=== PATIENT | male | born 1970 | race Caucasian/White ===

== ENCOUNTER 2016-02-13 21:57 | Inpatient (IN) | payer MEDICAID ==
[~2016-02-13] VITALS: Ht 170.2 cm; Wt 60.0 kg
[~2016-02-13 21:57] MED LIST: OXYC-392 PO; REGL10TA5 PO
[2016-02-13 22:08] VITALS: BP 145/85; PULSE 92; RESP 16; TEMP 98.1; O2SAT 96
[2016-02-14] MEDS ORDERED: SODIUM CHLOR 0.9% 1000 ML INJ 1,000 ML IV SCH ×2 (00:37→01:59)
--- NOTE | 2016-02-14 00:40 | PD ---
HPI Chief Complaint: Abdominal Pain Time Seen by Provider: 00:32 Travel History International Travel<30 days: No Contact w/Intl Traveler<30days: No Traveled to known affect area: No History of Present Illness HPI The patient's 45 years old. He has generalized abdominal pain associated with nausea vomiting and anorexia. Duration has been a few days now. He's had no fever. He has a therapy dog which he states is helpful with pain and anxiety. Any oral intake tends to precipitate vomiting. He's had no diarrhea. Pain is moderate to severe. patient states she is a gastroenterology appointment scheduled in about 2 weeks. He follows with Dr. Pablo in [place]. [facility] Past Medical History Hx Anticoagulant Therapy: Yes (PLAVIX, COUMADIN) Arthritis: No Asthma: No Autoimmune Disease: No Blood Disorders: No Anxiety: Yes Depression: Yes Heart Rhythm Problems: No Cancer: No Cardiac Catheterization: Yes Cardiovascular Problems: Yes (HTN) High Cholesterol: Yes Chemotherapy: No Chest Pain: Yes Congestive Heart Failure: Yes COPD: No Cerebrovascular Accident: No Coronary Artery Disease: Yes Diabetes: Yes Diminished Hearing: No Endocrine: Yes (TYPE 2 DIABETIC) Gastrointestinal Disorders: Yes (GASTROPARESIS) GERD: No Glaucoma: No Genitourinary: No Headaches: No Hepatitis: No Hiatal Hernia: Yes Hypertension: Yes Immune Disorder: No Implanted Vascular Access Dvce: Yes Kidney Stones: No Musculoskeletal: No Neurologic: Yes (NEUROPATHY) Psychiatric: No Reproductive: No Respiratory: No Integumentary: No Immunizations Current: Yes Migraines: No Myocardial Infarction: Yes (JULY 2012) Pancreatitis: Yes (CHRONIC) Radiation Therapy: No Seizures: No Sleep Apnea: No Thyroid Disease: No Ulcer: No Past Surgical History Abdominal Surgery: Yes (UMBILICAL HERNIA-2004, GALLBLADDER REMOVED 2013) Body Medical Devices: PLATE IN RIGHT WRIST, 3 CARDIAC STENTS Cardiac Surgery: Yes (3 STENTS LAST CARDIAC CATH 05/25) Cholecystectomy: Yes (06/03/13) Coronary Artery Bypass Graft: No Coronary Stent: Yes (x 3 in 07/22) Eye Surgery: Yes (CHON LENS IMPLANTS) Neurologic Surgery: No Oral Surgery: Yes (WISDOM TEETH) Pacemaker: No Other Surgery: Yes (IMPLANT EYE LENSES (), WRIST PLATE(), HERNIA (), 3 STENTS(2012)) Family History Family Hypercholesterolemia: Yes Social History Alcohol Use: No Tobacco Use: Yes (1 PPD) Substance Use: Yes (MARIJUANA) Allergies-Medications (Allergen,Severity, Reaction): Coded Allergies: No Known Allergies (Verified , 02/13/16) Reported Meds & Prescriptions Reported Meds & Active Scripts Active Oxycodone (Oxycodone HCl) 5 Mg Tab 5 Mg PO Q8H PRN Reglan (Metoclopramide HCl) 10 Mg Tab 10 Mg PO TIDAC PRN Reported Lyrica (Pregabalin) 75 Mg Cap 75 Mg PO TID Seroquel (Quetiapine Fumarate) 300 Mg Tab 300 Mg PO HS Aspirin EC (Aspirin) 81 Mg Tabdr 81 Mg PO DAILY Plavix (Clopidogrel Bisulfate) 75 Mg Tab 75 Mg PO DAILY Zofran (Ondansetron HCl) 4 Mg Tab 4 Mg PO Q6HR PRN Review of Systems Except as stated in HPI: all other systems reviewed are Neg Physical Exam Narrative GENERAL: Pleasant 45-year-old male well-nourished well-developed SKIN: Warm and dry. HEAD: Atraumatic. Normocephalic. EYES: Pupils equal and round. No scleral icterus. No injection or drainage. ENT: No nasal bleeding or discharge. Mucous membranes pink and moist. NECK: Trachea midline. No JVD. CARDIOVASCULAR: Regular rate and rhythm. No murmur appreciated. RESPIRATORY: No accessory muscle use. Clear to auscultation. Breath sounds equal bilaterally. GASTROINTESTINAL: Minimal nonspecific tenderness. Soft. MUSCULOSKELETAL: No obvious deformities. No clubbing. No cyanosis. No edema. NEUROLOGICAL: Awake and alert. No obvious cranial nerve deficits. Motor grossly within normal limits. Normal speech. PSYCHIATRIC: Appropriate mood and affect; insight and judgment normal. Data Data Last Documented VS Vital Signs Date Time Temp Pulse Resp B/P Pulse Ox O2 Delivery O2 Flow Rate FiO2 02/13/16 22:08 98.1 92 16 145/85 96 Room Air Orders Complete Blood Count With Diff (02/14/16 00:37) Comprehensive Metabolic Panel (02/14/16 00:37) Lipase (02/14/16 00:37) Iv Access Insert/Monitor (02/14/16 00:37) Ecg Monitoring (02/14/16 00:37) Oximetry (02/14/16 00:37) Sodium Chlor 0.9% 1000 Ml Inj (Ns 1000 M (02/14/16 00:37) Sodium Chloride 0.9% Flush (Ns Flush) (02/14/16 00:45) Morphine Inj (Morphine Inj) (02/14/16 00:45) Al-Mag Hy-Si 40-40-4 Mg/Ml Liq (Mag-Al P (02/14/16 00:45) Lidocaine 2% Viscous (Xylocaine 2% Visco (02/14/16 00:45) Prochlorperazine Inj (Compazine Inj) (02/14/16 00:45) Sodium Chlor 0.9% 1000 Ml Inj (Ns 1000 M (02/14/16 02:00) Insulin Human Regular Inj (Novolin R Inj (02/14/16 02:00) Labs Laboratory Tests Test 02/14/16 00:50 White Blood Count 15.0 TH/MM3 Red Blood Count 5.62 MIL/MM3 Hemoglobin 17.1 GM/DL Hematocrit 48.5 % Mean Corpuscular Volume 86.4 FL Mean Corpuscular Hemoglobin 30.4 PG Mean Corpuscular Hemoglobin 35.2 % Concent Red Cell Distribution Width 16.0 % Platelet Count 215 TH/MM3 Mean Platelet Volume 9.5 FL Neutrophils (%) (Auto) 79.8 % Lymphocytes (%) (Auto) 12.2 % Monocytes (%) (Auto) 5.9 % Eosinophils (%) (Auto) 1.2 % Basophils (%) (Auto) 0.9 % Neutrophils # (Auto) 12.0 TH/MM3 Lymphocytes # (Auto) 1.8 TH/MM3 Monocytes # (Auto) 0.9 TH/MM3 Eosinophils # (Auto) 0.2 TH/MM3 Basophils # (Auto) 0.1 TH/MM3 CBC Comment AUTO DIFF Differential Total Cells 100 Counted Neutrophils % (Manual) 83 % Band Neutrophils % 3 % Lymphocytes % 4 % Monocytes % 7 % Eosinophils % 1 % Neutrophils # (Manual) 13.2 TH/MM3 Metamyelocytes 1 % Myelocytes 1 % Differential Comment FINAL DIFF MANUAL Toxic Vacuolation PRESENT Platelet Estimate NORMAL Platelet Morphology Comment NORMAL Red Cell Morphology Comment NORMAL Sodium Level 136 MEQ/L Potassium Level 4.6 MEQ/L Chloride Level 102 MEQ/L Carbon Dioxide Level 24.8 MEQ/L Anion Gap 9 MEQ/L Blood Urea Nitrogen 15 MG/DL Creatinine 0.85 MG/DL Estimat Glomerular Filtration 98 ML/MIN Rate Random Glucose 491 MG/DL Calcium Level 8.8 MG/DL Total Bilirubin 0.5 MG/DL Aspartate Amino Transf 43 U/L (AST/SGOT) Alanine Aminotransferase 19 U/L (ALT/SGPT) Alkaline Phosphatase 110 U/L Total Protein 6.7 GM/DL Albumin 3.1 GM/DL Lipase 1496 U/L MDM Medical Decision Making Medical Screen Exam Complete: Yes Emergency Medical Condition: Yes Medical Record Reviewed: Yes Differential Diagnosis Constipation, Gastritis, Acute Cholecystitis, Biliary Colic, Pancreatitis, TURCIOS , Hepatitis, Bowel Obstruction, Cystitis, Mesenteric Ischemia, AAA, Appendicitis , Renal Stone/Hydronephrosis, GERD, perforated viscous Narrative Course CBC & BMP Diagram 02/14/16 00:50 Lipase 1496 LFTs essentially normal Anion gap is 9 The patient will be admitted for IV hydration and pain control. He has pancreatitis and hyperglycemia without anion gap. 2 L normal saline and 10 units insulin administered. Morphine and Compazine also given. Case discussed with Dr. Roberts. Diagnosis Primary Impression: Pancreatitis Qualified Code: K86.1 - Chronic pancreatitis, unspecified pancreatitis type Additional Impression: Hyperglycemia Admitting Information Admitting Physician Requests: Admit Disposition: DISCHARGE HOME Condition: Stable Roni Zavala MD Feb 14, 2016 00:40
[2016-02-14] MEDS ORDERED: SODIUM CHLORIDE 0.9% FLUSH 5 ML FLUSH IVF PRN (00:45)
[2016-02-14] MEDS ORDERED: MORPHINE SULFATE 8 MG/ML INJ IV PUSH ONE (00:45)
[2016-02-14] MEDS ORDERED: ALUMINUM/MAGNESIUM/SIMETH 30 ML CUP PO ONE (00:45)
[2016-02-14] MEDS ORDERED: PROCHLORPERAZINE INJ 10 MG/2 ML VIAL IVS ONE (00:45)
[2016-02-14] MEDS ORDERED: LIDOCAINE VISCOUS 2% SOLN 15 ML UDC PO ONE (00:45)
[2016-02-14] MEDS ORDERED: ZOFR4TAB PO (00:47)
[2016-02-14] MEDS ORDERED: SERO300T PO (00:47)
[2016-02-14] MEDS ORDERED: LYRI75CA PO (00:47)
[2016-02-14] MEDS ORDERED: PLAV75TA29 PO (00:47)
[2016-02-14] MEDS ORDERED: ASPI81TA11 PO (00:47)
[2016-02-14 01:06] LABS: BASOPHIL # 0.1 TH/MM3 (0-0.2); BASOPHIL % 0.9 % (0.0-2.0); EOSINOPHIL # 0.2 TH/MM3 (0-0.4); EOSINOPHIL % 1.2 % (0.0-4.0); HEMATOCRIT 48.5 % (39.0-51.0); LYMPH % 12.2 % (9.0-44.0); LYMPHOCYTE # 1.8 TH/MM3 (1.0-4.8); MEAN CELL VOLUME 86.4 FL (80.0-100.0); MEAN CORPUSCULAR HEMOGLOBIN 30.4 PG (27.0-34.0); MEAN CORPUSCULAR HGB CONC 35.2 % (32.0-36.0); MONO % 5.9 % (0.0-8.0); NEUT % 79.8 % (16.0-70.0); PLATELET COUNT 215 TH/MM3 (150-450); RED BLOOD COUNT 5.62 MIL/MM3 (4.50-5.90)
[2016-02-14 01:32] LABS: HEMO FLAGS AUTO DIFF
[2016-02-14 01:35] LABS: BANDS 3 % (0-6); EOSINOPHILS 1 % (0-4); METAMYELOCYTES 1 % (0-1); MYELOCYTES 1 % (0-0); NEUTROPHIL # MANUAL DIFF 13.2 TH/MM3 (1.8-7.7); POLYS (SEG NEUTROPHILS) 83 % (16-70); WBC DIFF SAMPLE 100
[2016-02-14 01:36] LABS: PLATELET ESTIMATE SMEAR NORMAL (NORMAL); PLATELET MORPHOLOGY NORMAL (NORMAL); SCAN/DIFF FINAL DIFF MANUAL; TOXIC VACUOLATION PRESENT (NONE SEEN)
[2016-02-14 01:43] LABS: ALKALINE PHOSPHATASE 110 U/L (45-117); ALT (GPT) 19 U/L (12-78); ANION GAP 9 MEQ/L (5-15); AST (GOT) 43 U/L (15-37); BICARBONATE 24.8 MEQ/L (21.0-32.0); BLOOD UREA NITROGEN 15 MG/DL (7-18); CHLORIDE 102 MEQ/L (98-107); GLOMERULAR FILTRATION RATE 98 ML/MIN (>89); POTASSIUM 4.6 MEQ/L (3.5-5.1); SODIUM (NA) 136 MEQ/L (136-145); TOTAL BILIRUBIN ADULT 0.5 MG/DL (0.2-1.0)
[2016-02-14] MEDS ORDERED: MAGNESIUM HYDROXIDE SUSP 30 ML CUP PO PRN (02:00)
[2016-02-14] MEDS ORDERED: BISACODYL 10 MG SUPP PR PRN (02:00)
[2016-02-14] MEDS ORDERED: ONDANSETRON HCL 4 MG/2 ML VIAL IVP PRN (02:00)
[2016-02-14] MEDS ORDERED: SENNOSIDES 8.6 MG TAB PO PRN (02:00)
[2016-02-14] MEDS ORDERED: SODIUM CHLOR 0.9% 1000 ML INJ 1,000 ML IV ONE (02:00)
[2016-02-14] MEDS ORDERED: PROCHLORPERAZINE 25 MG SUPP PR PRN (02:00)
[2016-02-14] MEDS ORDERED: ENOXAPARIN SODIUM 40 MG/0.4 ML SYRINGE SQ SCH (02:00)
[2016-02-14] MEDS ORDERED: ACETAMINOPHEN 325 MG TAB PO PRN (02:00)
[2016-02-14] MEDS ORDERED: SODIUM CHLORIDE 0.9% FLUSH 5 ML FLUSH FLUSH PRN (02:00)
[2016-02-14] MEDS ORDERED: TEMAZEPAM 15 MG CAP PO PRN (02:00)
[2016-02-14] MEDS ORDERED: INSULIN HUMAN REGULAR 1,000 UNITS/10 ML VIAL IV PUSH ONE (02:00)
--- NOTE | 2016-02-14 02:11 | HHI.HP ---
HPI Service [facility] Primary Care Physician Mohsen Pablo Admission Diagnosis Acute on Chronic Pancreatitis, Hyperglycemia Diagnoses: Chief Complaint: abdominal pain Travel History International Travel<30 Days: No Contact w/Intl Traveler <30 Da: No Traveled to Known Affected Are: No History of Present Illness The patient is a 45 years old male with PMH of pancreatis, COPD. He came to ED for evaluation of generalized abdominal pain associated with nausea, vomiting and anorexia. Duration has been a few days now. He was note able to eat for the past 2-3 days. He was also started vomiting yesterday 6 times, NBNB. He's had no fever. He has a therapy dog which he states is helpful with pain and anxiety. Any oral intake tends to precipitate vomiting. He's had no diarrhea. Pain is moderate to severe. patient states she is a gastroenterology appointment scheduled in about 2 weeks. He follows with Dr. Pablo in [place]. Review of Systems Constitutional: DENIES: Fever, Chills, Change in appetite Endocrine: DENIES: Heat/cold intolerance Eyes: DENIES: Blurred vision, Eye pain Ears, nose, mouth, throat: DENIES: Tinnitus, Hearing loss, Vertigo, Nasal discharge, Oral lesions, Throat pain, Hoarseness, Ear Pain, Running Nose, Epistaxis, Sinus Pain, Toothache, Odynophagia Respiratory: DENIES: Apneas, Cough, Snoring, Wheezing, Hemoptysis, Sputum production, Shortness of breath Cardiovascular: DENIES: Chest pain, Palpitations, Syncope, Dyspnea on Exertion , PND, Lower Extremity Edema, Orthopnea, Claudication Gastrointestinal: COMPLAINS OF: Abdominal pain, Nausea, Vomiting, DENIES: Black stools, Bloody stools, Constipation, Diarrhea, Difficulty Swallowing, Anorexia Genitourinary: DENIES: Urgency, Hematuria, Dysuria Musculoskeletal: COMPLAINS OF: Joint pain Integumentary: DENIES: Rash Neurologic: DENIES: Abnormal gait, Headache, Localized weakness, Paresthesias, Seizures, Speech Problems, Tremor, Poor Balance Psychiatric: DENIES: Anxiety, Depression Past Family Social History Past Medical History Diabetes, on insulin. Hypertension. Hyperlipidemia. Coronary artery disease. History of gastroparesis Peripheral neuropathy. There is a prior history of pancreatitis. 05/23 NSTEMI, S/P cath, stent to OM Past Surgical History Significant for multiple cardiac catheterizations with previous stenting, 05/23 , with stent to OM Cholecystectomy. Cataract surgery with intraocular lens implantation. Recent endoscopy March 2015 that showed evidence of esophagitis. Mild gastritis. History of duodenitis. Reported Medications Reported Meds & Active Scripts Active Oxycodone (Oxycodone HCl) 5 Mg Tab 5 Mg PO Q8H PRN Reglan (Metoclopramide HCl) 10 Mg Tab 10 Mg PO TIDAC PRN Reported Lyrica (Pregabalin) 75 Mg Cap 75 Mg PO TID Seroquel (Quetiapine Fumarate) 300 Mg Tab 300 Mg PO HS Aspirin EC (Aspirin) 81 Mg Tabdr 81 Mg PO DAILY Plavix (Clopidogrel Bisulfate) 75 Mg Tab 75 Mg PO DAILY Zofran (Ondansetron HCl) 4 Mg Tab 4 Mg PO Q6HR PRN Allergies: Coded Allergies: No Known Allergies (Verified , 02/14/16) Family History Brother at the age of 26 due to stroke. Father in his late 40's due to myocardial infarction, he had a stoke also. Mother is obese, she is living. Patient is on disability due to his heart problems. Social History Chronic smoker, who unfortunately continues to smoke one pack per day, cut down to half recently. He use to drink alcohol in the past, he stopped drinking now. Denies any intravenous drug use. Occasional marijuana use. Physical Exam Vital Signs Vital Signs Date Time Temp Pulse Resp B/P Pulse Ox O2 Delivery O2 Flow Rate FiO2 02/13/16 22:08 98.1 92 16 145/85 96 Room Air Physical Exam GENERAL: This is a well-nourished, well-developed patient, in no apparent distress. SKIN: No rashes, ecchymoses or lesions. Cool and dry. HEAD: Atraumatic. Normocephalic. No temporal or scalp tenderness. EYES: Pupils equal round and reactive. Extraocular motions intact. No scleral icterus. No injection or drainage. ENT: Nose without bleeding, purulent drainage or septal hematoma. Throat without erythema, tonsillar hypertrophy or exudate. Uvula midline. Airway patent. NECK: Trachea midline. No JVD or lymphadenopathy. Supple, nontender, no meningeal signs. CARDIOVASCULAR: Regular rate and rhythm without murmurs, gallops, or rubs. RESPIRATORY: Clear to auscultation. Breath sounds equal bilaterally. No wheezes , rales, or rhonchi. GASTROINTESTINAL: Abdomen soft, tender epigastric and mid abdomen, nondistended. No hepato-splenomegaly, or palpable masses. No guarding. MUSCULOSKELETAL: Extremities without clubbing, cyanosis, or edema. No joint tenderness, effusion, or edema noted. No calf tenderness. Negative Homans sign bilaterally. NEUROLOGICAL: Awake and alert. Cranial nerves II through XII intact. Motor and sensory grossly within normal limits. Five out of 5 muscle strength in all muscle groups. Normal speech. Laboratory Laboratory Tests Test 02/14/16 00:50 White Blood Count 15.0 Red Blood Count 5.62 Hemoglobin 17.1 Hematocrit 48.5 Mean Corpuscular Volume 86.4 Mean Corpuscular Hemoglobin 30.4 Mean Corpuscular Hemoglobin 35.2 Concent Red Cell Distribution Width 16.0 Platelet Count 215 Mean Platelet Volume 9.5 Neutrophils (%) (Auto) 79.8 Lymphocytes (%) (Auto) 12.2 Monocytes (%) (Auto) 5.9 Eosinophils (%) (Auto) 1.2 Basophils (%) (Auto) 0.9 Neutrophils # (Auto) 12.0 Lymphocytes # (Auto) 1.8 Monocytes # (Auto) 0.9 Eosinophils # (Auto) 0.2 Basophils # (Auto) 0.1 CBC Comment AUTO DIFF Differential Total Cells 100 Counted Neutrophils % (Manual) 83 Band Neutrophils % 3 Lymphocytes % 4 Monocytes % 7 Eosinophils % 1 Neutrophils # (Manual) 13.2 Metamyelocytes 1 Myelocytes 1 Differential Comment FINAL DIFF MANUAL Toxic Vacuolation PRESENT Platelet Estimate NORMAL Platelet Morphology Comment NORMAL Red Cell Morphology Comment NORMAL Sodium Level 136 Potassium Level 4.6 Chloride Level 102 Carbon Dioxide Level 24.8 Anion Gap 9 Blood Urea Nitrogen 15 Creatinine 0.85 Estimat Glomerular Filtration 98 Rate Random Glucose 491 Calcium Level 8.8 Total Bilirubin 0.5 Aspartate Amino Transf 43 (AST/SGOT) Alanine Aminotransferase 19 (ALT/SGPT) Alkaline Phosphatase 110 Total Protein 6.7 Albumin 3.1 Lipase 1496 Result Diagram: 02/14/16 0050 02/14/16 0050 Assessment and Plan Assessment and Plan Abdominal pain 2/2 Pancreatitis ( acute on chronic) Uncontrolled DM. ISS. Accucheck H.o CAD with stents in the past, continue home meds. Lipase of 1496 on admission, repeat level in the morning BS of 491 at admission, no AG. Accuchecks , ISS, check A1c. Start IVDF at 125 cc /h , watch fir fluid overload Pain meds per pain scale PO and IV as tolerated Antiemetics, /laxatives as need. NPO , advance diet as tolerated to CLD DVT ppx lovenox/SCD.//TEDs Code Status full Discussed Condition With patient, nurse, ED physician Dr Roni Chin Physician Certification 2 Midnight Certification Type: Admission for Inpatient Services Order for Inpatient Services The services are ordered in accordance with Medicare regulations or non- Medicare payer requirements, as applicable. In the case of services not specified as inpatient-only, they are appropriately provided as inpatient services in accordance with the 2-midnight benchmark. Estimated LOS (days): 3 days is the estimated time the patient will need to remain in the hospital, assuming treatment plan goals are met and no additional complications. Post-Hospital Plan: Home Alanis Roberts MD Feb 14, 2016 02:11
[2016-02-14] MEDS ORDERED: HYDROmorphone HCL PF 1 MG/ML VIAL IV PRN ×3 (02:15)
[2016-02-14] MEDS ORDERED: ACETAMINOPHEN/HYDROcodone 325 MG/5 MG TAB PO PRN (02:15)
[2016-02-14] MEDS ORDERED: ACETAMINOPHEN/HYDROcodone 325 MG/10 MG TAB PO PRN (02:15)
[2016-02-14] MEDS ORDERED: NALOXONE HCL 0.4 MG/ML AMP IV PRN (02:15)
[2016-02-14] MEDS ORDERED: SODIUM CHLORIDE 0.9% FLUSH 5 ML FLUSH FLUSH SCH (09:00)
[2016-02-15] MEDS ORDERED: OXYC1TAB36 PO (10:12)
== END 2016-02-14 02:25 | disposition left against medical advice (07) | DRG 440 ==
LOC: NEPC 21:57 → NEDA 02-14 01:57
PROVIDERS: ADMIT Hospitalist; ATTEND Hospitalist
DX: K85.90 Acute pancreatitis without necrosis or infection, unspecified (principal); I50.9 Heart failure, unspecified; K31.84 Gastroparesis; E11.43 Type 2 diabetes mellitus with diabetic autonomic (poly)neuropathy; E11.65 Type 2 diabetes mellitus with hyperglycemia; J44.9 Chronic obstructive pulmonary disease, unspecified; K86.1 Other chronic pancreatitis; F41.9 Anxiety disorder, unspecified; I10 Essential (primary) hypertension; E78.00 Pure hypercholesterolemia, unspecified; I25.10 Atherosclerotic heart disease of native coronary artery without angina pectoris; F32.9 Major depressive disorder, single episode, unspecified; I25.2 Old myocardial infarction; Z95.5 Presence of coronary angioplasty implant and graft; K44.9 Diaphragmatic hernia without obstruction or gangrene; F17.210 Nicotine dependence, cigarettes, uncomplicated; R63.0 Anorexia; E78.5 Hyperlipidemia, unspecified; F12.90 Cannabis use, unspecified, uncomplicated
CPT/HCPCS: 80053; 83690; 85007; 85027; 96374; 96375; J0780; J1815; J2270; J7030

== ENCOUNTER 2016-02-14 04:20 | Inpatient (IN) | payer MEDICAID ==
[2016-02-14] VITALS (9 sets, daily range): BP systolic 99–176; BP diastolic 64–107; PULSE 73–86; RESP 16–20; TEMP 96.6–98; O2SAT 90–100
[~2016-02-14] VITALS: Ht 170.2 cm; Wt 59.4 kg
[~2016-02-14 04:20] MED LIST changes: +ASPI81TA11 PO; +LYRI75CA PO; +PLAV75TA29 PO; +SERO300T PO; +ZOFR4TAB PO
[2016-02-14] MEDS: SODIUM CHLOR 0.9% 1000 ML INJ 1,000 ML IV SCH ×3 (04:43→20:59)
[2016-02-14] MEDS ORDERED: METOCLOPRAMIDE HCL 10 MG TAB PO PRN (04:45)
[2016-02-14] MEDS ORDERED: BISACODYL 10 MG SUPP PR PRN (04:45)
[2016-02-14] MEDS ORDERED: TEMAZEPAM 15 MG CAP PO PRN (04:45)
[2016-02-14] MEDS ORDERED: SENNOSIDES 8.6 MG TAB PO PRN (04:45)
[2016-02-14] MEDS ORDERED: MAGNESIUM HYDROXIDE SUSP 30 ML CUP PO PRN (04:45)
[2016-02-14] MEDS ORDERED: ACETAMINOPHEN 325 MG TAB PO PRN ×2 (04:45→05:00)
[2016-02-14] MEDS ORDERED: SODIUM CHLOR 0.9% 1000 ML INJ 1,000 ML IV ONE (04:45)
[2016-02-14] MEDS ORDERED: GLUCAGON 1 MG/ML VIAL OTHER PRN (04:45)
[2016-02-14] MEDS ORDERED: PROCHLORPERAZINE 25 MG SUPP PR PRN (04:45)
[2016-02-14] MEDS ORDERED: SODIUM CHLORIDE 0.9% FLUSH 5 ML FLUSH FLUSH PRN (04:45)
[2016-02-14] MEDS ORDERED: DEXTROSE 50% IN WATER 50 ML VIAL(D50) IV PUSH PRN (04:45)
--- NOTE | 2016-02-14 04:46 | HHI.HP ---
[facility] [place] [facility] Mohsen Pablo Admission Diagnosis Diagnoses: Chief Complaint: abdominal pain , nausea/ vomiting Travel History International Travel<30 Days: No Contact w/Intl Traveler <30 Da: No Traveled to Known Affected Are: No History of Present Illness 45 yo male with h/o pancreatitis, came to the ED earlier today with c/o abdominal pain. Patient was found with pancreatities with elevated lipase and LFTs. Patient was admitted to the hospital however he left AMA. He returned to the ED with abdominal pain. Says he did receive some pain meds that helped in the ED. Says n/v is better. Mo fever or chills. No cp, sob, diaphoresis. Review of Systems Constitutional: DENIES: Fever, Chills, Change in appetite Endocrine: DENIES: Heat/cold intolerance Eyes: DENIES: Blurred vision, Eye pain Ears, nose, mouth, throat: DENIES: Tinnitus, Hearing loss, Vertigo, Nasal discharge, Oral lesions, Throat pain, Hoarseness, Ear Pain, Running Nose, Epistaxis, Sinus Pain, Toothache, Odynophagia Respiratory: DENIES: Apneas, Cough, Snoring, Wheezing, Hemoptysis, Sputum production, Shortness of breath Cardiovascular: DENIES: Chest pain, Palpitations, Syncope, Dyspnea on Exertion , PND, Lower Extremity Edema, Orthopnea, Claudication Gastrointestinal: COMPLAINS OF: Abdominal pain, Nausea, Vomiting, DENIES: Black stools, Bloody stools, Constipation, Diarrhea, Difficulty Swallowing, Anorexia Genitourinary: DENIES: Urgency, Hematuria, Dysuria Musculoskeletal: COMPLAINS OF: Joint pain Integumentary: DENIES: Rash Neurologic: DENIES: Abnormal gait, Headache, Localized weakness, Paresthesias, Seizures, Speech Problems, Tremor, Poor Balance Psychiatric: DENIES: Anxiety, Depression Past Family Social History Past Medical History Diabetes, on insulin. Hypertension. Hyperlipidemia. Coronary artery disease. History of gastroparesis Peripheral neuropathy. There is a prior history of pancreatitis. 05/23 NSTEMI, S/P cath, stent to OM Past Surgical History Significant for multiple cardiac catheterizations with previous stenting, 05/23 , with stent to OM Cholecystectomy. Cataract surgery with intraocular lens implantation. Recent endoscopy March 2015 that showed evidence of esophagitis. Mild gastritis. History of duodenitis. Allergies: Coded Allergies: No Known Allergies (Verified , 02/14/16) Family History Brother at the age of 26 due to stroke. Father in his late 40's due to myocardial infarction, he had a stoke also. Mother is obese, she is living. Patient is on disability due to his heart problems. Social History Chronic smoker, who unfortunately continues to smoke one pack per day, cut down to half recently. He use to drink alcohol in the past, he stopped drinking now. Denies any intravenous drug use. Occasional marijuana use. Physical Exam Vital Signs Vital Signs Date Time Temp Pulse Resp B/P Pulse Ox O2 Delivery O2 Flow Rate FiO2 02/14/16 04:25 98.0 86 18 99/68 95 Physical Exam GENERAL: This is a well-nourished, well-developed patient, in no apparent distress. SKIN: No rashes, ecchymoses or lesions. Cool and dry. HEAD: Atraumatic. Normocephalic. No temporal or scalp tenderness. EYES: Pupils equal round and reactive. Extraocular motions intact. No scleral icterus. No injection or drainage. ENT: Nose without bleeding, purulent drainage or septal hematoma. Throat without erythema, tonsillar hypertrophy or exudate. Uvula midline. Airway patent. NECK: Trachea midline. No JVD or lymphadenopathy. Supple, nontender, no meningeal signs. CARDIOVASCULAR: Regular rate and rhythm without murmurs, gallops, or rubs. RESPIRATORY: Clear to auscultation. Breath sounds equal bilaterally. No wheezes , rales, or rhonchi. GASTROINTESTINAL: Abdomen soft, diffuse tenderness, more epigastric tenderness, nondistended. No hepato-splenomegaly, or palpable masses. No guarding. MUSCULOSKELETAL: Extremities without clubbing, cyanosis, or edema. No joint tenderness, effusion, or edema noted. No calf tenderness. Negative Homans sign bilaterally. NEUROLOGICAL: Awake and alert. Cranial nerves II through XII intact. Motor and sensory grossly within normal limits. Five out of 5 muscle strength in all muscle groups. Normal speech. Assessment and Plan Assessment and Plan Abdominal pain 2/2 Pancreatitis ( acute on chronic) Uncontrolled DM H.o CAD with stents in the past, continue home meds. Lipase of 1496 on admission, repeat level in the morning BS of 491 at admission, no AG. Accuchecks , ISS, check A1c. Start IVDF at 125 cc /h , watch fir fluid overload Pain meds per pain scale PO and IV as tolerated Antiemetics, /laxatives as need. NPO , advance diet as tolerated to CLD DVT ppx lovenox/SCD.//TEDs Code Status full Discussed Condition With patient, nurse, Dr Solano ED physician Physician Certification 2 Midnight Certification Type: Admission for Inpatient Services Order for Inpatient Services The services are ordered in accordance with Medicare regulations or non- Medicare payer requirements, as applicable. In the case of services not specified as inpatient-only, they are appropriately provided as inpatient services in accordance with the 2-midnight benchmark. Estimated LOS (days): 3 days is the estimated time the patient will need to remain in the hospital, assuming treatment plan goals are met and no additional complications. Post-Hospital Plan: Home Alanis Roberts MD Feb 14, 2016 04:46
[2016-02-14] MEDS: ENOXAPARIN SODIUM 40 MG/0.4 ML SYRINGE SQ SCH (04:53)
[2016-02-14] MEDS: ONDANSETRON HCL 4 MG/2 ML VIAL IVP PRN (04:53)
--- NOTE | 2016-02-14 04:56 | PD ---
HPI Chief Complaint: Abnormal Results Time Seen by Provider: 04:35 Travel History International Travel<30 days: No Contact w/Intl Traveler<30days: No Traveled to known affect area: No History of Present Illness HPI 45-year-old male came to the emergency room brought by EMS for abdominal pain. She was in the emergency room earlier and left against medical advise for the same complain and was diagnosed with acute pancreatitis. He wanted to go home and take care of his dog and come back for admission. All the blood test were done and his lipase was 1700. Patient was not in DKA. Currently he is complaining of abdominal pain and wants something for pain. PFSH Past Medical History Narrative Medical List of his past medical history as reviewed from the nursing note. Hx Anticoagulant Therapy: Yes (PLAVIX, COUMADIN) Arthritis: No Asthma: No Autoimmune Disease: No Blood Disorders: No Anxiety: Yes Depression: Yes Heart Rhythm Problems: No Cancer: No Cardiac Catheterization: Yes Cardiovascular Problems: Yes (HTN) High Cholesterol: Yes Chemotherapy: No Chest Pain: Yes Congestive Heart Failure: Yes COPD: No Cerebrovascular Accident: No Coronary Artery Disease: Yes Diabetes: Yes Patient Takes Glucophage: No Diminished Hearing: No Endocrine: Yes (TYPE 2 DIABETIC) Gastrointestinal Disorders: Yes (GASTROPARESIS) GERD: No Glaucoma: No Genitourinary: No Headaches: No Hepatitis: No Hiatal Hernia: Yes Hypertension: Yes Immune Disorder: No Implanted Vascular Access Dvce: Yes Kidney Stones: No Musculoskeletal: No Neurologic: Yes (NEUROPATHY) Psychiatric: No Reproductive: No Respiratory: No Integumentary: No Immunizations Current: Yes Migraines: No Myocardial Infarction: Yes (JULY 2012) Pancreatitis: Yes (CHRONIC) Radiation Therapy: No Seizures: No Sleep Apnea: No Thyroid Disease: No Ulcer: No Influenza Vaccination: Yes Past Surgical History Abdominal Surgery: Yes (UMBILICAL HERNIA-2004, GALLBLADDER REMOVED 2013) Body Medical Devices: PLATE IN RIGHT WRIST, 3 CARDIAC STENTS Cardiac Surgery: Yes (3 STENTS LAST CARDIAC CATH 05/25) Cholecystectomy: Yes (06/03/13) Coronary Artery Bypass Graft: No Coronary Stent: Yes (x 3 in 07/22) Eye Surgery: Yes (CHON LENS IMPLANTS) Neurologic Surgery: No Oral Surgery: Yes (WISDOM TEETH) Pacemaker: No Other Surgery: Yes (IMPLANT EYE LENSES (), WRIST PLATE(), HERNIA (), 3 STENTS(2012)) Family History Family Myocardial Infarction: Yes (father and brothers- ) Family Hypercholesterolemia: Yes Social History Alcohol Use: No Tobacco Use: Yes (1 PPD) Substance Use: Yes (MARIJUANA) Allergies-Medications (Allergen,Severity, Reaction): Coded Allergies: No Known Allergies (Verified , 02/14/16) Comments No known drug allergies. Reported Meds & Prescriptions Reported Meds & Active Scripts Active Oxycodone (Oxycodone HCl) 5 Mg Tab 5 Mg PO Q8H PRN Reglan (Metoclopramide HCl) 10 Mg Tab 10 Mg PO TIDAC PRN Reported Lyrica (Pregabalin) 75 Mg Cap 75 Mg PO TID Seroquel (Quetiapine Fumarate) 300 Mg Tab 300 Mg PO HS Aspirin EC (Aspirin) 81 Mg Tabdr 81 Mg PO DAILY Plavix (Clopidogrel Bisulfate) 75 Mg Tab 75 Mg PO DAILY Zofran (Ondansetron HCl) 4 Mg Tab 4 Mg PO Q6HR PRN Narrative Medication List of his home medications reviewed from the nursing note. Review of Systems Except as stated in HPI: all other systems reviewed are Neg Physical Exam Narrative GENERAL: Awake, alert, moderate distress SKIN: Warm and dry. 2 well healing ulcers on the lateral aspect of his lower extremity close to the ankle. HEAD: Atraumatic. Normocephalic. EYES: Pupils equal and round. No scleral icterus. No injection or drainage. ENT: No nasal bleeding or discharge. Mucous membranes pink and moist. NECK: Trachea midline. No JVD. CARDIOVASCULAR: Regular rate and rhythm. No murmur appreciated. RESPIRATORY: No accessory muscle use. Clear to auscultation. Breath sounds equal bilaterally. GASTROINTESTINAL: Abdomen soft, non-tender, nondistended. Hepatic and splenic margins not palpable. MUSCULOSKELETAL: No obvious deformities. No clubbing. No cyanosis. No edema. NEUROLOGICAL: Awake and alert. No obvious cranial nerve deficits. Motor grossly within normal limits. Normal speech. PSYCHIATRIC: Appropriate mood and affect; insight and judgment normal. Data Data Last Documented VS Vital Signs Date Time Temp Pulse Resp B/P Pulse Ox O2 Delivery O2 Flow Rate FiO2 02/14/16 04:25 98.0 86 18 99/68 95 Orders Admit To Inpatient (02/14/16 ) Code Status (02/14/16 04:32) Vital Signs (Adult) Q4H (02/14/16 04:32) Activity Oob With Assistance (02/14/16 04:32) Intake + Output STELLA.QSHIFT (02/14/16 04:32) Sodium Chlor 0.9% 1000 Ml Inj (Ns 1000 M (02/14/16 04:32) Sodium Chloride 0.9% Flush (Ns Flush) (02/14/16 04:45) Sodium Chloride 0.9% Flush (Ns Flush) (02/14/16 09:00) Acetaminophen (Tylenol) (02/14/16 04:45) Ondansetron Inj (Zofran Inj) (02/14/16 04:45) Prochlorperazine Supp (Compazine Supp) (02/14/16 04:45) Bisacodyl Supp (Dulcolax Supp) (02/14/16 04:45) Magnesium Hydroxide Liq (Milk Of Magnesi (02/14/16 04:45) Sennosides (Senokot) (02/14/16 04:45) Temazepam (Restoril) (02/14/16 04:45) Basic Metabolic Panel (Bmp) (02/15/16 06:00) Complete Blood Count With Diff (02/15/16 06:00) Lipase (02/15/16 06:00) Resp Oxygen Ray C Titrat 1-4 L (02/14/16 ) Pt Request For Service (02/14/16 04:32) Case Management Consult (02/14/16 04:32) Enoxaparin Inj (Lovenox Inj) (02/14/16 04:45) Scd Bilateral/Knee High STELLA.BID (02/14/16 04:32) Jj Bilateral/Knee High STELLA.QSHIFT (02/14/16 04:32) Inpatient Certification (02/14/16 ) Aspirin Ec (Ecotrin Ec) (02/14/16 09:00) Clopidogrel (Plavix) (02/14/16 09:00) Metoclopramide (Reglan) (02/14/16 04:45) Pregabalin (Lyrica) (02/14/16 09:00) Quetiapine (Seroquel) (02/14/16 21:00) Sodium Chlor 0.9% 1000 Ml Inj (Ns 1000 M (02/14/16 04:45) Bedside Glucose STELLA.AC&HS (02/14/16 04:35) ^ Blood Glucose Goal (Criteria (02/14/16 04:35) ^ Hypoglycemia 51 - 69 Mg/Dl (02/14/16 04:35) ^ Hypoglycemia 50 Mg/Dl Or < (02/14/16 04:35) ^ Notify Dr: Other (02/14/16 04:35) Dextrose 50% In Soni (Vial) Inj (D50w (Vi (02/14/16 04:45) Glucagon Inj (Glucagon Inj) (02/14/16 04:45) Insulin Aspart Supplemtl Scale (Novolog (02/14/16 07:00) Albuterol-Ipratropium Neb (Duoneb Neb) (02/14/16 05:00) Albuterol-Ipratropium Neb (Duoneb Neb) (02/14/16 06:00) Acetaminophen (Tylenol) (02/14/16 05:00) Oxycodone-Acetamin 5-325 Mg (Percocet (02/14/16 05:00) Oxycodone-Acetamin 10-325 Mg (Percocet 1 (02/14/16 05:00) Hydromorphone Pf Inj (Dilaudid Pf Inj) (02/14/16 05:00) Hydromorphone Pf Inj (Dilaudid Pf Inj) (02/14/16 05:00) Hydromorphone Pf Inj (Dilaudid Pf Inj) (02/14/16 05:00) Naloxone Inj (Narcan Inj) (02/14/16 05:00) Diet Clear Liquid (02/14/16 Breakfast) Admit Order (Ed Use Only) (02/14/16 04:51) MDM Medical Decision Making Medical Screen Exam Complete: Yes Emergency Medical Condition: Yes Medical Record Reviewed: Yes Differential Diagnosis Acute pancreatitis Narrative Course 4:55 AM I spoke with the hospitalist who already knew about this patient from his recent previous visit. She will admit the patient. I have ordered a liter of IV fluid bolus. Procedures EKG Prior to Arrival: No Diagnosis Primary Impression: Acute pancreatitis Qualified Code: K85.90 - Acute pancreatitis, unspecified complication status, unspecified pancreatitis type Admitting Information Admitting Physician Requests: Admit Scripts Oxycodone-Acetaminophen 10-325 mg Tab1 Tab PO Q6H PRN (PAIN SCALE 6 TO 10) #15 TAB Prov:Dany Velasco MD 02/15/16 Chidi Solano MD Feb 14, 2016 04:56
[2016-02-14] MEDS ORDERED: oxyCODONE/ACETAMINOPHEN 5 MG/325 MG TAB PO PRN (05:00)
[2016-02-14] MEDS ORDERED: HYDROmorphone HCL PF 1 MG/ML VIAL IV PRN (05:00)
[2016-02-14] MEDS ORDERED: RESP: ALBUTEROL 2.5 MG/IPRATROPIUM 0.5 MG NEB (PRN) NEB (05:00)
[2016-02-14] MEDS ORDERED: NALOXONE HCL 0.4 MG/ML AMP IV PRN (05:00)
[2016-02-14] MEDS: HYDROmorphone HCL PF 1 MG/ML VIAL IV PRN ×5 (05:56→21:00)
[2016-02-14 06:26] LABS: AUTOMATED NEUTROPHIL # 6.4 TH/MM3 (1.8-7.7); BASOPHIL # 0.1 TH/MM3 (0-0.2); EOSINOPHIL # 0.2 TH/MM3 (0-0.4); EOSINOPHIL % 1.8 % (0.0-4.0); HEMATOCRIT 42.1 % (39.0-51.0); HEMO FLAGS DIFF FINAL; LYMPH % 17.9 % (9.0-44.0); LYMPHOCYTE # 1.6 TH/MM3 (1.0-4.8); MEAN CELL VOLUME 85.8 FL (80.0-100.0); MEAN CORPUSCULAR HEMOGLOBIN 29.6 PG (27.0-34.0); MEAN CORPUSCULAR HGB CONC 34.5 % (32.0-36.0); MONO % 7.6 % (0.0-8.0); NEUT % 71.7 % (16.0-70.0); PLATELET COUNT 154 TH/MM3 (150-450); RED BLOOD COUNT 4.91 MIL/MM3 (4.50-5.90); RED CELL DISTRIBUTION WIDTH 15.9 % (11.6-17.2)
[2016-02-14 07:13] LABS: ALKALINE PHOSPHATASE 95 U/L (45-117); ALT (GPT) 13 U/L (12-78); ANION GAP 8 MEQ/L (5-15); AST (GOT) 9 U/L (15-37); BICARBONATE 24.6 MEQ/L (21.0-32.0); BLOOD UREA NITROGEN 13 MG/DL (7-18); CHLORIDE 107 MEQ/L (98-107); GLOMERULAR FILTRATION RATE 133 ML/MIN (>89); POTASSIUM 3.5 MEQ/L (3.5-5.1); SODIUM (NA) 140 MEQ/L (136-145); TOTAL BILIRUBIN ADULT 0.2 MG/DL (0.2-1.0)
[2016-02-14] MEDS: INSULIN ASPART SUPPLEMENTAL SCALE SQ SCH ×4 (07:31→20:04)
--- NOTE | 2016-02-14 08:22 | HHI.PR ---
Addendum to Inpatient Note Addendum Reason: Additional Documentation Additional Information Patient seen and examined in follow-up for acute pancreatitis. He still having significant abdominal pain and nausea. No vomiting. Exam: GENERAL: This is a well-nourished, well-developed patient, in no apparent distress. CARDIOVASCULAR: Normal rate and regular rhythm without murmurs, gallops, or rubs. RESPIRATORY: Good respiratory efforts. Breath sounds equal and clear to auscultation bilaterally. GASTROINTESTINAL: Abdomen soft, non-distended. Tender to palpation in the midepigastric region, Normal active bowel sounds MUSCULOSKELETAL: Extremities without cyanosis, or edema. NEURO: Alert & Oriented x4 to person, place, time, situation. Moves all ext x4 PSYCH: Appropriate mood and affect. Plan: Continue current plan of care. IV fluid, pain control -Check hemoglobin A1c. - Recheck lipase in the morning. - Advanced to clear liquid as tolerated. Dany Velasco MD Feb 14, 2016 08:22
[2016-02-14] MEDS: RESP: ALBUTEROL 2.5 MG/IPRATROPIUM 0.5 MG NEB (SCH) NEB (08:44)
[2016-02-14] MEDS: ASPIRIN EC 81 MG TABEC PO SCH (09:09)
[2016-02-14] MEDS: CLOPIDOGREL 75 MG TAB PO SCH (09:09)
[2016-02-14] MEDS: PREGABALIN 75 MG CAP PO SCH ×3 (09:09→17:07)
[2016-02-14] MEDS: SODIUM CHLORIDE 0.9% FLUSH 5 ML FLUSH FLUSH SCH ×2 (09:10→21:05)
[2016-02-14 17:27] LABS: HEMOGLOBIN A1a 1.3 %; HEMOGLOBIN A1b 1.1 %; HEMOGLOBIN Ao 75.5 %; HEMOGLOBIN F 1.7 %; HEMOGLOBIN LA1C 3.8 %; HEMOGLOBIN P3 5.8 %
[2016-02-14] MEDS: oxyCODONE/ACETAMINOPHEN 10 MG/325 MG TAB PO PRN (20:03)
[2016-02-14] MEDS: QUEtiapine FUMARATE 300 MG TAB PO SCH (21:42)
[2016-02-15] VITALS (9 sets, daily range): BP systolic 152–182; BP diastolic 90–109; PULSE 80–87; RESP 16–19; TEMP 96.7–97.9; O2SAT 97–100
[2016-02-15] MEDS: HYDROmorphone HCL PF 1 MG/ML VIAL IV PRN ×7 (00:08→21:50)
[2016-02-15] MEDS: RESP: ALBUTEROL 2.5 MG/IPRATROPIUM 0.5 MG NEB (SCH) NEB ×4 (01:03→23:40)
[2016-02-15] MEDS ORDERED: cloNIDine HCL 0.1 MG TAB PO ONE (02:45)
[2016-02-15] MEDS: ENOXAPARIN SODIUM 40 MG/0.4 ML SYRINGE SQ SCH (03:41)
[2016-02-15] MEDS: oxyCODONE/ACETAMINOPHEN 10 MG/325 MG TAB PO PRN ×5 (04:49→22:37)
[2016-02-15] MEDS: SODIUM CHLOR 0.9% 1000 ML INJ 1,000 ML IV SCH ×3 (04:50→19:03)
[2016-02-15] MEDS: INSULIN ASPART SUPPLEMENTAL SCALE SQ SCH ×5 (07:00→20:37)
[2016-02-15 07:12] LABS: AUTOMATED NEUTROPHIL # 8.7 TH/MM3 (1.8-7.7); BASOPHIL # 0.1 TH/MM3 (0-0.2); BASOPHIL % 0.9 % (0.0-2.0); EOSINOPHIL # 0.1 TH/MM3 (0-0.4); EOSINOPHIL % 1.2 % (0.0-4.0); HEMO FLAGS DIFF FINAL; LYMPH % 13.4 % (9.0-44.0); LYMPHOCYTE # 1.5 TH/MM3 (1.0-4.8); MEAN CELL VOLUME 85.9 FL (80.0-100.0); MEAN CORPUSCULAR HEMOGLOBIN 29.2 PG (27.0-34.0); MONO % 6.3 % (0.0-8.0); NEUT % 78.2 % (16.0-70.0); PLATELET COUNT 141 TH/MM3 (150-450); RED BLOOD COUNT 5.23 MIL/MM3 (4.50-5.90); RED CELL DISTRIBUTION WIDTH 16.4 % (11.6-17.2); WHITE BLOOD COUNT 11.1 TH/MM3 (4.0-11.0)
[2016-02-15 07:25] LABS: BICARBONATE 27.2 MEQ/L (21.0-32.0); POTASSIUM 4.1 MEQ/L (3.5-5.1)
[2016-02-15] MEDS: ASPIRIN EC 81 MG TABEC PO SCH (08:53)
[2016-02-15] MEDS: SODIUM CHLORIDE 0.9% FLUSH 5 ML FLUSH FLUSH SCH ×2 (08:53→20:37)
[2016-02-15] MEDS: CLOPIDOGREL 75 MG TAB PO SCH (08:53)
[2016-02-15] MEDS ORDERED: OXYC1TAB36 PO (10:12)
--- NOTE | 2016-02-15 10:12 | HHI.PR ---
Subjective Remarks Patient seen in follow-up for acute pancreatitis. He reports that the abdominal pain is still there with slight improvement compared to yesterday. He would like to try to advance his diet. Blood pressure uncontrolled this morning which patient attributed to being upset earlier. Objective Vitals Vital Signs Date Time Temp Pulse Resp B/P Pulse Ox O2 Delivery O2 Flow Rate FiO2 02/15/16 08:55 100 02/15/16 08:00 97.2 80 16 175/109 98 02/15/16 05:49 18 02/15/16 04:00 97.7 87 19 157/90 99 02/15/16 01:04 99 02/15/16 00:00 96.7 86 17 182/98 100 02/14/16 22:00 18 02/14/16 20:00 96.6 76 17 173/107 100 02/14/16 16:00 97.6 77 20 176/99 97 02/14/16 13:26 73 16 155/95 94 Room Air 02/14/16 11:50 77 16 110/65 94 Room Air 02/14/16 11:00 86 18 114/64 92 Room Air I/O 02/14/16 02/14/16 02/14/16 02/15/16 02/15/16 02/15/16 07:00 15:00 23:00 07:00 15:00 23:00 Intake Total 2080 ml 998 ml Output Total 2000 ml Balance 80 ml 998 ml Intake Oral 480 ml IV Total 1600 ml 998 ml Output Urine Total 2000 ml # Bowel Movements 0 Result Diagram: 02/15/16 0623 02/15/16 0623 Objective Remarks GENERAL: This is a well-nourished, well-developed patient, in no apparent distress. CARDIOVASCULAR: Normal rate and regular rhythm without murmurs, gallops, or rubs. RESPIRATORY: Good respiratory efforts. Breath sounds equal and clear to auscultation bilaterally. GASTROINTESTINAL: Abdomen soft, nondistended. Diffusely tender to palpation, more tender in the midepigastric region. No guarding. Normal and active bowel sounds. MUSCULOSKELETAL: Extremities without cyanosis, or edema. NEURO: Alert & Oriented x4 to person, place, time, situation. Moves all ext x4 PSYCH: Appropriate mood and affect. A/P Assessment and Plan 45-year-old male with: Acute pancreatitis: Recurrent for this patient. Lipase 1496 on admission. - Lipase level improving but symptoms persisting. - Advance diet as tolerated. Continue pain control. Antiemetics as needed. Reassess in the morning. Uncontrolled hypertension: Patient probably has undiagnosed hypertension but he denies ever being on medication for this. - We'll start lisinopril. Clonidine as needed. He is advised to follow-up with PCP. Uncontrolled diabetes: Patient reports that he follows closely with his PCP. His hemoglobin A1c is 10.5. He reports that he has an upcoming appointment with endocrinology. He reports compliant with his insulin. - Continue sliding scale insulin with Accu-Cheks. Continue home medication for chronic psychiatric problem. H.o CAD with stents in the past, continue home meds. DVT ppx: SCDs. Patient is ambulatory. Discharge Planning Can probably discharge tomorrow if blood pressure stable and symptoms from pancreatitis improved. Dany Velasco MD Feb 15, 2016 10:12
[2016-02-15] MEDS: PREGABALIN 75 MG CAP PO SCH ×3 (10:46→16:58)
[2016-02-15] MEDS ORDERED: LISINOPRIL 5 MG TAB PO SCH (11:00)
[2016-02-15] MEDS ORDERED: cloNIDine HCL 0.1 MG TAB PO PRN (13:00)
[2016-02-15] MEDS: QUEtiapine FUMARATE 300 MG TAB PO SCH (20:37)
[2016-02-16 00:34] VITALS: BP 122/78; PULSE 91; RESP 17; TEMP 96.4; O2SAT 95
[2016-02-16] MEDS: HYDROmorphone HCL PF 1 MG/ML VIAL IV PRN ×3 (00:56→06:48)
[2016-02-16] MEDS: SODIUM CHLOR 0.9% 1000 ML INJ 1,000 ML IV SCH (04:32)
[2016-02-16 04:34] VITALS: BP 144/86; PULSE 88; RESP 18; TEMP 97.8; O2SAT 96
[2016-02-16] MEDS: ENOXAPARIN SODIUM 40 MG/0.4 ML SYRINGE SQ SCH (04:43)
[2016-02-16] MEDS: oxyCODONE/ACETAMINOPHEN 10 MG/325 MG TAB PO PRN ×2 (04:43→10:36)
[2016-02-16] MEDS: INSULIN ASPART SUPPLEMENTAL SCALE SQ SCH ×2 (06:49→10:48)
[2016-02-16] MEDS: ONDANSETRON HCL 4 MG/2 ML VIAL IVP PRN (07:07)
[2016-02-16 08:00] VITALS: BP 140/89; PULSE 84; RESP 20; TEMP 97.1; O2SAT 96
[2016-02-16 08:32] LABS: BICARBONATE 30.8 MEQ/L (21.0-32.0); POTASSIUM 4.2 MEQ/L (3.5-5.1)
[2016-02-16] MEDS: ASPIRIN EC 81 MG TABEC PO SCH (08:39)
[2016-02-16] MEDS: PREGABALIN 75 MG CAP PO SCH (08:39)
[2016-02-16] MEDS: CLOPIDOGREL 75 MG TAB PO SCH (08:39)
[2016-02-16] MEDS: RESP: ALBUTEROL 2.5 MG/IPRATROPIUM 0.5 MG NEB (SCH) NEB (08:57)
[2016-02-16 08:58] VITALS: O2SAT 100
[2016-02-16] MEDS ORDERED: LISINOPRIL 10 MG TAB PO SCH (09:00)
[2016-02-16 12:00] VITALS: BP 168/99; PULSE 88; RESP 18; TEMP 96.7; O2SAT 99
--- NOTE | 2016-02-16 13:21 | HHI.DCPOC ---
Discharge Care Plan Diagnosis: (1) Acute pancreatitis (2) Chronic pain (3) Diabetes mellitus (4) Hypertension Goals to Promote Your Health * To prevent worsening of your condition and complications * To maintain your health at the optimal level Directions to Meet Your Goals Take your medications as prescribed Follow your dietary instruction Follow activity as directed Keep your appointments as scheduled Take your immunizations and boosters as scheduled If your symptoms worsen call your PCP, if no PCP go to Urgent Care Center or Emergency Room Smoking is Dangerous to Your Health. Avoid second hand smoke Call the 24-hour hour crisis hotline for domestic abuse at Dany Velasco MD Feb 16, 2016 13:21
[2016-02-16] MEDS ORDERED: LISI10TA3 PO (13:23)
--- NOTE | 2016-02-16 13:23 | HHI.DS ---
Discharge Summary Admission Date Feb 14, 2016 at 04:52 Discharge Date: Feb 16, 2016 Admitting Diagnosis (1) Acute pancreatitis ICD Code: K85.90 (2) Hypertension ICD Code: I10 (3) Diabetes mellitus ICD Code: E11.9 (4) Chronic pain ICD Code: G89.29 Procedures None Brief History - From Admission 45 yo male with h/o pancreatitis, came to the ED earlier today with c/o abdominal pain. Patient was found with pancreatities with elevated lipase and LFTs. Patient was admitted to the hospital however he left AMA. He returned to the ED with abdominal pain. Says he did receive some pain meds that helped in the ED. Says n/v is better. Mo fever or chills. No cp, sob, diaphoresis. CBC/BMP: 02/15/16 0623 02/16/16 0705 Significant Findings Laboratory Tests Test 02/14/16 02/15/16 02/16/16 06:00 06:23 07:05 Neutrophils (%) (Auto) 71.7 % 78.2 % (16.0-70.0) (16.0-70.0) Random Glucose 376 MG/DL 323 MG/DL 370 MG/DL (74-106) (74-106) (74-106) Hemoglobin A1c 10.7 % (4.3-6.0) Calcium Level 7.8 MG/DL 8.3 MG/DL (8.5-10.1) (8.5-10.1) Aspartate Amino Transf 9 U/L (15-37) (AST/SGOT) Total Protein 5.4 GM/DL (6.4-8.2) Albumin 2.7 GM/DL (3.4-5.0) White Blood Count 11.1 TH/MM3 (4.0-11.0) Platelet Count 141 TH/MM3 (150-450) Neutrophils # (Auto) 8.7 TH/MM3 (1.8-7.7) Creatinine 0.58 MG/DL (0.60-1.30) Blood Urea Nitrogen 21 MG/DL (7-18) PE at Discharge GENERAL: This is a well-nourished, well-developed patient, in no apparent distress. CARDIOVASCULAR: Normal rate and regular rhythm without murmurs, gallops, or rubs. RESPIRATORY: Good respiratory efforts. Breath sounds equal and clear to auscultation bilaterally. GASTROINTESTINAL: Abdomen soft, nondistended. Diffusely tender to palpation, more tender in the midepigastric region. No guarding. Normal and active bowel sounds. MUSCULOSKELETAL: Extremities without cyanosis, or edema. NEURO: Alert & Oriented x4 to person, place, time, situation. Moves all ext x4 PSYCH: Appropriate mood and affect. Pt update on day of discharge Patient reports that he is feeling better today. Although he still admits to having abdominal pain. He ate 100% of his breakfast with no nausea or vomiting. Hospital Course 45-year-old male admitted with acute pancreatitis this has been recurrent for the patient. Etiology unknown. Evaluation and treatment course detailed below: Acute pancreatitis: Recurrent for this patient. Lipase 1496 on admission. Lipase normalized. Patient was treated with IV fluid, pain control and antiemetics. His symptoms improved but I suspect he has some level of chronic abdominal pain. He is discharged with a limited supply of pain medication and advised to follow-up with GI. Uncontrolled hypertension: Patient probably has undiagnosed hypertension but he denies ever being on medication for this. He was started on lisinopril which controlled his blood pressure. He is given a prescription and advised to follow -up with PCP. Uncontrolled diabetes: Patient reports that he follows closely with his PCP. His hemoglobin A1c is 10.5. He reports that he has an upcoming appointment with endocrinology. He reports compliant with his insulin. Continue insulin regimen and advised him to follow-up with data mining analyst as scheduled. Continue home medication for chronic psychiatric problem. H.o CAD with stents in the past, continue home meds. Pt Condition on Discharge: Good Discharge Disposition: Discharge Home Discharge Time: <= 30 minutes Discharge Instructions DIET: Follow Instructions for: Heart Healthy Diet, Diabetic Diet Activities you can perform: Regular-No Restrictions Follow up Referrals: PCP Follow-up New Medications: Ipratropium-Albuterol Inh (Combivent Respimat Inh) 20-100 Skilled Nursing/Act Aero 1 PUFF INH QID Asthma Management #1 Ref 0 INHALER Lisinopril (Lisinopril) 10 Mg Tab 10 MG PO DAILY #30 TAB Oxycodone-Acetaminophen (Oxycodone-Acetaminophen) 10-325 mg Tab 1 TAB PO Q6H PRN PAIN SCALE 6 TO 10 #15 TAB Continued Medications: Aspirin DR (Aspirin EC) 81 Mg Tabdr 81 MG PO DAILY Ref 0 TAB Clopidogrel (Plavix) 75 Mg Tab 75 MG PO DAILY Blood Clot Prevention #30 Ref 0 TAB Metoclopramide (Reglan) 10 Mg Tab 10 MG PO TIDAC PRN NAUSEA OR VOMITING #30 Ref 0 TAB Ondansetron (Zofran) 4 Mg Tab 4 MG PO Q6HR PRN NAUSEA OR VOMITING Ref 0 TAB Pregabalin (Lyrica) 75 Mg Cap 75 MG PO TID #90 Ref 0 CAP Quetiapine (Seroquel) 300 Mg Tab 300 MG PO HS #30 Ref 0 TAB Discontinued Medications: Oxycodone (Oxycodone) 5 Mg Tab 5 MG PO Q8H PRN PAIN SCALE 6 TO 10 #20 Ref 0 TAB Dany Velasco MD Feb 16, 2016 13:23
[2016-02-16] MEDS ORDERED: IPRAAER INH (13:26)
[2016-02-16] MEDS ORDERED: OXYC1TAB36 PO (13:26)
== END 2016-02-16 13:53 | disposition home or self-care (01) | DRG 440 ==
LOC: NEPE 04:20 → NEDA 04:52 → NEDH 08:40 → HOCB 15:43
PROVIDERS: ADMIT Family Medicine; ATTEND Family Medicine
DX: K85.90 Acute pancreatitis without necrosis or infection, unspecified (principal); I50.9 Heart failure, unspecified; E11.65 Type 2 diabetes mellitus with hyperglycemia; I10 Essential (primary) hypertension; F32.9 Major depressive disorder, single episode, unspecified; F41.9 Anxiety disorder, unspecified; E78.00 Pure hypercholesterolemia, unspecified; I25.10 Atherosclerotic heart disease of native coronary artery without angina pectoris; I25.2 Old myocardial infarction; Z95.5 Presence of coronary angioplasty implant and graft; Z82.49 Family history of ischemic heart disease and other diseases of the circulatory system; F17.210 Nicotine dependence, cigarettes, uncomplicated; G62.9 Polyneuropathy, unspecified; Z79.4 Long term (current) use of insulin; E78.5 Hyperlipidemia, unspecified; F12.90 Cannabis use, unspecified, uncomplicated; K86.1 Other chronic pancreatitis; G89.29 Other chronic pain
CPT/HCPCS: 80048; 80053; 82948; 83036; 83690; 85025; 94640; 94664; 99285; J1170; J1650; J1815; J2405; J7030

== ENCOUNTER 2016-03-03 19:13 | Emergency (ER) | payer MEDICAID ==
[~2016-03-03] VITALS: Ht 170.2 cm; Wt 60.0 kg
[~2016-03-03 19:13] MED LIST changes: +IPRAAER INH; +LISI10TA3 PO; -OXYC-392 PO; +OXYC1TAB36 PO
[2016-03-03 19:29] VITALS: BP 143/89; PULSE 89; RESP 18; TEMP 98.1; O2SAT 99
[2016-03-03] MEDS ORDERED: SODIUM CHLOR 0.9% 1000 ML INJ 1,000 ML IV SCH (20:29)
[2016-03-03] MEDS ORDERED: PANTOPRAZOLE SODIUM 40 MG VIAL IVP ONE (20:30)
[2016-03-03] MEDS ORDERED: MORPHINE SULFATE 4 MG/ML INJ IV PUSH ONE (20:30)
[2016-03-03] MEDS ORDERED: ONDANSETRON HCL 4 MG/2 ML VIAL IVP ONE (20:30)
--- NOTE | 2016-03-03 20:36 | PD ---
HPI Chief Complaint: Cardiac Complaint Time Seen by Provider: 20:21 Travel History International Travel<30 days: No Contact w/Intl Traveler<30days: No Traveled to known affect area: No History of Present Illness HPI 45-year-old male complains of chest pain epigastric pain. Patient states the pain started yesterday. Patient states the pain is sharp pain localized to substernal epigastric area. Patient denies any pain radiation. Patient states that he has intermittent nausea vomiting since last night. Patient denies any fever coughing congestion. EMS was called. Patient was given aspirin and nitroglycerin prior coming to emergency room. Patient states that the medication did not relieve the pain. Patient has history of recurrent pancreatitis, hypertension, diabetes, CAD status post stents placement. Patient had cardiac catheter done in May 2015 which shows small vessel disease involving particularly the right coronary artery. The site of stenting in the circumflex artery appears widely patent. Medical management was recommended at that time. PFSH Past Medical History Hx Anticoagulant Therapy: Yes (PLAVIX, COUMADIN) Arthritis: No Asthma: No Autoimmune Disease: No Blood Disorders: No Anxiety: Yes Depression: Yes Heart Rhythm Problems: No Cancer: No Cardiac Catheterization: Yes Cardiovascular Problems: Yes (HTN) High Cholesterol: Yes Chemotherapy: No Chest Pain: Yes Congestive Heart Failure: Yes COPD: No Cerebrovascular Accident: No Coronary Artery Disease: Yes Diabetes: Yes Patient Takes Glucophage: No Diminished Hearing: No Endocrine: Yes (TYPE 2 DIABETIC) Gastrointestinal Disorders: Yes (GASTROPARESIS) GERD: No Glaucoma: No Genitourinary: No Headaches: No Hepatitis: No Hiatal Hernia: Yes Hypertension: Yes Immune Disorder: No Implanted Vascular Access Dvce: Yes Kidney Stones: No Musculoskeletal: No Neurologic: Yes (NEUROPATHY) Psychiatric: No Reproductive: No Respiratory: No Integumentary: No Immunizations Current: Yes Migraines: No Myocardial Infarction: Yes (JULY 2012) Pancreatitis: Yes (CHRONIC) Radiation Therapy: No Seizures: Yes Sleep Apnea: No Thyroid Disease: No Ulcer: No ?: Not Past Surgical History Abdominal Surgery: Yes (UMBILICAL HERNIA-2004, GALLBLADDER REMOVED 2013) Body Medical Devices: PLATE IN RIGHT WRIST, 3 CARDIAC STENTS Cardiac Surgery: Yes (3 STENTS LAST CARDIAC CATH 05/25) Cholecystectomy: Yes (06/03/13) Coronary Artery Bypass Graft: No Coronary Stent: Yes (x 3 in 07/22) Eye Surgery: Yes (CHON LENS IMPLANTS) Neurologic Surgery: No Oral Surgery: Yes (WISDOM TEETH) Pacemaker: No Other Surgery: Yes (IMPLANT EYE LENSES (), WRIST PLATE(), HERNIA (), 3 STENTS(2012)) Family History Family Myocardial Infarction: Yes (father and brothers- ) Family Hypercholesterolemia: Yes Social History Alcohol Use: No Tobacco Use: Yes (1 PPD) Substance Use: Yes (marijuana, weekly) Allergies-Medications (Allergen,Severity, Reaction): Coded Allergies: No Known Allergies (Verified , 03/03/16) Reported Meds & Prescriptions Reported Meds & Active Scripts Active Bentyl (Dicyclomine HCl) 20 Mg Tab 20 Mg PO TID Carafate (Sucralfate) 1 Gm Tab 1 Gm PO QID On empty stomach Protonix (Pantoprazole Sodium) 20 Mg Tab 20 Mg PO DAILY Combivent Respimat Inh (Ipratropium-Albuterol Inh) 20-100 Fdc/Act Aero 1 Puff INH QID Oxycodone-Acetaminophen 10-325 mg Tab 1 Tab PO Q6H PRN Lisinopril 10 Mg Tab 10 Mg PO DAILY Reglan (Metoclopramide HCl) 10 Mg Tab 10 Mg PO TIDAC PRN Reported Lyrica (Pregabalin) 75 Mg Cap 75 Mg PO TID Seroquel (Quetiapine Fumarate) 300 Mg Tab 300 Mg PO HS Aspirin EC (Aspirin) 81 Mg Tabdr 81 Mg PO DAILY Plavix (Clopidogrel Bisulfate) 75 Mg Tab 75 Mg PO DAILY Zofran (Ondansetron HCl) 4 Mg Tab 4 Mg PO Q6HR PRN Review of Systems General / Constitutional: No: Fever Eyes: No: Visual changes HENT: No: Headaches Cardiovascular: Positive: Chest Pain or Discomfort Respiratory: No: Shortness of Breath Gastrointestinal: Positive: Abdominal Pain Genitourinary: No: Dysuria Musculoskeletal: No: Pain Skin: No Rash Neurologic: No: Weakness Psychiatric: No: Depression Endocrine: No: Polydipsia Hematologic/Lymphatic: No: Easy Bruising Physical Exam Narrative GENERAL: Well-nourished, well-developed patient. SKIN: Warm and dry. HEAD: Normocephalic. EYES: No scleral icterus. No injection or drainage. NECK: Supple, trachea midline. No JVD or lymphadenopathy. CARDIOVASCULAR: Regular rate and rhythm without murmurs, gallops, or rubs. RESPIRATORY: Breath sounds equal bilaterally. No accessory muscle use. GASTROINTESTINAL: Abdomen soft, nondistended. Patient has moderate tenderness on palpation epigastric area. No rebound tenderness. No mass. MUSCULOSKELETAL: No cyanosis, or edema. BACK: Nontender without obvious deformity. No CVA tenderness. Neurologic exam normal. Data Data Last Documented VS Vital Signs Date Time Temp Pulse Resp B/P Pulse Ox O2 Delivery O2 Flow Rate FiO2 03/03/16 21:32 99 Room Air 03/03/16 19:31 87 03/03/16 19:29 98.1 18 143/89 Orders Complete Blood Count With Diff (03/03/16 20:29) Comprehensive Metabolic Panel (03/03/16 20:29) Lipase (03/03/16 20:29) Prothrombin Time / Inr (Pt) (03/03/16 20:29) Act Partial Throm Time (Ptt) (03/03/16 20:29) Urinalysis - C+S If Indicated (03/03/16 20:29) Iv Access Insert/Monitor (03/03/16 20:29) Ecg Monitoring (03/03/16 20:29) Oximetry (03/03/16 20:29) Morphine Inj (Morphine Inj) (03/03/16 20:30) Ondansetron Inj (Zofran Inj) (03/03/16 20:30) Pantoprazole Inj (Protonix Inj) (03/03/16 20:30) Sodium Chlor 0.9% 1000 Ml Inj (Ns 1000 M (03/03/16 20:29) Chest, Single Ap (03/03/16 20:29) Creatine Kinase (Cpk) (03/03/16 20:29) Troponin I (03/03/16 20:29) Electrocardiogram (03/03/16 19:21) Labs Laboratory Tests Test 03/03/16 03/03/16 20:40 21:26 White Blood Count 11.8 TH/MM3 Red Blood Count 6.33 MIL/MM3 Hemoglobin 19.1 GM/DL Hematocrit 53.7 % Mean Corpuscular Volume 84.8 FL Mean Corpuscular Hemoglobin 30.1 PG Mean Corpuscular Hemoglobin 35.5 % Concent Red Cell Distribution Width 16.7 % Platelet Count 200 TH/MM3 Mean Platelet Volume 9.9 FL Neutrophils (%) (Auto) 77.8 % Lymphocytes (%) (Auto) 11.4 % Monocytes (%) (Auto) 8.6 % Eosinophils (%) (Auto) 1.2 % Basophils (%) (Auto) 1.0 % Neutrophils # (Auto) 9.2 TH/MM3 Lymphocytes # (Auto) 1.4 TH/MM3 Monocytes # (Auto) 1.0 TH/MM3 Eosinophils # (Auto) 0.1 TH/MM3 Basophils # (Auto) 0.1 TH/MM3 CBC Comment DIFF FINAL Differential Comment Prothrombin Time 11.1 SEC Prothromb Time International 1.0 RATIO Ratio Activated Partial 25.2 SEC Thromboplast Time Sodium Level 133 MEQ/L Potassium Level 4.2 MEQ/L Chloride Level 98 MEQ/L Carbon Dioxide Level 22.3 MEQ/L Anion Gap 13 MEQ/L Blood Urea Nitrogen 14 MG/DL Creatinine 0.78 MG/DL Estimat Glomerular Filtration 108 ML/MIN Rate Random Glucose 281 MG/DL Calcium Level 9.0 MG/DL Total Bilirubin 0.7 MG/DL Aspartate Amino Transf 30 U/L (AST/SGOT) Alanine Aminotransferase 19 U/L (ALT/SGPT) Alkaline Phosphatase 152 U/L Total Creatine Kinase 92 U/L Troponin I LESS THAN 0.02 NG/ML Total Protein 7.9 GM/DL Albumin 3.8 GM/DL Lipase 134 U/L Urine Color YELLOW Urine Turbidity CLEAR Urine pH 5.5 Urine Specific [place] 1.046 Urine Protein 100 mg/dL Urine Glucose (UA) 1000 mg/dL Urine Ketones 80 mg/dL Urine Occult Blood NEG Urine Nitrite NEG Urine Bilirubin NEG Urine Urobilinogen 2.0 MG/DL Urine Leukocyte Esterase NEG Urine RBC 1 /hpf Urine WBC 1 /hpf Urine Squamous Epithelial <1 /hpf Cells Urine Mucus MOD /lpf Microscopic Urinalysis Comment CULT NOT INDICATED MDM Medical Decision Making Medical Screen Exam Complete: Yes Emergency Medical Condition: Yes Interpretation(s) 22:02 PM. Chest x-ray shows no acute consolidation. EKG shows sinus rhythm nonspecific ST-T wave change. Mild ST elevation in V2 and V3, unchanged from previous EKG. CBC WBC 11.8. Hemoglobin 19.1 hematocrit 53.7. 77 neutrophil. Sodium 133. Glucose 281. Cardiac enzymes are normal. UA is negative. Differential Diagnosis Differential diagnosis including musculoskeletal, angina, NC, PE, pneumothorax, gastritis, PUD, pancreatitis, cholecystitis, colitis, UTI, pyelonephritis, nephrolithiasis. Narrative Course 45-year-old male with substernal chest pain and epigastric pain. History of recurrent chest pain and pancreatitis. Normal saline solution 1 25 cc an hour. Protonix 40 mg IV. Morphine 2 mg IV. Zofran 4 mg IV. Patient was informed of results of blood tests, EKG and chest x-ray. Patient was advised that he can be discharged. Patient started calling me names and using racial slurs and cursing at me and became combative. Patient accused me of trying to choke him, which I did not do. Patient left the ED with security in escort. Patient walked out of the patient's room to the waiting room on his own. Diagnosis Primary Impression: Recurrent abdominal pain Additional Impression: Atypical chest pain Patient Instructions: General Instructions Additional Instructions: Take medication as directed. Follow-up with personal physician and GI specialist. Return if persistent problem or worse. Med/Other Pt SpecificInfo: Prescription(s) given Scripts Dicyclomine (Bentyl)20 Mg Tab20 Mg PO TID #30 TAB Ref 0 Prov:Efrain Wheeler MD 03/03/16 Sucralfate (Carafate)1 Gm Tab1 Gm PO QID #120 TAB On empty stomach Prov:Efrain Wheeler MD 03/03/16 Pantoprazole (Protonix)20 Mg Tab20 Mg PO DAILY #30 TAB Prov:Efrain Wheeler MD 03/03/16 Disposition: 01 DISCHARGE HOME Condition: Stable Efrain Wheeler MD Mar 03, 2016 20:36
[2016-03-03 21:07] LABS: AUTOMATED NEUTROPHIL # 9.2 TH/MM3 (1.8-7.7); BASOPHIL # 0.1 TH/MM3 (0-0.2); EOSINOPHIL # 0.1 TH/MM3 (0-0.4); EOSINOPHIL % 1.2 % (0.0-4.0); HEMATOCRIT 53.7 % (39.0-51.0); HEMO FLAGS DIFF FINAL; LYMPH % 11.4 % (9.0-44.0); LYMPHOCYTE # 1.4 TH/MM3 (1.0-4.8); MEAN CELL VOLUME 84.8 FL (80.0-100.0); MEAN CORPUSCULAR HEMOGLOBIN 30.1 PG (27.0-34.0); MEAN CORPUSCULAR HGB CONC 35.5 % (32.0-36.0); MONO % 8.6 % (0.0-8.0); NEUT % 77.8 % (16.0-70.0); PLATELET COUNT 200 TH/MM3 (150-450); RED BLOOD COUNT 6.33 MIL/MM3 (4.50-5.90); RED CELL DISTRIBUTION WIDTH 16.7 % (11.6-17.2); WHITE BLOOD COUNT 11.8 TH/MM3 (4.0-11.0)
[2016-03-03 21:20] LABS: APTT (PATIENT) 25.2 SEC (24.3-30.1); PROTHROMBIN TIME - PATIENT 11.1 SEC (9.8-11.6)
[2016-03-03 21:32] VITALS: O2SAT 99
[2016-03-03 21:43] LABS: ALKALINE PHOSPHATASE 152 U/L (45-117); ALT (GPT) 19 U/L (12-78); ANION GAP 13 MEQ/L (5-15); AST (GOT) 30 U/L (15-37); BICARBONATE 22.3 MEQ/L (21.0-32.0); BLOOD UREA NITROGEN 14 MG/DL (7-18); CHLORIDE 98 MEQ/L (98-107); GLOMERULAR FILTRATION RATE 108 ML/MIN (>89); SODIUM (NA) 133 MEQ/L (136-145); TOTAL BILIRUBIN ADULT 0.7 MG/DL (0.2-1.0)
[2016-03-03 21:43] LABS: BLOOD, URINE NEG (NEG); COMMENT (UR) CULT NOT INDICATED; CULTURE IF INDICATED CULT NOT INDICATED; GLUCOSE,URINE 1000 mg/dL (NEG); KETONE, URINE 80 mg/dL (NEG); MUCUS URINE MOD /lpf (OCC); NITRITE,URINE NEG (NEG); PH, URINE 5.5 (5.0-8.5); SQUAMOUS EPITHELIAL CELL URINE <1 /hpf (0-5); URINE COLOR YELLOW (YELLW/STRAW)
[2016-03-03 21:47] LABS: CREATINE KINASE 92 U/L (39-308); POTASSIUM 4.2 MEQ/L (3.5-5.1)
[2016-03-03] MEDS ORDERED: CARA1TAB6 PO (22:07)
[2016-03-03] MEDS ORDERED: BENT20TA PO (22:07)
[2016-03-03] MEDS ORDERED: PANT20 PO (22:07)
--- NOTE | 2016-03-03 22:41 | RADRPT ---
EXAM DATE/TIME: 03/03/2016 20:41 [facility] COMPARISON: No previous studies available for comparison. INDICATIONS : Chest pain. MEDICAL HISTORY : Hypertension. Cardiovascular disease. Congestive heart failure. Smoker. SURGICAL HISTORY : Cardiac stents ENCOUNTER: Initial ACUITY: 2 days PAIN SCORE: 7/10 LOCATION: Left middle chest FINDINGS: A single view of the chest demonstrates the lungs to be symmetrically aerated without evidence of mas s, infiltrate or effusion. The cardiomediastinal contours are unremarkable. Osseous structures are intact. CONCLUSION: No acute disease. Genaro Romo MD on March 03, 2016 at 22:39 Board Certified Radiologist. This report was verified electronically.
--- NOTE | 2016-03-04 16:50 | EKG ---
Date Performed: 03/03/2016 Time Performed: 19:21:56 PTAGE: 45 years EKG: Sinus rhythm ANTEROSEPTAL MYOCARDIAL INFARCTION Compared to prior tracing no significant change ABNORMAL ECG PREVIOUS TRACING : 08/17/2015 17.41 DOCTOR: Flor Munoz Interpretating Date/Time 03/04/2016 16:48:10
== END 2016-03-03 22:12 | disposition home or self-care (01) ==
LOC: NEPA 19:13
DX: R10.9 Unspecified abdominal pain (principal); R07.89 Other chest pain; R11.2 Nausea with vomiting, unspecified; R94.31 Abnormal electrocardiogram [ECG] [EKG]; I25.10 Atherosclerotic heart disease of native coronary artery without angina pectoris; I10 Essential (primary) hypertension; E11.9 Type 2 diabetes mellitus without complications; E78.00 Pure hypercholesterolemia, unspecified; Z79.01 Long term (current) use of anticoagulants
CPT/HCPCS: 71010; 80053; 81001; 82550; 83690; 84484; 85025; 85610; 85730; 93005; 96374; 96375; 99285; C9113; J2270; J2405; J7030

== ENCOUNTER 2016-06-19 00:10 | Observation (INO) | payer MEDICAID ==
[2016-06-19] VITALS (14 sets, daily range): BP systolic 108–175; BP diastolic 58–104; PULSE 67–100; RESP 16–18; TEMP 97.8–98.8; O2SAT 96–99
[~2016-06-19 00:10] MED LIST changes: +BENT20TA PO; +CARA1TAB6 PO; +PANT20 PO
[2016-06-19] MEDS ORDERED: SODIUM CHLOR 0.9% 1000 ML INJ 1,000 ML IV SCH ×3 (00:21→03:24)
--- NOTE | 2016-06-19 00:28 | PD ---
HPI Chief Complaint: Chest Pain Time Seen by Provider: 00:18 Travel History International Travel<30 days: No Contact w/Intl Traveler<30days: No Traveled to known affect area: No History of Present Illness HPI 45-year-old male with history of coronary artery disease with 3 coronary stents , poorly controlled diabetes, tobacco use, hyperlipidemia, hypertension, pancreatitis who presents via EMS for evaluation of chest pain. He reports symptoms started 2 weeks ago. He describes a substernal chest pressure which has been constant for 2 weeks. It seems to be worse with exertion. Symptoms have been worse since yesterday with radiation into his back, left arm and neck. He endorses nausea and vomiting since yesterday as well is hyperglycemia. He tried using his at-home nitroglycerin which did not help. On route EMS provided him 3 additional doses of nitroglycerin which only helped relieve his pain a small amount. He has received a total of 162 mg of aspirin today. He endorses several episodes of syncope over the past 2 weeks. He reports that somebody witnessed by his roommate and there is no reported seizure activity. He reports that his most recent syncopal episode was in the shower tonight. He denies any abdominal pain, fevers or chills, shortness of breath, cough or congestion, calf or leg swelling, history of DVT, PE, aortic aneurysm. His primary care physician is Dr. Pablo. He does not currently have a maintenance repairer, he has seen Dr. Mayo in the past. He has no other complaints at this time. PFSH Past Medical History Hx Anticoagulant Therapy: Yes (PLAVIX, COUMADIN) Arthritis: No Asthma: No Autoimmune Disease: No Blood Disorders: No Anxiety: Yes Depression: Yes Heart Rhythm Problems: No Cancer: No Cardiac Catheterization: Yes Cardiovascular Problems: Yes (HTN) High Cholesterol: Yes Chemotherapy: No Chest Pain: Yes Congestive Heart Failure: Yes COPD: No Cerebrovascular Accident: No Coronary Artery Disease: Yes Diabetes: Yes Patient Takes Glucophage: No Diminished Hearing: No Endocrine: Yes (TYPE 2 DIABETIC) Gastrointestinal Disorders: Yes (GASTROPARESIS) GERD: No Glaucoma: No Genitourinary: No Headaches: No Hepatitis: No Hiatal Hernia: Yes Hypertension: Yes Immune Disorder: No Implanted Vascular Access Dvce: Yes Kidney Stones: No Musculoskeletal: No Neurologic: Yes (NEUROPATHY) Psychiatric: No Reproductive: No Respiratory: No Integumentary: No Immunizations Current: Yes Migraines: No Myocardial Infarction: Yes (JULY 2012) Pancreatitis: Yes (CHRONIC) Radiation Therapy: No Seizures: Yes Sleep Apnea: No Thyroid Disease: No Ulcer: No Past Surgical History Abdominal Surgery: Yes (UMBILICAL HERNIA-2004, GALLBLADDER REMOVED 2013) Body Medical Devices: PLATE IN RIGHT WRIST, 3 CARDIAC STENTS Cardiac Surgery: Yes (3 STENTS LAST CARDIAC CATH 05/25) Cholecystectomy: Yes (06/03/13) Coronary Artery Bypass Graft: No Coronary Stent: Yes (x 3 in 07/22) Eye Surgery: Yes (CHON LENS IMPLANTS) Neurologic Surgery: No Oral Surgery: Yes (WISDOM TEETH) Pacemaker: No Other Surgery: Yes (IMPLANT EYE LENSES (), WRIST PLATE(), HERNIA (), 3 STENTS(2012)) Family History Family Myocardial Infarction: Yes (father and brothers- ) Family Hypercholesterolemia: Yes Social History Alcohol Use: No Tobacco Use: Yes (1 PPD) Substance Use: Yes (marijuana, weekly) Allergies-Medications (Allergen,Severity, Reaction): Coded Allergies: No Known Allergies (Verified , 03/03/16) Reported Meds & Prescriptions Reported Meds & Active Scripts Active Bentyl (Dicyclomine HCl) 20 Mg Tab 20 Mg PO TID Carafate (Sucralfate) 1 Gm Tab 1 Gm PO QID On empty stomach Protonix (Pantoprazole Sodium) 20 Mg Tab 20 Mg PO DAILY Combivent Respimat Inh (Ipratropium-Albuterol Inh) 20-100 Fpc/Act Aero 1 Puff INH QID Oxycodone-Acetaminophen 10-325 mg Tab 1 Tab PO Q6H PRN Lisinopril 10 Mg Tab 10 Mg PO DAILY Reglan (Metoclopramide HCl) 10 Mg Tab 10 Mg PO TIDAC PRN Reported Lyrica (Pregabalin) 75 Mg Cap 75 Mg PO TID Seroquel (Quetiapine Fumarate) 300 Mg Tab 300 Mg PO HS Aspirin EC (Aspirin) 81 Mg Tabdr 81 Mg PO DAILY Plavix (Clopidogrel Bisulfate) 75 Mg Tab 75 Mg PO DAILY Zofran (Ondansetron HCl) 4 Mg Tab 4 Mg PO Q6HR PRN Review of Systems Except as stated in HPI: all other systems reviewed are Neg Physical Exam Narrative GENERAL: Well-developed well-nourished male in no acute distress SKIN: Warm and dry. HEAD: Atraumatic. Normocephalic. EYES: Pupils equal and round. No scleral icterus. No injection or drainage. ENT: No nasal bleeding or discharge. Mucous membranes pink and moist. NECK: Trachea midline. No JVD. CARDIOVASCULAR: Regular rate and rhythm. No murmur appreciated. Radial pulse 2 + bilaterally. RESPIRATORY: No accessory muscle use. Clear to auscultation. Breath sounds equal bilaterally. No crackles no wheezing or rhonchi GASTROINTESTINAL: Abdomen soft, non-tender, nondistended. Hepatic and splenic margins not palpable. MUSCULOSKELETAL: No obvious deformities. No edema. Negative Homans. NEUROLOGICAL: Awake and alert. No obvious cranial nerve deficits. Motor grossly within normal limits. Normal speech. PSYCHIATRIC: Appropriate mood and affect; insight and judgment normal. Data Data Last Documented VS Vital Signs Date Time Temp Pulse Resp B/P Pulse Ox O2 Delivery O2 Flow Rate FiO2 06/19/16 01:24 15 06/19/16 01:23 78 108/67 97 Nasal Cannula 2 06/19/16 00:14 98.2 Orders Electrocardiogram (06/19/16:20) Basic Metabolic Panel (Bmp) (06/19/16:20) Ckmb (Isoenzyme) Profile (06/19/16:20) Complete Blood Count With Diff (06/19/16:) Magnesium (Mg) (06/19/16:20) Prothrombin Time / Inr (Pt) (06/19/16:20) Act Partial Throm Time (Ptt) (06/19/16:20) Troponin I (06/19/16:20) Chest, Single Ap (06/19/16:20) Ecg Monitoring (06/19/16:20) Bilateral Bp Monitoring (06/19/16:20) Iv Access Insert/Monitor (06/19/16:20) Oximetry (06/19/16:20) Oxygen Administration (06/19/16:20) Morphine Inj (Morphine Inj) (06/19/16 00:30) Sodium Chlorid 0.9% 500 Ml Inj (Ns 500 M (06/19/16 00:30) Sodium Chlor 0.9% 1000 Ml Inj (Ns 1000 M (06/19/16 00:21) Cta Thor Abd Aorta W Iv C W3d (5/11/17 00:24) Lipase (06/19/16 01:19) Insulin Human Regular Inj (Novolin R Inj (06/19/16 01:30) Blood Glucose (06/19/16 01:19) Sodium Chlor 0.9% 1000 Ml Inj (Ns 1000 M (06/19/16 01:30) Iohexol 350 Inj (Omnipaque 350 Inj) (06/19/16 02:23) Place In Observation (06/19/16 ) Vital Signs (Adult) Q4H (06/19/16 03:24) Activity Oob With Assistance (06/19/16 03:24) Senior Manager Creative Services / Telemetry .CONTINUOUS (06/19/16 03:24) Diet Heart Healthy (06/19/16 Breakfast) Sodium Chlor 0.9% 1000 Ml Inj (Ns 1000 M (06/19/16 03:24) Sodium Chloride 0.9% Flush (Ns Flush) (06/19/16 03:30) Sodium Chloride 0.9% Flush (Ns Flush) (06/19/16 09:00) Ondansetron Inj (Zofran Inj) (06/19/16 03:30) Comprehensive Metabolic Panel (06/20/16 06:00) Complete Blood Count With Diff (06/20/16 06:00) Lipase (06/20/16 06:00) Naloxone Inj (Narcan Inj) (06/19/16 03:30) Admit Order (Ed Use Only) (06/19/16 ) ^ Saline Lock (06/19/16 03:26) Resp Oxygen Ray C Titrat 1-4 L (06/19/16 ) Notify Dr: Other (06/19/16 03:26) Sodium Chloride 0.9% Flush (Ns Flush) (06/19/16 09:00) Sodium Chloride 0.9% Flush (Ns Flush) (06/19/16 03:30) Labs Laboratory Tests Test 06/19/16 00:30 White Blood Count 10.9 TH/MM3 Red Blood Count 5.32 MIL/MM3 Hemoglobin 16.5 GM/DL Hematocrit 47.5 % Mean Corpuscular Volume 89.3 FL Mean Corpuscular Hemoglobin 31.1 PG Mean Corpuscular Hemoglobin 34.8 % Concent Red Cell Distribution Width 15.8 % Platelet Count 147 TH/MM3 Mean Platelet Volume 9.3 FL Neutrophils (%) (Auto) 74.0 % Lymphocytes (%) (Auto) 14.1 % Monocytes (%) (Auto) 9.0 % Eosinophils (%) (Auto) 2.2 % Basophils (%) (Auto) 0.7 % Neutrophils # (Auto) 8.1 TH/MM3 Lymphocytes # (Auto) 1.5 TH/MM3 Monocytes # (Auto) 1.0 TH/MM3 Eosinophils # (Auto) 0.2 TH/MM3 Basophils # (Auto) 0.1 TH/MM3 CBC Comment DIFF FINAL Differential Comment Prothrombin Time 10.6 SEC Prothromb Time International 1.0 RATIO Ratio Activated Partial 24.5 SEC Thromboplast Time Sodium Level 136 MEQ/L Potassium Level 3.8 MEQ/L Chloride Level 100 MEQ/L Carbon Dioxide Level 29.2 MEQ/L Anion Gap 7 MEQ/L Blood Urea Nitrogen 16 MG/DL Creatinine 0.87 MG/DL Estimat Glomerular Filtration 95 ML/MIN Rate Random Glucose 493 MG/DL Calcium Level 8.7 MG/DL Magnesium Level 2.0 MG/DL Total Creatine Kinase 43 U/L Troponin I LESS THAN 0.02 NG/ML Lipase 592 U/L MDM Medical Decision Making Medical Screen Exam Complete: Yes Emergency Medical Condition: Yes Medical Record Reviewed: Yes Differential Diagnosis Acute coronary syndrome, unstable angina, aortic dissection, pericarditis, myocarditis, electrolyte abnormality, DKA, pneumothorax, hemothorax, pulmonary embolism Narrative Course 45-year-old male with coronary artery disease, hypertension, hyperlipidemia, diabetes presents for evaluation of 2 weeks of substernal chest pain that is exertional, worsened since yesterday with radiation of symptoms into the back, neck and left arm with associated nausea and vomiting, unrelieved with nitroglycerin, several reported syncopal episodes. 12-lead EKG was immediately obtained and interpreted. Bilateral blood pressure monitoring, ECG monitoring, pulse oximetry was placed. Lab work, chest x-ray, CT angiogram of the aorta has been ordered. The patient be given morphine for pain control as well as 1 L of fluids. 0100: At the end of my shift the patient was signed out pending lab work and imaging studies, ultimately the patient will have to be admitted. Jac Burns June 19, 2016 00:28
[2016-06-19] MEDS ORDERED: SODIUM CHLORID 0.9% 500 ML INJ 500 ML IV ONE (00:30)
[2016-06-19] MEDS ORDERED: MORPHINE SULFATE 4 MG/ML INJ IV PUSH ONE ×2 (00:30→04:00)
[2016-06-19 00:46] LABS: AUTOMATED NEUTROPHIL # 8.1 TH/MM3 (1.8-7.7); BASOPHIL # 0.1 TH/MM3 (0-0.2); BASOPHIL % 0.7 % (0.0-2.0); EOSINOPHIL # 0.2 TH/MM3 (0-0.4); EOSINOPHIL % 2.2 % (0.0-4.0); HEMATOCRIT 47.5 % (39.0-51.0); HEMO FLAGS DIFF FINAL; LYMPH % 14.1 % (9.0-44.0); LYMPHOCYTE # 1.5 TH/MM3 (1.0-4.8); MEAN CELL VOLUME 89.3 FL (80.0-100.0); MEAN CORPUSCULAR HEMOGLOBIN 31.1 PG (27.0-34.0); MEAN CORPUSCULAR HGB CONC 34.8 % (32.0-36.0); PLATELET COUNT 147 TH/MM3 (150-450); RED BLOOD COUNT 5.32 MIL/MM3 (4.50-5.90); RED CELL DISTRIBUTION WIDTH 15.8 % (11.6-17.2); WHITE BLOOD COUNT 10.9 TH/MM3 (4.0-11.0)
--- NOTE | 2016-06-19 00:51 | RADRPT ---
EXAM DATE/TIME: 06/19/2016 00:37 [facility] COMPARISON: CHEST SINGLE AP, March 03, 2016, 20:41. INDICATIONS : Chest pain. MEDICAL HISTORY : Hypertension. Cardiovascular disease. Congestive heart failure. Smoker. SURGICAL HISTORY : Cardiac stents. ENCOUNTER: Initial ACUITY: 1 day PAIN SCORE: 6/10 LOCATION: Bilateral chest FINDINGS: A single view of the chest demonstrates the lungs to be symmetrically aerated without evidence of mas s, infiltrate or effusion. The cardiomediastinal contours are unremarkable. Osseous structures are intact. CONCLUSION: Normal examination. Xiang Cesar Jr., MD on June 19, 2016 at 0:49 Board Certified Radiologist. This report was verified electronically.
--- NOTE | 2016-06-19 01:01 | PD ---
Physical Exam Date Seen by Provider: June 19, 2016 Time Seen by Provider: 01:00 Narrative Accepted in transfer of care from Tri Burns PA-C GENERAL: Well-developed thin male in no acute distress no respiratory distress SKIN: Warm and dry. HEAD: Normocephalic. EYES: No scleral icterus. No injection or drainage. NECK: Supple, trachea midline. No JVD or lymphadenopathy. CARDIOVASCULAR: Regular rate and rhythm without murmurs, gallops, or rubs. RESPIRATORY: Breath sounds equal bilaterally. No accessory muscle use. GASTROINTESTINAL: Abdomen soft, mild epigastric tenderness to direct palpation without guarding or rebound, nondistended. MUSCULOSKELETAL: No cyanosis, or edema. BACK: Nontender without obvious deformity. No CVA tenderness. Data Data Last Documented VS Vital Signs Date Time Temp Pulse Resp B/P Pulse Ox O2 Delivery O2 Flow Rate FiO2 06/19/16 01:24 15 06/19/16 01:23 78 108/67 97 Nasal Cannula 2 06/19/16 00:14 98.2 Orders Electrocardiogram (06/19/16 00:20) Basic Metabolic Panel (Bmp) (06/19/16 00:20) Ckmb (Isoenzyme) Profile (06/19/16:20) Complete Blood Count With Diff (06/19/16:20) Magnesium (Mg) (06/19/16:20) Prothrombin Time / Inr (Pt) (06/19/16:20) Act Partial Throm Time (Ptt) (06/19/16 00:20) Troponin I (06/19/16:20) Chest, Single Ap (06/19/16 00:20) Ecg Monitoring (06/19/16:20) Bilateral Bp Monitoring (06/19/16:20) Iv Access Insert/Monitor (06/19/16:20) Oximetry (06/19/16 00:20) Oxygen Administration (06/19/16:20) Morphine Inj (Morphine Inj) (06/19/16 00:30) Sodium Chlorid 0.9% 500 Ml Inj (Ns 500 M (06/19/16 00:30) Sodium Chlor 0.9% 1000 Ml Inj (Ns 1000 M (06/19/16 00:21) Cta Thor Abd Aorta W Iv C W3d (06/19/16 00:24) Lipase (06/19/16 01:19) Insulin Human Regular Inj (Novolin R Inj (06/19/16 01:30) Blood Glucose (06/19/16 01:19) Sodium Chlor 0.9% 1000 Ml Inj (Ns 1000 M (06/19/16 01:30) Iohexol 350 Inj (Omnipaque 350 Inj) (06/19/16 02:23) Place In Observation (06/19/16 ) Vital Signs (Adult) Q4H (06/19/16 03:24) Activity Oob With Assistance (06/19/16 03:24) Clinical Dermatologist / Telemetry .CONTINUOUS (06/19/16 03:24) Diet Heart Healthy (06/19/16 Breakfast) Sodium Chlor 0.9% 1000 Ml Inj (Ns 1000 M (06/19/16 03:24) Sodium Chloride 0.9% Flush (Ns Flush) (06/19/16 03:30) Sodium Chloride 0.9% Flush (Ns Flush) (06/19/16 09:00) Ondansetron Inj (Zofran Inj) (06/19/16 03:30) Comprehensive Metabolic Panel (06/20/16 06:00) Complete Blood Count With Diff (06/20/16 06:00) Lipase (06/20/16 06:00) Naloxone Inj (Narcan Inj) (06/19/16 03:30) Admit Order (Ed Use Only) (06/19/16 ) ^ Saline Lock (06/19/16 03:26) Resp Oxygen Ray C Titrat 1-4 L (06/19/16 ) Notify Dr: Other (06/19/16 03:26) Sodium Chloride 0.9% Flush (Ns Flush) (06/19/16 09:00) Sodium Chloride 0.9% Flush (Ns Flush) (06/19/16 03:30) Labs Laboratory Tests Test 06/19/16 00:30 White Blood Count 10.9 TH/MM3 Red Blood Count 5.32 MIL/MM3 Hemoglobin 16.5 GM/DL Hematocrit 47.5 % Mean Corpuscular Volume 89.3 FL Mean Corpuscular Hemoglobin 31.1 PG Mean Corpuscular Hemoglobin 34.8 % Concent Red Cell Distribution Width 15.8 % Platelet Count 147 TH/MM3 Mean Platelet Volume 9.3 FL Neutrophils (%) (Auto) 74.0 % Lymphocytes (%) (Auto) 14.1 % Monocytes (%) (Auto) 9.0 % Eosinophils (%) (Auto) 2.2 % Basophils (%) (Auto) 0.7 % Neutrophils # (Auto) 8.1 TH/MM3 Lymphocytes # (Auto) 1.5 TH/MM3 Monocytes # (Auto) 1.0 TH/MM3 Eosinophils # (Auto) 0.2 TH/MM3 Basophils # (Auto) 0.1 TH/MM3 CBC Comment DIFF FINAL Differential Comment Prothrombin Time 10.6 SEC Prothromb Time International 1.0 RATIO Ratio Activated Partial 24.5 SEC Thromboplast Time Sodium Level 136 MEQ/L Potassium Level 3.8 MEQ/L Chloride Level 100 MEQ/L Carbon Dioxide Level 29.2 MEQ/L Anion Gap 7 MEQ/L Blood Urea Nitrogen 16 MG/DL Creatinine 0.87 MG/DL Estimat Glomerular Filtration 95 ML/MIN Rate Random Glucose 493 MG/DL Calcium Level 8.7 MG/DL Magnesium Level 2.0 MG/DL Total Creatine Kinase 43 U/L Troponin I LESS THAN 0.02 NG/ML Lipase 592 U/L [facility] Medical Record Reviewed: Yes Supervised Visit with DRU: Yes Interpretation(s) CTA thor/abd: CONCLUSION: 1. Unremarkable thoracoabdominal aorta. Xiang Cesar Jr., MD on June 19, 2016 at 2:59 Board Certified Radiologist. This report was verified electronically. Vital Signs Date Time Temp Pulse Resp B/P Pulse Ox O2 Delivery O2 Flow Rate FiO2 06/19/16 01:24 15 06/19/16 01:23 78 16 108/67 97 Nasal Cannula 2 06/19/16 00:29 111/58 131/66 06/19/16 00:29 96 Nasal Cannula 2 06/19/16 00:29 96 Nasal Cannula 2 06/19/16 00:21 96 Nasal Cannula 2 06/19/16 00:14 98.2 100 16 111/58 97 CBC & BMP Diagram 06/19/16 00:30 CK: 43, not elevated; troponin I: less than 0.02, not elevated Differential Diagnosis Accepted in transfer of care from [facility]; chest pain, ACS, PR, aortic dissection, PE, aneurysm, pancreatitis Narrative Course Accepted in transfer of care from [facility]; patient placed on monitor car operator IV access obtained specimens collected and sent for resulting EKG performed which shows QS anteroseptally age-indeterminate patient has artery received 3 sublingual nitroglycerin at home on his own as well as the submental nitroglycerin by EMS without symptomatic relief patient notes improvement of 7/ 10 chest pain down for over 10 chest pain after IV fluids and morphine sulfate; CTA thoracic/abdomen imaging study pending. Patient reports that he was hospitalized 1 month ago at [facility] for myocardial infarction and stated the ICU 4 days. Patient did not undergo a cardiac catheterization at that time. Patient's last cardiac conization was stent replacement October 2015. Patient has had no adjustment of his medications. Patient states syncopal episode this evening was after taking 3 sublingual nitroglycerin at home. Patient admits to continuing to smoke cigarettes. Patient does not have a shipboard intelligence analyst at this time. Physician Communication Physician Communication call placed to [facility] service Diagnosis Primary Impression: Pancreatitis Qualified Code: K85.90 - Acute pancreatitis, unspecified complication status, unspecified pancreatitis type Additional Impressions: Chest pain Qualified Code: R07.2 - Precordial pain Syncope Qualified Code: R55 - Syncope, unspecified syncope type Admitting Information Admitting Physician Requests: Dolores Fuller MD June 19, 2016 01:01
[2016-06-19 01:08] LABS: APTT (PATIENT) 24.5 SEC (24.3-30.1); PROTHROMBIN TIME - PATIENT 10.6 SEC (9.8-11.6)
[2016-06-19 01:16] LABS: ANION GAP 7 MEQ/L (5-15); BICARBONATE 29.2 MEQ/L (21.0-32.0); BLOOD UREA NITROGEN 16 MG/DL (7-18); CHLORIDE 100 MEQ/L (98-107); CREATINE KINASE 43 U/L (39-308); GLOMERULAR FILTRATION RATE 95 ML/MIN (>89); POTASSIUM 3.8 MEQ/L (3.5-5.1); SODIUM (NA) 136 MEQ/L (136-145)
[2016-06-19] MEDS ORDERED: INSULIN HUMAN REGULAR 1,000 UNITS/10 ML VIAL IV PUSH ONE (01:30)
[2016-06-19] MEDS ORDERED: IOHEXOL 350 MG/ML 10 ML VIAL (for RAD DIAG) IV ONE (02:23)
--- NOTE | 2016-06-19 03:05 | RADRPT ---
EXAM DATE/TIME: 06/19/2016 01:56 [facility] COMPARISON: No previous studies available for comparison. INDICATIONS : Chest pain, syncope, nausea and vomiting. IV CONTRAST: 95 cc Omnipaque 350 (iohexol) IV RADIATION DOSE: 13.38 CTDIvol (mGy) MEDICAL HISTORY : Hypertension. Myocardial infarction. Congestive heart failure.CAD. Pancreatitis. Diabetes. SURGICAL HISTORY : Coronary artery stent. Cholecystectomy.Hernia repair. ENCOUNTER: Initial ACUITY: 2 weeks PAIN SCALE: 7/10 LOCATION: Bilateral chest TECHNIQUE: Volumetric scanning was performed using a multi-row detector CT scanner. The data was post processed with a variety of visualization algorithms including full volume maximum intensity projection, multi -planar sliding thin slab reformation, curved planar reformation, and surface rendering techniques. Using automated exposure control and adjustment of the mA and/or kV according to patient size, radiat ion dose was kept as low as reasonably achievable to obtain optimal diagnostic quality images. FINDINGS: Thoracic/abdominal aorta: The thoracic and abdominal aorta are normal in caliber and course. No aneurysmal change, dissection, or stenosis. Mild scattered calcified plaque. 4 vessel arch is noted. Arch vessels are patent. Heart and mediastinum: The heart is normal in size. No pericardial effusion. Coronary artery atherosclerotic calcifications. Pulmonary arteries are normal in caliber. No mass or adenopathy. Lung parenchyma: Lungs are clear. Other structures: Abdominal viscera are unremarkable. CONCLUSION: 1. Unremarkable thoracoabdominal aorta. Xiang Cesar Jr., MD on June 19, 2016 at 2:59 Board Certified Radiologist. This report was verified electronically.
[2016-06-19] MEDS ORDERED: ONDANSETRON HCL 4 MG/2 ML VIAL IVP PRN (03:30)
[2016-06-19] MEDS ORDERED: SODIUM CHLORIDE 0.9% FLUSH 10 ML FLUSH IVF PRN (03:30)
[2016-06-19] MEDS ORDERED: SODIUM CHLORIDE 0.9% FLUSH 10 ML FLUSH IV FLUSH PRN (03:30)
[2016-06-19] MEDS ORDERED: NALOXONE HCL 0.4 MG/ML AMP IV PRN (03:30)
--- NOTE | 2016-06-19 06:00 | HHI.HP ---
[facility] Mohsen Pablo Admission Diagnosis pancreatitis; chest pain; DM Diagnoses: Chief Complaint: Abdominal pain, chest pain Travel History International Travel<30 Days: No Contact w/Intl Traveler <30 Da: No Traveled to Known Affected Are: No History of Present Illness History from patient, ER physician communication, and review of medical records. Patient reported that he came to the hospital because he has been having abdominal pain/chest pains. He states that he is not sure which one started first. He pointed to mid epigastric and left upper quadrant abdomen. He reports of associated nausea. Vomited 5-6 times a day for the past 3 days or so. Denies any blood in his vomitus. Denies fever. Reports of diarrhea once or twice a day for the past few days as well. No blood in his stool. Denies any urinary burning or pain on urination. Denies any blood in his urine. Patient stated that his pains also radiated to his neck and his back. However he states that he believes his back pain came from his falls. He states he has been passing out a few times for the last couple of weeks and this is being getting worse. He states he would just feel dizzy, with blurry vision and would pass out and hit núñez around him. He reports that this has happened at least 10 times in the last 1 week. He thinks that he at one point hit and fell backwards and hit his back. He attributed his back and chest pain initially to these falls and syncopal episodes. He reports that his roommate witnessed most of these episodes. Patient is on aspirin at home. Denies being on any other blood thinners. Review of Systems Except as stated in HPI: all other systems reviewed are Neg Past Family Social History Past Medical History htn dm cad- 3 stent chf - ef 30-35% by echo 08/2015 copd seizureslikely secondary to benzo withdrawal at that time. This was several years ago. Past Surgical History cholecystectomy right wrist plate implant lenses in eyes umbilical hernia cardiac angiogram and stents Allergies: Coded Allergies: No Known Allergies (Verified , 03/03/16) Family History most young in dad side dad- 2 heart attack and 2 stroke before 46yo brother-heart attack Social History smokes a pack a day no alcohol no drugs - occasional marijuana Physical Exam Vital Signs Vital Signs Date Time Temp Pulse Resp B/P Pulse Ox O2 Delivery O2 Flow Rate FiO2 06/19/16 05:25 69 06/19/16 04:36 16 06/19/16 04:00 99 Nasal Cannula 2.00 06/19/16 03:55 94 16 152/75 99 2 06/19/16 01:24 15 06/19/16 01:23 78 16 108/67 97 Nasal Cannula 2 06/19/16 00:29 111/58 131/66 06/19/16 00:29 96 Nasal Cannula 2 06/19/16 00:29 96 Nasal Cannula 2 06/19/16 00:21 96 Nasal Cannula 2 06/19/16 00:14 98.2 100 16 111/58 97 Physical Exam GENERAL: This is a thin gentleman, not in acute distress. Skin: No ecchymoses/ulcerations. HEAD: Atraumatic. Normocephalic. No temporal or scalp tenderness. EYES: P No scleral icterus. No injection or drainage. ENT: Nose without bleeding, purulent drainage or septal hematoma. Airway patent. NECK: Trachea midline. No JVD. Supple, nontender, no meningeal signs. CARDIOVASCULAR: Regular rate and rhythm without murmurs, gallops, or rubs. RESPIRATORY: Basilar crepitations bilaterally GASTROINTESTINAL: Abdomen soft, tenderness in midepigastrium, nondistended. No guarding. MUSCULOSKELETAL: Extremities without clubbing, cyanosis, or edema.No calf tenderness. NEUROLOGICAL: Awake and alert. Motor and sensory grossly within normal limits. Normal speech. Laboratory Laboratory Tests Test 06/19/16 00:30 White Blood Count 10.9 Red Blood Count 5.32 Hemoglobin 16.5 Hematocrit 47.5 Mean Corpuscular Volume 89.3 Mean Corpuscular Hemoglobin 31.1 Mean Corpuscular Hemoglobin 34.8 Concent Red Cell Distribution Width 15.8 Platelet Count 147 Mean Platelet Volume 9.3 Neutrophils (%) (Auto) 74.0 Lymphocytes (%) (Auto) 14.1 Monocytes (%) (Auto) 9.0 Eosinophils (%) (Auto) 2.2 Basophils (%) (Auto) 0.7 Neutrophils # (Auto) 8.1 Lymphocytes # (Auto) 1.5 Monocytes # (Auto) 1.0 Eosinophils # (Auto) 0.2 Basophils # (Auto) 0.1 CBC Comment DIFF FINAL Differential Comment Prothrombin Time 10.6 Prothromb Time International 1.0 Ratio Activated Partial 24.5 Thromboplast Time Sodium Level 136 Potassium Level 3.8 Chloride Level 100 Carbon Dioxide Level 29.2 Anion Gap 7 Blood Urea Nitrogen 16 Creatinine 0.87 Estimat Glomerular Filtration 95 Rate Random Glucose 493 Calcium Level 8.7 Magnesium Level 2.0 Total Creatine Kinase 43 Troponin I LESS THAN 0.02 Lipase 592 Result Diagram: 06/19/162906/19/1629 Imaging Last 48 hours Impressions Aorta CTA 06/19/1623 Signed Impressions: Service Date/Time: June 01:56 - CONCLUSION: 1. Unremarkable thoracoabdominal aorta. Xiang Cesar Jr., MD Chest X-Ray 06/19/1619 Signed Impressions: Service Date/Time: June 00:37 - CONCLUSION: Normal examination. Xiang Cesar Jr., MD Assessment and Plan Assessment and Plan Impression: Acute pancreatitis Chest painrule out ACS Hyperglycemianot an acute DKA Multiple frequent episodesin past one week. We'll need to rule out neurocardiogenic etiologies. htn dm cad- 3 stent chf - ef 30-35% by echo 08/2015 copd seizureslikely secondary to benzo withdrawal at that time. This was several years ago. Plan: We'll resume diet. Will scale down if patient cannot tolerate it. Patient is informed of this. So far, he has not had any nausea or vomiting since about 7 PM according to him. Hydrate orally. Patient has severe ischemic cardiomyopathy. He already received about 1-2 L of fluid administration overnight including boluses in ER. We'll therefore discontinue IV fluids at this point. Watch for fluid overload. Patient is informed of this as well and advised to let nursing staff know if he become short of breath. His lung exam did not reveal any glen rales. He does have bibasilar crepitations at this point. Would obtain serial cardiac enzymes and EKG since patient is also complaining of some chest pains. More importantly, patient patient's EKGpersonally reviewed. Second set does reveal some biphasic T waves in anterolateral leads. However patient is currently chest pain-free while in observation unit. Would consult cardiology for the purpose of AICD placement as well. Cardiology notes from previous admission reviewed. It is indicated to put AICD in this patient with EF of 30%, with ongoing dyspnea on exertion, with multiple frequent syncopal episodes. Patient is quite compliant with his medications regimen. Although he does continue to smoke. He is advised to quit smoking. Will obtain carotid sono and repeat echocardiogram. His echocardiogram from 2015reviewed. We'll monitor fingersticks. At present, patient is not on sliding scale coverage he had as we would like to see how much food he is able to tolerate. His blood sugars were coming down just with pure hydration. Anion gap is normal. Not DKA. If he cannot tolerate by mouth feeding, he would have to be nothing by mouth, and blood sugars would need to be monitored closely. DVT prophylaxiswith Lovenox. Discussed Condition With Patient, ER physician, patient's nurse Johnny Obrien MD June 19, 2016 06:00
[2016-06-19] MEDS ORDERED: DEXTROSE 50% IN WATER 50 ML VIAL(D50) IV PUSH PRN (06:15)
[2016-06-19] MEDS ORDERED: GLUCAGON 1 MG/ML VIAL OTHER PRN (06:15)
[2016-06-19] MEDS: MORPHINE SULFATE 4 MG/ML INJ IV PUSH PRN ×6 (07:45→23:43)
[2016-06-19] MEDS ORDERED: SODIUM CHLORIDE 0.9% FLUSH 10 ML FLUSH IV FLUSH SCH (09:00)
[2016-06-19] MEDS ORDERED: PANTOPRAZOLE SOD 20 MG DELAYED RELEASE TAB PO SCH (09:00)
--- NOTE | 2016-06-19 09:48 | RADRPT ---
EXAM DATE/TIME: 06/19/2016 08:38 [facility] COMPARISON: No previous studies available for comparison. INDICATIONS : Syncope. MEDICAL HISTORY : Hypertension. Diabetes. CAD. COPD. SURGICAL HISTORY : Cholecystectomy. Umbilical hernia repair. Cardiac stents. Right wrist plates. ENCOUNTER: Initial ACUITY: 1 day PAIN SCORE: 110 LOCATION: Bilateral neck PEAK SYSTOLIC VELOCITIES (cm/sec): ICA/CCA RATIO: Right: 0.6 Left: 1.3 ICA: Right: 53 Left: 109 CCA: Right: 84 Left: 82 ECA: Right: 60 Left: 74 VERTEBRAL: Right: 44 antegrade Left: 64 antegrade Elevated flow velocities and ICA/CCA ratios have been found to correlate with increased degrees of vessel stenosis, calculated as percentage of diameter relative to a normal segment of distal ICA/CCA FINDINGS: RIGHT CAROTID: No significant stenosis is visualized. Minimal plaque. The waveforms are within normal limits. LEFT CAROTID: No significant stenosis is visualized. Minimal plaque. The waveforms are within normal limits. VERTEBRAL ARTERIES: Antegrade flow is seen in both vertebral arteries. MISCELLANEOUS: None. CONCLUSION: No hemodynamically significant stenosis in either carotid artery. Rich Bliss MD on June 19, 2016 at 9:44 Board Certified Radiologist. This report was verified electronically.
[2016-06-19] MEDS: SODIUM CHLORIDE 0.9% FLUSH 10 ML FLUSH IV FLUSH SCH ×2 (11:35→20:36)
[2016-06-19] MEDS: ASPIRIN EC 81 MG TABEC PO SCH (11:36)
[2016-06-19] MEDS: SUCRALFATE 1 GM TAB PO SCH ×4 (11:36→20:36)
[2016-06-19] MEDS: CLOPIDOGREL 75 MG TAB PO SCH (11:36)
[2016-06-19] MEDS: ENOXAPARIN SODIUM 40 MG/0.4 ML SYRINGE SQ SCH (11:37)
--- NOTE | 2016-06-19 13:58 | EC ---
Study Study Date:06/19/2016 STUDY CONCLUSIONS SUMMARY - Left ventricle: The cavity size was normal. Wall thickness was normal. Systolic function was moderately to severely reduced. The estimated ejection fraction was in the range of 30% to 35%. Severe hypokinesis of the anterior and apical myocardium. - Aortic valve: Valve area: 3.24cm^2(VTI). Valve area: 2.73cm^2 (Vmax). - Mitral valve: Mild regurgitation. If LV function is below 40, please consider prescribing an ACEI or ARB or document rationale for non-use. PROCEDURE DATA STUDY STATUS: Elective. Procedure: Transthoracic echocardiography. Image quality was good. Scanning was performed from the parasternal, apical, and subcostal acoustic windows. Study completion: The patient tolerated the procedure well. Transthoracic echocardiography. M-mode, complete 2D, complete spectral Doppler, and color Doppler. Height: Height: 67in. Weight: Weight: 129.7lb. Body mass index: BMI: 20.4kg/m^2. Body surface area: BSA: 1.68m^2. Patient status: Inpatient. CARDIAC ANATOMY LEFT VENTRICLE: The cavity size was normal. Wall thickness was normal. Systolic function was moderately to severely reduced. The estimated ejection fraction was in the range of 30% to 35%. Regional wall motion abnormalities: Severe hypokinesis of the anterior and apical myocardium. AORTIC VALVE: Trileaflet; normal thickness leaflets. Doppler: Transvalvular velocity was within the normal range. There was no stenosis. No regurgitation. Valve area: 3.24cm^2(VTI). Indexed valve area: 1.93cm^2/m^2 (VTI). Valve area: 2.73cm^2 (Vmax). Indexed valve area: 1.63cm^2/m^2 (Vmax). Mean gradient: 2mm Hg (S). AORTA: Aortic root: The aortic root was normal in size. MITRAL VALVE: Structurally normal valve. Doppler: Transvalvular velocity was within the normal range. There was no evidence for stenosis. Mild regurgitation. LEFT ATRIUM: The atrium was normal in size. RIGHT VENTRICLE: The cavity size was normal. Wall thickness was normal. PULMONIC VALVE: Doppler: Transvalvular velocity was within the normal range. There was no evidence for stenosis. No regurgitation. TRICUSPID VALVE: Structurally normal valve. Doppler: Transvalvular velocity was within the normal range. No regurgitation. PULMONARY ARTERY: The main pulmonary artery was normal-sized. Systolic pressure was within the normal range. RIGHT ATRIUM: The atrium was normal in size. PERICARDIUM: There was no pericardial effusion. SYSTEMIC VEINS: Inferior vena cava: The vessel was normal in size. Patient weight: 129.7lb _Ejection fraction:_ 65-75% _Fractional shortening:_ 32% up to 5Kg 5-11.5Kg 11.6-22.9Kg 23-45Kg 45-57Kg Aortic Root 7-13 <17 13-22 17-27 17-27 LA diam 6-13 <23 24-38 33-47 37-40 RVID 10-17 7-15 7-15 7-18 8-17 LVIDd 12-22 <32 24-38 33-47 37-40 LVPW 2-4 3-6 5-7 6-8 7-8 IVS 2-4 3-6 5-7 6-8 7-8 BASIC MEASUREMENTS ADULT NORMAL Left ventricle LV internal dimension, ED, chordal 49.2 mm 43-52 level, PLAX LV internal dimension, ES, chordal *43.5 mm 23-38 level, PLAX Fractional shortening, chordal level, *12 % >29 PLAX LV posterior wall thickness, ED 8.51 mm IVS/LVPW ratio, ED 1.01 <1.3 Ventricular septum Septal thickness, ED 8.56 mm Aortic valve Leaflet separation 24 mm 15-26 Aorta Root diameter, ED 34 mm Left atrium Anterior-posterior dimension 29 mm Anterior-posterior dimension index 1.73 cm/m^2 <2.2 BASIC MEASUREMENTS ADULT NORMAL Aortic valve Leaflet separation 24 mm 15-26 DOPPLER MEASUREMENTS ADULT NORMAL Aortic valve Peak velocity, S 112 cm/s Mean velocity, S 73.1 cm/s VTI, S 21.8 cm Mean gradient, S 2 mm Hg Valve area, VTI 3.24 cm^2 Valve area index, VTI 1.93 cm^2/m^2 Valve area, Vmax 2.73 cm^2 Valve area index, Vmax 1.63 cm^2/m^2 Mitral valve Peak E-wave velocity 58.7 cm/s Peak A-wave velocity 90.8 cm/s Deceleration time 229 ms 150-230 Peak E/A ratio 0.6 Pulmonic valve Peak velocity, S 54.1 cm/s LEGEND: Mean values are shown as u=mean value. Asterisk (*) dang values outside specified normal range. Prepared and signed by Joshua Macrum [id number]
[2016-06-19] MEDS ORDERED: HYDR-3533 PO (14:04)
[2016-06-19] MEDS ORDERED: QUET300XR PO (14:04)
[2016-06-19] MEDS ORDERED: HYDR-3583 PO (14:04)
[2016-06-19] MEDS ORDERED: HYDR-3535 PO (14:04)
[2016-06-19] MEDS ORDERED: NITR0.4S SL (14:09)
[2016-06-19] MEDS ORDERED: ALPR0.5T3 PO (14:11)
[2016-06-19] MEDS ORDERED: LANTUS2P SQ (14:11)
[2016-06-19] MEDS ORDERED: INSULIN HUMAN REGULAR 1,000 UNITS/10 ML VIAL SQ ONE (14:30)
[2016-06-19 15:17] LABS: CREATINE KINASE 42 U/L (39-308)
--- NOTE | 2016-06-19 15:39 | EKG ---
Date Performed: 06/19/2016 Time Performed: 00:16:31 PTAGE: 45 years EKG: Sinus rhythm POSSIBLE LEFT ATRIAL ENLARGEMENT NONSPECIFIC T-WAVE ABNORMALITY BORDERLINE ECG PREVIOUS TRACING : 03/03/2016 19.21 Since previous tracing, no significant change noted DOCTOR: Joshua Marcum Interpretating Date/Time 06/19/2016 15:38:13
--- NOTE | 2016-06-19 15:41 | EKG ---
Date Performed: 06/19/2016 Time Performed: 06:41:14 PTAGE: 45 years EKG: Sinus rhythm ANTEROSEPTAL MYOCARDIAL INFARCTION, AGE INDETERMINATE PREVIOUS TRACING : 06/19/2016 00.16 DOCTOR: Joshua Marcum Interpretating Date/Time 06/19/2016 15:40:11
[2016-06-19] MEDS ORDERED: INSULIN HUMAN REGULAR 1,000 UNITS/10 ML VIAL SQ SCH (17:00)
--- NOTE | 2016-06-19 17:55 | EKG ---
Date Performed: 06/19/2016 Time Performed: 12:37:48 PTAGE: 45 years EKG: Sinus rhythm ANTEROSEPTAL MYOCARDIAL INFARCTION NO SIGNIFICANT CHANGE FROM PRIOR ELECTROCARDIOGRAM. PREVIOUS TRACING : 06/19/2016 06.41 DOCTOR: Osman Harrison Interpretating Date/Time 06/19/2016 17:54:39
--- NOTE | 2016-06-19 18:34 | MB ---
cc: AG SPARKS MD DATE OF CONSULTATION 06/19/16 HISTORY OF PRESENT ILLNESS Mr. Stevenson is a 45 year old white male with a history of pancreatitis. He started to have mid epigastric pain and left upper quadrant pain associated with nausea and vomiting. He also complains of dizziness and shortness of breath. He had episodes of dizziness, blurry vision and syncope. He passed out last week several times and hit his back and his chest which is now hurting. PAST MEDICAL HISTORY 1. Hypertension 2. Diabetes mellitus 3. Coronary artery disease with coronary stenting including circumflex. 4. Congestive heart failure 5. Ischemic cardiomyopathy with ejection fraction of 30-35% by echocardiogram in 08/24. 6. Chronic obstructive pulmonary disease 7. Seizure disorder likely secondary to benzodiazepine withdrawal. 8. History of noncompliance with medical care 9. Cholecystectomy 10. Cardiac catheterization in 05/25 showed 40-50% stenosis of the stent in the mid left anterior descending, 20% diagonal, patent stent in the circumflex with 30% stenosis of the distal vessel, 25-40% stenosis in the right coronary artery and 60-70% diffuse disease in the posterior descending artery. MEDICATIONS 1. Zofran 2. Lisinopril 3. Lyrica 4. Seroquel 5. Alprazolam 6. Insulin 7. Nitroglycerine as needed 8. Aspirin 9. Lortab 10. Reglan [id number] None SOCIAL HISTORY The patient continues to smoke. He smokes marijuana. FAMILY HISTORY Positive for heart disease. REVIEW OF SYSTEMS Otherwise negative. PHYSICAL EXAMINATION VITAL SIGNS: Blood pressure 161/95, pulse 67 and regular. HEENT: Negative, 2+ carotid upstrokes, no bruits. LUNGS: Clear. HEART: Regular with no murmurs, rubs or gallops ABDOMEN: Soft, no bruits. EXTREMITIES: Without edema, 2+ distal pulses. NEUROLOGIC: Grossly nonfocal. CARDIOLOGY STUDIES Electrocardiogram was reviewed and showed normal sinus rhythm with normal axis and intervals, nonspecific T wave changes. Echocardiogram showed moderate left ventricular dysfunction with an ejection fraction of 30-35% with anterior and apical hypokinesis with mild mitral regurgitation. LABORATORY DATA Hemoglobin 16.5, potassium 3.8, creatinine 0.9. Troponin negative times two. Lipase 592. DIAGNOSES 1. Acute pancreatitis 2. Chest pain 3. Coronary artery disease, history of coronary stenting 4. Ischemic cardiomyopathy with moderate left ventricular systolic dysfunction. 5. Chronic obstructive pulmonary disease 6. Hypertension 7. Diabetes mellitus 8. Syncope 9. Noncompliance with medical care. DISPOSITION Mr. Stevenson will be monitored on telemetry. We will monitor his rhythm to evaluate the reason for his episodes of syncope. The chest pain is likely noncardiac. He has been ruled out for myocardial infarction by enzymes. He has been diagnosed with acute pancreatitis. I will follow him for cardiology during his hospitalization. MD ALEJANDRO Gore/ /5:49 PM /6:14 PM NOEMÍ
[2016-06-19] MEDS: INSULIN NovoLIN REGULAR SUPPLEMENTAL SCALE SQ SCH ×2 (19:12→20:44)
[2016-06-19 20:11] LABS: CREATINE KINASE 44 U/L (39-308)
[2016-06-19] MEDS: INSULIN DETEMIR 100 UNITS/ML VIAL SQ SCH (20:40)
[2016-06-19] MEDS ORDERED: INSULIN DETEMIR 100 UNITS/ML VIAL SQ SCH (21:00)
[2016-06-19] MEDS: QUEtiapine FUMARATE 100 MG TAB PO SCH (21:15)
[2016-06-20] VITALS (7 sets, daily range): BP systolic 129–177; BP diastolic 74–99; PULSE 71–92; RESP 18–21; TEMP 96.8–98; O2SAT 95–100
[2016-06-20] MEDS: MORPHINE SULFATE 4 MG/ML INJ IV PUSH PRN ×7 (03:29→22:23)
[2016-06-20] MEDS: INSULIN NovoLIN REGULAR SUPPLEMENTAL SCALE SQ SCH ×4 (06:28→20:25)
[2016-06-20 07:20] LABS: AUTOMATED NEUTROPHIL # 4.8 TH/MM3 (1.8-7.7); BASOPHIL # 0.1 TH/MM3 (0-0.2); BASOPHIL % 0.8 % (0.0-2.0); EOSINOPHIL # 0.3 TH/MM3 (0-0.4); EOSINOPHIL % 3.5 % (0.0-4.0); HEMATOCRIT 48.7 % (39.0-51.0); HEMO FLAGS DIFF FINAL; LYMPH % 20.8 % (9.0-44.0); LYMPHOCYTE # 1.6 TH/MM3 (1.0-4.8); MEAN CELL VOLUME 87.7 FL (80.0-100.0); MEAN CORPUSCULAR HEMOGLOBIN 30.7 PG (27.0-34.0); MEAN CORPUSCULAR HGB CONC 35.1 % (32.0-36.0); MONO % 10.1 % (0.0-8.0); NEUT % 64.8 % (16.0-70.0); PLATELET COUNT 125 TH/MM3 (150-450); RED BLOOD COUNT 5.55 MIL/MM3 (4.50-5.90); RED CELL DISTRIBUTION WIDTH 15.6 % (11.6-17.2); WHITE BLOOD COUNT 7.4 TH/MM3 (4.0-11.0)
[2016-06-20 07:58] LABS: ALKALINE PHOSPHATASE 173 U/L (45-117); ALT (GPT) 71 U/L (12-78); ANION GAP 7 MEQ/L (5-15); AST (GOT) 175 U/L (15-37); BICARBONATE 27.6 MEQ/L (21.0-32.0); BLOOD UREA NITROGEN 13 MG/DL (7-18); CHLORIDE 102 MEQ/L (98-107); GLOMERULAR FILTRATION RATE 155 ML/MIN (>89); POTASSIUM 4.2 MEQ/L (3.5-5.1); SODIUM (NA) 137 MEQ/L (136-145); TOTAL BILIRUBIN ADULT 0.6 MG/DL (0.2-1.0)
[2016-06-20 08:00] LABS: CREATINE KINASE 55 U/L (39-308)
[2016-06-20] MEDS: SUCRALFATE 1 GM TAB PO SCH ×4 (08:19→22:22)
[2016-06-20] MEDS: SODIUM CHLORIDE 0.9% FLUSH 10 ML FLUSH IV FLUSH SCH ×2 (09:02→22:22)
[2016-06-20] MEDS: CLOPIDOGREL 75 MG TAB PO SCH (09:05)
[2016-06-20] MEDS: QUEtiapine FUMARATE 100 MG TAB PO SCH ×2 (09:05→22:22)
[2016-06-20] MEDS: ASPIRIN EC 81 MG TABEC PO SCH (09:06)
[2016-06-20] MEDS: ENOXAPARIN SODIUM 40 MG/0.4 ML SYRINGE SQ SCH (09:06)
--- NOTE | 2016-06-20 09:33 | HHI.PR ---
Subjective Remarks Follow up abdominal pain and chest pain. Patient states he is still having burning pain in his upper middle abdomen that is worse with eating. He states the burning sensation radiates to his chest at times and causes discomfort with associated nausea, relief with Zofran. Denies any vomiting or shortness of breath. Patient states he quit drinking 15 years ago, but continues to smoke a PPD. Objective Vitals Vital Signs Date Time Temp Pulse Resp B/P Pulse Ox O2 Delivery O2 Flow Rate FiO2 06/20/16 08:10 97.5 77 18 164/99 99 06/20/16 06:30 16 06/20/16 04:34 97.8 71 21 129/82 100 06/20/16 01:13 98.0 77 18 130/74 98 06/19/16 19:50 78 06/19/16 19:28 98.4 77 18 166/93 98 06/19/16 16:18 98.2 74 175/104 99 06/19/16 11:50 97.9 70 18 158/89 96 I/O 06/19/16 06/19/16 06/19/16 06/20/16 06/20/16 06/20/16 07:00 15:00 23:00 07:00 15:00 23:00 Intake Total 800 ml Output Total 300 ml 900 ml Balance -300 ml -100 ml Intake Oral 800 ml Output Urine Total 300 ml 900 ml # Bowel Movements 0 Result Diagram: 06/20/16 0653 06/20/16 0653 Imaging Last Impressions Aorta CTA 06/19/16 0024 Signed Impressions: Service Date/Time: June 01:56 - CONCLUSION: 1. Unremarkable thoracoabdominal aorta. Xiang Cesar Jr., MD Chest X-Ray 06/19/16 0020 Signed Impressions: Service Date/Time: June 00:37 - CONCLUSION: Normal examination. Xiang Cesar Jr., MD Carotid Artery Ultrasound 06/19/16 0000 Signed Impressions: Service Date/Time: June 08:38 - CONCLUSION: No hemodynamically significant stenosis in either carotid artery. Rich Bliss MD Objective Remarks GENERAL: Well nourish patient having some discomfort SKIN: Warm and dry. HEAD: Atraumatic. Normocephalic. EYES: Pupils equal and round. No scleral icterus. No injection or drainage. ENT: No nasal bleeding or discharge. Mucous membranes pink and moist. NECK: Trachea midline. No JVD. CARDIOVASCULAR: Regular rate and rhythm. RESPIRATORY: No accessory muscle use. Clear to auscultation. Breath sounds equal bilaterally. GASTROINTESTINAL: Abdomen soft, mid epigastric tenderness, nondistended. MUSCULOSKELETAL: Extremities without clubbing, cyanosis, or edema. No obvious deformities. NEUROLOGICAL: Awake and alert. Motor grossly within normal limits. Normal speech. PSYCHIATRIC: Appropriate mood and affect; insight and judgment normal. Medications and IVs Current Medications Medications (Trade) Dose Ordered Sig/Patsy Route Start Time Stop Time Status Last Admin (Zofran Inj) 4 mg Q6H PRN IVP 06/19/16 03:30 (Narcan Inj) 0.4 mg UNSCH PRN IV 06/19/16 03:30 (NS Flush) 2 ml BID IV FLUSH 06/19/16 09:00 06/19/16 20:36 (NS Flush) 2 ml UNSCH PRN IVF 06/19/16 03:30 06/19/16 23:43 (D50w (Vial) Inj) 25 ml UNSCH PRN IV PUSH 06/19/16 06:15 (Glucagon Inj) 1 mg UNSCH PRN OTHER 06/19/16 06:15 (Morphine Inj) 2 mg Q3H PRN IV PUSH 06/19/16 06:15 06/20/16 06:25 (Ecotrin Ec) 81 mg DAILY PO 06/19/16 09:00 06/19/16 11:36 (Plavix) 75 mg DAILY PO 06/19/16 09:00 06/19/16 11:36 (Carafate) 1 gm QID PO 06/19/16 09:00 06/20/16 08:19 (Lovenox Inj) 40 mg Q24H SQ 06/19/16 09:00 06/19/16 11:37 (NovoLIN R INJ) 5 units TIDAC SQ 06/19/16 17:00 Hold (Levemir Inj) 18 units HS SQ 06/19/16 21:00 06/19/16 20:40 (SEROquel) 150 mg BID PO 06/19/16 21:00 06/19/16 21:15 (Protonix Inj) 40 mg Q24H IV PUSH 06/20/16 09:00 UNV A/P Problem List: (1) Pancreatitis ICD Code: K85.9 Status: Acute (2) Atypical chest pain ICD Code: R07.89 Status: Acute Assessment and Plan 45 y/o with a history of HTN, DM, CHF, CAD, and COPD presented to the ED with complaints of RUQ abdominal pain and chest pain. Acute pancreatitis, possible gastritis Lipase 592-->301, received IV 2L prior -Cont PO hydration -Consult GI for cont epigastric pain -Protonix IV -Cont Carafate Chest pain, likely related to abdominal pain Troponin negative ECHO: systolic dysfunction, EF 30-35%, carotid US shows no stenosis, Aorta CTA unremarkable -Cardiology following, [place] ruled out -Cont telemetry -Monitor for fluid overload Syncope at home, prior to coming to hospital Carotids US unremarkable -neurology consulted for recommendations Hyperglycemia, more controlled -Accu checks with SSI -Levemir 18 U HS DVT prophylaxis: Lovenox. Discharge Planning pending GI Problem Qualifiers (1) Pancreatitis: Qualified Code: K85.90 - Acute pancreatitis, unspecified complication status, unspecified pancreatitis type Maria T Torres June 20, 2016 09:33
[2016-06-20] MEDS: PANTOPRAZOLE SODIUM 40 MG VIAL IV PUSH SCH (09:47)
--- NOTE | 2016-06-20 13:15 | PD.CONS ---
HPI History of Present Illness This is a 45 year old [gentleman] with IDDM who presented to the ER yesterday with n/v, chest pains, abdominal pain. He says he had an NE 05/26 and the pain never went away. He has fatigue. The abdominal pain started a week ago along with nausea and vomiting. He felt okay a few days later and then symptoms returned, was not able to eat or drink. HE indicates epigastric area for pain location, was burning stabbing pain that radiated into his back. NO exacerbating or relieving factors. Pain is constant with exacerbations. He had loose stools about 5 days ago. He has not had BM since then and has not eaten much. He had EGD last year when he was here for pancreatitis, it showed LA class A esophagitis, erythematous gastritis, duodenal inflammation bulb and 2nd portion duodenum. He has lost 80 lbs in the last 2 years. He says he gets "hot flashes" and night sweats occasionally. He had elevated lipase on admission 592, now down to 301 and pt on clears. Pt also has hx gastroparesis, IDDM. His BG was 493 on admission and now is 299 No medication changes, recent travel, sick contacts. NO blood in vomit, blood in stool. He has not not had ETOH for a few years but was formerly a heavy drinker. (Fiona Vergara) PFSH Past Medical History htn dm cad- 3 stent chf - ef 30-35% by echo 08/2015 copd seizureslikely secondary to benzo withdrawal at that time. This was several years ago. Past Surgical History cholecystectomy right wrist plate implant lenses in eyes umbilical hernia cardiac angiogram and stents (Fiona Vergara) Coded Allergies: No Known Allergies (Verified , 03/03/16) Medications Current Medications Medications (Trade) Dose Ordered Sig/Patsy Route PRN Reason Start Time Stop Time Status Last Admin Dose Admin Ondansetron HCl (Zofran Inj) 4 mg Q6H PRN IVP NAUSEA OR VOMITING 06/19/16 03:30 Naloxone HCl (Narcan Inj) 0.4 mg UNSCH PRN IV SEE LABEL COMMENTS 06/19/16 03:30 Sodium Chloride (NS Flush) 2 ml BID IV FLUSH 06/19/16 09:00 06/20/16 09:02 Sodium Chloride (NS Flush) 2 ml UNSCH PRN IVF FLUSH AFTER USING IV ACCESS 06/19/16 03:30 06/19/16 23:43 Dextrose (D50w (Vial) Inj) 25 ml UNSCH PRN IV PUSH HYPOGLYCEMIA-SEE COMMENTS 06/19/16 06:15 Glucagon (Glucagon Inj) 1 mg UNSCH PRN OTHER HYPOGLYCEMIA-SEE COMMENTS 06/19/16 06:15 Morphine Sulfate (Morphine Inj) 2 mg Q3H PRN IV PUSH pain > 5 06/19/16 06:15 06/20/16 12:42 Aspirin (Ecotrin Ec) 81 mg DAILY PO 06/19/16 09:00 06/20/16 09:06 Clopidogrel Bisulfate (Plavix) 75 mg DAILY PO 06/19/16 09:00 06/20/16 09:05 Sucralfate (Carafate) 1 gm QID PO 06/19/16 09:00 06/20/16 12:22 Enoxaparin Sodium (Lovenox Inj) 40 mg Q24H SQ 06/19/16 09:00 06/20/16 09:06 Insulin Human Regular (NovoLIN R INJ) 5 units TIDAC SQ 06/19/16 17:00 Hold Insulin Detemir (Levemir Inj) 18 units HS SQ 06/19/16 21:00 06/19/16 20:40 Quetiapine Fumarate (SEROquel) 150 mg BID PO 06/19/16 21:00 06/20/16 09:05 Pantoprazole Sodium (Protonix Inj) 40 mg Q24H IV PUSH 06/20/16 10:00 06/20/16 09:47 Family History most young in dad side dad- 2 heart attack and 2 stroke before 46yo brother-heart attack Social History smokes a pack a day no alcohol - former heavy drinker no drugs - occasional marijuana (Fiona Vergara) Review of Systems Constitutional: COMPLAINS OF: Diaphoretic episodes, Weight loss (80 lbs in 2 years), Night Sweats, DENIES: Fever Endocrine: DENIES: Polydipsia, Polyuria Eyes: DENIES: Blurred vision Ears, nose, mouth, throat: DENIES: Hearing loss Respiratory: COMPLAINS OF: Cough, DENIES: Hemoptysis Cardiovascular: COMPLAINS OF: Chest pain Gastrointestinal: COMPLAINS OF: Abdominal pain, Nausea, Vomiting, DENIES: Black stools, Bloody stools, Constipation, Hematemesis Genitourinary: DENIES: Hematuria Musculoskeletal: DENIES: Joint pain, Muscle aches Integumentary: DENIES: Jaundice Hematologic/lymphatic: DENIES: Bruising Neurologic: COMPLAINS OF: Paresthesias (peripheral neuropathy bilat feet, hands ) Psychiatric: COMPLAINS OF: Confusion (Fiona Vergara) GI Exam Vitals I&O Vital Signs Date Time Temp Pulse Resp B/P Pulse Ox O2 Delivery O2 Flow Rate FiO2 06/20/16 12:06 96.8 80 18 140/80 96 06/20/16 08:15 99 21 06/20/16 08:10 97.5 77 18 164/99 99 06/20/16 06:30 16 06/20/16 04:34 97.8 71 21 129/82 100 06/20/16 01:13 98.0 77 18 130/74 98 06/19/16 19:50 78 06/19/16 19:28 98.4 77 18 166/93 98 06/19/16 16:18 98.2 74 175/104 99 I/O 06/19/16 06/19/16 06/19/16 06/20/16 06/20/16 06/20/16 07:00 15:00 23:00 07:00 15:00 23:00 Intake Total 800 ml Output Total 300 ml 900 ml Balance -300 ml -100 ml Intake Oral 800 ml Output Urine Total 300 ml 900 ml # Bowel Movements 0 Imaging Last Impressions Aorta CTA 06/19/16 0024 Signed Impressions: Service Date/Time: June 01:56 - CONCLUSION: 1. Unremarkable thoracoabdominal aorta. Xiang Cesar Jr., MD Chest X-Ray 06/19/16 0020 Signed Impressions: Service Date/Time: June 00:37 - CONCLUSION: Normal examination. Xiang Cesar Jr., MD Carotid Artery Ultrasound 06/19/16 0000 Signed Impressions: Service Date/Time: June 08:38 - CONCLUSION: No hemodynamically significant stenosis in either carotid artery. Rich Bliss MD Laboratory Test 06/19/16 06/19/16 06/20/16 13:51 18:48 06:53 Total Creatine Kinase 42 U/L 44 U/L 55 U/L Troponin I LESS THAN 0.02 LESS THAN 0.02 LESS THAN 0.02 NG/ML NG/ML NG/ML White Blood Count 7.4 TH/MM3 Red Blood Count 5.55 MIL/MM3 Hemoglobin 17.1 GM/DL Hematocrit 48.7 % Mean Corpuscular Volume 87.7 FL Mean Corpuscular Hemoglobin 30.7 PG Mean Corpuscular Hemoglobin 35.1 % Concent Red Cell Distribution Width 15.6 % Platelet Count 125 TH/MM3 Mean Platelet Volume 8.8 FL Neutrophils (%) (Auto) 64.8 % Lymphocytes (%) (Auto) 20.8 % Monocytes (%) (Auto) 10.1 % Eosinophils (%) (Auto) 3.5 % Basophils (%) (Auto) 0.8 % Neutrophils # (Auto) 4.8 TH/MM3 Lymphocytes # (Auto) 1.6 TH/MM3 Monocytes # (Auto) 0.8 TH/MM3 Eosinophils # (Auto) 0.3 TH/MM3 Basophils # (Auto) 0.1 TH/MM3 CBC Comment DIFF FINAL Differential Comment Sodium Level 137 MEQ/L Potassium Level 4.2 MEQ/L Chloride Level 102 MEQ/L Carbon Dioxide Level 27.6 MEQ/L Anion Gap 7 MEQ/L Blood Urea Nitrogen 13 MG/DL Creatinine 0.57 MG/DL Estimat Glomerular Filtration 155 ML/MIN Rate Random Glucose 199 MG/DL Calcium Level 8.6 MG/DL Total Bilirubin 0.6 MG/DL Aspartate Amino Transf 175 U/L (AST/SGOT) Alanine Aminotransferase 71 U/L (ALT/SGPT) Alkaline Phosphatase 173 U/L Total Protein 6.3 GM/DL Albumin 2.9 GM/DL Lipase 301 U/L Physical Examination HEENT: EOMI; normocephalic; atraumatic; no jaundice. CHEST: Chest is clear to auscultation and percussion. CARDIAC: Regular rate and rhythm with no murmur gallop or rubs. ABDOMEN: Soft, nondistended,mild TTP epigastric area; no hepatosplenomegaly; bowel sounds are present in all four quadrants. EXTREMITIES: No clubbing, cyanosis, or edema. SKIN: Normal; no rash; no jaundice. LOG SKIDDER: No focal deficits; alert and oriented times three. (Fiona Vergara) Assessment and Plan Plan ASSESSMENT - epigsastric pain with n/v - elevated lipase on admission 592, now down to 301 and pt on clears. Pt also has hx gastroparesis, IDDM. - elevated LFTs - AST 175, ALT 71, ALP 173, Tbil WNL. Pt denies ETOH in last few years, former heavy drinker. Will order Hep panel. PLAN - MRCP - clears - hepatitis panel - monitor labs - supportive care - Further recommendations based on results of above This pt seen by myself and Dr Ring and this note is written on his behalf (Fiona Vergara) Physician Comments agree with above (Hoda Ring MD) Fiona Vergara June 20, 2016 13:15 Hoda Ring MD June 28, 2016 11:05
[2016-06-20 17:18] LABS: ALT (GPT) 80 U/L (12-78); ANION GAP 9 MEQ/L (5-15); AST (GOT) 80 U/L (15-37); BICARBONATE 30.7 MEQ/L (21.0-32.0); BLOOD UREA NITROGEN 13 MG/DL (7-18); CHLORIDE 103 MEQ/L (98-107); GLOMERULAR FILTRATION RATE 165 ML/MIN (>89); POTASSIUM 3.5 MEQ/L (3.5-5.1); SODIUM (NA) 143 MEQ/L (136-145)
[2016-06-20 17:19] LABS: ALKALINE PHOSPHATASE 188 U/L (45-117); TOTAL BILIRUBIN ADULT 0.5 MG/DL (0.2-1.0)
--- NOTE | 2016-06-20 18:25 | RADRPT ---
EXAM DATE/TIME: 06/20/2016 17:36 [facility] COMPARISON: CT ABDOMEN & PELVIS W CONTRAST, September 04, 2013, 12:25. CT ABDOMEN & PELVIS W CONTRAST, June 01, 2013 , 16:09. BILIARY QUANTITATIVE (HIDA), May 31, 2013, 12:34. CT ABDOMEN & PELVIS W/O CONTRAST, 2013, 17:22. CTA THORACIC ABDOMINAL AORTA W 3D RECON, June 19, 2016, 1:56. INDICATIONS : Pancreatitis. MEDICAL HISTORY : Diabetes mellitus type 2. Cardiovascular disease. Congestive heart failure. Hypertension SURGICAL HISTORY : Coronary artery stent. ENCOUNTER: Initial ACUITY: 1 day PAIN SCORE: 6/10 LOCATION: Abdomen TECHNIQUE: Multiplanar, multisequence magnetic resonance imaging of the abdomen was performed. High-resolution 3D dataset was utilized to reconstruct maximum-intensity projection (MIP) images. FINDINGS: INTRAHEPATIC BILE DUCTS: Within normal limits. No significant anatomical variant is present. EXTRAHEPATIC BILE DUCTS: The common bile duct measures 6-7 mm No stone or filling defect is identified. GALLBLADDER: Not seen LIVER: Normal size and signal intensity. No concerning liver lesion is identified on this non-contrast exam. PANCREAS: The main pancreatic duct is normal in size. There is no significant anatomical variant. Signal inte nsity is within normal limits. No mass is visualized on this non-contrast exam. OTHER: The remaining visualized structures demonstrate no acute abnormality on this non-contrast exam. CONCLUSION: Unremarkable Mario Ibarra MD on June 20, 2016 at 18:18 Board Certified Radiologist. This report was verified electronically.
--- NOTE | 2016-06-20 20:23 | PD.CARD.PN ---
Subjective Subjective Remarks C/o epigastric pain radiating into his back, no dizziness or syncope Objective Medications Current Medications Medications (Trade) Dose Ordered Sig/Patsy Route Start Time Stop Time Status Last Admin (Zofran Inj) 4 mg Q6H PRN IVP 06/19/16 03:30 (Narcan Inj) 0.4 mg UNSCH PRN IV 06/19/16 03:30 (NS Flush) 2 ml BID IV FLUSH 06/19/16 09:00 06/20/16 09:02 (NS Flush) 2 ml UNSCH PRN IVF 06/19/16 03:30 06/19/16 23:43 (D50w (Vial) Inj) 25 ml UNSCH PRN IV PUSH 06/19/16 06:15 (Glucagon Inj) 1 mg UNSCH PRN OTHER 06/19/16 06:15 (Morphine Inj) 2 mg Q3H PRN IV PUSH 06/19/16 06:15 06/20/16 19:05 (Ecotrin Ec) 81 mg DAILY PO 06/19/16 09:00 06/20/16 09:06 (Plavix) 75 mg DAILY PO 06/19/16 09:00 06/20/16 09:05 (Carafate) 1 gm QID PO 06/19/16 09:00 06/20/16 12:22 (Lovenox Inj) 40 mg Q24H SQ 06/19/16 09:00 06/20/16 09:06 (NovoLIN R INJ) 5 units TIDAC SQ 06/19/16 17:00 Hold (Levemir Inj) 18 units HS SQ 06/19/16 21:00 06/19/16 20:40 (SEROquel) 150 mg BID PO 06/19/16 21:00 06/20/16 09:05 (Protonix Inj) 40 mg Q24H IV PUSH 06/20/16 10:00 06/20/16 09:47 Vital Signs / I&O Vital Signs Date Time Temp Pulse Resp B/P Pulse Ox O2 Delivery O2 Flow Rate FiO2 06/20/16 19:31 96.8 92 18 177/92 95 160/98 150/97 06/20/16 15:42 77 18 144/95 95 06/20/16 12:06 96.8 80 18 140/80 96 5/12/17 08:15 99 21 06/20/16 08:10 97.5 77 18 164/99 99 06/20/16 06:30 16 06/20/16 04:34 97.8 71 21 129/82 100 06/20/16 01:13 98.0 77 18 130/74 98 I/O 06/19/16 06/19/16 06/19/16 06/20/16 06/20/16 06/20/16 07:00 15:00 23:00 07:00 15:00 23:00 Intake Total 800 ml 720 ml Output Total 300 ml 900 ml Balance -300 ml -100 ml 720 ml Intake Oral 800 ml 720 ml Output Urine Total 300 ml 900 ml # Voids 3 # Bowel Movements 0 Physical Exam GENERAL: In NAD SKIN: Warm and dry. HEAD: Normocephalic. EYES: No scleral icterus. No injection or drainage. NECK: Supple, trachea midline. No JVD or lymphadenopathy. CARDIOVASCULAR: Regular rate and rhythm without murmurs, gallops, or rubs. RESPIRATORY: Breath sounds equal bilaterally. No accessory muscle use. GASTROINTESTINAL: Abdomen soft, tender, nondistended. MUSCULOSKELETAL: No cyanosis, or edema. Laboratory Laboratory Tests Test 06/20/16 06/20/16 06:53 15:52 White Blood Count 7.4 TH/MM3 Red Blood Count 5.55 MIL/MM3 Hemoglobin 17.1 GM/DL Hematocrit 48.7 % Mean Corpuscular Volume 87.7 FL Mean Corpuscular Hemoglobin 30.7 PG Mean Corpuscular Hemoglobin 35.1 % Concent Red Cell Distribution Width 15.6 % Platelet Count 125 TH/MM3 Mean Platelet Volume 8.8 FL Neutrophils (%) (Auto) 64.8 % Lymphocytes (%) (Auto) 20.8 % Monocytes (%) (Auto) 10.1 % Eosinophils (%) (Auto) 3.5 % Basophils (%) (Auto) 0.8 % Neutrophils # (Auto) 4.8 TH/MM3 Lymphocytes # (Auto) 1.6 TH/MM3 Monocytes # (Auto) 0.8 TH/MM3 Eosinophils # (Auto) 0.3 TH/MM3 Basophils # (Auto) 0.1 TH/MM3 CBC Comment DIFF FINAL Differential Comment Sodium Level 137 MEQ/L 143 MEQ/L Potassium Level 4.2 MEQ/L 3.5 MEQ/L Chloride Level 102 MEQ/L 103 MEQ/L Carbon Dioxide Level 27.6 MEQ/L 30.7 MEQ/L Anion Gap 7 MEQ/L 9 MEQ/L Blood Urea Nitrogen 13 MG/DL 13 MG/DL Creatinine 0.57 MG/DL 0.54 MG/DL Estimat Glomerular Filtration 155 ML/MIN 165 ML/MIN Rate Random Glucose 199 MG/DL 91 MG/DL Calcium Level 8.6 MG/DL 9.4 MG/DL Total Bilirubin 0.6 MG/DL 0.5 MG/DL Aspartate Amino Transf 175 U/L 80 U/L (AST/SGOT) Alanine Aminotransferase 71 U/L 80 U/L (ALT/SGPT) Alkaline Phosphatase 173 U/L 188 U/L Total Creatine Kinase 55 U/L Troponin I LESS THAN 0.02 NG/ML Total Protein 6.3 GM/DL 6.2 GM/DL Albumin 2.9 GM/DL 3.0 GM/DL Lipase 301 U/L Imaging Last Impressions Cholangiopancreatography MRI 06/20/16 0000 Signed Impressions: Service Date/Time: Monday, June 20, 2016 17:36 - CONCLUSION: Unremarkable Mario Ibarra MD Aorta CTA 06/19/16 0024 Signed Impressions: Service Date/Time: June 01:56 - CONCLUSION: 1. Unremarkable thoracoabdominal aorta. Xiang Cesar Jr., MD Chest X-Ray 06/19/16 0020 Signed Impressions: Service Date/Time: June 00:37 - CONCLUSION: Normal examination. Xiang Cesar Jr., MD Carotid Artery Ultrasound 06/19/16 0000 Signed Impressions: Service Date/Time: June 08:38 - CONCLUSION: No hemodynamically significant stenosis in either carotid artery. Rich Bliss MD Assessment and Plan Problem List: (1) Acute pancreatitis (2) Syncope (3) Epigastric abdominal pain (4) Hx of non-ST elevation myocardial infarction (NSTEMI) (5) CAD (coronary artery disease) (6) Cardiomyopathy (7) Type 2 diabetes mellitus (8) Weight loss Assessment and Plan No evidence of ACS. Symptoms c/w acute pancreatitis, GI eval in progress. Reason for recurrent syncope unclear, undergoing neurology eval, continue monitoring on tele. Increase activity, start PT and see if symptoms can be observed with exercise. Continue tx for CAD, CHF and aggressive risk factor modification. Needs to quit smoking. Problem Qualifiers (1) Syncope: Qualified Code: R55 - Syncope, unspecified syncope type Valentino Perry MD June 20, 2016 20:23
[2016-06-20] MEDS ORDERED: REMOVE OLD PATCH T-DERMAL SCH (21:00)
--- NOTE | 2016-06-20 21:07 | MB ---
cc: CLARI FLOWERS MD DATE OF CONSULTATION 06/20/16 1971 REASON FOR CONSULTATION Syncope. HISTORY OF PRESENT ILLNESS The patient is a 45-year-old man with history of pancreatitis who came in with epigastric pain, some nausea and vomiting. He has been having some dizzy spells and syncope. The syncope is going on for over a year now. It usually occurs when he is ambulating. No forewarning. It has been noted he states by his roommate that he just falls to the ground, could be unresponsive for minutes, then when he comes to he is not postictal. There is no incontinence. No tongue biting. He states he has had a seizure in the past when he was admitted to [facility], but his glucose level is very high. He states he was not responsive for two days at least, but he cannot elaborate in detail. Otherwise, he denies any history of epilepsy. PAST MEDICAL HISTORY 1. History of hypertension, 2. Diabetes, 3. Heart disease. 4. Three stents, 5. CHF - low ejection fraction of 30-35% by echo in August of 2015, 6. COPD 7. He states he has had an [place]. 8. Per chart by the hospital, it states he had a history of a seizure from benzo withdrawal several years ago. PAST SURGICAL HISTORY 1. Cholecystectomy, 2. Right wrist surgery 3. Lens implant in eyes 4. Umbilical hernia 5. Cardiac angiogram and stents. ALLERGIES None reported. FAMILY HISTORY Heart attack in the father, stroke. Brother heart attack. SOCIAL HISTORY Still smokes about a pack a day. He has not had a drink in many years. He used to have a drinking problem, occasionally smokes marijuana. PHYSICAL EXAMINATION VITAL SIGNS: Temperature is 96.8, pulse 92, respiratory rate 18 and blood pressure supine was 177/92, standing 150/97, so there are some orthostatic changes. NECK: Supple. HEART: Regular. NEUROLOGIC: He is awake, alert. He is oriented and fluent. His pupils reactive. Visual mccord are full. Face symmetrical. Tongue midline. Motor peres, he does not exhibit any lateralizing weakness. Both toes are downgoing. Cerebellar testing was normal. Gait is withheld. LABORATORY DATA Labs are reviewed. His AST currently is 80, ALT is 80 as well, alk phos 188. CK levels are normal, cardiac enzymes troponin is less than 0.2, albumin is three. His lipase was 592, now is 301. Coag panel is normal. CBC - There is no white count elevation. His hemoglobin today is 17.1, platelets 125,000. Serology hepatitis A, B and C are pending. He has had a cholangiopancreatography MRI and it is unremarkable. Aortic CTA unremarkable. IMAGING STUDIES Chest x-ray normal. Carotid ultrasound - no significant stenosis. IMPRESSION A 45-year-old man with syncopal spells. The first set of orthostatic vitals, he is orthostatic. However, we really do not know if he has been orthostatic in the past. Cardiology has already seen the gentleman. Recommendations are reviewed as far as monitoring on telemetry. Chest pain is noncardiac. recommendations for the syncope are to get an EEG. Continue orthostatics. Certainly as an outpatient, he can have an event monitor/prolonged Holter. Maintain him on telemetry. If his EEG is unremarkable at this point, I would not put him on any antiepileptics as I do not have any evidence this is neurologic. He does not exhibit any vertigo or any weakness. I was going to do an MRI of the brain and [place], but I do not see any signs of vertigo, any signs of a stroke nor any signs of what would be described as vestibular basilar insufficiency. He should not drive. Should follow up as an outpatient with his primary care as well as GI. He needs to stay well-hydrated. If he continues to be orthostatic, he can certainly wear support stockings. Takes sodium chloride tablets. He cannot really drink Gatorade due to his diabetes. I do not think he is a candidate for any medication for hypotension since he is not significantly hypotensive. I will continue to monitor and make further recommendations accordingly. MD DARYL Malone/ /8:28 PM /8:53 PM
[2016-06-20] MEDS: NICOTINE 7 MG/24 HR PATCH T-DERMAL SCH (22:00)
[2016-06-20] MEDS ORDERED: ALPRAZolam 0.5 MG TAB PO PRN (22:00)
[2016-06-20] MEDS: INSULIN DETEMIR 100 UNITS/ML VIAL SQ SCH (22:24)
[2016-06-21] VITALS (8 sets, daily range): BP systolic 127–175; BP diastolic 80–101; PULSE 77–102; RESP 18–22; TEMP 96.1–98.8; O2SAT 98–100
[2016-06-21] MEDS: MORPHINE SULFATE 4 MG/ML INJ IV PUSH PRN ×3 (02:39→08:51)
[2016-06-21] MEDS ORDERED: cloNIDine HCL 0.1 MG TAB PO ONE (03:15)
[2016-06-21] MEDS ORDERED: ENALAPRILAT 1.25 MG/ML VIAL IV PUSH PRN (03:15)
[2016-06-21] MEDS: INSULIN NovoLIN REGULAR SUPPLEMENTAL SCALE SQ SCH ×4 (06:16→21:00)
[2016-06-21] MEDS: SODIUM CHLORIDE 0.9% FLUSH 10 ML FLUSH IV FLUSH SCH ×2 (08:38→20:22)
[2016-06-21] MEDS: SUCRALFATE 1 GM TAB PO SCH ×4 (08:38→20:22)
[2016-06-21] MEDS: CLOPIDOGREL 75 MG TAB PO SCH (08:38)
[2016-06-21] MEDS: ASPIRIN EC 81 MG TABEC PO SCH (08:39)
[2016-06-21] MEDS: ENOXAPARIN SODIUM 40 MG/0.4 ML SYRINGE SQ SCH (08:39)
[2016-06-21] MEDS: QUEtiapine FUMARATE 100 MG TAB PO SCH ×2 (08:39→20:22)
[2016-06-21] MEDS: PANTOPRAZOLE SODIUM 40 MG VIAL IV PUSH SCH (08:40)
[2016-06-21] MEDS: REMOVE OLD PATCH T-DERMAL SCH (08:41)
[2016-06-21] MEDS: NICOTINE 7 MG/24 HR PATCH T-DERMAL SCH (08:41)
--- NOTE | 2016-06-21 10:34 | HHI.FF ---
Face to Face Verification Diagnosis: (1) Syncope (2) Type 2 diabetes mellitus (3) Epigastric abdominal pain (4) Acute pancreatitis (5) Depression with anxiety (6) Gastroparesis due to DM Physical Therapy Order: Evaluate and Treat, Improve ambulation, Strength and gait training Home Health Nursing Order: Medical education Signs/symptoms of disease process Diabetic education Nursing assessment with vital signs I have seen patient Danilo Stevenson on 06/21/16. My clinical findings support the need for the requested home health care services because: Ltd mobility - disease progression Deconditioned w/ increased weakness Limited ability to care for self High risk of falls I certify that my clinical findings support that this patient is homebound because: Unsteady gait/balance Unsafe to leave home unassisted Unable to use public transportation Maria T Torres June 21, 2016 10:34
--- NOTE | 2016-06-21 10:36 | HHI.PR ---
Subjective Remarks Follow up abdominal pain and chest pain. Patient states the pain comes and goes. Denies any nausea, or vomiting. Able to tolerate clear liquids. He did get upset last night with staff but his Xanax was restarted and he felt better. He does have anxiety at home. Objective Vitals Vital Signs Date Time Temp Pulse Resp B/P Pulse Ox O2 Delivery O2 Flow Rate FiO2 06/21/16 07:34 98.4 80 18 147/93 99 06/21/16 07:19 98 21 06/21/16 04:37 98.5 91 22 127/92 99 06/21/16 01:37 82 06/21/16 00:05 96.1 81 18 175/101 99 06/21/16 00:03 96.1 81 18 175/101 99 06/20/16 19:45 21 06/20/16 19:31 96.8 92 18 177/92 95 160/98 150/97 06/20/16 15:42 77 18 144/95 95 06/20/16 12:06 96.8 80 18 140/80 96 I/O 06/20/16 06/20/16 06/20/16 06/21/16 06/21/16 06/21/16 07:00 15:00 23:00 07:00 15:00 23:00 Intake Total 720 ml Output Total 600 ml Balance 120 ml Intake Oral 720 ml Output Urine Total 600 ml # Voids 3 # Bowel Movements 1 Result Diagram: 06/20/16 0653 06/20/16 1552 Objective Remarks GENERAL: Well nourish patient having some discomfort SKIN: Warm and dry. HEAD: Atraumatic. Normocephalic. EYES: Pupils equal and round. No scleral icterus. No injection or drainage. ENT: No nasal bleeding or discharge. Mucous membranes pink and moist. NECK: Trachea midline. No JVD. CARDIOVASCULAR: Regular rate and rhythm. RESPIRATORY: No accessory muscle use. Clear to auscultation. Breath sounds equal bilaterally. GASTROINTESTINAL: Abdomen soft, mid epigastric tenderness, nondistended. MUSCULOSKELETAL: Extremities without clubbing, cyanosis, or edema. No obvious deformities. NEUROLOGICAL: Awake and alert. Motor grossly within normal limits. Normal speech. PSYCHIATRIC: Appropriate mood and affect; insight and judgment normal. A/P Problem List: (1) Pancreatitis ICD Code: K85.9 Status: Acute (2) Atypical chest pain ICD Code: R07.89 Status: Acute Assessment and Plan 45 y/o with a history of HTN, DM, CHF, CAD, and COPD presented to the ED with complaints of RUQ abdominal pain and chest pain. Acute pancreatitis, possible gastritis Lipase 592-->301, received IV 2L prior -Cont PO hydration -Consult GI for cont epigastric pain, MRCP ordered unremarkable, Discussed with Dr. Ring, she states patient can do EGD and gastric emptying outpatient if he wants -Cont Protonix IV -Cont Carafate -Advance diet Chest pain, likely related to abdominal pain Troponin negative ECHO: systolic dysfunction, EF 30-35%, carotid US shows no stenosis, Aorta CTA unremarkable -Cardiology following, IA ruled out -Cont telemetry -Monitor for fluid overload Syncope at home, prior to coming to hospital Carotids US unremarkable -neurology consulted for recommendations, Dr Harding does not think it is anything neurological related, thinks is orthostatsis: advised to stay hydrated , and wear compression stockings -EEG ordered per neurology Hyperglycemia, more controlled -Accu checks with SSI -Levemir 18 U HS DVT prophylaxis: Lovenox. Discussed with Dr. Eason Discharge Planning pending EEG Problem Qualifiers (1) Pancreatitis: Qualified Code: K85.90 - Acute pancreatitis, unspecified complication status, unspecified pancreatitis type Marai T Torres June 21, 2016 10:36
[2016-06-21] MEDS ORDERED: WALKER WHEELS/F1 MIS ×2 (15:48→15:50)
--- NOTE | 2016-06-21 20:19 | MG ---
cc: CLARI FLOWERS M.D. Lab No: [id number] Date: Age: 45 Sex: M Race: With photic stimulation. Awake, drowsy, asleep. No imaging. Admitted with pancreatitis and episodes of dizziness, unresponsiveness in the past. CURRENT MEDICINES: 1. Catapres. 2. Seroquel. 3. Lovenox. 4. Others. DESCRIPTION OF RECORD: Quite a bit of movement artifact but overall the patient has normal alpha rhythm. He has some slowing as he falls asleep and there is a lot of head movement. By EKG, looks to be in sinus. Hyperventilation was not performed. Photic stimulation does elicit a posterior driving response. IMPRESSION: Normal EEG. No evidence of any epileptic activity in this one recording. Clinical correlation. MD DARYL Malone/LIVE /7:53 PM /8:09 PM
[2016-06-21] MEDS ORDERED: INSULIN DETEMIR 100 UNITS/ML VIAL SQ SCH (21:00)
[2016-06-21] MEDS: INSULIN DETEMIR 100 UNITS/ML VIAL SQ SCH (21:43)
[2016-06-22] VITALS: BP 141/79; PULSE 87; RESP 20; TEMP 98.6; O2SAT 96
[2016-06-22 04:00] VITALS: BP 134/94; PULSE 102; RESP 20; TEMP 97.4; O2SAT 99
[2016-06-22 05:36] LABS: ALT (GPT) 67 U/L (12-78); ANION GAP 7 MEQ/L (5-15); AST (GOT) 40 U/L (15-37); BICARBONATE 28.9 MEQ/L (21.0-32.0); BLOOD UREA NITROGEN 15 MG/DL (7-18); CHLORIDE 107 MEQ/L (98-107); GLOMERULAR FILTRATION RATE 144 ML/MIN (>89); POTASSIUM 3.7 MEQ/L (3.5-5.1); SODIUM (NA) 143 MEQ/L (136-145)
[2016-06-22 05:38] LABS: ALKALINE PHOSPHATASE 211 U/L (45-117); TOTAL BILIRUBIN ADULT 0.4 MG/DL (0.2-1.0)
[2016-06-22] MEDS: INSULIN NovoLIN REGULAR SUPPLEMENTAL SCALE SQ SCH ×2 (06:07→11:00)
[2016-06-22 08:13] VITALS: BP_SYST 137; BP_SYST 150; BP_DIAS 81; BP_DIAS 91; PULSE 77; RESP 18; TEMP 98.4; O2SAT 98
[2016-06-22] MEDS: REMOVE OLD PATCH T-DERMAL SCH (09:00)
[2016-06-22] MEDS: QUEtiapine FUMARATE 100 MG TAB PO SCH (09:08)
[2016-06-22] MEDS: ASPIRIN EC 81 MG TABEC PO SCH (09:08)
[2016-06-22] MEDS: SUCRALFATE 1 GM TAB PO SCH ×2 (09:08→13:00)
[2016-06-22] MEDS: CLOPIDOGREL 75 MG TAB PO SCH (09:08)
[2016-06-22] MEDS: ENOXAPARIN SODIUM 40 MG/0.4 ML SYRINGE SQ SCH (09:08)
[2016-06-22] MEDS: NICOTINE 7 MG/24 HR PATCH T-DERMAL SCH (09:09)
[2016-06-22] MEDS: SODIUM CHLORIDE 0.9% FLUSH 10 ML FLUSH IV FLUSH SCH (09:13)
--- NOTE | 2016-06-22 10:55 | HHI.DS ---
cc: Dr. Pablo Discharge Summary Admission Date June 19, 2016 at 3:28 am Discharge Date: June 22, 2016 Admitting Diagnosis pancreatitis; chest pain; DM (1) Pancreatitis ICD Code: K85.90 Diagnosis: Principal (2) Gastroparesis due to DM ICD Code: E11.43 Diagnosis: Principal (3) Atypical chest pain ICD Code: R07.89 Diagnosis: Secondary (4) Ischemic cardiomyopathy ICD Code: I25.5 Diagnosis: Secondary (5) Abdominal pain ICD Code: R10.9 Diagnosis: Principal (6) Nausea & vomiting ICD Code: R11.2 Diagnosis: Principal (7) Diabetes mellitus ICD Code: E11.9 Diagnosis: Secondary (8) Syncope ICD Code: R55 Diagnosis: Principal Procedures No procedures performed to the patient. Brief History - From Admission History from patient, ER physician communication, and review of medical records. Patient reported that he came to the hospital because he has been having abdominal pain/chest pains. He states that he is not sure which one started first. He pointed to mid epigastric and left upper quadrant abdomen. He reports of associated nausea. Vomited 5-6 times a day for the past 3 days or so. Denies any blood in his vomitus. Denies fever. Reports of diarrhea once or twice a day for the past few days as well. No blood in his stool. Denies any urinary burning or pain on urination. Denies any blood in his urine. Patient stated that his pains also radiated to his neck and his back. However he states that he believes his back pain came from his falls. He states he has been passing out a few times for the last couple of weeks and this is being getting worse. He states he would just feel dizzy, with blurry vision and would pass out and hit núñez around him. He reports that this has happened at least 10 times in the last 1 week. He thinks that he at one point hit and fell backwards and hit his back. He attributed his back and chest pain initially to these falls and syncopal episodes. He reports that his roommate witnessed most of these episodes. Patient is on aspirin at home. Denies being on any other blood thinners. CBC/BMP: 06/20/16 0653 06/22/16 0442 Significant Findings Laboratory Tests Test 06/19/16 06/19/16 06/20/16 06/20/16 13:51 18:48 06:53 15:52 Troponin I LESS THAN 0.02 LESS THAN 0.02 LESS THAN 0.02 NG/ML NG/ML NG/ML (0.02-0.05) (0.02-0.05) (0.02-0.05) Hemoglobin 17.1 GM/DL (13.0-17.0) Platelet Count 125 TH/MM3 (150-450) Monocytes (%) (Auto) 10.1 % (0.0-8.0) Creatinine 0.57 MG/DL 0.54 MG/DL (0.60-1.30) (0.60-1.30) Random Glucose 199 MG/DL (74-106) Aspartate Amino Transf 175 U/L (15-37) 80 U/L (15-37) (AST/SGOT) Alkaline Phosphatase 173 U/L 188 U/L (45-117) (45-117) Total Protein 6.3 GM/DL 6.2 GM/DL (6.4-8.2) (6.4-8.2) Albumin 2.9 GM/DL 3.0 GM/DL (3.4-5.0) (3.4-5.0) Alanine Aminotransferase 80 U/L (12-78) (ALT/SGPT) Test 06/22/16 04:42 Random Glucose 67 MG/DL (74-106) Aspartate Amino Transf 40 U/L (15-37) (AST/SGOT) Alkaline Phosphatase 211 U/L (45-117) Albumin 3.2 GM/DL (3.4-5.0) Imaging Last Impressions Cholangiopancreatography MRI 06/20/16 0000 Signed Impressions: Service Date/Time: Monday, June 20, 2016 17:36 - CONCLUSION: Unremarkable Mario Ibarra MD Aorta CTA 06/19/16 0024 Signed Impressions: Service Date/Time: June 01:56 - CONCLUSION: 1. Unremarkable thoracoabdominal aorta. Xiang Cesar Jr., MD Chest X-Ray 06/19/16 002 Signed Impressions: Service Date/Time: June 00:37 - CONCLUSION: Normal examination. Xiang Cesar Jr., MD Carotid Artery Ultrasound 06/19/16 0000 Signed Impressions: Service Date/Time: June 08:38 - CONCLUSION: No hemodynamically significant stenosis in either carotid artery. Rich Bliss MD PE at Discharge GENERAL: Well nourished middle aged male patient sitting upright in bed eating breakfast, in NAD. SKIN: Warm and dry. HEENT: Atraumatic. Normocephalic. Pupils equal and round. Mucous membranes pink and moist. NECK: Trachea midline. CARDIOVASCULAR: Regular rate and rhythm. No murmur appreciated. RESPIRATORY: No accessory muscle use. Clear to auscultation. Breath sounds equal bilaterally. GASTROINTESTINAL: Abdomen soft, nontender, nondistended. Normoactive bowel sounds x4. MUSCULOSKELETAL: Extremities without clubbing, cyanosis, or edema. No obvious deformities. NEUROLOGICAL: Awake and alert. Motor grossly within normal limits. Normal speech. PSYCHIATRIC: Appropriate mood and affect; insight and judgment normal. Pt update on day of discharge Follow-up for pancreatitis, atypical chest pain, uncontrolled diabetes. Patient reports feeling better today. He only has some slight discomfort at the epigastric area, however has been able to tolerate all of his meals, denies any nausea/vomiting. Patient's blood sugar dropped to 67 overnight. The patient admits that he is not eating normally and the hospital as he doesn't home. He states he eats more frequently in is not consistent with a diabetic diet at home. Hospital Course 45 y/o with a history of HTN, DM, CHF, CAD, and COPD presented to the ED with complaints of RUQ abdominal pain and chest pain. Acute pancreatitis, suspected gastritis: presented with intractable abdominal pain/nausea/vomiting. Lipase 592-->301, s/p IVF boluses x2L. Continue oral hydration. Started on IV Protonix and Carafate. Consult GI for continued epigastric pain, MRCP ordered and was unremarkable. Discussed with Dr. Ring, recommended EGD and gastric emptying study as outpatient, cleared for discharge. Patient tolerating regular diet at discharge, no further nausea/ vomiting. Atypical Chest pain with hx of CAD w/stents and CHF: suspect secondary to pancreatitis as above. CXR unremarkable. ACS ruled out with negative cardiac enzymes 4, and EKG without acute ischemic changes. Aorta CTA also unremarkable. Echocardiogram showed decreased systolic function with EF 30-35% , consistent with previous. Cardiology was consulted, suspected symptoms related to GI as above, recommends continuing cardiac medications. Monitored on telemetry, no acute events. Continued patient's aspirin, plavix, DENG. Added BB. Unable to start statin with elevated LFTs. Syncope: at home, prior to coming to hospital, suspect secondary to dehydration , orthostasis, with uncontrolled diabetes. Echo as above. ACS ruled out as above. Carotids US unremarkable. Orthostatics positive, given IVF, raleihg walkere, counseled on slow transitions. Neurology also consulted, Dr Harding does not think syncope is neurologically related, likely orthostasis, advised patient to stay hydrated, and wear compression stockings. EEG negative. Cleared from neurology standpoint. Hyperglycemia with Uncontrolled Diabetes Mellitus: presents with blood glucose in the 400s. Likely secondary to noncompliance with diabetic diet at home. Restarted patient's long acting insulin, reportedly takes 22u Lantus at home, given 18u levemir here, morning glucose dropped to 67 however patient admits to not eating as much in the hospital as he does at home.He states he eats much more than 1800calories a day and eats more frequently. Of note, patient tried to order a pizza and have it delivered to his hospital room however the pizza was turned away from nursing staff. Recommended patient go back on his normal long acting insulin dosing of Lantus 22u hs and monitor his blood glucose closely. Also counseled on eating a consistent diet at home otherwise blood glucose will be difficult to control, patient verbalized understanding. HgbA1c pending at discharge. DVT prophylaxis: Lovenox. Pt Condition on Discharge: Stable Discharge Disposition: Discharge Home Discharge Time: > 30 minutes Discharge Instructions DIET: Follow Instructions for: As Tolerated, No Restrictions, Heart Healthy Diet, Diabetic Diet Follow up Referrals: Gastroenterology - 1 Week with Hoda Ring MD PCP Follow-up - 2-3 Days with Mohsen Pablo D.o. New Medications: Metoprolol Tartrate (Metoprolol Tartrate) 25 Mg Tab 12.5 MG PO BID CHF #30 Ref 0 TAB Pantoprazole (Pantoprazole) 40 Mg Tab 40 MG PO DAILY Reflux #30 Ref 0 TAB Walker with Front Wheels (Walker with Front Wheels) 1 Mis Mis 1 EA .ROUTE DIRECTED #1 Ref 0 EA Sucralfate (Carafate) 1 Gm Tab 1 GM PO TIDAC gastritis #30 TAB Continued Medications: Alprazolam (Alprazolam) 0.5 Mg Tab 0.5 MG PO BID PRN ANXIETY Ref [address] (Aspirin EC) 81 Mg Tabdr 81 MG PO HS Ref 0 TAB Hydrocodone-Acetaminophen (Lortab) 5-325 Mg Tab 1 TAB PO Q6H PRN PAIN Ref 0 TAB Insulin Glargine Inj (Lantus Inj) 1,000 Unit/10 Ml Vial 22 UNITS SQ HS Blood Sugar Management Ref 0 VIAL Lisinopril (Lisinopril) 10 Mg Tab 10 MG PO DAILY #30 TAB Metoclopramide (Reglan) 10 Mg Tab 10 MG PO TIDAC PRN NAUSEA OR VOMITING #30 Ref 0 TAB Nitroglycerin SL (Nitrostat SL) 0.4 Mg Subl 0.4 MG SL DIRECTED 1 tablet under the tongue as needed for chest pain. Repeat every 5 minutes for a total of 3 DOSES or call 911 if NO relief. PRN CHEST PAIN #100 Ref 0 TAB.SL Ondansetron (Zofran) 4 Mg Tab 4 MG PO Q6HR PRN NAUSEA OR VOMITING Ref 0 TAB Pregabalin (Lyrica) 75 Mg Cap 75 MG PO TID #90 Ref 0 CAP Quetiapine XR (Seroquel XR) 300 Mg Tab 300 MG PO HS #30 Ref 0 TAB Anjana Lizarraga PA-C June 22, 2016 10:55 am
[2016-06-22 10:57] LABS: HEMOGLOBIN A1a 0.9 %; HEMOGLOBIN A1b 2.3 %; HEMOGLOBIN Ao 79.3 %; HEMOGLOBIN LA1C 2.4 %; HEMOGLOBIN P3 4.2 %
[2016-06-22] MEDS ORDERED: PANT40TA3 PO (11:00)
[2016-06-22] MEDS ORDERED: CARA1TAB6 PO (11:00)
[2016-06-22] MEDS ORDERED: METO25TA3 PO (11:29)
[2016-06-22] MEDS: PANTOPRAZOLE SODIUM 40 MG VIAL IV PUSH SCH (11:47)
== END 2016-06-22 13:25 | disposition home or self-care (01) ==
LOC: NEPC 00:10 → NEDA 03:28 → NEPHCDU 05:03
PROVIDERS: ADMIT Internal Medicine; ATTEND Internal Medicine
DX: K85.90 Acute pancreatitis without necrosis or infection, unspecified (principal); R55 Syncope and collapse; I25.10 Atherosclerotic heart disease of native coronary artery without angina pectoris; I25.5 Ischemic cardiomyopathy; I11.0 Hypertensive heart disease with heart failure; I50.9 Heart failure, unspecified; E11.43 Type 2 diabetes mellitus with diabetic autonomic (poly)neuropathy; E11.65 Type 2 diabetes mellitus with hyperglycemia; J44.9 Chronic obstructive pulmonary disease, unspecified; E78.5 Hyperlipidemia, unspecified; E78.00 Pure hypercholesterolemia, unspecified; I25.2 Old myocardial infarction; F41.9 Anxiety disorder, unspecified; F32.9 Major depressive disorder, single episode, unspecified; F17.210 Nicotine dependence, cigarettes, uncomplicated; Z95.5 Presence of coronary angioplasty implant and graft; Z79.01 Long term (current) use of anticoagulants; Z79.02 Long term (current) use of antithrombotics/antiplatelets; Z79.82 Long term (current) use of aspirin; Z91.19 Patient's noncompliance with other medical treatment and regimen; Z79.4 Long term (current) use of insulin
CPT/HCPCS: 71010; 71275; 74174; 74181; 76377; 80048; 80053; 80074; 82550; 82948; 83036; 83690; 83735; 84484; 85025; 85610; 85730; 93005; 93306; 93880; 95819; 96361; 96374; 96375; 97162; 99285; C9113; G0378; G8987; G8988; J1650; J1815; J2270; J7030; Q9967

== ENCOUNTER 2016-07-28 00:59 | Inpatient (IN) | payer MEDICAID ==
[2016-07-28] VITALS (8 sets, daily range): BP systolic 118–182; BP diastolic 77–98; PULSE 64–98; RESP 18–24; TEMP 98–98.7; O2SAT 94–100
[~2016-07-28] VITALS: Ht 170.2 cm; Wt 62.0 kg
[~2016-07-28 00:59] MED LIST changes: +ALPR0.5T3 PO; -BENT20TA PO; +HYDR-3533 PO; -IPRAAER INH; +LANTUS2P SQ; +METO25TA3 PO; +NITR0.4S SL; -OXYC1TAB36 PO; -PANT20 PO; +PANT40TA3 PO; -PLAV75TA29 PO; +QUET300XR PO; -SERO300T PO; +WALKER WHEELS/F1 MIS
[2016-07-28] MEDS ORDERED: SODIUM CHLOR 0.9% 1000 ML INJ 1,000 ML IV ONE (01:18)
[2016-07-28] MEDS ORDERED: SODIUM CHLOR 0.9% 1000 ML INJ 1,000 ML IV SCH ×3 (01:21→03:20)
--- NOTE | 2016-07-28 01:25 | PD ---
HPI Chief Complaint: Chest Pain Time Seen by Provider: 01:18 Travel History International Travel<30 days: No Contact w/Intl Traveler<30days: No Traveled to known affect area: No History of Present Illness HPI The patient is a 46-year-old male, insulin-dependent diabetic, who complains of pain in the midline epigastrium going up into his chest. His nausea started 8: 00 this morning and he did take his insulin correctly this morning but states he vomited all her medicines back and has not had any medicine since 8:00 this morning. His sugar went to 47 at home this morning[address] Dr[address] Laly Pastrana is his primary care physician, he does not have an anesthesiology fellow. He denies vomiting any blood. He does have a history of pancreatitis. He does not drink alcohol. PFSH Past Medical History Hx Anticoagulant Therapy: Yes (PLAVIX, COUMADIN) Arthritis: No Asthma: No Autoimmune Disease: No Blood Disorders: No Anxiety: Yes Depression: Yes Heart Rhythm Problems: No Cancer: No Cardiac Catheterization: Yes Cardiovascular Problems: Yes (HTN) High Cholesterol: Yes Chemotherapy: No Chest Pain: Yes Congestive Heart Failure: Yes COPD: No Cerebrovascular Accident: No Coronary Artery Disease: Yes Diabetes: Yes Patient Takes Glucophage: Yes Diminished Hearing: No Endocrine: Yes (TYPE 2 DIABETIC) Gastrointestinal Disorders: Yes (GASTROPARESIS) GERD: No Glaucoma: No Genitourinary: No Headaches: No Hepatitis: No Hiatal Hernia: Yes Hypertension: Yes Immune Disorder: No Implanted Vascular Access Dvce: Yes Kidney Stones: No Musculoskeletal: No Neurologic: Yes (NEUROPATHY) Psychiatric: No Reproductive: No Respiratory: No Integumentary: No Immunizations Current: Yes Migraines: No Myocardial Infarction: Yes (JULY 2012) Pancreatitis: Yes (CHRONIC) Radiation Therapy: No Seizures: Yes Sleep Apnea: No Thyroid Disease: No Ulcer: No Tetanus Vaccination: > 5 Years Influenza Vaccination: Yes Past Surgical History Abdominal Surgery: Yes (UMBILICAL HERNIA-2004, GALLBLADDER REMOVED 2013) Body Medical Devices: PLATE IN RIGHT WRIST, 3 CARDIAC STENTS Cardiac Surgery: Yes (3 STENTS LAST CARDIAC CATH 05/25) Cholecystectomy: Yes (06/03/13) Coronary Artery Bypass Graft: No Coronary Stent: Yes (x 3 in 07/22) Eye Surgery: Yes (CHON LENS IMPLANTS) Neurologic Surgery: No Oral Surgery: Yes (WISDOM TEETH) Pacemaker: No Other Surgery: Yes (IMPLANT EYE LENSES (), WRIST PLATE(02), HERNIA (05), 3 STENTS(2012)) Family History Family Myocardial Infarction: Yes (father and brothers- ) Family Hypercholesterolemia: Yes Social History Alcohol Use: No Tobacco Use: Yes (1 PPD) Substance Use: Yes (marijuana, weekly) Allergies-Medications (Allergen,Severity, Reaction): Coded Allergies: No Known Allergies (Verified , 03/03/16) Reported Meds & Prescriptions Reported Meds & Active Scripts Active Metoprolol Tartrate 25 Mg Tab 12.5 Mg PO BID Carafate (Sucralfate) 1 Gm Tab 1 Gm PO TIDAC Pantoprazole (Pantoprazole Sodium) 40 Mg Tab 40 Mg PO DAILY Walker with Front Wheels (Device) 1 Mis Mis 1 Ea .ROUTE DIRECTED Lisinopril 10 Mg Tab 10 Mg PO DAILY Reglan (Metoclopramide HCl) 10 Mg Tab 10 Mg PO TIDAC PRN Reported Lantus Inj (Insulin Glargine) 1,000 Unit/10 Ml Vial 22 Units SQ HS Alprazolam 0.5 Mg Tab 0.5 Mg PO BID PRN Nitrostat SL (Nitroglycerin) 0.4 Mg Subl 0.4 Mg SL DIRECTED PRN 1 tablet under the tongue as needed for chest pain. Repeat every 5 minutes for a total of 3 DOSES or call 911 if NO relief. Lortab (Hydrocodone-Acetaminophen) 5-325 Mg Tab 1 Tab PO Q6H PRN Seroquel XR (Quetiapine Fumarate) 300 Mg Tab 300 Mg PO HS Lyrica (Pregabalin) 75 Mg Cap 75 Mg PO TID Aspirin EC (Aspirin) 81 Mg Tabdr 81 Mg PO HS Zofran (Ondansetron HCl) 4 Mg Tab 4 Mg PO Q6HR PRN Review of Systems Except as stated in HPI: all other systems reviewed are Neg Physical Exam Narrative GENERAL: The patient is alert, oriented 3 in moderate to severe distress with his epigastric pain which is midline. His vital signs show respiratory rate of 24 but otherwise normal. He does not smell of acetone. He does appear at least moderately dehydrated. SKIN: Focused skin assessment warm/dry. HEAD: Atraumatic. Normocephalic. EYES: Pupils equal and round. No scleral icterus. No injection or drainage. ENT: No nasal bleeding or discharge. Mucous membranes pink and moist. NECK: Trachea midline. No JVD. CARDIOVASCULAR: Regular rate and rhythm. No murmur appreciated. RESPIRATORY: No accessory muscle use. Clear to auscultation. Breath sounds equal bilaterally. GASTROINTESTINAL: Abdomen soft, with tenderness to direct palpation in the midline epigastrium, nondistended. Hepatic and splenic margins not palpable. No guarding or rebound is present. MUSCULOSKELETAL: No obvious deformities. No clubbing. No cyanosis. No edema. NEUROLOGICAL: Awake and alert. No obvious cranial nerve deficits. Motor grossly within normal limits. Normal speech. PSYCHIATRIC: insight and judgment normal. The patient is extremely anxious. Data Data Last Documented VS Vital Signs Date Time Temp Pulse Resp B/P Pulse Ox O2 Delivery O2 Flow Rate FiO2 07/28/16 03:06 75 18 118/78 95 Room Air 07/28/16 01:02 98.7 Orders Complete Blood Count With Diff (07/28/16:18) Comprehensive Metabolic Panel (07/28/16:18) Magnesium (Mg) (07/28/16:18) Beta Hydroxybutyrate (Acetone) (07/28/16:18) Urinalysis - C+S If Indicated (07/28/16:18) Chest, Pa & Lat (07/28/16:18) Blood Glucose (07/28/16:18) Ecg Monitoring (07/28/16:18) Iv Access Insert/Monitor (07/28/16:18) Oximetry (07/28/16:18) NPO (07/28/16:18) Sodium Chlor 0.9% 1000 Ml Inj (Ns 1000 M (07/28/16 01:18) Sodium Chloride 0.9% Flush (Ns Flush) (07/28/16 01:30) Lipase (07/28/16:18) Insulin Human Regular Inj (Novolin R Inj (07/28/16 01:30) Ondansetron Inj (Zofran Inj) (07/28/16 01:30) Pantoprazole Inj (Protonix Inj) (07/28/16 01:30) Sodium Chlor 0.9% 1000 Ml Inj (Ns 1000 M (07/28/16 01:21) Famotidine Inj (Pepcid Inj) (07/28/16 01:30) Hydromorphone Pf Inj (Dilaudid Pf Inj) (07/28/16 01:30) Ondansetron Inj (Zofran Inj) (07/28/16 02:15) Hydromorphone Pf Inj (Dilaudid Pf Inj) (07/28/16 02:15) Hydromorphone Pf Inj (Dilaudid Pf Inj) (07/28/16 03:15) Ondansetron Inj (Zofran Inj) (07/28/16 03:15) Sodium Chlor 0.9% 1000 Ml Inj (Ns 1000 M (07/28/16 03:12) Labs Laboratory Tests Test 07/28/16 01:30 White Blood Count 16.3 TH/MM3 Red Blood Count 5.53 MIL/MM3 Hemoglobin 17.2 GM/DL Hematocrit 48.2 % Mean Corpuscular Volume 87.1 FL Mean Corpuscular Hemoglobin 31.0 PG Mean Corpuscular Hemoglobin 35.6 % Concent Red Cell Distribution Width 15.2 % Platelet Count 202 TH/MM3 Mean Platelet Volume 9.2 FL Neutrophils (%) (Auto) 77.5 % Lymphocytes (%) (Auto) 11.9 % Monocytes (%) (Auto) 8.6 % Eosinophils (%) (Auto) 1.0 % Basophils (%) (Auto) 1.0 % Neutrophils # (Auto) 12.6 TH/MM3 Lymphocytes # (Auto) 1.9 TH/MM3 Monocytes # (Auto) 1.4 TH/MM3 Eosinophils # (Auto) 0.2 TH/MM3 Basophils # (Auto) 0.2 TH/MM3 CBC Comment DIFF FINAL Differential Comment Sodium Level 138 MEQ/L Potassium Level 4.0 MEQ/L Chloride Level 97 MEQ/L Carbon Dioxide Level 31.2 MEQ/L Anion Gap 10 MEQ/L Blood Urea Nitrogen 25 MG/DL Creatinine 0.91 MG/DL Estimat Glomerular Filtration 90 ML/MIN Rate Random Glucose 446 MG/DL Calcium Level 8.9 MG/DL Magnesium Level 2.1 MG/DL Total Bilirubin 0.4 MG/DL Aspartate Amino Transf 17 U/L (AST/SGOT) Alanine Aminotransferase 23 U/L (ALT/SGPT) Alkaline Phosphatase 122 U/L Total Protein 6.8 GM/DL Albumin 3.3 GM/DL Lipase 176 U/L B-Hydroxybutyrate 1.41 MMOL/L [facility] Medical Decision Making Medical Screen Exam Complete: Yes Emergency Medical Condition: Yes Medical Record Reviewed: Yes Interpretation(s) The CBC shows a white count of 16,300 with 77.5% neutrophils and a hemoglobin of 17.2. The beta hydroxybutyrate is 1.41. The glucose is 446 with the BUN of 25 and alkaline phosphatase 122 and albumin 3.3. The lipase is normal. The Accu-Chek at 0 3: 20 is 298. Differential Diagnosis Diabetic ketoacidosis, dehydration, gastroparesis, pancreatitis, electrolyte disorder, diabetes mellitus poor control Narrative Course It is now 0313 and the patient has had 4 L of saline and still appears dry and still has not urinated. The patient looks a lot better at this time and his pain and nausea and markedly decreased but he still does have some epigastric pain and nausea. At this point we will admit the patient for 23 hour observation, I discussed the patient with Dr. García. Diagnosis Primary Impression: Poorly controlled diabetes mellitus Additional Impressions: Moderate dehydration Intractable abdominal pain Admitting Information Admitting Physician Requests: Observation Pato Plunkett MD Jul 28, 2016 01:25
[2016-07-28] MEDS ORDERED: ONDANSETRON HCL 4 MG/2 ML VIAL IVP ONE ×3 (01:30→03:15)
[2016-07-28] MEDS ORDERED: SODIUM CHLORIDE 0.9% FLUSH 10 ML FLUSH IVF PRN (01:30)
[2016-07-28] MEDS ORDERED: HYDROmorphone HCL PF 1 MG/ML VIAL IVS ONE ×2 (01:30→02:15)
[2016-07-28] MEDS ORDERED: INSULIN HUMAN REGULAR 1,000 UNITS/10 ML VIAL IV PUSH ONE ×2 (01:30→03:30)
[2016-07-28] MEDS ORDERED: FAMOTIDINE 20 MG/2 ML VIAL IV PUSH ONE (01:30)
[2016-07-28] MEDS ORDERED: PANTOPRAZOLE SODIUM 40 MG VIAL IVP ONE (01:30)
[2016-07-28 01:43] LABS: AUTOMATED NEUTROPHIL # 12.6 TH/MM3 (1.8-7.7); BASOPHIL # 0.2 TH/MM3 (0-0.2); EOSINOPHIL # 0.2 TH/MM3 (0-0.4); HEMATOCRIT 48.2 % (39.0-51.0); HEMO FLAGS DIFF FINAL; LYMPH % 11.9 % (9.0-44.0); LYMPHOCYTE # 1.9 TH/MM3 (1.0-4.8); MEAN CELL VOLUME 87.1 FL (80.0-100.0); MEAN CORPUSCULAR HGB CONC 35.6 % (32.0-36.0); MONO % 8.6 % (0.0-8.0); NEUT % 77.5 % (16.0-70.0); PLATELET COUNT 202 TH/MM3 (150-450); RED BLOOD COUNT 5.53 MIL/MM3 (4.50-5.90); RED CELL DISTRIBUTION WIDTH 15.2 % (11.6-17.2); WHITE BLOOD COUNT 16.3 TH/MM3 (4.0-11.0)
--- NOTE | 2016-07-28 02:03 | RADRPT ---
EXAM DATE/TIME: 07/28/2016 01:48 [facility] COMPARISON: CTA THORACIC ABDOMINAL AORTA W 3D RECON, June 19, 2016, 1:56. CHEST SINGLE AP, June 19, 2016, 0:37. INDICATIONS : Left upper quadrant abdominal pain. MEDICAL HISTORY : Diabetes mellitus type II. Cardiovascular disease. Congestive heart failure. Hypertension SURGICAL HISTORY : Coronary artery stent. ENCOUNTER: Initial ACUITY: 1 day PAIN SCORE: 10/10 LOCATION: Left upper quadrant FINDINGS: No infiltrate, effusion or pneumothorax demonstrated. Heart size stable, within normal limits. Air in the left upper quadrant of the abdomen does appear to be within the stomach. I don't convincin gly see any free air. CONCLUSION: No evidence of acute cardiopulmonary disease. Mario Lee MD on July 28, 2016 at 2:00 Board Certified Radiologist. This report was verified electronically.
[2016-07-28 02:18] LABS: ALKALINE PHOSPHATASE 122 U/L (45-117); ALT (GPT) 23 U/L (12-78); ANION GAP 10 MEQ/L (5-15); AST (GOT) 17 U/L (15-37); BETA-HYDROXYBUTYRATE 1.41 MMOL/L (0.00-0.39); BICARBONATE 31.2 MEQ/L (21.0-32.0); BLOOD UREA NITROGEN 25 MG/DL (7-18); CHLORIDE 97 MEQ/L (98-107); GLOMERULAR FILTRATION RATE 90 ML/MIN (>89); MAGNESIUM 2.1 MG/DL (1.5-2.5); SODIUM (NA) 138 MEQ/L (136-145); TOTAL BILIRUBIN ADULT 0.4 MG/DL (0.2-1.0)
[2016-07-28] MEDS ORDERED: HYDROmorphone HCL PF 2 MG/ML VIAL IVS ONE (03:15)
[2016-07-28] MEDS ORDERED: LACTULOSE SYRUP 20 GM/30 ML CUP PO PRN (03:30)
[2016-07-28] MEDS ORDERED: PROCHLORPERAZINE INJ 10 MG/2 ML VIAL IV PUSH PRN (03:30)
[2016-07-28] MEDS ORDERED: BISACODYL 10 MG SUPP RECTAL PRN (03:30)
[2016-07-28] MEDS ORDERED: ACETAMINOPHEN 325 MG TAB PO PRN (03:30)
[2016-07-28] MEDS ORDERED: DEXTROSE 50% IN WATER 50 ML VIAL(D50) IV PRN (03:30)
[2016-07-28] MEDS ORDERED: oxyCODONE/ACETAMINOPHEN 5 MG/325 MG TAB PO PRN (03:30)
[2016-07-28] MEDS ORDERED: ALPRAZolam 0.5 MG TAB PO PRN (03:30)
[2016-07-28] MEDS ORDERED: ONDANSETRON HCL 4 MG/2 ML VIAL IVP PRN (03:30)
[2016-07-28] MEDS ORDERED: GLUCAGON 1 MG/ML VIAL OTHER PRN (03:30)
[2016-07-28] MEDS ORDERED: SENNOSIDES 8.6 MG TAB PO PRN (03:30)
[2016-07-28] MEDS ORDERED: MAGNESIUM HYDROXIDE SUSP 30 ML CUP PO PRN (03:30)
[2016-07-28 03:45] LABS: BLOOD, URINE NEG (NEG); GLUCOSE,URINE 1000 mg/dL (NEG); KETONE, URINE 10 mg/dL (NEG); NITRITE,URINE NEG (NEG); URINE COLOR YELLOW (YELLW/STRAW)
[2016-07-28 03:50] LABS: COMMENT (UR) CULT NOT INDICATED; CULTURE IF INDICATED CULT NOT INDICATED
--- NOTE | 2016-07-28 03:54 | HHI.HP ---
HPI Service [facility] Primary Care Physician Mohsen Pablo Admission Diagnosis DM poor control, moderate dehydration Diagnoses: (1) Intractable abdominal pain Diagnosis: Principal (2) DM (diabetes mellitus) Diagnosis: Principal (3) Leukocytosis Diagnosis: Principal (4) Tobacco abuse Diagnosis: Principal Travel History International Travel<30 Days: No Contact w/Intl Traveler <30 Da: No Traveled to Known Affected Are: No History of Present Illness This is a 46-year-old male with a PMH of HTN, Anxiety, Depression, Hyperlipidemia, CAD, DM and Tobacco Abuse who presented to the ER with complaints of epigastric pain yesterday morning. Has had progressive symptoms, now with episodes of nausea and vomiting. Denies fever, chills or diarrhea. Will, BP 121/87 no HR 98, O2 sat 97% on RA, Afebrile. WBC 16.3. BS 446. Chemistry otherwise unremarkable. UA pending. CXR with no acute findings. S/ p IVF and multiple doses of analgesics and antiemetics w/ minimal improvement in pain complaints and persistent nausea/vomiting. Review of Systems Except as stated in HPI: all other systems reviewed are Neg ROS: 14 point review of systems otherwise negative. Past Family Social History Past Medical History PMH: HTN, Anxiety, Depression, Hyperlipidemia, CAD, DM and Tobacco Abuse Past Surgical History PAST SURGICAL HISTORY: Umbilical Hernia, Cholecystectomy, Right Wrist Surgery, Cardiac Stents bilateral Lens Implants, [place] Teeth Extraction Allergies: Coded Allergies: No Known Allergies (Verified , 03/03/16) Family History PAST FAMILY HISTORY: Reviewed, positive for DM and CAD. Social History PAST SOCIAL HISTORY: Negative for alcohol. Smokes 1ppd. +Marijuana. Physical Exam Vital Signs Vital Signs Date Time Temp Pulse Resp B/P Pulse Ox O2 Delivery O2 Flow Rate FiO2 07/28/16 03:06 75 18 118/78 95 Room Air 07/28/16 01:04 95 Room Air 07/28/16 01:02 98.7 98 24 121/87 97 Physical Exam PE: GENERAL: Middle-aged male in no acute distress HEENT: PERRLA, EOMI. No scleral icterus or conjunctival pallor. No lid lag or facial droop. CARDIOVASCULAR: Regular rate and rhythm. No obvious murmurs to auscultation. No chest tenderness to palpation. RESPIRATORY: No obvious rhonchi or wheezing. Clear to auscultation. Breath sounds equal bilaterally. GASTROINTESTINAL: Abdomen soft, mild epigastric tenderness to palpation, nondistended. BS normal. MUSCULOSKELETAL: Extremities without clubbing, cyanosis, or edema. No obvious deformities. NEUROLOGICAL: Awake, alert and oriented x4. No focal neurologic deficits. Moving both upper and lower extremities spontaneously. Laboratory Laboratory Tests Test 07/28/16 01:30 White Blood Count 16.3 Red Blood Count 5.53 Hemoglobin 17.2 Hematocrit 48.2 Mean Corpuscular Volume 87.1 Mean Corpuscular Hemoglobin 31.0 Mean Corpuscular Hemoglobin 35.6 Concent Red Cell Distribution Width 15.2 Platelet Count 202 Mean Platelet Volume 9.2 Neutrophils (%) (Auto) 77.5 Lymphocytes (%) (Auto) 11.9 Monocytes (%) (Auto) 8.6 Eosinophils (%) (Auto) 1.0 Basophils (%) (Auto) 1.0 Neutrophils # (Auto) 12.6 Lymphocytes # (Auto) 1.9 Monocytes # (Auto) 1.4 Eosinophils # (Auto) 0.2 Basophils # (Auto) 0.2 CBC Comment DIFF FINAL Differential Comment Sodium Level 138 Potassium Level 4.0 Chloride Level 97 Carbon Dioxide Level 31.2 Anion Gap 10 Blood Urea Nitrogen 25 Creatinine 0.91 Estimat Glomerular Filtration 90 Rate Random Glucose 446 Calcium Level 8.9 Magnesium Level 2.1 Total Bilirubin 0.4 Aspartate Amino Transf 17 (AST/SGOT) Alanine Aminotransferase 23 (ALT/SGPT) Alkaline Phosphatase 122 Total Protein 6.8 Albumin 3.3 Lipase 176 B-Hydroxybutyrate 1.41 Result Diagram: 07/28/1612907/28/16129 Assessment and Plan Problem List: (1) Intractable abdominal pain ICD Code: R10.9 Status: Acute (2) DM (diabetes mellitus) ICD Code: E11.9 Status: Acute (3) Leukocytosis ICD Code: D72.829 Status: Acute (4) Tobacco abuse ICD Code: F17.200 Status: Chronic Assessment and Plan A/P: 1. Intractable Abd Pain: w/ associate nausea/vomiting, s/p analgesics/ antiemetics in ER w/ some improvement. Continue w/ analgesics/antiemetics. Protonix IV. IVF for hydration. 2. DM: Uncontrolled. Hgb A1c 10.6 on 06/21/16, BS 446 on arrival, no evidence of DKA. IVF, sliding scale w/ Accu-Cheks, resume home Insulin. 3. Leukocytosis: WBC 16.3, neutrophil mildly elevated. CXR w/ no acute findings, images reviewed by me. U/a pending, will follow. Repeat labs in am. 4. Tobacco Abuse: Pt counselled. Ativan/NicoDerm prn if needed. 5. DVT Prophylaxis: SCD/Teds. 6. Social work for d/c planning as needed. 7. Case discussed w/ ER physician at length Fatemeh García MD Jul 28, 2016 03:54
[2016-07-28] MEDS: MORPHINE SULFATE 4 MG/ML INJ IV PRN ×4 (05:38→17:49)
[2016-07-28] MEDS ORDERED: INSULIN ASPART SUPPLEMENTAL SCALE SQ SCH (07:00)
[2016-07-28] MEDS: SUCRALFATE 1 GM TAB PO SCH ×3 (08:00→16:48)
[2016-07-28] MEDS ORDERED: ENALAPRILAT 1.25 MG/ML VIAL IV PRN (08:00)
[2016-07-28] MEDS ORDERED: METOCLOPRAMIDE HCL 10 MG TAB PO PRN (08:00)
[2016-07-28] MEDS ORDERED: NITROGLYCERIN 0.4 MG SL 25 TABS/BTL SL PRN (08:00)
[2016-07-28] MEDS ORDERED: cloNIDine HCL 0.1 MG TAB PO PRN (08:00)
[2016-07-28] MEDS: METOPROLOL TARTRATE 25 MG TAB PO SCH ×2 (08:15→20:35)
[2016-07-28] MEDS: QUEtiapine FUMARATE 100 MG TAB PO SCH ×2 (08:17→20:35)
[2016-07-28] MEDS: SODIUM CHLORIDE 0.9% FLUSH 10 ML FLUSH IV FLUSH SCH ×2 (08:19→20:37)
[2016-07-28] MEDS: DOCUSATE SODIUM 50 MG/SENNA 8.6 MG TAB PO SCH ×2 (08:20→20:35)
[2016-07-28] MEDS ORDERED: PILL SPLITTER OTHER PRN (08:30)
[2016-07-28] MEDS: LISINOPRIL 10 MG TAB PO SCH (08:36)
[2016-07-28] MEDS: PREGABALIN 75 MG CAP PO SCH ×3 (09:00→17:49)
--- NOTE | 2016-07-28 09:43 | HHI.PR ---
Subjective Remarks Follow-up nausea, vomiting and abdominal pain. Complaining of constant severe left upper abdominal pain radiating to left flank. Improved nausea and vomiting. No BM for 2 days no abdominal distention. No urinary complaints. Discussed with RN Objective Vitals Vital Signs Date Time Temp Pulse Resp B/P Pulse Ox O2 Delivery O2 Flow Rate FiO2 07/28/16 07:15 98.0 70 18 182/98 98 07/28/16 06:42 98.7 71 20 147/77 100 07/28/16 06:14 87 18 154/87 98 Room Air 07/28/16 05:04 88 18 162/88 98 Room Air 07/28/16 03:06 75 18 118/78 95 Room Air 07/28/16 01:04 95 Room Air 07/28/16 01:02 98.7 98 24 121/87 97 Result Diagram: 07/28/16 0130 07/28/16 013 Imaging Last Impressions Chest X-Ray 07/28/16 0118 Signed Impressions: Service Date/Time: Thursday, July 28, 2016 01:48 - CONCLUSION: No evidence of acute cardiopulmonary disease. Mario Lee MD Objective Remarks GENERAL: Well-developed, asthenic in distress due to pain SKIN: Warm and dry. HEAD: Atraumatic. Normocephalic. EYES: Pupils equal and round. No scleral icterus. No injection or drainage. ENT: No nasal bleeding or discharge. Mucous membranes pink and moist. NECK: Trachea midline. No JVD. CARDIOVASCULAR: Regular rate and rhythm. RESPIRATORY: No accessory muscle use. Clear to auscultation. Breath sounds equal bilaterally. GASTROINTESTINAL: Abdomen soft, slightly tender left upper quadrant, nondistended with CVA tenderness left MUSCULOSKELETAL: Extremities without clubbing, cyanosis, or edema. No obvious deformities. NEUROLOGICAL: Awake and alert. No obvious cranial nerve deficits. Motor grossly within normal limits. Five out of 5 muscle strength in the arms and legs. Normal speech. PSYCHIATRIC: Appropriate mood and affect; insight and judgment normal. Procedures None A/P Problem List: (1) Intractable abdominal pain ICD Code: R10.9 Status: Acute (2) DM (diabetes mellitus) ICD Code: E11.9 Status: Chronic (3) Leukocytosis ICD Code: D72.829 Status: Acute (4) Tobacco abuse ICD Code: F17.200 Status: Chronic Assessment and Plan 1. Intractable Abd Pain: Etiology to be determined. Patient has leukocytosis and concern about possible splenic or renal infarct. Urinalysis negative for RBC. Obtain CT of the abdomen pelvis per Continue w/ analgesics/antiemetics and IV morphine. Protonix IV. Gentle IVF for hydration. EMR shows multiple admissions for abdominal pain. March 2013 negative HIDA scan, GES and stress test, March [address] and EGD showed esophagitis, gastritis and duodenitis, May 2015 negative CTA for PE and June 2016 MRCP and aorta CTA negative. Patient states his current abdominal pain is different from previous 2. DM: Uncontrolled. Hgb A1c 10.6 on 06/21/16, BS 446 on arrival, no evidence of DKA. IVF, sliding scale w/ Accu-Cheks, resume home Insulin. Hyperglycemic this morning patient did not receive Levemir last night 3. Leukocytosis: WBC 16.3, neutrophil mildly elevated. CXR w/ no acute findings, images reviewed by me. U/a unremarkable. Repeat labs in am. 4. Chronic medical conditions systolic heart failure EF of 30%, hypertension, hyperlipidemia, coronary artery disease, tobacco abuse, anxiety and depression. Continue outpatient medications as appropriate. Tobacco cessation. 5. DVT Prophylaxis: SCD/Teds. Discharge Planning Not ready for discharge Deion Henderson MD Jul 28, 2016 09:43
[2016-07-28] MEDS: SODIUM CHLOR 0.9% 1000 ML INJ 1,000 ML IV SCH (09:45)
[2016-07-28] MEDS ORDERED: IOHEXOL 350 MG/ML 10 ML VIAL (for RAD DIAG) IV ONE (10:25)
--- NOTE | 2016-07-28 10:36 | RADRPT ---
EXAM DATE/TIME: 07/28/2016 10:11 [facility] COMPARISON: CTA THORACIC ABDOMINAL AORTA W 3D RECON, June 19, 2016, 1:56. INDICATIONS : Left lower quadrant pain for 2 days. Rule out splenic or renal infarct per ED orders. IV CONTRAST: 85 cc Omnipaque 350 (iohexol) IV ORAL CONTRAST: No oral contrast ingested. RADIATION DOSE: 5.99 CTDIvol (mGy) MEDICAL HISTORY : Cardiovascular disease. Hernia, umbilical. Hypertension.LLQ pain X 2days per patient SURGICAL HISTORY : Cholecystectomy. Umbilical hernia repair.Coronary artery stent. ENCOUNTER: Initial ACUITY: 2 days PAIN SCALE: 8/10 LOCATION: Left lower quadrant TECHNIQUE: Volumetric scanning of the abdomen and pelvis was performed. Using automated exposure control and ad justment of the mA and/or kV according to patient size, radiation dose was kept as low as reasonably achievable to obtain optimal diagnostic quality images. FINDINGS: The examination demonstrates moderate COPD changes within the lung bases. There is atherosclerotic co ronary artery disease. The liver is at the upper limits of normal in size. No focal masses seen. The spleen, pancreas, adren al glands and right kidney are intact. The exam demonstrates an area of decreased enhancement involving the posterior aspect of the left kid amor. Appearance would be most consistent with an area of renal infarct less likely consideration woul d be possible pyelonephritis. The visualized loops of small and large bowel are unremarkable. No free fluid is seen within the abdo men. There is no free fluid within the pelvis. No iliac or inguinal adenopathy is present. The visualized bony structures are grossly intact. CONCLUSION: 1. Focal area of decreased contrast enhancement within the posterior aspect of the left kidney sugges ting renal infarct. Roni Bowen MD on July 28, 2016 at 10:27 Board Certified Radiologist. This report was verified electronically.
[2016-07-28] MEDS: INSULIN ASPART SUPPLEMENTAL SCALE SQ SCH ×3 (12:56→20:46)
--- NOTE | 2016-07-28 14:39 | EKG ---
Date Performed: 07/28/2016 Time Performed: 01:04:56 PTAGE: 46 years EKG: Sinus rhythm BORDERLINE RIGHT AXIS DEVIATION BORDERLINE ECG Anteroseptal myocardial infarction - age undetermined Compared to prior tracing no significant change PREVIOUS TRACING : 06/19/2016 12.37 DOCTOR: Deandre Marcano Interpretating Date/Time 07/28/2016 14:38:12
[2016-07-28] MEDS: ENOXAPARIN SODIUM 40 MG/0.4 ML SYRINGE SQ SCH (15:20)
[2016-07-28] MEDS ORDERED: MORPHINE SULFATE 4 MG/ML INJ IV PUSH ONE (20:15)
[2016-07-28] MEDS: ASPIRIN EC 81 MG TABEC PO SCH (20:35)
[2016-07-28] MEDS: PANTOPRAZOLE SODIUM 40 MG VIAL IV PUSH SCH (20:36)
[2016-07-28] MEDS: INSULIN DETEMIR 100 UNITS/ML VIAL SQ SCH (20:45)
[2016-07-29] VITALS (8 sets, daily range): BP systolic 122–177; BP diastolic 70–103; PULSE 63–72; RESP 18–20; TEMP 97.1–98.8; O2SAT 97–99
[2016-07-29] MEDS: MORPHINE SULFATE 4 MG/ML INJ IV PRN ×7 (00:24→21:21)
[2016-07-29] MEDS: INSULIN ASPART SUPPLEMENTAL SCALE SQ SCH ×4 (06:47→21:36)
[2016-07-29] MEDS: PANTOPRAZOLE SODIUM 40 MG VIAL IV PUSH SCH ×2 (08:08→21:30)
[2016-07-29] MEDS: DOCUSATE SODIUM 50 MG/SENNA 8.6 MG TAB PO SCH ×2 (08:09→21:29)
[2016-07-29] MEDS: METOPROLOL TARTRATE 25 MG TAB PO SCH ×2 (08:09→21:29)
[2016-07-29] MEDS: LISINOPRIL 10 MG TAB PO SCH (08:09)
[2016-07-29] MEDS: SODIUM CHLORIDE 0.9% FLUSH 10 ML FLUSH IV FLUSH SCH ×2 (08:09→21:18)
[2016-07-29] MEDS: SUCRALFATE 1 GM TAB PO SCH ×3 (08:09→16:55)
[2016-07-29] MEDS: QUEtiapine FUMARATE 100 MG TAB PO SCH ×2 (08:09→21:30)
[2016-07-29] MEDS: PREGABALIN 75 MG CAP PO SCH ×3 (08:09→18:04)
[2016-07-29 08:16] LABS: ALKALINE PHOSPHATASE 105 U/L (45-117); ALT (GPT) 30 U/L (12-78); ANION GAP 7 MEQ/L (5-15); AST (GOT) 20 U/L (15-37); BICARBONATE 22.8 MEQ/L (21.0-32.0); BLOOD UREA NITROGEN 18 MG/DL (7-18); CHLORIDE 109 MEQ/L (98-107); GLOMERULAR FILTRATION RATE 149 ML/MIN (>89); POTASSIUM 3.9 MEQ/L (3.5-5.1); SODIUM (NA) 139 MEQ/L (136-145); TOTAL BILIRUBIN ADULT 0.2 MG/DL (0.2-1.0)
[2016-07-29] MEDS: SODIUM CHLOR 0.9% 1000 ML INJ 1,000 ML IV SCH (09:55)
[2016-07-29 10:28] LABS: AUTOMATED NEUTROPHIL # 6.4 TH/MM3 (1.8-7.7); BASOPHIL # 0.1 TH/MM3 (0-0.2); EOSINOPHIL # 0.2 TH/MM3 (0-0.4); EOSINOPHIL % 2.4 % (0.0-4.0); HEMATOCRIT 42.1 % (39.0-51.0); HEMO FLAGS DIFF FINAL; LYMPH % 19.7 % (9.0-44.0); LYMPHOCYTE # 1.8 TH/MM3 (1.0-4.8); MEAN CELL VOLUME 87.9 FL (80.0-100.0); MEAN CORPUSCULAR HEMOGLOBIN 30.9 PG (27.0-34.0); MEAN CORPUSCULAR HGB CONC 35.1 % (32.0-36.0); MONO % 8.2 % (0.0-8.0); NEUT % 68.7 % (16.0-70.0); PLATELET COUNT 139 TH/MM3 (150-450); RED BLOOD COUNT 4.79 MIL/MM3 (4.50-5.90); RED CELL DISTRIBUTION WIDTH 15.5 % (11.6-17.2); WHITE BLOOD COUNT 9.4 TH/MM3 (4.0-11.0)
--- NOTE | 2016-07-29 12:07 | HHI.PR ---
Subjective Remarks With severe pain in his back right side radiating to mid abd. Patient in nad. No n/v/d/c. No chest pain, sob, n/v/d/c. He can walk with difficulty. Objective Vitals Vital Signs Date Time Temp Pulse Resp B/P Pulse Ox O2 Delivery O2 Flow Rate FiO2 07/29/16 07:39 98.0 63 18 160/99 99 07/29/16 03:26 98.0 64 18 122/70 97 07/29/16 02:28 64 07/29/16 00:56 18 07/29/16 00:03 98.8 65 18 129/82 98 07/28/16 19:57 98.6 67 18 149/91 98 07/28/16 16:16 98.0 64 18 124/80 94 Result Diagram: 07/29/16 0959 07/29/16 0720 Imaging Last Impressions Chest X-Ray 07/28/16 0118 Signed Impressions: Service Date/Time: Thursday, July 28, 2016 01:48 - CONCLUSION: No evidence of acute cardiopulmonary disease. Mario Lee MD Abdomen/Pelvis CT 07/28/16 0000 Signed Impressions: Service Date/Time: Thursday, July 28, 2016 10:11 - CONCLUSION: 1. Focal area of decreased contrast enhancement within the posterior aspect of the left kidney suggesting renal infarct. Roni Bowen MD Objective Remarks GENERAL: Well-developed, asthenic in distress due to pain SKIN: Warm and dry. HEAD: Atraumatic. Normocephalic. EYES: Pupils equal and round. No scleral icterus. No injection or drainage. ENT: No nasal bleeding or discharge. Mucous membranes pink and moist. NECK: Trachea midline. No JVD. CARDIOVASCULAR: Regular rate and rhythm. RESPIRATORY: No accessory muscle use. Clear to auscultation. Breath sounds equal bilaterally. GASTROINTESTINAL: Abdomen soft, slightly tender left upper quadrant, nondistended with CVA tenderness left. MUSCULOSKELETAL: Extremities without clubbing, cyanosis, or edema. No obvious deformities. NEUROLOGICAL: Awake and alert. No obvious cranial nerve deficits. Motor grossly within normal limits. Five out of 5 muscle strength in the arms and legs. Normal speech. PSYCHIATRIC: Appropriate mood and affect; insight and judgment normal. Procedures None A/P Problem List: (1) Intractable abdominal pain ICD Code: R10.9 Status: Acute (2) DM (diabetes mellitus) ICD Code: E11.9 Status: Chronic (3) Leukocytosis ICD Code: D72.829 Status: Acute (4) Tobacco abuse ICD Code: F17.200 Status: Chronic Assessment and Plan 1. Intractable Abd Pain: Etiology kidney infarct. Patient has leukocytosis and concern about possible splenic or renal infarct. Urinalysis negative for RBC. Obtain CT of the abdomen pelvis per Continue w/ analgesics/antiemetics and IV morphine. Protonix IV. Gentle IVF for hydration. EMR shows multiple admissions for abdominal pain. March 2013 negative HIDA scan, GES and stress test, March [address] and EGD showed esophagitis, gastritis and duodenitis, May 2015 negative CTA for PE and June 2016 MRCP and aorta CTA negative. Patient states his current abdominal pain is different from previous. Pain is uncontrolled will add dilaudid for breakthrough pain Will consult hem/onc for coagulopathy work up. 'Patient says he has strokes running in his family (father side0 but no other clotting disorders that he is aware running in his family 2. DM: Uncontrolled. Hgb A1c 10.6 on 06/21/16, BS 446 on arrival, no evidence of DKA. IVF, sliding scale w/ Accu-Cheks, resume home Insulin. Hyperglycemic this morning patient did not receive Levemir last night 3. Leukocytosis: WBC 16.3, neutrophil mildly elevated. CXR w/ no acute findings, images reviewed by me. U/a unremarkable. Repeat labs in am. 4. Chronic medical conditions systolic heart failure EF of 30%, hypertension, hyperlipidemia, coronary artery disease, tobacco abuse, anxiety and depression. Continue outpatient medications as appropriate. Tobacco cessation. 5. DVT Prophylaxis: SCD/Teds. Discharge Planning Not ready for discharge Alanis Roberts MD Jul 29, 2016 12:07
[2016-07-29] MEDS ORDERED: HYDR-3366 PO (13:27)
[2016-07-29] MEDS: ENOXAPARIN SODIUM 40 MG/0.4 ML SYRINGE SQ SCH (14:40)
[2016-07-29] MEDS: HYDROmorphone HCL PF 1 MG/ML VIAL IV PUSH PRN ×2 (14:54→22:26)
[2016-07-29] MEDS: ASPIRIN EC 81 MG TABEC PO SCH (21:28)
[2016-07-29] MEDS: APIXABAN 5 MG TABLET PO SCH (21:29)
[2016-07-29] MEDS: INSULIN DETEMIR 100 UNITS/ML VIAL SQ SCH (21:35)
--- NOTE | 2016-07-29 21:42 | MB ---
cc: LUIS DANIEL HU MD DATE OF CONSULTATION 07/29/2016 DATE OF 1970 REQUESTING PHYSICIAN Consultation requested by the hospitalist service. REASON FOR CONSULTATION Suspected renal infarct. CHIEF COMPLAINT Mr. Stevenson reports a [id number] week history of constant stabbing pain along the right flank. HISTORY OF PRESENT ILLNESS Mr. Stevenson is a very pleasant 46-year-old male with a 15-year year history of diabetes and multiple sequelae of diabetes including coronary artery disease (he has had four myocardial infarctions since 2012), gastroparesis, pancreatitis, hypertension, hyperlipidemia and ischemic cardiomyopathy. He reports being initiated on anticoagulation with Eliquis (dose not known) about a week and half ago by his records custodian. The patient reports the pain in his flank started before he was started on Eliquis. He presented to the hospital with the above-noted complaints and underwent imaging studies of the abdomen and pelvis, a kidney stone was suspected. He was however found to have an infarct involving the inferior pole of the left kidney. The patient was initiated on Lovenox 40 mg subcu once daily. The hematology service has been asked to see him for prothrombotic state workup. PAST MEDICAL HISTORY 1. Diabetes since the age of 31. 2. Myocardial infarction x4. 3. Ischemic cardiomyopathy. 4. Hypertension. 5. Gastroparesis. 6. Pancreatitis. 7. Hyperlipidemia. PAST SURGICAL HISTORY 1. Multiple coronary artery stents. 2. Status post cholecystectomy. 3. Right wrist open reduction, internal fixation. FAMILY HISTORY Father at the age of 46 of myocardial infarction. Brother from complications of stroke at the age of 44. SOCIAL HISTORY The patient is single, he lives at his home with a roommate. He smokes a pack a day and has smoked since he was a teenager. 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 He has no children of his own. ALLERGIES NO KNOWN DRUG ALLERGIES. MEDICATIONS Current inpatient medications: 1. Normal saline 42 cc/hour. 2. Tylenol 650 mg p.o. q.6h as needed for pain and fever. 3. Alprazolam 0.5 mg p.o. b.i.d. as needed for anxiety. 4. Apixaban, that is Eliquis 10 milligrams p.o. twice a day. 5. Aspirin 81 milligrams p.o. q.h.s. 6. Clonidine 0.1 milligram p.o. q.6h as needed for hypertension. 7. Colace one tablet p.o. twice a day. 8. Enalaprilat 1.5 milligrams IV q.6h. 9. Glucagon as needed for hypoglycemia. 10. Dilaudid 1 milligram IV q.4h as needed for breakthrough pain. 11. Insulin Detemir 22 units subcutaneous q.h.s. 12. Lactulose 30 ml p.o. daily. 13. Lisinopril 10 milligrams p.o. daily. 14. Insulin NovoLog sliding scale per protocol. 15. Milk of Magnesia as needed for constipation. 16. Metoclopramide 10 mg p.o. t.i.d. 17. Metoprolol 12.5 mg p.o. b.i.d. 18. Morphine sulfate 2 mg IV q. six as needed for severe pain. 19. Nitroglycerin 0.4 mg subcu x5 as needed for chest pain. 20. Zofran 4 mg IV q.6 h as needed for nausea and vomiting. 21. Oxycodone / acetaminophen 5/325 as needed for pain on pain scale 3-5/ 22. Pantoprazole 40 mg IV q.12 h. 23. Pregabalin / Lyrica 75 mg p.o. t.i.d. 24. Seroquel 150 mg p.o. b.i.d. 25. Carafate 1 gram p.o. t.i.d. REVIEW OF SYSTEMS 13-point review of systems were obtained. The following pertinent positives: CONSTITUTIONAL: The patient lost over 110 pounds over the past few years due to gastroparesis. The patient denies fevers, chills, night sweats, denies headaches, denies blurry vision. Denies difficulty breathing. Denies cough, hemoptysis. CARDIOVASCULAR: Denies angina-like chest pain, PND, orthopnea. Denies palpitations. Denies angina-like chest pain. GASTROINTESTINAL: Denies nausea, vomiting, diarrhea hematochezia, melena. Does report right-sided flank pain. GENITOURINARY: Denies dysuria, hematuria, urinary incontinence. lease go back up to constitutional and PHYSICAL EXAMINATION VITAL SIGNS: Temperature 97.2 degrees Fahrenheit, heart rate 65 beats per minute, respiratory rate 18, blood pressure 147/90, O2 sats 99% on room air. GENERAL: Mr. Stevenson is a middle-aged male, he is sitting up in bed, he appears to be in pain. HEENT: Head atraumatic, normocephalic, conjunctive are not pale sclerae are anicteric, EOMI, PERRLA, oral exam no pharyngeal erythema. NECK: No palpable cervical or supraclavicular adenopathy. LUNGS: Good air movement bilaterally. No added breath sounds. CARDIOVASCULAR: Regular rate and rhythm, S1-S2. No obvious murmurs, rubs or gallops. ABDOMEN: Thin belly, soft and nontender, nondistended. No palpable organ enlargement. Specifically no hepatosplenomegaly. MUSCULOSKELETAL: Examination of the spine, no spinal tenderness, he does have right flank tenderness to palpation and percussion. EXTREMITIES: Lower extremities, no pretibial edema or calf tenderness. CENTRAL NERVOUS SYSTEM: No obvious focal sensory or motor deficits. LABORATORY FINDINGS Blood work dated 07/29/2016: WBC count 9.4, hemoglobin of 14.8 gm/dl, platelet count 139,000. Absolute neutrophil count 6.4. Chemistries: Sodium 139, potassium 3.9, chloride 109, bicarb is 22.8, BUN 18, creatinine 0.6, EGFR 149, calcium 8.6, total bilirubin 0.2, AST 20, ALT 30, alkaline phosphatase 105, albumin 2.9. IMAGING STUDIES CT scan of the abdomen and pelvis with IV contrast dated 07/28/2016 indicates focal area of decreased contrast enhancement within the posterior aspect of the left kidney suggesting renal infarct. ASSESSMENT Mr. Stevenson is a very pleasant 46-year-old man with a history of multiple myocardial infarctions, strong family history of arterial cardiovascular and cerebral ischemic events (brother and father both of stroke / myocardial infarction). He comes into the hospital with a [id number] week history of severe stabbing right flank pain. Imaging studies indicate findings consistent with a left renal infarct. I have been asked to see the patient for further workup and management of what is suspected to be a primary prothrombotic state as well as management of the renal infarction. Interestingly the patient tells me his records custodian Dr. Vahe Panchal initiated the patient on Eliquis about a week and half ago (approximately 1 week after he developed the left flank pain). The patient is not aware of the dose of the Eliquis but tells me he had been taking it as prescribed. RECOMMENDATIONS Renal infarct: The imaging studies were reviewed independently, the appearance of the infarct is classical for a renal infarct given its wedge-shaped appearance. I would recommend full dose anticoagulation with Eliquis starting with a loading dose of 10 mg twice daily for 1 week, followed by therapeutic dose of 5 mg p.o. b.i.d. He may continue aspirin 81 mg daily as well. Given his family history of early age arterial vascular disease and early in multiple males due to stroke and myocardial infarction, I suspect this man may have some familial prothrombotic state such as protein C or protein S deficiency versus a prothrombin gene mutation. I have ordered these tests to be done. Additionally, given his longstanding history of type 2 diabetes and urinalysis indicating a large amount of protein, there is a possibility he may have acquired antithrombin III deficiency as well. I have ordered 24-hour urine as well. Antithrombin III functional assay has also been ordered. If he is deficient antithrombin III, he would require anticoagulation with warfarin as opposed to a Factor Xa inhibitor. Pain control for management of the infarcting / infarcted kidney: With opioid analgesics. He may also benefit from a nonsteroidal anti-inflammatory. The hematology service will follow along with you. I will schedule him for an outpatient evaluation at my clinic in [facility]. MD ИВАН Chairez/LESLY /7:03 PM /9:19 PM
[2016-07-30] VITALS (7 sets, daily range): BP systolic 129–157; BP diastolic 82–88; PULSE 63–79; RESP 18; TEMP 96.5–97.9; O2SAT 97–100
[2016-07-30] MEDS: MORPHINE SULFATE 4 MG/ML INJ IV PRN ×6 (00:21→20:40)
[2016-07-30] MEDS: HYDROmorphone HCL PF 1 MG/ML VIAL IV PUSH PRN ×6 (02:18→23:29)
[2016-07-30] MEDS: INSULIN ASPART SUPPLEMENTAL SCALE SQ SCH ×4 (06:00→21:52)
[2016-07-30] MEDS: QUEtiapine FUMARATE 100 MG TAB PO SCH ×2 (09:02→20:39)
[2016-07-30] MEDS: DOCUSATE SODIUM 50 MG/SENNA 8.6 MG TAB PO SCH ×2 (09:02→20:39)
[2016-07-30] MEDS: METOPROLOL TARTRATE 25 MG TAB PO SCH ×2 (09:02→20:40)
[2016-07-30] MEDS: PANTOPRAZOLE SODIUM 40 MG VIAL IV PUSH SCH ×2 (09:02→20:39)
[2016-07-30] MEDS: LISINOPRIL 10 MG TAB PO SCH (09:02)
[2016-07-30] MEDS: PREGABALIN 75 MG CAP PO SCH ×3 (09:02→18:04)
[2016-07-30] MEDS: APIXABAN 5 MG TABLET PO SCH ×2 (09:02→20:40)
[2016-07-30] MEDS: SUCRALFATE 1 GM TAB PO SCH ×3 (09:02→16:30)
[2016-07-30] MEDS: SODIUM CHLORIDE 0.9% FLUSH 10 ML FLUSH IV FLUSH SCH ×2 (09:03→20:12)
--- NOTE | 2016-07-30 09:13 | HHI.PR ---
Subjective Remarks Still with severe pain. Patient says he was la as his BS was into a lower side. He wants regular diet. No fever or chills. Doesn't feel comfortable to go home. Objective Vitals Vital Signs Date Time Temp Pulse Resp B/P Pulse Ox O2 Delivery O2 Flow Rate FiO2 07/30/16 08:00 97.0 69 18 157/84 100 07/30/16 04:00 97.1 65 18 157/88 98 07/30/16 03:33 18 07/30/16 02:48 20 07/30/16 00:00 97.9 63 18 141/88 98 07/29/16 22:15 97.1 67 20 177/103 99 07/29/16 20:00 97.4 72 19 151/82 98 07/29/16 20:00 65 07/29/16 15:35 97.2 65 18 147/90 99 I/O 07/29/16 07/29/16 07/29/16 07/30/16 07/30/16 07/30/16 07:00 15:00 23:00 07:00 15:00 23:00 Intake Total 360 ml 0 ml 800 ml Output Total 1650 ml Balance 360 ml 0 ml -850 ml Intake Oral 360 ml 600 ml IV Total 0 ml 200 ml Output Urine Total 1650 ml # Bowel Movements 0 Result Diagram: 07/29/16 0959 07/29/16 0720 Imaging Last Impressions Chest X-Ray 07/28/16 0118 Signed Impressions: Service Date/Time: Thursday, July 28, 2016 01:48 - CONCLUSION: No evidence of acute cardiopulmonary disease. Mario Lee MD Abdomen/Pelvis CT 07/28/16 0000 Signed Impressions: Service Date/Time: Thursday, July 28, 2016 10:11 - CONCLUSION: 1. Focal area of decreased contrast enhancement within the posterior aspect of the left kidney suggesting renal infarct. Roni Bowen MD Objective Remarks GENERAL: Well-developed, asthenic in distress due to pain SKIN: Warm and dry. HEAD: Atraumatic. Normocephalic. EYES: Pupils equal and round. No scleral icterus. No injection or drainage. ENT: No nasal bleeding or discharge. Mucous membranes pink and moist. NECK: Trachea midline. No JVD. CARDIOVASCULAR: Regular rate and rhythm. RESPIRATORY: No accessory muscle use. Clear to auscultation. Breath sounds equal bilaterally. GASTROINTESTINAL: Abdomen soft, slightly tender left upper quadrant, nondistended with CVA tenderness left. MUSCULOSKELETAL: Extremities without clubbing, cyanosis, or edema. No obvious deformities. NEUROLOGICAL: Awake and alert. No obvious cranial nerve deficits. Motor grossly within normal limits. Five out of 5 muscle strength in the arms and legs. Normal speech. PSYCHIATRIC: Appropriate mood and affect; insight and judgment normal. Procedures None A/P Problem List: (1) Intractable abdominal pain ICD Code: R10.9 Status: Acute (2) DM (diabetes mellitus) ICD Code: E11.9 Status: Chronic (3) Leukocytosis ICD Code: D72.829 Status: Acute (4) Tobacco abuse ICD Code: F17.200 Status: Chronic Assessment and Plan 1. Intractable Abd Pain: Etiology kidney infarct. Patient has leukocytosis and concern about possible splenic or renal infarct. Urinalysis negative for RBC. Obtain CT of the abdomen pelvis per Continue w/ analgesics/antiemetics and IV morphine. Protonix IV. Gentle IVF for hydration. EMR shows multiple admissions for abdominal pain. March 2013 negative HIDA scan, GES and stress test, March [address] and EGD showed esophagitis, gastritis and duodenitis, May 2015 negative CTA for PE and June 2016 MRCP and aorta CTA negative. Patient states his current abdominal pain is different from previous. Pain is uncontrolled will add dilaudid for breakthrough pain Consult hem/onc for coagulopathy work up. Seen by Dr Choe. Recommends Eliquis as OP. Workup in progress. Patient to follow up as OP with Dr Choe. 2. IDDM: Uncontrolled. Hgb A1c 10.6 on 06/21/16, BS 446 on arrival, no evidence of DKA. IVF, sliding scale w/ Accu-Cheks, resume home Insulin. Hyperglycemic this morning patient hold Levemir . Continue ISS. Patient asking for regular diet and not ADA diet 3. Leukocytosis: WBC 16.3, neutrophil mildly elevated. CXR w/ no acute findings, images reviewed by me. U/a unremarkable. Repeat labs in am. 4. Chronic medical conditions systolic heart failure EF of 30%, hypertension, hyperlipidemia, coronary artery disease, tobacco abuse, anxiety and depression. Continue outpatient medications as appropriate. Tobacco cessation. 5. DVT Prophylaxis: SCD/Teds. Discharge Planning When improved and cleared by consultants Alanis Roberts MD Jul 30, 2016 09:13
[2016-07-30] MEDS: SODIUM CHLOR 0.9% 1000 ML INJ 1,000 ML IV SCH (09:23)
[2016-07-30] MEDS: SODIUM CHLORIDE 0.9% FLUSH 10 ML FLUSH IV FLUSH PRN ×2 (10:33→11:59)
[2016-07-30] MEDS: KETOROLAC TROMETHAMINE 30 MG/ML (IVP) VIAL IV PUSH SCH ×2 (12:07→18:04)
[2016-07-30] MEDS: ASPIRIN EC 81 MG TABEC PO SCH (20:40)
[2016-07-30] MEDS ORDERED: INSULIN DETEMIR 100 UNITS/ML VIAL SQ SCH (21:00)
[2016-07-31 00:09] VITALS: BP 158/88; PULSE 88; RESP 17; TEMP 96.9; O2SAT 96
[2016-07-31] MEDS: KETOROLAC TROMETHAMINE 30 MG/ML (IVP) VIAL IV PUSH SCH ×3 (00:53→12:16)
[2016-07-31] MEDS: MORPHINE SULFATE 4 MG/ML INJ IV PRN ×4 (00:53→13:08)
[2016-07-31 04:42] VITALS: BP 134/80; PULSE 62; RESP 18; TEMP 98.6; O2SAT 97
[2016-07-31] MEDS: HYDROmorphone HCL PF 1 MG/ML VIAL IV PUSH PRN ×2 (05:28→10:54)
[2016-07-31] MEDS: INSULIN ASPART SUPPLEMENTAL SCALE SQ SCH ×2 (06:39→12:20)
[2016-07-31 08:00] VITALS: BP 134/95; PULSE 68; RESP 18; TEMP 96.5; O2SAT 95
[2016-07-31] MEDS: QUEtiapine FUMARATE 100 MG TAB PO SCH (08:19)
[2016-07-31] MEDS: DOCUSATE SODIUM 50 MG/SENNA 8.6 MG TAB PO SCH (08:19)
[2016-07-31] MEDS: METOPROLOL TARTRATE 25 MG TAB PO SCH (08:19)
[2016-07-31] MEDS: PREGABALIN 75 MG CAP PO SCH ×2 (08:19→12:16)
[2016-07-31] MEDS: PANTOPRAZOLE SODIUM 40 MG VIAL IV PUSH SCH (08:19)
[2016-07-31] MEDS: SUCRALFATE 1 GM TAB PO SCH ×2 (08:19→12:16)
[2016-07-31] MEDS: LISINOPRIL 10 MG TAB PO SCH (08:20)
[2016-07-31] MEDS: SODIUM CHLORIDE 0.9% FLUSH 10 ML FLUSH IV FLUSH SCH (08:20)
[2016-07-31] MEDS: APIXABAN 5 MG TABLET PO SCH (08:47)
[2016-07-31] MEDS: SODIUM CHLOR 0.9% 1000 ML INJ 1,000 ML IV SCH (09:12)
--- NOTE | 2016-07-31 11:45 | HHI.DS ---
Discharge Summary Admission Date Jul 29, 2016 at 14:50 Discharge Date: Jul 31, 2016 Admitting Diagnosis DM poor control, moderate dehydration (1) Renal infarct ICD Code: N28.0 Diagnosis: Principal (2) Intractable abdominal pain ICD Code: R10.9 Diagnosis: Principal (3) DM (diabetes mellitus) ICD Code: E11.9 Diagnosis: Secondary (4) Leukocytosis ICD Code: D72.829 Diagnosis: Secondary (5) Tobacco abuse ICD Code: F17.200 Diagnosis: Secondary Procedures None Brief History - From Admission This is a 46-year-old male with a PMH of HTN, Anxiety, Depression, Hyperlipidemia, CAD, DM and Tobacco Abuse who presented to the ER with complaints of epigastric pain yesterday morning. Has had progressive symptoms, now with episodes of nausea and vomiting. Denies fever, chills or diarrhea. Will, BP 121/87 no HR 98, O2 sat 97% on RA, Afebrile. WBC 16.3. BS 446. Chemistry otherwise unremarkable. UA pending. CXR with no acute findings. S/ p IVF and multiple doses of analgesics and antiemetics w/ minimal improvement in pain complaints and persistent nausea/vomiting. CBC/BMP: 07/29/16 0959 07/29/16 0720 Significant Findings Laboratory Tests Test 07/28/16 07/29/16 07/29/16 15:21 07:20 09:59 Troponin I LESS THAN 0.02 NG/ML (0.02-0.05) Chloride Level 109 MEQ/L (98-107) Creatinine 0.59 MG/DL (0.60-1.30) Total Protein 6.0 GM/DL (6.4-8.2) Albumin 2.9 GM/DL (3.4-5.0) Platelet Count 139 TH/MM3 (150-450) Monocytes (%) (Auto) 8.2 % (0.0-8.0) Imaging Last Impressions Chest X-Ray 07/28/16 0118 Signed Impressions: Service Date/Time: Thursday, July 28, 2016 01:48 - CONCLUSION: No evidence of acute cardiopulmonary disease. Mario Lee MD Abdomen/Pelvis CT 07/28/16 0000 Signed Impressions: Service Date/Time: Thursday, July 28, 2016 10:11 - CONCLUSION: 1. Focal area of decreased contrast enhancement within the posterior aspect of the left kidney suggesting renal infarct. Roni Bowen MD PE at Discharge GENERAL: Well-developed, asthenic in distress due to pain SKIN: Warm and dry. HEAD: Atraumatic. Normocephalic. EYES: Pupils equal and round. No scleral icterus. No injection or drainage. ENT: No nasal bleeding or discharge. Mucous membranes pink and moist. NECK: Trachea midline. No JVD. CARDIOVASCULAR: Regular rate and rhythm. RESPIRATORY: No accessory muscle use. Clear to auscultation. Breath sounds equal bilaterally. GASTROINTESTINAL: Abdomen soft, slightly tender left upper quadrant, nondistended with CVA tenderness left. MUSCULOSKELETAL: Extremities without clubbing, cyanosis, or edema. No obvious deformities. NEUROLOGICAL: Awake and alert. No obvious cranial nerve deficits. Motor grossly within normal limits. Five out of 5 muscle strength in the arms and legs. Normal speech. PSYCHIATRIC: Appropriate mood and affect; insight and judgment normal. Pt update on day of discharge Patient was ambulating in the room. He still complains of pain however is much better controlled medications. He feels comfortable to go home today. No fever or chills overnight. No nausea, vomiting, diarrhea or constipation. Blood sugar better controlled. He'll follow up as outpatient with his PCP. Hospital Course 1. Intractable Abd Pain: Etiology kidney infarct. Patient has leukocytosis and concern about possible splenic or renal infarct. Urinalysis negative for RBC. Obtain CT of the abdomen pelvis per Continue w/ analgesics/antiemetics and IV morphine. Protonix IV. Gentle IVF for hydration. EMR shows multiple admissions for abdominal pain. March 2013 negative HIDA scan, GES and stress test, March [address] and EGD showed esophagitis, gastritis and duodenitis, May 2015 negative CTA for PE and June 2016 MRCP and aorta CTA negative. Patient states his current abdominal pain is different from previous. Pain is uncontrolled will add dilaudid for breakthrough pain Consult hem/onc for coagulopathy work up. Seen by Dr Choe. Recommends Eliquis as OP. Workup in progress. Patient to follow up as OP with Dr Choe. 2. IDDM: Uncontrolled. Hgb A1c 10.6 on 5/13/17, BS 446 on arrival, no evidence of DKA. IVF, sliding scale w/ Accu-Cheks, resume home Insulin. Hyperglycemic this morning patient hold Levemir . Continue ISS. Patient asking for regular diet and not ADA diet 3. Leukocytosis: WBC 16.3, neutrophil mildly elevated. CXR w/ no acute findings, images reviewed by me. U/a unremarkable. Repeat labs in am. 4. Chronic medical conditions systolic heart failure EF of 30%, hypertension, hyperlipidemia, coronary artery disease, tobacco abuse, anxiety and depression. Continue outpatient medications as appropriate. Tobacco cessation. 5. DVT Prophylaxis: SCD/Teds. Improved. patient to follow up as op with PCP and consiltants. Dr Choe oncology will follow up labs. Pt Condition on Discharge: Stable Discharge Disposition: Discharge Home Discharge Time: > 30 minutes Discharge Instructions DIET: Follow Instructions for: Heart Healthy Diet, Diabetic Diet Activities you can perform: Regular-No Restrictions Follow up Referrals: Oncology - 1 Week Oncology - 3 Weeks with Giorgio Choe MD PCP Follow-up - 3-5 Days New Medications: Apixaban (Eliquis) 5 Mg Tab 5 MG PO BID Blood Clot Prevention #60 Ref 0 TAB Apixaban (Eliquis) 5 Mg Tab 10 MG PO BID Blood Clot Prevention #12 TAB Continued Medications: Alprazolam (Alprazolam) 0.5 Mg Tab 0.5 MG PO BID PRN ANXIETY Ref [address] (Aspirin EC) 81 Mg Tabdr 81 MG PO HS Ref 0 TAB Hydrocodone-Acetaminophen ([place]) 10-325 Mg Tab 1 TAB PO Q4H PRN PAIN #30 Ref 0 TAB (This prescription has been renewed) Insulin Glargine Inj (Lantus Inj) 1,000 Unit/10 Ml Vial 22 UNITS SQ HS Blood Sugar Management Ref 0 VIAL Lisinopril (Lisinopril) 10 Mg Tab 10 MG PO DAILY #30 TAB Metoclopramide (Reglan) 10 Mg Tab 10 MG PO TIDAC PRN NAUSEA OR VOMITING #30 Ref 0 TAB Metoprolol Tartrate (Metoprolol Tartrate) 25 Mg Tab 12.5 MG PO BID CHF #30 Ref 0 TAB Nitroglycerin SL (Nitrostat SL) 0.4 Mg Subl 0.4 MG SL DIRECTED 1 tablet under the tongue as needed for chest pain. Repeat every 5 minutes for a total of 3 DOSES or call 911 if NO relief. PRN CHEST PAIN #100 Ref 0 TAB.SL Ondansetron (Zofran) 4 Mg Tab 4 MG PO Q6HR PRN NAUSEA OR VOMITING Ref 0 TAB Pantoprazole (Pantoprazole) 40 Mg Tab 40 MG PO DAILY Reflux #30 Ref 0 TAB Pregabalin (Lyrica) 75 Mg Cap 75 MG PO TID #90 Ref 0 CAP Quetiapine XR (Seroquel XR) 300 Mg Tab 300 MG PO HS #30 Ref 0 TAB Sucralfate (Carafate) 1 Gm Tab 1 GM PO TIDAC gastritis #30 TAB Discontinued Medications: Hydrocodone-Acetaminophen (Lortab) 5-325 Mg Tab 1 TAB PO Q6H PRN PAIN Ref 0 TAB Alanis Roberts MD Jul 31, 2016 11:44
[2016-07-31] MEDS ORDERED: HYDR-3366 PO (11:48)
[2016-07-31] MEDS ORDERED: APIX5TAB PO ×2 (11:48)
[2016-07-31 12:00] VITALS: BP 166/97; PULSE 74; RESP 18; TEMP 97.8; O2SAT 100
--- NOTE | 2016-07-31 13:39 | PD.ONC.PN ---
Subjective Subjective Remarks Afebrile Still c/o back pain Getting discharged today Objective Data Date Time Temp Pulse Resp B/P Pulse Ox O2 Delivery O2 Flow Rate FiO2 07/31/16 12:00 97.8 74 18 166/97 100 07/31/16 08:00 96.5 68 18 134/95 95 07/31/16 04:42 98.6 62 18 134/80 97 07/31/16 00:09 96.9 88 17 158/88 96 07/30/16 20:19 96.5 79 18 144/86 97 07/30/16 19:04 16 07/30/16 19:04 16 07/30/16 16:30 16 07/30/16 16:00 96.8 70 18 142/82 99 07/30/16 15:15 16 07/31/16 07/31/16 07/31/16 07:00 15:00 23:00 Intake Total 480 ml Output Total 800 ml Balance -320 ml Result Diagram: 07/29/16 0959 07/29/16 0720 Administered Medications Medications (Trade) Dose Ordered Sig/Patsy Route PRN Reason Start Time Stop Time Status Last Admin Dose Admin Pantoprazole Sodium (Protonix Inj) 40 mg Q12H IV PUSH 07/28/16 21:00 07/31/16 08:19 Sodium Chloride (NS Flush) 2 ml UNSCH PRN IV FLUSH FLUSH AFTER USING IV ACCESS 07/28/16 03:30 07/30/16 11:59 Sodium Chloride (NS Flush) 2 ml BID IV FLUSH 07/28/16 09:00 07/31/16 08:20 Ondansetron HCl (Zofran Inj) 4 mg Q6H PRN IVP NAUSEA OR VOMITING 07/28/16 03:30 07/28/16 16:49 Oxycodone/ Acetaminophen (Percocet 5-325 Mg) 1 tab Q6H PRN PO PAIN SCALE 3 TO 5 07/28/16 03:30 07/31/16 08:47 Morphine Sulfate (Morphine Inj) 2 mg Q3H PRN IV Pain 6-10 07/28/16 03:30 07/31/16 13:08 Senna/Docusate Sodium (Mahnaz-Colace) 1 tab BID PO 07/28/16 09:00 07/31/16 08:19 Alprazolam (Xanax) 0.5 mg BID PRN PO ANXIETY 07/28/16 03:30 07/31/16 00:57 Aspirin (Ecotrin Ec) 81 mg HS PO 07/28/16 21:00 07/30/16 20:40 Metoprolol Tartrate (Lopressor) 12.5 mg BID PO 07/28/16 09:00 07/31/16 08:19 Pregabalin (Lyrica) 75 mg TID PO 07/28/16 09:00 07/31/16 12:16 Quetiapine Fumarate (SEROquel) 150 mg BID PO 07/28/16 09:00 07/31/16 08:19 Lisinopril (Prinivil) 10 mg DAILY PO 07/28/16 09:00 07/31/16 08:20 Sucralfate 1 gm 1 gm TIDAC PO 07/28/16 08:00 07/31/16 12:16 Sodium Chloride (NS 1000 ml Inj) 1,000 ml @ 42 mls/hr [id number] IV 07/28/16 09:45 07/31/16 09:12 Hydromorphone HCl (Dilaudid Pf Inj) 1 mg Q4H PRN IV PUSH breakthrough pain 07/29/16 12:15 07/31/16 10:54 Apixaban (Eliquis) 10 mg BID PO 07/29/16 21:00 07/31/16 08:47 Ketorolac Tromethamine (Toradol Inj) 15 mg Q6H IV PUSH 07/30/16 12:00 08/04/16 11:59 07/31/16 12:16 Insulin Detemir (Levemir Inj) 15 units HS SQ 07/30/16 21:00 07/30/16 21:51 Objective Remarks GENERAL: Chronically ill appearing male, sitting up in bed in no distress. SKIN: Warm and dry. Healed ulcers to BLE. HEAD: Normocephalic. EYES: No injection or drainage. NECK: Supple, trachea midline. CARDIOVASCULAR: Regular rate and rhythm without murmurs. RESPIRATORY: Clear posteriorly. Breathing unlabored. GASTROINTESTINAL: Abdomen soft, non-tender, nondistended. EXTREMITIES: No edema. MUSCULOSKELETAL: Adequate muscle tone. NEUROLOGICAL: No obvious focal deficit. Awake, alert, and oriented x3. Assessment/Plan Problem List: (1) Renal infarct Status: Acute Plan: -- 07/28 CT Abdomen and Pelvis shows renal infarct -- Currently on Eliquis 10mg po BID -- Hypercoagulable workup pending Assessment 46 y/o male with history of diabetes admitted with flank pain found to have a renal infarct. Plan 1. OK for discharge from hematology standpoint 2. Continue Eliquis at 10mg po BID. After 7 days he should begin therapeutic dose of 5mg po BID. 3. Followup with Dr Choe as an outpatient in approx. 2 weeks. 4. The pt was encouraged to monitor for bleeding while on Eliquis. Ann Kaur Jul 31, 2016 13:39
[2016-08-02 17:51] LABS: BETA2 GLYCOPROTEIN I AB IGA LESS THAN 9.0 SAU (< OR = 20)
== END 2016-07-31 14:08 | disposition home or self-care (01) | DRG 699 ==
LOC: NEPC 00:59 → NEDA 03:32 → NEPHCDU 06:39 → NEDA 21:17 → NEPHCDU 21:17 → OBSVTOIN 07-29 14:50 → N07B 07-29 22:19
PROVIDERS: ADMIT Hospitalist; ATTEND Hospitalist
DX: N28.0 Ischemia and infarction of kidney (principal); I50.22 Chronic systolic (congestive) heart failure; I11.0 Hypertensive heart disease with heart failure; K86.1 Other chronic pancreatitis; E11.65 Type 2 diabetes mellitus with hyperglycemia; G62.9 Polyneuropathy, unspecified; E78.5 Hyperlipidemia, unspecified; E86.0 Dehydration; I25.10 Atherosclerotic heart disease of native coronary artery without angina pectoris; I25.2 Old myocardial infarction; I25.5 Ischemic cardiomyopathy; K31.84 Gastroparesis; N20.0 Calculus of kidney; F41.8 Other specified anxiety disorders; F17.210 Nicotine dependence, cigarettes, uncomplicated; Z79.01 Long term (current) use of anticoagulants; Z79.4 Long term (current) use of insulin; Z82.3 Family history of stroke; Z82.49 Family history of ischemic heart disease and other diseases of the circulatory system; Z95.5 Presence of coronary angioplasty implant and graft; Z96.1 Presence of intraocular lens
CPT/HCPCS: 71020; 74177; 80053; 81001; 81240; 82010; 82948; 83690; 83735; 84484; 85025; 85300; 85303; 85306; 85307; 85613; 85730; 86146; 86147; 93005; 96374; 96375; 96376; C9113; G0378; J1170; J1650; J1815; J1885; J2270; J2405; J7030; Q9967

== ENCOUNTER 2016-08-27 19:20 | Inpatient (IN) | payer MEDICAID ==
[~2016-08-27] VITALS: Ht 170.2 cm; Wt 62.0 kg
[2016-08-27] VITALS (9 sets, daily range): BP systolic 112–136; BP diastolic 66–85; PULSE 80–90; RESP 15–20; TEMP 98.4; O2SAT 97–100
[~2016-08-27 19:20] MED LIST changes: +APIX5TAB PO; +HYDR-3366 PO; -HYDR-3533 PO
[2016-08-27] MEDS ORDERED: SODIUM CHLOR 0.9% 1000 ML INJ 1,000 ML IV SCH (19:32)
[2016-08-27] MEDS ORDERED: HYDROmorphone HCL PF 1 MG/ML VIAL IVS ONE (19:45)
[2016-08-27] MEDS ORDERED: SODIUM CHLORIDE 0.9% FLUSH 10 ML FLUSH IV FLUSH PRN ×2 (19:45→22:30)
[2016-08-27] MEDS ORDERED: ONDANSETRON HCL 4 MG/2 ML VIAL IVP ONE (19:45)
--- NOTE | 2016-08-27 19:48 | PD ---
HPI Chief Complaint: Chest Pain Time Seen by Provider: 19:28 Travel History International Travel<30 days: No Contact w/Intl Traveler<30days: No Traveled to known affect area: No History of Present Illness HPI 46-year-old male multiple medical problems and well-known to our ER arrives complaining of abdominal pain mid abdomen epigastric abdomen and location. Duration about 1-1/2 days. He states the pain is severe. He's had no fever. The pain is constant. 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 Renal function remained normal through the prior visit. He has been on Eliquis since and per records was on it before the actual infarct event. PFSH Past Medical History Hx Anticoagulant Therapy: Yes (on Eliquis for "stroke on kidney" and 3 cardiac stents) Arthritis: No Asthma: No Autoimmune Disease: No Blood Disorders: No Anxiety: Yes Depression: Yes Heart Rhythm Problems: No Cancer: No Cardiac Catheterization: Yes Cardiovascular Problems: Yes (chf. ef of 26%) High Cholesterol: Yes Chemotherapy: No Chest Pain: Yes Congestive Heart Failure: Yes COPD: No Cerebrovascular Accident: No Coronary Artery Disease: Yes Diabetes: Yes Diminished Hearing: No Endocrine: Yes Gastrointestinal Disorders: Yes (GASTROPARESIS) GERD: No Glaucoma: No Genitourinary: No Headaches: No Hepatitis: No Hiatal Hernia: Yes Hypertension: Yes Immune Disorder: No Implanted Vascular Access Dvce: Yes Kidney Stones: No Musculoskeletal: No Neurologic: Yes Psychiatric: No Reproductive: No Respiratory: Yes (smoker cough) Integumentary: No Immunizations Current: Yes Migraines: No Myocardial Infarction: Yes (JULY 2012) Pancreatitis: Yes (CHRONIC) Radiation Therapy: No Seizures: Yes ( was the last one) Sleep Apnea: No Thyroid Disease: No Ulcer: No Past Surgical History Abdominal Surgery: Yes (herina repair) Body Medical Devices: PLATE IN RIGHT WRIST, 3 CARDIAC STENTS Cardiac Surgery: Yes (3 STENTS LAST CARDIAC CATH 05/25) Cholecystectomy: Yes (06/03/13) Coronary Artery Bypass Graft: No Coronary Stent: Yes (x 3 in 07/22) Eye Surgery: Yes (implant lenses in eyes,) Neurologic Surgery: No Oral Surgery: Yes (WISDOM TEETH) Pacemaker: No Other Surgery: Yes (IMPLANT EYE LENSES (), WRIST PLATE(), HERNIA (), 3 STENTS(2013)) Family History Family Hypercholesterolemia: Yes Social History Alcohol Use: No Tobacco Use: Yes (1 PPD) Substance Use: No Allergies-Medications (Allergen,Severity, Reaction): Coded Allergies: No Known Allergies (Verified , 08/27/16) Reported Meds & Prescriptions Reported Meds & Active Scripts Active Eliquis (Apixaban) 5 Mg Tab 10 Mg PO BID Reported Carvedilol Unknown Strength Tab Unknown Dose .ROUTE Lantus Inj (Insulin Glargine) 1,000 Unit/10 Ml Vial 22 Units SQ HS Nitrostat SL (Nitroglycerin) 0.4 Mg Subl 0.4 Mg SL DIRECTED PRN 1 tablet under the tongue as needed for chest pain. Repeat every 5 minutes for a total of 3 DOSES or call 911 if NO relief. Seroquel XR (Quetiapine Fumarate) 300 Mg Tab 300 Mg PO HS Lyrica (Pregabalin) 75 Mg Cap 75 Mg PO TID Zofran (Ondansetron HCl) 4 Mg Tab 4 Mg PO Q6HR PRN Review of Systems Except as stated in HPI: all other systems reviewed are Neg Physical Exam Narrative GENERAL: 46-year-old male well-nourished well-developed mild distress secondary to pain SKIN: Focused skin assessment warm/dry. HEAD: Atraumatic. Normocephalic. EYES: Pupils equal and round. No scleral icterus. No injection or drainage. ENT: No nasal bleeding or discharge. Mucous membranes pink and moist. NECK: Trachea midline. No JVD. CARDIOVASCULAR: Regular rate and rhythm. No murmur appreciated. RESPIRATORY: No accessory muscle use. Clear to auscultation. Breath sounds equal bilaterally. GASTROINTESTINAL: Soft. Minimal tenderness in the epigastrium. MUSCULOSKELETAL: No obvious deformities. No clubbing. No cyanosis. No edema. NEUROLOGICAL: Awake and alert. No obvious cranial nerve deficits. Motor grossly within normal limits. Normal speech. PSYCHIATRIC: Appropriate mood and affect; insight and judgment normal. Data Data Last Documented VS Vital Signs Date Time Temp Pulse Resp B/P Pulse Ox O2 Delivery O2 Flow Rate FiO2 08/27/16 21:44 88 18 112/66 98 Room Air 08/27/16 19:29 98.4 Vital signs reviewed Orders Complete Blood Count With Diff (08/27/16 19:32) Comprehensive Metabolic Panel (08/27/16 19:32) Lipase (08/27/16 19:32) Iv Access Insert/Monitor (08/27/16 19:32) Ecg Monitoring (08/27/16 19:32) Oximetry (08/27/16 19:32) Ondansetron Inj (Zofran Inj) (08/27/16 19:45) Sodium Chlor 0.9% 1000 Ml Inj (Ns 1000 M (08/27/16 19:32) Sodium Chloride 0.9% Flush (Ns Flush) (08/27/16 19:45) Hydromorphone Pf Inj (Dilaudid Pf Inj) (08/27/16 19:45) Electrocardiogram (08/27/16 19:28) Insulin Human Regular Inj (Novolin R Inj (08/27/16 20:30) Troponin I (08/27/16 20:35) Chest, Single Ap (08/27/16 20:35) Blood Glucose (08/27/16 21:35) Hydromorphone Pf Inj (Dilaudid Pf Inj) (08/27/16 20:45) Admit Order (Ed Use Only) (08/27/16 21:58) Vital Signs (Adult) Q4H (08/27/16 21:58) Sips And Chips (08/27/16 21:58) Activity Oob With Assistance (08/27/16 21:58) Labs Laboratory Tests Test 08/27/16 19:40 White Blood Count 10.4 TH/MM3 Red Blood Count 5.79 MIL/MM3 Hemoglobin 18.1 GM/DL Hematocrit 51.6 % Mean Corpuscular Volume 89.1 FL Mean Corpuscular Hemoglobin 31.2 PG Mean Corpuscular Hemoglobin 35.0 % Concent Red Cell Distribution Width 15.9 % Platelet Count 155 TH/MM3 Mean Platelet Volume 8.6 FL Neutrophils (%) (Auto) 72.0 % Lymphocytes (%) (Auto) 14.6 % Monocytes (%) (Auto) 9.3 % Eosinophils (%) (Auto) 2.7 % Basophils (%) (Auto) 1.4 % Neutrophils # (Auto) 7.5 TH/MM3 Lymphocytes # (Auto) 1.5 TH/MM3 Monocytes # (Auto) 1.0 TH/MM3 Eosinophils # (Auto) 0.3 TH/MM3 Basophils # (Auto) 0.1 TH/MM3 CBC Comment DIFF FINAL Differential Comment Sodium Level 132 MEQ/L Potassium Level 4.7 MEQ/L Chloride Level 97 MEQ/L Carbon Dioxide Level 25.6 MEQ/L Anion Gap 9 MEQ/L Blood Urea Nitrogen 22 MG/DL Creatinine 0.91 MG/DL Estimat Glomerular Filtration 90 ML/MIN Rate Random Glucose 426 MG/DL Calcium Level 9.7 MG/DL Total Bilirubin 0.5 MG/DL Aspartate Amino Transf 21 U/L (AST/SGOT) Alanine Aminotransferase 18 U/L (ALT/SGPT) Alkaline Phosphatase 137 U/L Troponin I LESS THAN 0.02 NG/ML Total Protein 7.3 GM/DL Albumin 3.5 GM/DL Lipase 440 U/L MDM Medical Decision Making Medical Screen Exam Complete: Yes Emergency Medical Condition: Yes Differential Diagnosis Constipation, Gastritis, Acute Cholecystitis, Biliary Colic, Pancreatitis, TURCIOS , Hepatitis, Bowel Obstruction, Cystitis, Mesenteric Ischemia, AAA, Appendicitis , Renal Stone/Hydronephrosis, GERD, perforated viscous Narrative Course The patient's been seen here before numerous times. I've seen him here several times myself. Today's presentation is more or less consistent with what we have seen previously. Routine lab work including a CMP and lipase will be performed. Plan for discharge afterwards assuming results fall within normal range. CBC & BMP Diagram 08/27/16 19:40 Lipase 444 LFTs essentially unremarkable Troponin less than 0.02 EKG shows no acute ischemia Upon reassessment the patient on 3 different occasions he continues to attest that he feels terrible and overall the quality is different in the severity is worse than his typical presentation. In this scenario we will admit the patient for pain control. He did get 10 units insulin in the glucose dropped to approximately 250. Case was discussed with Dr. Cormier for the family medicine residency program. Diagnosis Primary Impression: Pancreatitis Qualified Code: K86.1 - Chronic pancreatitis, unspecified pancreatitis type Additional Impressions: Generalized weakness Chest pain Qualified Code: R07.9 - Chest pain, unspecified type Poorly controlled diabetes mellitus Admitting Information Admitting Physician Requests: Admit Additional Instructions: You have a choice when it comes to health care, and we are glad that you chose [facility]. Hopefully, we have met your expectations on today's visit. You are welcome to return to [facility] at any time, as we are committed to meeting the health care needs of our community. Med/Other Pt SpecificInfo: No Change to Meds Roni Zavala MD Aug 27, 2016 19:48
[2016-08-27 19:55] LABS: AUTOMATED NEUTROPHIL # 7.5 TH/MM3 (1.8-7.7); BASOPHIL # 0.1 TH/MM3 (0-0.2); BASOPHIL % 1.4 % (0.0-2.0); EOSINOPHIL # 0.3 TH/MM3 (0-0.4); EOSINOPHIL % 2.7 % (0.0-4.0); HEMATOCRIT 51.6 % (39.0-51.0); HEMO FLAGS DIFF FINAL; LYMPH % 14.6 % (9.0-44.0); LYMPHOCYTE # 1.5 TH/MM3 (1.0-4.8); MEAN CELL VOLUME 89.1 FL (80.0-100.0); MEAN CORPUSCULAR HEMOGLOBIN 31.2 PG (27.0-34.0); MONO % 9.3 % (0.0-8.0); PLATELET COUNT 155 TH/MM3 (150-450); RED BLOOD COUNT 5.79 MIL/MM3 (4.50-5.90); RED CELL DISTRIBUTION WIDTH 15.9 % (11.6-17.2); WHITE BLOOD COUNT 10.4 TH/MM3 (4.0-11.0)
[2016-08-27] MEDS ORDERED: CARV3.12 (20:01)
[2016-08-27 20:25] LABS: ALKALINE PHOSPHATASE 137 U/L (45-117); ALT (GPT) 18 U/L (12-78); ANION GAP 9 MEQ/L (5-15); AST (GOT) 21 U/L (15-37); BICARBONATE 25.6 MEQ/L (21.0-32.0); BLOOD UREA NITROGEN 22 MG/DL (7-18); CHLORIDE 97 MEQ/L (98-107); GLOMERULAR FILTRATION RATE 90 ML/MIN (>89); POTASSIUM 4.7 MEQ/L (3.5-5.1); SODIUM (NA) 132 MEQ/L (136-145); TOTAL BILIRUBIN ADULT 0.5 MG/DL (0.2-1.0)
[2016-08-27] MEDS ORDERED: INSULIN HUMAN REGULAR 1,000 UNITS/10 ML VIAL IV PUSH ONE (20:30)
[2016-08-27] MEDS ORDERED: HYDROmorphone HCL PF 1 MG/ML VIAL IV PUSH ONE (20:45)
--- NOTE | 2016-08-27 21:13 | RADRPT ---
EXAM DATE/TIME: 08/27/2016 20:38 [facility] COMPARISON: CHEST SINGLE AP, June 19, 2016, 0:37. INDICATIONS : Chest pain. MEDICAL HISTORY : Cardiovascular disease. Hernia, umbilical. Hypertension.LLQ pain X 2days per patient SURGICAL HISTORY : stent insertion ENCOUNTER: Initial ACUITY: 1 day PAIN SCORE: 5/10 LOCATION: Bilateral upper chest FINDINGS: A single view of the chest demonstrates the lungs to be symmetrically aerated without evidence of mas s, infiltrate or effusion. The cardiomediastinal contours are unremarkable. Osseous structures are intact. CONCLUSION: No acute disease. Arias Sal MD on August 27, 2016 at 21:11 Board Certified Radiologist. This report was verified electronically.
[2016-08-27] MEDS ORDERED: ENOXAPARIN SODIUM 40 MG/0.4 ML SYRINGE SQ SCH (23:00)
--- NOTE | 2016-08-27 23:15 | HHI.HP ---
[facility] Service Family Medicine Primary Care Physician Mohsen Pablo Admission Diagnosis Chest Pain, Pancreatitis Diagnoses: International Travel<30 Days: No Contact w/Intl Traveler<30days: No Known Affected Area: No History of Present Illness 46 year old male with a history of chronic pancreatitis, [place], stent placement and left renal infarct who presents to the ED with chest and abdominal pain. The chest pain is described as someone "sitting on my chest," constant, not reportedly worse with movement. He does endorse dizziness with standing. He states that the abdominal pain started one day ago and characterizes it as sharp , burning, constant in nature. It is located in the epigastric area and left upper/lower quadrants. The pain is radiating to his back like his typical pancreatitis symptoms. He noted 5-6 episodes of vomiting this morning with vomitus being yellow without blood or bile. The pain is not associated with eating. He pain medications given in the ED today helped. He does note decreased urine output noting that he only went once today. Denies pain with urination or hematuria. He has had 3-4 bowel movements today and endorses decreased appetite. He denies fever, chills, shortness of breath. Prior to his left renal infarct which occurred in July 2016, he was on aspirin and Plavix for his heart. He was told was after the renal fact and he reports that he is taking 10 mg twice a day at this time. He denies that he is taking 5 mg twice a day dosing. His prosthetics lab technician is Dr. Mcdonough in [facility]. He tried to go 5-6 weeks ago but was told he needed a referral from his PCP since he hadn't gone in a while. He does note that he fell 2 weeks ago and injured his right elbow. He was placed in a short cast which he shortly thereafter removed. He notes full range of motion and resolved pain in the right arm. (Patt Cormier MD R1) Review of Systems Constitutional: DENIES: Fever, Weight gain, Weight loss, Chills Eyes: COMPLAINS OF: Blurred vision (chronic), DENIES: Diplopia, Eye pain, Vision loss Ears, nose, mouth, throat: DENIES: Tinnitus, Hearing loss, Throat pain, Toothache Respiratory: COMPLAINS OF: Cough (chronic), Sputum production (chronic), DENIES: Shortness of breath Cardiovascular: COMPLAINS OF: Chest pain, Palpitations, Syncope (2 weeks ago), DENIES: Lower Extremity Edema Gastrointestinal: COMPLAINS OF: Abdominal pain, Diarrhea, Vomiting, DENIES: Black stools, Bloody stools, Constipation Genitourinary: DENIES: Urinary frequency, Urinary incontinence, Urgency, Hematuria, Dysuria Musculoskeletal: COMPLAINS OF: Back pain, DENIES: Joint pain, Muscle aches, Stiffness Integumentary: DENIES: Pruritus, Rash Hematologic/lymphatic: DENIES: Bruising, Lymphadenopathy Neurologic: COMPLAINS OF: Poor Balance (cane at baseline), DENIES: Headache, Seizures Psychiatric: DENIES: Anxiety, Confusion, Depression (Patt Cormier MD R1) Past Family Social History Past Medical History HTN, anxiety, depression, hyperlipidemia, CAD, IDDM, tobacco abuse Past Surgical History Gallbladder Right hand pinning Coronary stents Reported Medications Reported Meds & Active Scripts Active Eliquis (Apixaban) 5 Mg Tab 10 Mg PO BID Reported Carvedilol Unknown Strength Tab Unknown Dose .ROUTE Lantus Inj (Insulin Glargine) 1,000 Unit/10 Ml Vial 22 Units SQ HS Nitrostat SL (Nitroglycerin) 0.4 Mg Subl 0.4 Mg SL DIRECTED PRN 1 tablet under the tongue as needed for chest pain. Repeat every 5 minutes for a total of 3 DOSES or call 911 if NO relief. Seroquel XR (Quetiapine Fumarate) 300 Mg Tab 300 Mg PO HS Lyrica (Pregabalin) 75 Mg Cap 75 Mg PO TID Zofran (Ondansetron HCl) 4 Mg Tab 4 Mg PO Q6HR PRN (Patt Cormier MD R1) Allergies: Coded Allergies: No Known Allergies (Verified , 08/27/16) Family History Father: CAD, age 47 Brother: CAD, cardiac failure, age 46 Social History Cigarettes: 1ppd x 30 years Alcohol: never drinker now, remote drinker Illicit: marijuana (Patt Cormier MD R1) Physical Exam Vital Signs Vital Signs Date Time Temp Pulse Resp B/P Pulse Ox O2 Delivery O2 Flow Rate FiO2 08/27/16 21:44 88 18 112/66 98 Room Air 08/27/16 20:04 90 98 Room Air 08/27/16 19:29 98.4 90 20 122/85 97 Physical Exam GENERAL: Well-nourished, well-developed male patient lying in bed in no apparent distress. On phone SKIN: Warm and dry. Xerotic skin noted on the forearms bilaterally. HEAD: Atraumatic. Normocephalic. EYES: PERRL.. No scleral icterus. No injection or drainage. ENT: No nasal bleeding or discharge. Mucous membranes pink and moist. NECK: Trachea midline. No JVD. CARDIOVASCULAR: Regular rate and rhythm without murmurs, gallops, rubs. RESPIRATORY: No accessory muscle use. Clear to auscultation. Breath sounds equal bilaterally. GASTROINTESTINAL: Abdomen soft, bowel sounds hyperactive. It is tender to palpation in the epigastric and left abdominal areas. There is no rebound or guarding. It is nondistended. Hepatic and splenic margins not palpable. MUSCULOSKELETAL: Extremities without clubbing, cyanosis, or edema. No obvious deformities. No calf tenderness. NEUROLOGICAL: Awake and alert. No obvious cranial nerve deficits. Motor grossly within normal limits. Five out of 5 muscle strength in the arms and legs. Normal speech. PSYCHIATRIC: Appropriate mood and affect; insight and judgment normal. Laboratory Laboratory Tests Test 08/27/16 19:40 White Blood Count 10.4 Red Blood Count 5.79 Hemoglobin 18.1 Hematocrit 51.6 Mean Corpuscular Volume 89.1 Mean Corpuscular Hemoglobin 31.2 Mean Corpuscular Hemoglobin 35.0 Concent Red Cell Distribution Width 15.9 Platelet Count 155 Mean Platelet Volume 8.6 Neutrophils (%) (Auto) 72.0 Lymphocytes (%) (Auto) 14.6 Monocytes (%) (Auto) 9.3 Eosinophils (%) (Auto) 2.7 Basophils (%) (Auto) 1.4 Neutrophils # (Auto) 7.5 Lymphocytes # (Auto) 1.5 Monocytes # (Auto) 1.0 Eosinophils # (Auto) 0.3 Basophils # (Auto) 0.1 CBC Comment DIFF FINAL Differential Comment Sodium Level 132 Potassium Level 4.7 Chloride Level 97 Carbon Dioxide Level 25.6 Anion Gap 9 Blood Urea Nitrogen 22 Creatinine 0.91 Estimat Glomerular Filtration 90 Rate Random Glucose 426 Calcium Level 9.7 Total Bilirubin 0.5 Aspartate Amino Transf 21 (AST/SGOT) Alanine Aminotransferase 18 (ALT/SGPT) Alkaline Phosphatase 137 Troponin I LESS THAN 0.02 Total Protein 7.3 Albumin 3.5 Lipase 440 (Patt Cormier MD R1) Result Diagram: 08/27/16193908/27/161939 Imaging Last Impressions Chest X-Ray 08/27/162034 Signed Impressions: Service Date/Time: Saturday, August 27, 2016 20:38 - CONCLUSION: No acute disease. Arias Sal MD (Patt Cormier MD R1) Assessment and Plan Assessment and Plan 45-year-old male with history of CAD and IDDM admitted to observation for chest pain workup and acute on chronic pancreatitis. Code Status DNR discussed at bedside 08/27/16 in detail Discussed Condition With Seen and discussed with Dr. Solis, PGY1 (Patt Cormier MD R1) Attending Attestation THIS CASE WAS DISCUSSED WITH THE RESIDENT PHYSICIANS. I HAVE REVIEWED THE RECORD AND AGREE WITH THE ABOVE NOTE AND PLAN OF CARE WAS DISCUSSED. I HAVE AUTHORIZED THE ORDER FOR ADMISSION TO AN IN-PATIENT STATUS. (Alesha Ahn MD) Problem List: (1) Chest pain Status: Acute Plan: Patient with multiple CAD risk factors presents with epigastric and left upper quadrant pain, possibly related to cardiac source. Initial EKG was negative for acute infarction and troponin was less than 0.02. * Trend cardiac enzymes and troponin, routine EKG * Administer Protonix * Monitor on telemetry * Monitor patient closely (2) Pancreatitis Status: Acute Plan: Patient presents with epigastric abdominal pain, vomiting, history of pancreatitis. Lipase is 440 on admission suggesting mild disease. Plan: * IVF hydration given patient has low urinary output * We'll keep nothing by mouth for now, advance to clear liquids if tolerated * Zofran when necessary * Pain scale with Dilaudid * Recheck lipase in the morning (3) Syncope Status: Acute Plan: He states he had a syncopal episode 2 weeks ago sustaining a fall. He denies any trauma. EKG showing evidence of old infarct but no new infarct. * IV fluids as above * Patient had an echo in June 2016 showing EF 30-35%, severe hypokinesis of the anterior and apical myocardium. * Monitor on telemetry * Consider orthostatic vital signs (4) Diabetes mellitus Status: Chronic Plan: He has history of hyperglycemia and notes that he takes 22 units Levemir at night. He required 10 units dose of regular insulin in ED. Hyperglycemic in ED to greater than 400, resolved over time * Hold home dose of Lantus at this time given patient did not eat today and is currently NPO * Start supplemental scale NovoLog with Accu-Chek * Continue home dose gabapentin (5) CAD (coronary artery disease) Status: Chronic Plan: Management as above (6) Renal infarct Status: Chronic Plan: He had a CT scan in July 2016 notable for findings suggestive of renal infarct and was placed on Eliquis 10 mg twice a day. He should switch to 5 mg dose approximately one week after discharge. * Patient should switch to 5 mg twice a day dosing of Eliquis (7) Hypertension Status: Chronic Plan: Chronic hypertension on carvedilol with unknown dose * Will give Vasotec PRN * Try to elucidate Carvedilol dose in the morning (8) Depression with anxiety Status: Chronic Plan: Continue home doses of Seroquel (9) Fluids/Electrolytes/Nutrition/Prophylaxis Status: Acute Plan: Fluids: NS @ 97ml/hr, switched from high rate initially Electrolytes: monitor and replete as needed Nutrition: Nothing by mouth, advance as tolerated DVT Prophylaxis: Early ambulation. On Eliquis GI Prophylaxis: Protonix 40mg daily (Patt Cormier MD R1) Problem Qualifiers (1) Chest pain: Qualified Code: R07.9 - Chest pain, unspecified type (2) Pancreatitis: Qualified Code: K86.1 - Chronic pancreatitis, unspecified pancreatitis type Patt Cormier MD R1 Aug 27, 2016 23:15 Alesha Ahn MD Aug 28, 2016 13:29
[2016-08-27] MEDS ORDERED: NALOXONE HCL 0.4 MG/ML AMP IV PRN (23:30)
[2016-08-27] MEDS ORDERED: MORPHINE SULFATE 4 MG/ML INJ IV PRN ×2 (23:30)
[2016-08-27] MEDS ORDERED: ENALAPRILAT 1.25 MG/ML VIAL IV PRN (23:30)
[2016-08-27] MEDS ORDERED: APIXABAN 5 MG TABLET PO SCH (23:30)
[2016-08-27] MEDS ORDERED: ACETAMINOPHEN 325 MG TAB PO PRN (23:30)
[2016-08-27] MEDS: HYDROmorphone HCL PF 1 MG/ML VIAL IV PRN (23:51)
[2016-08-28] MEDS: LACTATED RINGER'S 1000 ML INJ 1,000 ML IV SCH ×4 (01:25→06:13)
[2016-08-28] MEDS ORDERED: HYDROmorphone HCL PF 1 MG/ML VIAL IV PRN (02:15)
[2016-08-28 02:47] LABS: CREATINE KINASE 42 U/L (39-308)
[2016-08-28 03:28] VITALS: BP 129/75; PULSE 74; RESP 18; TEMP 98.4; O2SAT 97
[2016-08-28] MEDS: HYDROmorphone HCL PF 1 MG/ML VIAL IV PRN ×6 (03:36→20:20)
[2016-08-28 06:13] LABS: AUTOMATED NEUTROPHIL # 6.7 TH/MM3 (1.8-7.7); BASOPHIL # 0.1 TH/MM3 (0-0.2); EOSINOPHIL # 0.4 TH/MM3 (0-0.4); HEMATOCRIT 47.3 % (39.0-51.0); LYMPH % 16.6 % (9.0-44.0); LYMPHOCYTE # 1.6 TH/MM3 (1.0-4.8); MEAN CELL VOLUME 88.3 FL (80.0-100.0); MEAN CORPUSCULAR HEMOGLOBIN 31.8 PG (27.0-34.0); MONO % 10.6 % (0.0-8.0); NEUT % 67.8 % (16.0-70.0); PLATELET COUNT 122 TH/MM3 (150-450); RED BLOOD COUNT 5.36 MIL/MM3 (4.50-5.90); RED CELL DISTRIBUTION WIDTH 15.9 % (11.6-17.2); WHITE BLOOD COUNT 9.8 TH/MM3 (4.0-11.0)
[2016-08-28 06:23] LABS: HEMO FLAGS AUTO DIFF
[2016-08-28 06:50] LABS: CREATINE KINASE 48 U/L (39-308)
[2016-08-28] MEDS: SODIUM CHLOR 0.9% 1000 ML INJ 1,000 ML IV SCH ×2 (06:54→16:49)
[2016-08-28 07:09] LABS: ANION GAP 10 MEQ/L (5-15); BICARBONATE 22.3 MEQ/L (21.0-32.0); BLOOD UREA NITROGEN 19 MG/DL (7-18); CHLORIDE 101 MEQ/L (98-107); GLOMERULAR FILTRATION RATE 140 ML/MIN (>89); POTASSIUM 4.3 MEQ/L (3.5-5.1); SODIUM (NA) 133 MEQ/L (136-145)
[2016-08-28] MEDS: INSULIN ASPART SUPPLEMENTAL SCALE SQ SCH ×4 (07:16→21:03)
[2016-08-28 08:11] VITALS: BP 141/91; PULSE 80; RESP 20; TEMP 98.8; O2SAT 96
[2016-08-28 08:27] LABS: SCAN/DIFF AUTO DIFF CONFIRMED
[2016-08-28] MEDS: NICOTINE 14 MG/24 HR PATCH T-DERMAL SCH (08:41)
[2016-08-28] MEDS: PREGABALIN 75 MG CAP PO SCH ×3 (08:42→17:09)
[2016-08-28] MEDS: APIXABAN 5 MG TABLET PO SCH ×2 (08:42→20:59)
[2016-08-28] MEDS: SODIUM CHLORIDE 0.9% FLUSH 10 ML FLUSH IV FLUSH SCH ×2 (08:43→20:21)
[2016-08-28] MEDS ORDERED: PANTOPRAZOLE SOD 40 MG DELAYED RELEASE TAB PO SCH (09:00)
[2016-08-28] MEDS: ONDANSETRON HCL 4 MG/2 ML VIAL IV PRN ×2 (10:44→17:52)
[2016-08-28] MEDS: LISINOPRIL 5 MG TAB PO SCH (10:44)
[2016-08-28] MEDS ORDERED: IOHEXOL 350 MG/ML 10 ML VIAL (for RAD DIAG) IV ONE (11:22)
--- NOTE | 2016-08-28 11:38 | RADRPT ---
EXAM DATE/TIME: 08/28/2016 11:18 This report includes an Addendum and supersedes previous reports for this exam. [facility] COMPARISON: CT ABDOMEN & PELVIS W CONTRAST, July 28, 2016, 10:11. INDICATIONS : Abdominal pain, left lower quadrant IV CONTRAST: 70 cc Omnipaque 350 (iohexol) IV ORAL CONTRAST: No oral contrast ingested. RADIATION DOSE: 5.43 CTDIvol (mGy) MEDICAL HISTORY : Cardiovascular disease. Pancreatitis. Diabetes mellitus type 1. SURGICAL HISTORY : Coronary artery stent. Cholecystectomy. ENCOUNTER: Initial ACUITY: 1 day PAIN SCALE: 5/10 LOCATION: Left lower quadrant TECHNIQUE: Volumetric scanning of the abdomen and pelvis was performed. Using automated exposure control and ad justment of the mA and/or kV according to patient size, radiation dose was kept as low as reasonably achievable to obtain optimal diagnostic quality images. DICOM format image data is available electro nically for review and comparison. FINDINGS: LOWER LUNGS: Minimal bibasilar atelectasis. LIVER: Homogeneous density without lesion. There is no dilation of the biliary tree. No calcified gallston es. SPLEEN: Normal size without lesion. PANCREAS: Within normal limits. KIDNEYS: Normal in size and shape with a similar wedge-shaped area of decreased density in the posterior left kidney identical to July. There is no new mass, stone or hydronephrosis. ADRENAL GLANDS: Within normal limits. VASCULAR: There is no aortic aneurysm. BOWEL/MESENTERY: The stomach, small bowel, and colon demonstrate no acute abnormality. There is no free intraperitone al air or fluid. ABDOMINAL WALL: Within normal limits. RETROPERITONEUM: There is no lymphadenopathy. BLADDER: No wall thickening or mass. REPRODUCTIVE: Within normal limits. INGUINAL: There is no lymphadenopathy or hernia. MUSCULOSKELETAL: L5 bilateral pars defect. CONCLUSION: Minimal bibasilar atelectasis. Wedge-shaped defect posterior aspect of the left kidney likely old inf arct or previous pyelonephritis. No new lesions are identified. Rl Ceballos MD on August 28, 2016 at 11:33 Board Certified Radiologist. This report was verified electronically. ADDENDUM: The superior mesenteric artery and inferior mesenteric artery were evaluated and both are p atent. Mesenteric vessels appear patent. No occlusion or thrombus seen. Rich Bliss MD on August 29, 2016 at 11:17 Board Certified Radiologist. This report was verified electronically.
--- NOTE | 2016-08-28 11:53 | RADRPT ---
EXAM DATE/TIME: 08/28/2016 11:08 [facility] COMPARISON: CHEST PA & LAT, July 28, 2016, 1:48. INDICATIONS : Congestive heart failure. MEDICAL HISTORY : Diabetes mellitus type II. Pancreatitis. Gastroparesis. ID. CHF. Irregular heart rate. CAD. Hiati al hernia. GERD. Smoker. SURGICAL HISTORY : Cholecystectomy. Cardiac stent. Wrist surgery. ENCOUNTER: Subsequent ACUITY: 2 days PAIN SCORE: 0/10 LOCATION: chest FINDINGS: PA and lateral views of the chest demonstrate the lungs to be symmetrically aerated without evidence of mass, infiltrate or effusion except for platelike atelectasis right lower lobe. The cardiomediast inal contours are unremarkable. Osseous structures are intact. CONCLUSION: Platelike atelectasis right lower lobe. Rl Ceballos MD on August 28, 2016 at 11:51 Board Certified Radiologist. This report was verified electronically.
[2016-08-28 13:02] VITALS: BP 147/98; PULSE 78; RESP 21; TEMP 98.6; O2SAT 97
--- NOTE | 2016-08-28 14:01 | HHI.FPPN ---
Subjective Remarks No acute events overnight. VS unremarkable. This morning patient reports that he continues to have left lower quadrant abdominal pain that is uncontrolled as well at chest tightness. The abdominal pain continues to radiate to his back. The chest tightness is not associated with SOB. He also reports decreased urinary output due to poor PO intake prior to arrival to the ED. He has urinated since being in the hospital but is was still a small amount and very dark. Denies dysuria but endorses nausea without vomiting. (Anne Paez MD R2) Objective Vitals Vital Signs Date Time Temp Pulse Resp B/P Pulse Ox O2 Delivery O2 Flow Rate FiO2 08/28/16 13:02 98.6 78 21 147/98 97 08/28/16 11:15 18 08/28/16 08:11 98.8 80 20 141/91 96 08/28/16 03:28 98.4 74 18 129/75 97 08/28/16 00:05 08/27/16 23:30 82 18 98 Room Air 08/27/16 23:00 80 15 112/74 99 Room Air 08/27/16 22:30 84 16 100 Room Air 08/27/16 22:00 86 20 120/71 98 Room Air 08/27/16 21:44 88 18 112/66 98 Room Air 08/27/16 21:00 84 16 136/82 99 Room Air 08/27/16 20:30 88 18 98 Room Air 08/27/16 20:04 90 98 Room Air 08/27/16 20:00 86 17 99 Room Air 08/27/16 19:29 98.4 90 20 122/85 97 (Anne Paez MD R2) Result Diagram: 08/28/16 0544 08/28/16 0544 Imaging Last Impressions Chest X-Ray 08/28/16 0000 Signed Impressions: Service Date/Time: August 11:08 - CONCLUSION: Platelike atelectasis right lower lobe. Rl Ceballos MD Abdomen/Pelvis CT 08/28/16 0000 Signed Impressions: Service Date/Time: August 11:18 - CONCLUSION: Minimal bibasilar atelectasis. Wedge-shaped defect posterior aspect of the left kidney likely old infarct or previous pyelonephritis. No new lesions are identified. Rl Ceballos MD Objective Remarks GENERAL: Well-nourished, well-developed male patient lying in bed. In mild discomfort. CARDIOVASCULAR: Regular rate and rhythm without murmurs, gallops, rubs. RESPIRATORY: No accessory muscle use. Coarse crackles in Right lower base, posterior GASTROINTESTINAL: Abdomen soft. Tender of palpation of left lower abdomen. No rebound or guarding. Nondistended. MUSCULOSKELETAL: Extremities without clubbing, cyanosis, or edema. No obvious deformities. No calf tenderness. NEUROLOGICAL: Awake and alert. No obvious cranial nerve deficits. Motor grossly within normal limits. Five out of 5 muscle strength in the arms and legs. Normal speech. PSYCHIATRIC: Appropriate mood and affect; insight and judgment normal. (Anne Franklin MD R2) A/P Assessment and Plan 45-year-old male with history of CAD and IDDM admitted for chest pain workup and acute on chronic pancreatitis. Discharge Planning 1-3 days pending improvement in appetite and cardiac evaluation sdw Dr. Ahn and Dr. Fritz (Anne Paez MD R2) Attending Attestation The exam, history, and the medical decision-making described in the above note were completed with the assistance of the resident physician. I reviewed and agree with the findings presented. I attest that I had a [id number] encounter with the patient on the same day, and personally performed and documented my assessment and findings in the medical record. (Alesha Ahn MD) Problem List: (1) Chest pain Status: Acute Plan: Patient with significant cardiac history including cardiac stents, CHF with an EF of 30-35% in 06/2016, and a family history of cardiac disease where brother and father from cardiac issues at age 46 and 47 respectively. Initially presented with epigastric and LUQ abdominal pain but now complains on chest tightness on day 2 of admission. There is also a history of syncope and lightheadedness prior to admission. -ACS evaluation negative -BNP unremarkable. -cardiac telemetry -CXR PA& lateral: platelike atelectasis right lower lobe. Cardiology consulted: appreciate recommendations Medications: * Started Atorvastatin 40mg HS * Started Lisinopril 5mg daily * Resume carvedilol 3.125mg BID (pt's pharmacy reports once a day dosing, will provide BID as this will provide better efficacy) (2) Pancreatitis Status: Acute Plan: Presented with epigastric abdominal pain, vomiting, history of pancreatitis. Lipase is 440 on admission suggesting mild disease. -Decreasing lipase -ABD CT: No acute abdominal disease -Increase diet as tolerated -IV hydration cautiously due to CHF Medications: * Zofran for nausea * pain control with Dilaudid, will transition to PO was oral intake improves (3) Syncope Status: Acute Plan: Had a syncopal episode 2 weeks ago sustaining a fall. He denies any trauma. EKG showing evidence of old infarct but no new infarct. DDX includes cardiogenic/arrhythmia vs orthostatics -orthostatic BP ordered -see more detailed plan above (4) Diabetes mellitus Status: Chronic Plan: Takes 22 units Levemir at night at home. Required 10 units dose of regular insulin in ED. Due to decreased appetite will resume long acting insulin as a very low dose. -Levemir 5units HS -low dose sliding scale -continue home gabapentin (5) CAD (coronary artery disease) Status: Chronic Plan: Management as above (6) Renal infarct Status: Chronic Plan: CT scan in July 2016 notable for findings suggestive of renal infarct and was placed on Eliquis 10 mg twice a day. He should switch to 5 mg dose approximately one week after discharge. * Switched to 5 mg twice a day dosing of Eliquis (7) Depression with anxiety Status: Chronic Plan: Continue home doses of Seroquel (8) Fluids/Electrolytes/Nutrition/Prophylaxis Status: Acute Plan: Fluids: NS @ 97ml/hr, Electrolytes: monitor and replete as needed Nutrition: Clears, advance as tolerated DVT Prophylaxis: Early ambulation. On Eliquis GI Prophylaxis: none indicated (Anne Paez MD R2) Problem Qualifiers (1) Chest pain: Qualified Code: R07.9 - Chest pain, unspecified type (2) Pancreatitis: Qualified Code: K86.1 - Chronic pancreatitis, unspecified pancreatitis type Anne Paez MD R2 Aug 28, 2016 14:01 Alesha Ahn MD Aug 29, 2016 10:12
[2016-08-28] MEDS ORDERED: CARV3.12 PO (14:59)
--- NOTE | 2016-08-28 15:01 | EKG ---
Date Performed: 08/27/2016 Time Performed: 19:28:44 PTAGE: 46 years EKG: Sinus rhythm ANTEROSEPTAL MYOCARDIAL INFARCTION ABNORMAL ECG Compared to prior tracing no significant change PREVIOUS TRACING : 07/28/2016 01.04 DOCTOR: Flor Munoz Interpretating Date/Time 08/28/2016 14:57:21
--- NOTE | 2016-08-28 15:01 | EKG ---
Date Performed: 08/28/2016 Time Performed: 03:32:05 PTAGE: 46 years EKG: Sinus rhythm ANTEROSEPTAL MYOCARDIAL INFARCTION ABNORMAL ECG Compared to prior tracing no significant change PREVIOUS TRACING : 08/27/2016 19.28 DOCTOR: Flor Munoz Interpretating Date/Time 08/28/2016 14:57:12
[2016-08-28 15:44] VITALS: BP 130/84; PULSE 76; RESP 18; TEMP 97.9; O2SAT 98
[2016-08-28 19:27] VITALS: BP 138/86; PULSE 85; RESP 18; TEMP 97.7; O2SAT 95
[2016-08-28] MEDS ORDERED: QUEtiapine FUMARATE 100 MG TAB PO SCH (21:00)
[2016-08-28] MEDS: REMOVE OLD PATCH T-DERMAL SCH (21:00)
[2016-08-28] MEDS: CARVEDILOL 3.125 MG TAB PO SCH (21:01)
[2016-08-28] MEDS: INSULIN DETEMIR 100 UNITS/ML VIAL SQ SCH (21:08)
[2016-08-28] MEDS: ATORVASTATIN 40 MG TAB PO SCH (21:25)
[2016-08-28 23:20] VITALS: BP 110/71; PULSE 82; RESP 18; TEMP 98.4; O2SAT 98
[2016-08-29] VITALS (7 sets, daily range): BP systolic 96–178; BP diastolic 57–105; PULSE 79–92; RESP 16–19; TEMP 98.3–98.5; O2SAT 95–99
[2016-08-29] MEDS: HYDROmorphone HCL PF 1 MG/ML VIAL IV PRN ×6 (00:11→23:55)
[2016-08-29] MEDS: QUEtiapine FUMARATE 300 MG TAB PO SCH ×2 (01:12→21:34)
[2016-08-29] MEDS: SODIUM CHLOR 0.9% 1000 ML INJ 1,000 ML IV SCH ×3 (06:43→23:46)
[2016-08-29] MEDS: INSULIN ASPART SUPPLEMENTAL SCALE SQ SCH ×4 (07:00→21:38)
--- NOTE | 2016-08-29 07:10 | MB ---
cc: GEOVANNY RICHARDSON DO DATE OF CONSULTATION 08/28/2016 REASON FOR CONSULTATION Chest pain HISTORY OF PRESENT ILLNESS Danilo Stevenson is a 46-year-old male who presented to [facility] emergency room on August 28, 2016 due to abdominal pain and chest pain. He states that the chest pain is described as someone sitting on his chest and is constant. Occasionally the chest pain hurts more with movement but he has trouble eliciting what makes it feel better. He has also had abdominal pain which started about a day before arriving. Abdominal pain is sharp, burning and constant in nature. It is located in the epigastric area, but has diffuse pain throughout. He has had pancreatitis multiple times and he states this is his typical pancreatic symptoms. Of note, the patient states that he was recently in [facility]. Reviewing the records from [facility], he has been in there around 10-15 admissions over the past six to seven months for multiple things. He was found to have a left renal infarct in July of 2016 and was placed on Eliquis, although there is some confusion on what dose he should be taking. 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 PAST MEDICAL HISTORY 1. Hypertension 2. Anxiety 3. Depression 4. Hyperlipidemia 5. Coronary artery disease 6. Diabetes mellitus 7. Tobacco abuse. PAST SURGICAL HISTORY 1. Cardiac catheterization (May 29, 2015). Left main appears normal. LAD has a stent which is patent in the midportion with a 40% lesion. Diagonal branch has 20% lesion. Circumflex gives off an obtuse marginal which shows a widely patent stent. RCA has a 30% proximal stenosis, 25% mid stenosis with a PDA that has diffuse 60-70% stenosis for which he was recommended medical management. 1. He previously underwent cardiac catheterization August 01, 2012) with stenting of his LAD with a bare metal Integrity stent (3.5 x 18). 2. Cardiac catheterization (May 24, 2015) with stenting of his obtuse marginal with a Resolute stent (2.75 x 26). 3. Gallbladder surgery 4. Right hand pinning ALLERGIES NO KNOWN DRUG ALLERGIES. MEDICATIONS 1. Zofran 4 mg every 6 hours as needed for nausea 2. Eliquis for which the patient believes he is on 10 mg twice a day, but unsure. 3. Lyrica 75 mg t.i.d. 4. Seroquel 300 mg every night 5. Coreg 3.125 mg daily 6. Lantus 22 units every night 7. Nitro sublingual as needed for chest pain FAMILY HISTORY Father at the age of 47 due to coronary artery disease. Brother at the age of 46 due to coronary artery disease and cardiac failure. SOCIAL HISTORY The patient smokes one-pack a day for 30 years. The patient previously drank alcohol, but denies drinking now. Admits to smoking marijuana. REVIEW OF SYSTEMS 14-systems were reviewed including osteopathic pertinent positives and negatives as above, otherwise negative. PHYSICAL EXAMINATION VITAL SIGNS: Temperature 98.6, heart rate 78, blood pressure 147/98, respirations 20, pulse ox 97% on room air. GENERAL: The patient appears older than his stated age in no acute distress. He is alert, awake, and oriented x3. HEAD, EYES, EARS, NOSE, AND THROAT: Extraocular muscles intact. Mucous membranes moist. NECK: Supple. No JVD at 45 degrees. No carotid bruits heard bilaterally. Carotid upstroke is brisk in nature. HEART: Regular rate and rhythm. Positive first and second heart sounds with no noted murmurs, gallops or rubs. LUNGS: Clear to auscultation bilaterally. No wheezes, rales or rhonchi. ABDOMEN: Soft, mildly tender to palpation in the epigastric region. EXTREMITIES: Show no clubbing, cyanosis or edema. Femoral and distal pulses intact bilaterally. NEUROLOGIC: No focal deficits. SKIN: Warm, dry and intact. OSTEOPATHIC: No kyphoscoliosis, lordosis or paraspinal tender points. LABORATORY FINDINGS Hemoglobin 17.0, hematocrit 47.3, platelets 122. Potassium 4.3, BUN 19, creatinine 0.62, troponin negative x3. BNP 54. Electrocardiogram (September 05, 2016 at 0332) sinus rhythm, old anterior septal NM. No significant change from August 27, 2016. IMPRESSIONS 1. Chest pain 2. History of coronary artery disease as above. 3. Acute pancreatitis 4. Questionable history of syncope two weeks ago for which the patient sustained a fall and went to [facility]. 5. Ischemic cardiomyopathy with an ejection fraction of 30-35% by echo (June 2016). 6. Diabetes mellitus 7. Recent renal infarct for which he is on Eliquis 10 mg twice a day but was supposed to be switched to 5 mg twice a day. 8. Hypertension 9. Depression with anxiety RECOMMENDATIONS 1. Mr. Stevenson presented with chest pain which he states feels like someone is sitting on his chest, although it seems to be related when he gets his abdominal pain from pancreatitis. He has had multiple episodes of this and has undergone previous cardiac catheterizations with the last one being in May 2015 and at that time was found to have patent coronary arteries with moderate disease in his PDA which was treated medically as it is diffusely diseased. 2. We will plan for pharmacologic nuclear stress testing in the morning and if this is positive, will have to undergo cardiac catheterization on Thursday as Eliquis will need to be held for 48 hours prior. 3. As far as his ischemic cardiomyopathy goes, he has had a known low ejection fraction for sometime. At this time, would not consider him for an ICD as he needs follow up with Dr. Panchal for further consideration. He is not on optimal medical therapy and I will plan on increasing his carvedilol to twice a day and considering adding DENG inhibitor therapy. 4. As far as his renal infarct, it appears that he should be on Eliquis 5 mg b.i.d. He will need to follow up with Dr. Panchal for further recommendations. 5. As far as his cardiomyopathy goes, he appears to be well-compensated at this time. Thank you for allowing me to see Danilo Stevenson. If there are any questions, please do not hesitate to call. Geovanny Richardson DO VGP/DJL /8:20 PM /6:54 AM
--- NOTE | 2016-08-29 08:09 | HHI.FPPN ---
Subjective Remarks Patient was seen and evaluated this morning at 8am. At 630am, residents were paged regarding patient throwing lunchroom monitor at nursing staff. He has been refusing care including VS checks and orthostatic VS. expresses frustration that his pain is not being managed with the Dilaudid dosing that he is getting. He denies any new pain and states that the left abdominal pain he has has just not gotten fixed yet. He states that the pain radiates to his posterior left flank as well. He denies nausea and vomiting. He is nothing by mouth at this time for possible stress test. (Patt Cormier MD R1) Objective Vitals Vital Signs Date Time Temp Pulse Resp B/P Pulse Ox O2 Delivery O2 Flow Rate FiO2 08/29/16 07:28 18 08/29/16 06:07 79 08/29/16 05:59 81 08/29/16 03:22 98.3 84 17 97/60 95 107/59 117/80 08/29/16 00:00 79 08/28/16 23:20 98.4 82 18 110/71 98 08/28/16 19:27 97.7 85 18 138/86 95 08/28/16 17:39 18 08/28/16 17:39 18 08/28/16 15:44 97.9 76 18 130/84 98 08/28/16 13:02 98.6 78 21 147/98 97 08/28/16 08:11 98.8 80 20 141/91 96 (Patt Cormier MD R1) Result Diagram: 08/28/16 0544 08/28/16 0544 Imaging Last Impressions Chest X-Ray 08/28/16 0000 Signed Impressions: Service Date/Time: August 11:08 - CONCLUSION: Platelike atelectasis right lower lobe. Rl Ceballos MD Abdomen/Pelvis CT 08/28/16 0000 Signed Impressions: Service Date/Time: August 11:18 - CONCLUSION: Minimal bibasilar atelectasis. Wedge-shaped defect posterior aspect of the left kidney likely old infarct or previous pyelonephritis. No new lesions are identified. Rl Ceballos MD Objective Remarks GENERAL: Well-nourished, well-developed patient. He is agitated at this time. He attempts to record conversation. SKIN: Warm and dry. No rashes visible HEAD: Normocephalic, atraumatic. EYES: No scleral icterus. No injection or drainage. Extraocular movements intact. NECK: Trachea midline. No obvious meningeal signs. RESPIRATORY: No increased work of breathing. No accessory muscle use. GASTROINTESTINAL: Abdomen nondistended. MUSCULOSKELETAL: No cyanosis or edema. NEURO: Cranial nerves II through XII grossly intact. No obvious focal neurologic deficits. Moves all extremities well. Normal and brisk gait. PSYCH: Expresses anger during evaluation that his pain is not controlled. He makes good eye contact. Speech is normal. He appears to have good insight but repeatedly requests more pain medication. Medications and IVs Inpatient Medications Acetaminophen (Tylenol) 650 mg Q6H PRN PO FEVER, PAIN SCALE 1 TO 2; Start 08/27 at 23:30 Apixaban (Eliquis) 10 mg BID PO Last administered on 08/28/16 01:24; Start at 23:30; Stop 08/28/16 at 04:32; Status DC Apixaban 5 mg 5 mg BID PO Last administered on 08/29/16 09:34; Start 08/28/16 at 09:00 Atorvastatin Calcium (Lipitor) 40 mg HS PO Last administered on 08/28/16 21:25 ; Start 08/28/16 at 21:00 Carvedilol (Coreg) 3.125 mg Q12HR PO Last administered on 08/29/16 09:34; Start 08/28/16 at 21:00 Enalaprilat (Vasotec Inj) 1.25 mg Q6H PRN IV SBP> OR = 180, DBP> OR = 100; Start 08/27/16 at 23:30 Enoxaparin Sodium (Lovenox Inj) 40 mg Q24H SQ ; Start 08/27/16 at 23:00; Stop at 23:30; Status DC Hydromorphone HCl (Dilaudid Pf Inj) 1 mg Q3H PRN IV Pain 6-10;if unable to take PO Last administered on 08/29/16 05:45; Start 08/28/16 at 02:15 Hydromorphone HCl 0.5 mg 0.5 mg ONCE ONCE IV PUSH Last administered on 21:01; Start 08/27/16 at 20:45; Stop 08/27/16 at 20:46; Status DC Insulin Aspart (NovoLOG SUPPLEMENTAL SCALE) 1 ACHS SLIDING SCALE SQ Last administered on 08/28/16 21:03; Start 08/28/16 at 07:00 Insulin Detemir (Levemir Inj) 5 units HS SQ Last administered on 08/28/16 21: 08; Start 08/28/16 at 21:00 Insulin Human Regular (NovoLIN R INJ) 10 units ONCE ONCE IV PUSH Last administered on 08/27/16 21:00; Start 08/27/16 at 20:30; Stop 08/27/16 at 20:31 ; Status DC Lactated Ringer's (Lr 1000 ml Inj) 1,000 ml @ 97 mls/hr [id number] IV Last administered on 08/28/16 06:13; Start 08/27/16 at 22:27; Stop 08/28/16 at 06:26 ; Status DC Lisinopril (Prinivil) 5 mg DAILY PO Last administered on 08/29/16 09:34; Start 08/28/16 at 10:00 Miscellaneous Information 1 HS T-DERMAL Last administered on 08/28/16 21:00; Start 08/28/16 at 21:00 Morphine Sulfate (Morphine Inj) 2 mg Q3H PRN IV Pain 6-10;if unable to take PO ; Start 08/27/16 at 23:30; Stop 08/28/16 at 02:13; Status DC Naloxone HCl (Narcan Inj) 0.4 mg UNSCH PRN IV SEE LABEL COMMENTS; Start at 23:30 Nicotine (Habitrol 14 Mg Patch.24 Hr) 1 patch DAILY T-DERMAL Last administered on 08/29/16 09:33; Start 08/28/16 at 09:00 Ondansetron HCl (Zofran Inj) 4 mg Q6H PRN IV NAUSEA OR VOMITING Last administered on 08/28/16 17:52; Start 08/27/16 at 22:30 Pantoprazole Sodium (Protonix) 40 mg DAILY PO Last administered on 08/28/16 08 :42; Start 08/28/16 at 09:00; Stop 08/28/16 at 15:11; Status DC Pregabalin (Lyrica) 75 mg TID PO Last administered on 08/29/16 09:34; Start at 09:00 Quetiapine Fumarate (SEROquel) 300 mg HS PO Last administered on 08/29/16 01: 12; Start 08/28/16 at 22:30 Sodium Chloride (NS 1000 ml Inj) 1,000 ml @ 97 mls/hr [id number] IV Last administered on 08/29/16 06:43; Start 08/28/16 at 06:30 Sodium Chloride (NS Flush) 2 ml BID IV FLUSH Last administered on 08/29/16 09: 33; Start 08/28/16 at 09:00 (Patt Cormier MD R1) Urinary Catheter: No (Patt Cormier MD R1) Vascular Central Line Catheter: No (Patt Cormier MD R1) A/P Assessment and Plan 45-year-old male with history of CAD, left renal infarct, and IDDM admitted for chest pain workup and acute on chronic pancreatitis. He continues to have severe left-sided abdominal pain out of proportion to physical exam findings and is currently pending headache stress test as well as further workup of abdominal pain. Discharge Planning Unclear, pending further workup and evaluation as above. sdw Dr. Hunter. Discussed with Dr. Ahn (Patt Cormier MD R1) Attending Attestation Patient was seen and examined by me today and agree with the above assessment and plan by the residents. Patient was reassessed by me, Dr. Hunter and Dr. Cormier around 12:30pm today. Nursing called us to come and see the patient states the patient had threatened to hurt her and himself. Discussion with the patient at the bedside -- he was very anxious and angry and frustrated. Stating he did not know what was going on and wondering why no one was doing anything for him. He does not deny that he threatened to hurt the staff but states he would never do that and he was just blowing off steam. He states he just is having a hard time dealing with all the pain in his abdomen. He denies suicidality or homicidal intentions. He states he just wants resolution of his pain. The patient does have an underlying diagnosis of depression that he is on seroquel for. During this interview I relayed what we were working up for him medically and his test results. I also relayed that with his renal infarct there is no cure and that I was concerned as his pain seems out of proportion with what is going on. I doubt he has pancreatitis flare at this time as his pain is left lower quadrant and flank and CT and labs looked good. He is going to have a stress test today to make sure he is not having an active cardiac issue. During this interview patient relays he takes 1mg xanax every 4-6 hours at home. This is not on his prior med rec nor did he report this previously, however, he is significantly anxious right now and if he is withdrawing from chronic xanax use at home that might explain some of his psychiatric decompensation. Plan 1. Renal Artery infarct -- pain meds for now but this is not a intermodal customer service option. 2. Cardiac -- cardiology is seeing the patient and stress test to occur today 3. Psych - consult placed and Dr. Cormier called and spoke with them. Do not believe patient meets Bowie Act criteria but will order a sitter for safety. One time dose of IV benzo and then will give PO prn. (Alesha Ahn MD) Problem List: (1) Chest pain Status: Acute Plan: * Chemical stress test planned this morning per cardiology. Nothing by mouth since midnight Hospital course: Patient with significant cardiac history including cardiac stents, CHF with an EF of 30-35% in 06/2016, and a family history of cardiac disease where brother and father from cardiac issues at age 46 and 47 respectively. Initially presented with epigastric and LUQ abdominal pain but now complains on chest tightness on day 2 of admission. There is also a history of syncope and lightheadedness prior to admission. -ACS evaluation negative -BNP unremarkable. -cardiac telemetry showing no acute event -CXR PA& lateral: platelike atelectasis right lower lobe. Cardiology consulted: appreciate recommendations Medications: * Started Atorvastatin 40mg HS * Started Lisinopril 5mg daily * Resume carvedilol 3.125mg BID (pt's pharmacy reports once a day dosing, will provide BID as this will provide better efficacy). * If patient is hypotensive on BID dosing, will decrease back to 3.12 mg daily (2) Abdominal pain Status: Acute Plan: Patient does have severe left-sided abdominal pain, which appears symptomatically stable but is out of proportion to his examinations his hospital stay. CT 08/28 showing stable renal infarct and no other abnormalities noted. Spoke with Dr. Cesar in radiology to discuss whether mesenteric arteriogram could be ordered or if other study would be more indicated for further workup of mesenteric ischemia. We'll obtain a CTA abdomen/pelvis given this well elucidate abnormalities of mesenteric vasculature and other vascular structures of the abdomen. (3) Pancreatitis Status: Chronic Plan: Patient has chronic pancreatitis and pain does not fit acute pancreatitis at this time. We will continue IV fluids at maintenance rate given NPO but has history of CHF with EF 35% so we will be cautious with rate Strict I/Os ordered Hospital course: Presented with epigastric abdominal pain, vomiting, history of pancreatitis. Lipase is 440 on admission suggesting mild disease. Lipase normalized -BD CT: No acute abdominal disease Increase diet as tolerated IV hydration cautiously due to CHF Medications: * Zofran for nausea * pain control with Dilaudid, will transition to PO was oral intake improves (4) Syncope Status: Acute Plan: Had a syncopal episode 2 weeks ago sustaining a fall. He denies any trauma. EKG showing evidence of old infarct but no new infarct. Ddx includes cardiogenic/arrhythmia vs orthostatic hypotension * orthostatic BP ordered but patient has refused * Cardiac workup as above (5) Diabetes mellitus Status: Chronic Plan: Takes 22 units Levemir at night at home. Required 10 units dose of regular insulin in ED. Due to decreased appetite will resume long acting insulin as a very low dose. -Levemir 5units HS for now, caution given diet is different here -low dose sliding scale -continue home gabapentin (6) CAD (coronary artery disease) Status: Chronic Plan: Management as above (7) Renal infarct Status: Chronic Plan: CT scan in July 2016 notable for findings suggestive of renal infarct and was placed on Eliquis 10 mg twice a day. He should have switched to 5 mg dose approximately one week after discharge. * Switched to 5 mg twice a day dosing of Eliquis * Of note, patient is getting a stress test on 08/29. If this is possible he will require catheterization but this will be on 09/01 if indicated as Eliquis would need to be held for 48 hours per cardiology. (8) Depression with anxiety Status: Chronic Plan: Continue home doses of Seroquel (9) Fluids/Electrolytes/Nutrition/Prophylaxis Status: Acute Plan: Fluids: NS @ 97ml/hr, cautious given CHF Electrolytes: monitor and replete as needed Nutrition: NPO for stress test, clear liquids and advance as tolerated to ADA 2200 diet thereafter DVT Prophylaxis: Early ambulation. On Eliquis 5 mg BID GI Prophylaxis: none indicated (Patt Cormier MD R1) Problem Qualifiers (1) Chest pain: Qualified Code: R07.9 - Chest pain, unspecified type (2) Pancreatitis: Qualified Code: K86.1 - Chronic pancreatitis, unspecified pancreatitis type (3) Diabetes mellitus: Patt Cormier MD R1 Aug 29, 2016 08:09 Alesha Ahn MD Aug 29, 2016 13:27
[2016-08-29 08:23] LABS: BICARBONATE 26.9 MEQ/L (21.0-32.0); POTASSIUM 3.7 MEQ/L (3.5-5.1)
[2016-08-29] MEDS: NICOTINE 14 MG/24 HR PATCH T-DERMAL SCH (09:33)
[2016-08-29] MEDS: SODIUM CHLORIDE 0.9% FLUSH 10 ML FLUSH IV FLUSH SCH ×2 (09:33→21:00)
[2016-08-29] MEDS: PREGABALIN 75 MG CAP PO SCH ×3 (09:34→17:34)
[2016-08-29] MEDS: LISINOPRIL 5 MG TAB PO SCH (09:34)
[2016-08-29] MEDS: APIXABAN 5 MG TABLET PO SCH ×2 (09:34→21:35)
[2016-08-29] MEDS: CARVEDILOL 3.125 MG TAB PO SCH ×2 (09:34→21:42)
--- NOTE | 2016-08-29 11:11 | PD.CARD.PN ---
Subjective Subjective Remarks Patient seen and examined Events this morning reviewed with nursing, extremely angry, throwing things at the nurses +abdominal pain/left flank pain No chest pain Objective Medications Current Medications Medications (Trade) Dose Ordered Sig/Patsy Route Start Time Stop Time Status Last Admin (NS Flush) 2 ml UNSCH PRN IV FLUSH 08/27/16 22:30 (NS Flush) 2 ml BID IV FLUSH 08/28/16 09:00 08/29/16 09:33 (Zofran Inj) 4 mg Q6H PRN IV 08/27/16 22:30 08/28/16 17:52 (Lyrica) 75 mg TID PO 08/28/16 09:00 08/29/16 09:34 (Vasotec Inj) 1.25 mg Q6H PRN IV 08/27/16 23:30 (Tylenol) 650 mg Q6H PRN PO 08/27/16 23:30 (Dilaudid Pf Inj) 1 mg Q3H PRN IV 08/27/16 23:30 08/28/16 17:09 (Narcan Inj) 0.4 mg UNSCH PRN IV 08/27/16 23:30 (Dilaudid Pf Inj) 0.5 mg Q3H PRN IV 08/28/16 02:15 08/29/16 09:36 (Dilaudid Pf Inj) 1 mg Q3H PRN IV 08/28/16 02:15 08/29/16 05:45 (Habitrol 14 Mg Patch.24 Hr) 1 patch DAILY T-DERMAL 08/28/16 09:00 08/29/16 09:33 Miscellaneous Information 1 HS T-DERMAL 08/28/16 21:00 08/28/16 21:00 Apixaban 5 mg 5 mg BID PO 08/28/16 09:00 08/29/16 09:34 (NS 1000 ml Inj) 1,000 ml @ 97 mls/hr [id number] IV 08/28/16 06:30 08/29/16 06:43 (Lipitor) 40 mg HS PO 08/28/16 21:00 08/28/16 21:25 (Prinivil) 5 mg DAILY PO 08/28/16 10:00 08/29/16 09:34 (Levemir Inj) 5 units HS SQ 08/28/16 21:00 08/28/16 21:08 (Coreg) 3.125 mg Q12HR PO 08/28/16 21:00 08/29/16 09:34 (SEROquel) 300 mg HS PO 08/28/16 22:30 08/29/16 01:12 Vital Signs / I&O Vital Signs Date Time Temp Pulse Resp B/P Pulse Ox O2 Delivery O2 Flow Rate FiO2 08/29/16 10:09 18 08/29/16 10:09 18 08/29/16 09:03 98.4 90 19 178/105 99 08/29/16 07:28 18 08/29/16 06:07 79 08/29/16 05:59 81 08/29/16 03:22 98.3 84 17 97/60 95 107/59 117/80 08/29/16 00:00 79 08/28/16 23:20 98.4 82 18 110/71 98 08/28/16 19:27 97.7 85 18 138/86 95 08/28/16 17:39 18 08/28/16 15:44 97.9 76 18 130/84 98 08/28/16 13:02 98.6 78 21 147/98 97 Physical Exam GENERAL: NAD, AAOx3 SKIN: Warm and dry. HEAD: Atraumatic. Normocephalic. EYES: Pupils equal and round. No scleral icterus. No injection or drainage. ENT: No nasal bleeding or discharge. Mucous membranes pink and moist. NECK: Trachea midline. No JVD. CARDIOVASCULAR: Regular rate and rhythm. No murmurs RESPIRATORY: No accessory muscle use. Clear to auscultation. Breath sounds equal bilaterally. GASTROINTESTINAL: Abdomen soft, nondistended. Hepatic and splenic margins not palpable. MUSCULOSKELETAL: Extremities without clubbing, cyanosis, or edema. No obvious deformities. NEUROLOGICAL: Awake and alert. No obvious cranial nerve deficits. Motor grossly within normal limits. Five out of 5 muscle strength in the arms and legs. Normal speech. PSYCHIATRIC: Appropriate mood and affect; insight and judgment normal. Laboratory Laboratory Tests Test 08/29/16 06:05 Sodium Level 144 MEQ/L Potassium Level 3.7 MEQ/L Chloride Level 108 MEQ/L Carbon Dioxide Level 26.9 MEQ/L Anion Gap 9 MEQ/L Blood Urea Nitrogen 14 MG/DL Creatinine 0.60 MG/DL Estimat Glomerular Filtration 146 ML/MIN Rate Random Glucose 76 MG/DL Calcium Level 8.7 MG/DL Assessment and Plan Problem List: (1) Pancreatitis (2) Chest pain (3) Generalized weakness (4) Depression with anxiety (5) Hypertension (6) Renal infarct (7) CAD (coronary artery disease) (8) Diabetes mellitus (9) Intractable abdominal pain (10) Tobacco abuse (11) Ischemic cardiomyopathy Assessment and Plan 1) Chest pain appears atypical as it correlates with abdominal pain Has had multiple work ups in the past with stress testing and caths for similar type pain Plan stress test today, patient initially refused but now is willing If he refuses stress test later today, then would not plan on cathing, continue medical management, can follow up with Dr. Panchal for further work up If stress negative, cardiovascularly stable for discharge If stress is positive, then will need to stop his Eliquis with a plan for cardiac catheterization on Thursday (NPO after midnight Thursday night) 2) Continue current medical management of ICM Follow up with Dr. Panchal for consideration of ICD Appears compensated from a heart failure standpoint 3) Will be gone over the weekend, any questions please call my group for covering physician Problem Qualifiers (1) Pancreatitis: Qualified Code: K86.1 - Chronic pancreatitis, unspecified pancreatitis type (2) Chest pain: Qualified Code: R07.9 - Chest pain, unspecified type Geovanny Zavala DO Aug 29, 2016 11:11
[2016-08-29] MEDS ORDERED: ALPRAZolam 0.5 MG TAB PO PRN ×2 (12:45→19:00)
[2016-08-29] MEDS ORDERED: ALPRAZolam 1 MG TAB PO ONE (12:45)
[2016-08-29] MEDS ORDERED: LORazepam 2 MG/ML VIAL IV PUSH ONE ×2 (12:45→13:00)
[2016-08-29] MEDS ORDERED: REGADENOSON INJ 0.4 MG/5 ML SYR ONE (14:24)
--- NOTE | 2016-08-29 16:07 | RADRPT ---
EXAM DATE/TIME: 08/29/2016 13:47 [facility] COMPARISON: MYOCARDIAL PERF PHARM SPECT, GATED W/EF, June 02, 2013, 11:47. INDICATIONS : Chest pain and abdomen pain. Coronary artery disease. DOSE: 25.7 mCi Tc99m Myoview at stress. 8.7 mCi Tc99m Myoview at rest. 0.4 mg Lexiscan STRESS SYMPTOMS: Dyspnea. EJECTION FRACTION: 34% MEDICAL HISTORY : Diabetes mellitus type 2. Myocardial infarction. Hypertension. Smoker. SURGICAL HISTORY : Umbilical hernia repair. Angioplasty. ENCOUNTER: Initial ACUITY: 2 days PAIN SCALE: 2/10 LOCATION: chest TECHNIQUE: The patient underwent pharmacologic stress with infusion of prescribed dose. Continuous ECG tracing was monitored during stress. Gated SPECT imaging was performed after stress and conventional SPECT i maging was performed at rest. The examination was performed on a SPECT/CT scanner, both attenuation and non-corrected datasets were reviewed. FINDINGS: DISTRIBUTION: The maximum perfused segment at stress is in the inferior wall. PERFUSION STUDY: Large fixed defect involving the anterior wall and portions of the septum. GATED STUDY: There is global hypokinesia with akinetic anteroseptal wall and apex. CONCLUSION: 1. No reversible perfusion defects to suggest ischemia. 2. Depressed ejection fraction with old infarctions. RISK CATEGORY: High (>3% Annual Mortality Rate) Rich Bliss MD on August 29, 2016 at 16:03 Board Certified Radiologist. This report was verified electronically.
[2016-08-29 18:22] LABS: AMPHETAMINE, URINE NEG (NEG); BARBITURATES, URINE NEG (NEG); COCAINE, URINE NEG (NEG)
[2016-08-29] MEDS: ALPRAZolam 0.5 MG TAB PO PRN (18:38)
[2016-08-29] MEDS: REMOVE OLD PATCH T-DERMAL SCH (21:00)
[2016-08-29] MEDS: ATORVASTATIN 40 MG TAB PO SCH (21:33)
[2016-08-29] MEDS: INSULIN DETEMIR 100 UNITS/ML VIAL SQ SCH (21:37)
[2016-08-30 00:09] VITALS: BP 103/68; PULSE 78; RESP 20; TEMP 98.1; O2SAT 95
[2016-08-30] MEDS: INSULIN ASPART SUPPLEMENTAL SCALE SQ SCH ×4 (06:51→21:54)
[2016-08-30] MEDS: HYDROmorphone HCL PF 1 MG/ML VIAL IV PRN ×6 (07:33→23:21)
[2016-08-30] MEDS: ALPRAZolam 0.5 MG TAB PO PRN ×3 (07:33→20:19)
[2016-08-30] MEDS: APIXABAN 5 MG TABLET PO SCH ×2 (08:08→20:19)
[2016-08-30] MEDS: NICOTINE 14 MG/24 HR PATCH T-DERMAL SCH (08:08)
[2016-08-30] MEDS: LISINOPRIL 5 MG TAB PO SCH (08:08)
[2016-08-30] MEDS: CARVEDILOL 3.125 MG TAB PO SCH ×2 (08:08→20:19)
[2016-08-30 08:45] VITALS: BP 130/89; PULSE 83; RESP 17; TEMP 97.4; O2SAT 96
[2016-08-30] MEDS: SODIUM CHLORIDE 0.9% FLUSH 10 ML FLUSH IV FLUSH SCH ×2 (09:00→20:20)
[2016-08-30 09:08] LABS: AUTOMATED NEUTROPHIL # 8.5 TH/MM3 (1.8-7.7); BASOPHIL # 0.1 TH/MM3 (0-0.2); BASOPHIL % 0.6 % (0.0-2.0); EOSINOPHIL # 0.3 TH/MM3 (0-0.4); EOSINOPHIL % 2.4 % (0.0-4.0); HEMATOCRIT 45.1 % (39.0-51.0); HEMO FLAGS DIFF FINAL; LYMPH % 10.9 % (9.0-44.0); LYMPHOCYTE # 1.2 TH/MM3 (1.0-4.8); MEAN CORPUSCULAR HEMOGLOBIN 30.9 PG (27.0-34.0); MEAN CORPUSCULAR HGB CONC 34.7 % (32.0-36.0); MONO % 10.2 % (0.0-8.0); NEUT % 75.9 % (16.0-70.0); PLATELET COUNT 126 TH/MM3 (150-450); RED BLOOD COUNT 5.06 MIL/MM3 (4.50-5.90); RED CELL DISTRIBUTION WIDTH 15.7 % (11.6-17.2); WHITE BLOOD COUNT 11.2 TH/MM3 (4.0-11.0)
--- NOTE | 2016-08-30 09:16 | HHI.FPPN ---
Subjective Remarks Patient was seen and examined this morning. He states the pain is controlled and goes to 5/10 when he gets Dilaudid around the clock but it is noted he did not get any medications while asleep overnight. He denies chest pain, shortness of breath, n/v/d/c. Last BM yesterday per his report. He is made aware that the stress test did not show any signs of acute ischemia and that his EF was approximately 35%. The patient is highly upset that he has not been able to talk to someone about getting definitive treatment for his kidney pain. He states he's been having it for over 5 weeks at this time and he wants definitive treatment better than Plavix and reiterates that if he goes home without definitive treatment he will be at risk of stabbing himself in the flank. (Patt Cormier MD R1) Objective Vitals Vital Signs Date Time Temp Pulse Resp B/P Pulse Ox O2 Delivery O2 Flow Rate FiO2 08/30/16 08:45 97.4 83 17 130/89 96 08/30/16 00:38 18 08/30/16 00:09 98.1 78 20 103/68 95 08/29/16 22:35 98.5 92 16 96/57 95 08/29/16 19:30 98.4 90 18 138/89 97 08/29/16 10:09 18 08/29/16 10:09 18 (Patt Cormier MD R1) Result Diagram: 08/28/16 0544 08/29/16 0605 Imaging Last Impressions Myocardial Perfusion Scan Nuc Med 08/29/16 0000 Signed Impressions: Service Date/Time: Monday, August 29, 2016 13:47 - CONCLUSION: 1. No reversible perfusion defects to suggest ischemia. 2. Depressed ejection fraction with old infarctions. RISK CATEGORY: High (>3%% Annual Mortality Rate) Rich Bliss MD Chest X-Ray 08/28/16 0000 Signed Impressions: Service Date/Time: August 11:08 - CONCLUSION: Platelike atelectasis right lower lobe. Rl Ceballos MD Abdomen/Pelvis CT 08/28/16 0000 Signed Impressions: Service Date/Time: August 11:18 - CONCLUSION: Minimal bibasilar atelectasis. Wedge-shaped defect posterior aspect of the left kidney likely old infarct or previous pyelonephritis. No new lesions are identified. Rl Ceballos MD ADDENDUM: The superior mesenteric artery and inferior mesenteric artery were evaluated and both are patent. Mesenteric vessels appear patent. No occlusion or thrombus seen. Rich Bliss MD Objective Remarks GENERAL: Well-nourished, well-developed patient. He is calm with sitter at bedside. SKIN: Warm and dry. No rashes visible HEAD: Normocephalic, atraumatic. EYES: No scleral icterus. No injection or drainage. Extraocular movements intact. NECK: Trachea midline. No obvious meningeal signs. RESPIRATORY: No increased work of breathing. No accessory muscle use. The lungs are clear to auscultation bilaterally GASTROINTESTINAL: Abdomen nondistended. The bowel sounds are hypoactive. Not obviously tender to deep palpation when distracted. He does endorse pain when asked. MUSCULOSKELETAL: No cyanosis or edema. NEURO: Cranial nerves II through XII grossly intact. No obvious focal neurologic deficits. Moves all extremities well. Normal and brisk gait. PSYCH: Expresses anger during evaluation that he has a sitter and has no privacy. He makes good eye contact. Speech is normal. Medications and IVs Inpatient Medications Acetaminophen (Tylenol) 650 mg Q6H PRN PO FEVER, PAIN SCALE 1 TO 2; Start 08/27 at 23:30 Alprazolam (Xanax) 0.5 mg Q6H PRN PO ANXIETY Last administered on 08/30/16 07: 33; Start 08/29/16 at 18:45 Apixaban (Eliquis) 10 mg BID PO Last administered on 08/28/16 01:24; Start at 23:30; Stop 08/28/16 at 04:32; Status DC Apixaban 5 mg 5 mg BID PO Last administered on 08/30/16 08:08; Start 08/28/16 at 09:00 Atorvastatin Calcium (Lipitor) 40 mg HS PO Last administered on 08/29/16 21:33 ; Start 08/28/16 at 21:00 Carvedilol (Coreg) 3.125 mg Q12HR PO Last administered on 08/30/16 08:08; Start 08/28/16 at 21:00 Enalaprilat (Vasotec Inj) 1.25 mg Q6H PRN IV SBP> OR = 180, DBP> OR = 100; Start 08/27/16 at 23:30 Enoxaparin Sodium (Lovenox Inj) 40 mg Q24H SQ ; Start 08/27/16 at 23:00; Stop at 23:30; Status DC Hydromorphone HCl (Dilaudid Pf Inj) 1 mg Q3H PRN IV Pain 6-10;if unable to take PO Last administered on 08/29/16 23:55; Start 08/28/16 at 02:15 Hydromorphone HCl 0.5 mg 0.5 mg ONCE ONCE IV PUSH Last administered on 21:01; Start 08/27/16 at 20:45; Stop 08/27/16 at 20:46; Status DC Insulin Aspart (NovoLOG SUPPLEMENTAL SCALE) 1 ACHS SLIDING SCALE SQ Last administered on 08/30/16 06:51; Start 08/28/16 at 07:00 Insulin Detemir (Levemir Inj) 10 units HS SQ ; Start 08/30/16 at 21:00 Insulin Human Regular (NovoLIN R INJ) 10 units ONCE ONCE IV PUSH Last administered on 08/27/16 21:00; Start 08/27/16 at 20:30; Stop 08/27/16 at 20:31 ; Status DC Lactated Ringer's (Lr 1000 ml Inj) 1,000 ml @ 97 mls/hr [id number] IV Last administered on 08/28/16 06:13; Start 08/27/16 at 22:27; Stop 08/28/16 at 06:26 ; Status DC Lisinopril (Prinivil) 5 mg DAILY PO Last administered on 08/30/16 08:08; Start 08/28/16 at 10:00 Lorazepam (Ativan Inj) 0.5 mg ONCE ONCE IV PUSH Last administered on 13:03; Start 08/29/16 at 13:00; Stop 08/29/16 at 13:01; Status DC Miscellaneous Information 1 HS T-DERMAL Last administered on 08/28/16 21:00; Start 08/28/16 at 21:00 Morphine Sulfate (Morphine Inj) 2 mg Q3H PRN IV Pain 6-10;if unable to take PO ; Start 08/27/16 at 23:30; Stop 08/28/16 at 02:13; Status DC Naloxone HCl (Narcan Inj) 0.4 mg UNSCH PRN IV SEE LABEL COMMENTS; Start at 23:30 Nicotine (Habitrol 14 Mg Patch.24 Hr) 1 patch DAILY T-DERMAL Last administered on 08/30/16 08:08; Start 08/28/16 at 09:00 Ondansetron HCl (Zofran Inj) 4 mg Q6H PRN IV NAUSEA OR VOMITING Last administered on 08/28/16 17:52; Start 08/27/16 at 22:30 Pantoprazole Sodium (Protonix) 40 mg DAILY PO Last administered on 08/28/16 08 :42; Start 08/28/16 at 09:00; Stop 08/28/16 at 15:11; Status DC Pregabalin (Lyrica) 75 mg TID PO Last administered on 08/29/16 17:34; Start at 09:00 Quetiapine Fumarate (SEROquel) 300 mg HS PO Last administered on 08/29/16 21: 34; Start 08/28/16 at 22:30 Sodium Chloride (NS 1000 ml Inj) 1,000 ml @ 97 mls/hr [id number] IV Last administered on 08/29/16 06:43; Start 08/28/16 at 06:30 Sodium Chloride (NS Flush) 2 ml BID IV FLUSH Last administered on 08/29/16 21: 00; Start 08/28/16 at 09:00 (Patt Cormier MD R1) Urinary Catheter: No (Patt Cormier MD R1) Vascular Central Line Catheter: No (Patt Cormier MD R1) A/P Assessment and Plan 45-year-old male with history of CAD, left renal infarct, and IDDM admitted for chest pain workup and acute on chronic pancreatitis. He continues to have severe left-sided abdominal pain out of proportion to physical exam findings and is currently pending headache stress test as well as further workup of abdominal pain. Discharge Planning Possibly 1-2 days. Given the stress test was negative he will need to follow up with his outpatient olive grader (Dr. Panchal) for further workup. His persistent abdominal pain is likely due to his chronic renal infarct. Once tolerating PO and control he may be discharged home with close follow-up. Discussed with Dr. Ahn (Patt Cormier MD R1) Attending Attestation Patient seen and examined. Case reviewed and discussed with the resident team. Agree with plan of care as discussed with me and documented in the resident note. (Alesha Ahn MD) Problem List: (1) Chest pain Status: Resolved Plan: * Patient no longer has chest pain. Chemical stress test was not indicative of acute ischemia and showed EF 35%. * He sees Dr. Panchal as an outpatient and will need to follow-up with him after discharge Hospital course: Patient with significant cardiac history including cardiac stents, CHF with an EF of 30-35% in 06/2016, and a family history of cardiac disease where brother and father from cardiac issues at age 46 and 47 respectively. Initially presented with epigastric and LUQ abdominal pain but now complains on chest tightness on day 2 of admission. There is also a history of syncope and lightheadedness prior to admission. -ACS evaluation negative -BNP unremarkable. -cardiac telemetry showing no acute event -CXR PA& lateral: platelike atelectasis right lower lobe. Cardiology consulted: appreciate recommendations Medications: * Started Atorvastatin 40mg HS * Started Lisinopril 5mg daily * Resume carvedilol 3.125mg BID (pt's pharmacy reports once a day dosing, will provide BID as this will provide better efficacy). We will hold carvedilol for MAP <70 * If patient is hypotensive on BID dosing, will decrease back to 3.12 mg daily (2) Abdominal pain Status: Chronic Plan: Patient does report severe left-sided abdominal pain, which appears symptomatically stable but is out of proportion to his examinations his hospital stay. CT 08/28 showing stable renal infarct and no other abnormalities noted, and it showed no evidence of bowel ischemia Continue pain control with Dilaudid 0.5 mg every 3 hours for pain 3-5, Dilaudid 1 mg every 3 hours for pain 6-10. We will transition to by mouth regimen tomorrow. He is not to receive any further pain medication by IV but may be switched to a PO regimen. He was admitted having taken [place] 10s at home. He has been to [facility] as well as multiple visits that [facility] for pain medications and it is of concern that he may be malingering. (3) Pancreatitis Status: Chronic Plan: Patient has chronic pancreatitis and pain does have acute pancreatitis at this time. Discontinued IV fluids Pain is more apparently due to chronic renal infarct and pancreatitis given location Hospital course: Presented with epigastric abdominal pain, vomiting, history of pancreatitis. Lipase is 440 on admission suggesting mild disease. Lipase normalized -BD CT: No acute abdominal disease Increase diet as tolerated IV hydration cautiously due to CHF Medications: * Zofran for nausea * Pain control as above (4) Syncope Status: Acute Plan: Had a syncopal episode 2 weeks ago sustaining a fall. He denies any trauma. EKG showing evidence of old infarct but no new infarct. Ddx includes cardiogenic/arrhythmia vs orthostatic hypotension * orthostatic BP ordered but patient has refused * Cardiac workup as above (5) Diabetes mellitus Status: Chronic Plan: Takes 22 units Levemir at night at home. Required 10 units dose of regular insulin in ED. -Levemir 5units HS initiated at admission due to low appetite/NPO status, now getting Levemir 10 units hs and ADA 2200 diet -low dose sliding scale -continue home gabapentin (6) CAD (coronary artery disease) Status: Chronic Plan: Management as above (7) Renal infarct Status: Chronic Plan: CT scan in July 2016 notable for findings suggestive of renal infarct and was placed on Eliquis 10 mg twice a day. He should have switched to 5 mg dose approximately one week after discharge. * Switched to 5 mg twice a day dosing of Eliquis (8) Depression with anxiety Status: Chronic Plan: Continue home doses of Seroquel 300 mg nightly He states he takes Xanax 1 mg 3 times a day, restarted 08/29 (9) Fluids/Electrolytes/Nutrition/Prophylaxis Status: Acute Plan: Fluids: PO Electrolytes: monitor and replete as needed Nutrition: ADA 2200 DVT Prophylaxis: Early ambulation. On Eliquis 5 mg BID GI Prophylaxis: none indicated (Patt Cormier MD R1) Problem Qualifiers (1) Chest pain: Qualified Code: R07.9 - Chest pain, unspecified type (2) Pancreatitis: Qualified Code: K86.1 - Chronic pancreatitis, unspecified pancreatitis type (3) Diabetes mellitus: Patt Cormier MD R1 Aug 30, 2016 09:16 Alesha Ahn MD Aug 30, 2016 14:47
[2016-08-30 09:18] LABS: PROTHROMBIN TIME - PATIENT 10.6 SEC (9.8-11.6)
[2016-08-30] MEDS: PREGABALIN 75 MG CAP PO SCH ×3 (09:20→18:05)
[2016-08-30 09:30] LABS: ANION GAP 5 MEQ/L (5-15); AST (GOT) 27 U/L (15-37); BICARBONATE 31.5 MEQ/L (21.0-32.0); BLOOD UREA NITROGEN 23 MG/DL (7-18); CHLORIDE 104 MEQ/L (98-107); GLOMERULAR FILTRATION RATE 106 ML/MIN (>89); POTASSIUM 3.5 MEQ/L (3.5-5.1); SODIUM (NA) 140 MEQ/L (136-145)
[2016-08-30 09:38] LABS: ALKALINE PHOSPHATASE 202 U/L (45-117); ALT (GPT) 87 U/L (12-78); TOTAL BILIRUBIN ADULT 0.6 MG/DL (0.2-1.0)
[2016-08-30] MEDS: SODIUM CHLOR 0.9% 1000 ML INJ 1,000 ML IV SCH (10:05)
[2016-08-30 12:19] VITALS: PULSE 84; RESP 18; TEMP 97.4; O2SAT 99
--- NOTE | 2016-08-30 12:49 | PD.PSY.CON ---
Provisional Diagnosis Admission Date Aug 28, 2016 at 10:42 [place] I. Adjustment disorder with disturbance of conduct, history of anxiety and bipolar disorder [place] II. 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 CHF, pancreatitis, DM, CAD, renal infarct [place] IV. History of incarcerations, aggressive and impulsive behavior [place] V. 55 History of Present Illness Service Psychiatry Consult Requested By Primary Care Physician Mohsen LEBRON The patient is a 45-year-old man, domiciled alone in [place], single, with poor social and family support, on SSI, with psychiatric history of self reported bipolar disorder, anxiety, no previous suicidal attempts, no previous psychiatric hospitalizations, he is on Xanax 1 mg 3 times a day and Seroquel 300 mg at bedtime prescribed by PCP, with medical history of CAD, left renal infarct, and IDDM admitted for chest pain workup and acute on chronic pancreatitis. Consulted to psychiatry due to agitation and hostility in the floor. On psychiatric evaluation today patient is calm, cooperative, a little bit irritable. At the beginning refusing to speak with psychiatric, but later on redirectable and able to cooperate. Patient says that he has been very upset and frustrated because he feels that the medical team doesn't have a good plan for him. He says that they're planning to discharge him without enough prescription for his anxiety and pain and without a good plan further treatment of his mental problems. He also has been feeling mistreated, abandoned and rejected by staff and that the reason why his yesterday made the statement that he will stab himself in order to get their attention. At this moment the patient denies depressive symptoms, he denies suicidal and homicidal ideation, he denies visual and auditory hallucinations. She is future oriented with clear goals for the future and motivated to follow recommendations and get better. However, he reports insomnia, anxiety related with his underlying medical conditions at his future. Patient appreciated the fact that he was just started and Seroquel 300 mg and Xanax 1 mg when necessary. During this evaluation no paranoia, no delusions, no glen franki or psychosis, no agitation or aggressive behavior present. Patient is oriented 3, no attention deficit, no gross cognitive impairment present. Patient denies the use of alcohol, reports the use of marijuana occasionally. Review of Systems Constitutional: DENIES: Diaphoretic episodes, Fatigue, Fever, Weight gain, Weight loss, Chills, Dizziness, Change in appetite, Night Sweats Endocrine: DENIES: Heat/cold intolerance, Polydipsia, Polyuria, Polyphagia Eyes: DENIES: Blurred vision, Diplopia, Eye inflammation, Eye pain, Vision loss , Photosensitivity, Double Vision Ears, nose, mouth, throat: DENIES: Tinnitus, Hearing loss, Vertigo, Nasal discharge, Oral lesions, Throat pain, Hoarseness, Ear Pain, Running Nose, Epistaxis, Sinus Pain, Toothache, Odynophagia Respiratory: DENIES: Apneas, Cough, Snoring, Wheezing, Hemoptysis, Sputum production, Shortness of breath Cardiovascular: DENIES: Chest pain, Palpitations, Syncope, Dyspnea on Exertion , PND, Lower Extremity Edema, Orthopnea, Claudication Gastrointestinal: DENIES: Abdominal pain, Black stools, Bloody stools, Constipation, Diarrhea, Nausea, Vomiting, Difficulty Swallowing, Anorexia Immunologic/allergic: DENIES: Eczema, Urticaria Neurologic: DENIES: Abnormal gait, Headache, Localized weakness, Paresthesias, Seizures, Speech Problems, Tremor, Poor Balance Psychiatric: COMPLAINS OF: Anxiety, Agitation, DENIES: Confusion, Mood changes , Depression, Hallucinations, Suicidal Ideation, Homicidal Ideation, Delusions Past Family Social History Coded Allergies: No Known Allergies (Verified , 08/27/16) Active Scripts Apixaban (Eliquis)5 Mg Tab10 Mg PO BID #12 TAB Prov:Alanis Roberts MD 07/31/16 Reported Medications Carvedilol 3.125 Mg Tab3.125 Mg PO DAILY #60 TAB Ref 0 08/28/16 Insulin Glargine Inj (Lantus Inj)1,000 Unit/10 Ml Vial22 Units SQ HS Ref 0 06/19/16 Nitroglycerin SL (Nitrostat SL)0.4 Mg Subl0.4 Mg SL DIRECTED PRN (CHEST PAIN ) #100 TAB.SL Ref 0 1 tablet under the tongue as needed for chest pain. Repeat every 5 minutes for a total of 3 DOSES or call 911 if NO relief. 06/19/16 Quetiapine XR (Seroquel XR)300 Mg [id number] Mg PO HS #30 TAB Ref 0 06/19/16 Pregabalin (Lyrica)75 Mg Cap75 Mg PO TID #90 CAP Ref 0 02/14/16 Ondansetron (Zofran)4 Mg Tab4 Mg PO Q6HR PRN (NAUSEA OR VOMITING) Ref 0 02/14/16 Discontinued Reported Medications Alprazolam 0.5 Mg Tab0.5 Mg PO BID PRN (ANXIETY) Ref 0 06/19/[address] (Aspirin EC)81 Mg Tabdr81 Mg PO HS Ref 0 02/14/16 Discontinued Scripts Apixaban (Eliquis)5 Mg Tab5 Mg PO BID #60 TAB Ref 0 Prov:Alanis Roberts MD 07/31/16 Hydrocodone-Acetaminophen ([place])10-325 Mg Tab1 Tab PO Q4H PRN (PAIN) #30 TAB Ref 0 Prov:Alanis Roberts MD 07/31/16 Metoprolol Tartrate 25 Mg Tab12.5 Mg PO BID #30 TAB Ref 0 Prov:Anjana Lizarraga PA-C 06/22/16 Sucralfate (Carafate)1 Gm Tab1 Gm PO TIDAC #30 TAB Prov:Anjana Lizarraga PA-C 06/22/16 Pantoprazole 40 Mg Tab40 Mg PO DAILY #30 TAB Ref 0 Prov:Anjana Lizarraga PA-C 06/22/16 Walker with Front Wheels 1 Mis Mis #1 EA .ROUTE DIRECTED Ref 0 Prov:Maria T Torres 06/21/16 Lisinopril 10 Mg Tab10 Mg PO DAILY #30 TAB Prov:Dany Velasco MD 02/16/16 Metoclopramide (Reglan)10 Mg Tab10 Mg PO TIDAC PRN (NAUSEA OR VOMITING) #30 TAB Ref 0 Prov:Roni Zavala MD 01/09/16 Current Medications Medications (Trade) Dose Ordered Sig/Patsy Route Start Time Stop Time Status Last Admin (NS Flush) 2 ml UNSCH PRN IV FLUSH 08/27/16 22:30 (NS Flush) 2 ml BID IV FLUSH 08/28/16 09:00 08/29/16 21:00 (Zofran Inj) 4 mg Q6H PRN IV 08/27/16 22:30 08/28/16 17:52 (Lyrica) 75 mg TID PO 08/28/16 09:00 08/30/16 09:20 (Vasotec Inj) 1.25 mg Q6H PRN IV 08/27/16 23:30 (Tylenol) 650 mg Q6H PRN PO 08/27/16 23:30 (Narcan Inj) 0.4 mg UNSCH PRN IV 08/27/16 23:30 (Dilaudid Pf Inj) 0.5 mg Q3H PRN IV 08/28/16 02:15 08/29/16 09:36 (Dilaudid Pf Inj) 1 mg Q3H PRN IV 08/28/16 02:15 08/30/16 10:36 (Habitrol 14 Mg Patch.24 Hr) 1 patch DAILY T-DERMAL 08/28/16 09:00 08/30/16 08:08 Miscellaneous Information 1 HS T-DERMAL 08/28/16 21:00 08/28/16 21:00 Apixaban 5 mg 5 mg BID PO 08/28/16 09:00 08/30/16 08:08 (NS 1000 ml Inj) 1,000 ml @ 97 mls/hr [id number] IV 08/28/16 06:30 08/29/16 06:43 (Lipitor) 40 mg HS PO 08/28/16 21:00 08/29/16 21:33 (Prinivil) 5 mg DAILY PO 08/28/16 10:00 08/30/16 08:08 (Coreg) 3.125 mg Q12HR PO 08/28/16 21:00 08/30/16 08:08 (SEROquel) 300 mg HS PO 08/28/16 22:30 08/29/16 21:34 (Xanax) 0.5 mg Q6H PRN PO 08/29/16 18:45 08/30/16 07:33 (Levemir Inj) 10 units HS SQ 08/30/16 21:00 Family History Patient has a brother and his father with addiction problems Social History Patient lives alone in [place], is single, unemployed, supported by [facility], he has history of incarcerations, he longest incarceration was for 54 months with sexual offense charges. Physical Exam No psychomotor agitation or retardation, no tremors, no EPS, no stiffness, presents on physical exam Vital Signs Vital Signs Date Time Temp Pulse Resp B/P Pulse Ox O2 Delivery O2 Flow Rate FiO2 08/30/16 12:19 97.4 84 18 99 08/27/16 23:30 Room Air Lab Results 08/28/16 0544 08/29/16 0605 Mental Status Examination Appearance man, good hygiene, [facility], age appearing, calm and cooperative Speech: Unremarkable Orientation: x3 Memory: Unremarkable Thought Process: Logical Thought Content: Unremarkable Language Appropriate use of language Fund of Knowledge Adequate for level of education Hallucination Type: None Attention and Concentration: Good Suicidal Ideation: No Homicidal Ideation: No Insight: Fair Affect: Irritable Mood: Irritable Motor Activity: Normal gait Assessment & Plan Problem List: (1) Adjustment disorder with disturbance of conduct Assessment & Plan: At the moment of this evaluation the patient does not present any acute or objective or subjective symptomatology of depression, glen franki or psychosis. Patient denies suicidal and homicidal ideation, he denies visual and auditory hallucinations. Patient does report insomnia and anxiety related with current underlying medical conditions and what he claims is an inappropriate discharge planning the primary medical team. His recent suicidal statements to primary medical team and staff seems to be more manipulative and antisocial behavior rather than secondary to a primary major psychiatric condition decompensation. There are several elements inpatient psychiatric history to suggest an underlying character structure. He does not benefit of psychiatric admission at this moment. Agree with Seroquel 300 mg at bedtime for impulse control, also agree with Xanax 1 mg 3 times a day when necessary anxiety in the hospital. Extensive support, motivation and psychoeducation provided. We'll follow-up. ICD Code: F43.24 Assessment & Plan Estimated LOS: Dipak Willson MD Aug 30, 2016 12:49
[2016-08-30] MEDS: ONDANSETRON HCL 4 MG/2 ML VIAL IV PRN (15:28)
[2016-08-30 16:06] VITALS: BP 142/86; PULSE 89; RESP 18; TEMP 97.6; O2SAT 100
[2016-08-30 20:00] VITALS: BP 152/80; PULSE 86; RESP 22; TEMP 97.4; O2SAT 98
[2016-08-30] MEDS: QUEtiapine FUMARATE 300 MG TAB PO SCH (20:19)
[2016-08-30] MEDS: ATORVASTATIN 40 MG TAB PO SCH (20:19)
[2016-08-30] MEDS: REMOVE OLD PATCH T-DERMAL SCH (20:21)
[2016-08-30] MEDS: INSULIN DETEMIR 100 UNITS/ML VIAL SQ SCH (21:56)
[2016-08-31] VITALS (7 sets, daily range): BP systolic 102–164; BP diastolic 60–91; PULSE 82–96; RESP 16–20; TEMP 97–98.3; O2SAT 94–98
[2016-08-31] MEDS: HYDROmorphone HCL PF 1 MG/ML VIAL IV PRN ×7 (02:26→20:31)
[2016-08-31] MEDS: ALPRAZolam 0.5 MG TAB PO PRN ×5 (02:29→20:30)
[2016-08-31] MEDS: INSULIN ASPART SUPPLEMENTAL SCALE SQ SCH ×4 (06:20→17:11)
[2016-08-31] MEDS: NICOTINE 14 MG/24 HR PATCH T-DERMAL SCH (08:43)
[2016-08-31] MEDS: LISINOPRIL 5 MG TAB PO SCH (08:43)
[2016-08-31] MEDS: PREGABALIN 75 MG CAP PO SCH ×3 (08:43→17:09)
[2016-08-31] MEDS: CARVEDILOL 3.125 MG TAB PO SCH ×2 (08:44→20:22)
[2016-08-31] MEDS: APIXABAN 5 MG TABLET PO SCH ×2 (08:44→20:22)
[2016-08-31] MEDS: SODIUM CHLORIDE 0.9% FLUSH 10 ML FLUSH IV FLUSH SCH ×2 (09:00→20:22)
--- NOTE | 2016-08-31 09:26 | HHI.FPPN ---
Subjective Remarks Pt seen and examined this morning. AFVSS. No acute events overnight. Pt reports doing well. He continues to endorse left flank pain, about 7/10 in intensity. He denies chest pain, shortness of breath, abdominal pain, constipation, lower extremity pain. He is frustrated that he has not received a more definitive diagnosis as to why he continues to experience persistent left flank pain. Objective Vitals Vital Signs Date Time Temp Pulse Resp B/P Pulse Ox O2 Delivery O2 Flow Rate FiO2 08/31/16 08:16 97.4 96 18 123/83 98 08/31/16 05:43 97.6 87 16 138/76 96 08/31/16 00:50 97.2 86 18 152/89 98 08/30/16 20:00 97.4 86 22 152/80 98 08/30/16 16:06 97.6 89 18 142/86 100 08/30/16 12:19 97.4 84 18 99 08/30/16 11:06 19 08/30/16 10:20 18 I/O 08/30/16 08/30/16 08/30/16 08/31/16 08/31/16 08/31/16 06:59 14:59 22:59 06:59 14:59 22:59 Intake Total 960 ml 240 ml Balance 960 ml 240 ml Intake Oral 960 ml 240 ml # Voids 2 2 Result Diagram: 08/30/1630 08/30/16 0830 Objective Remarks GENERAL: Well-nourished, well-developed patient. He is calm with sitter at bedside. SKIN: Warm and dry. No rashes visible HEAD: Normocephalic, atraumatic. EYES: No scleral icterus. No injection or drainage. Extraocular movements intact. NECK: Trachea midline. No obvious meningeal signs. RESPIRATORY: No increased work of breathing. No accessory muscle use. The lungs are clear to auscultation bilaterally GASTROINTESTINAL: Abdomen nondistended, non-tender. +bowel sounds. BACK: Pt endorses left CVA tenderness. MUSCULOSKELETAL: No cyanosis or edema. NEURO: Cranial nerves II through XII grossly intact. No obvious focal neurologic deficits. Moves all extremities well. Normal and brisk gait. PSYCH: He makes good eye contact. Speech is normal. A/P Assessment and Plan 45-year-old male with history of CAD, left renal infarct, and IDDM admitted for chest pain workup and acute on chronic pancreatitis. He continues to have severe left-sided abdominal pain out of proportion to physical exam findings and is currently pending headache stress test as well as further workup of abdominal pain. Discharge Planning Possibly 2 days. Given the stress test was negative he will need to follow up with his outpatient miller head wet process (Dr. Panchal) for further workup. His persistent abdominal/flank pain is likely due to his chronic renal infarct. Once tolerating PO pain control he may be discharged home with close follow-up. SDW Dr. Michele, Dr. Hunter Problem List: (1) Left flank pain Status: Acute Plan: Patient does report severe left-sided flank, which appears symptomatically stable but is out of proportion to his examinations this hospital stay. CT 08/28 showing stable renal infarct and no other abnormalities noted, and it showed no evidence of bowel ischemia Continue pain control with Dilaudid 0.5 mg every 3 hours for pain 3-5, Dilaudid 0.5 mg every 3 hours for pain 6-10, decreased from 1 mg. We will transition to PO regimen, and further decrease IV pain meds. He was admitted having taken [place] 10s at home. He has been to [facility] as well as multiple visits that [place] for pain medications and it is of concern that he may be malingering. (2) Renal infarct Status: Chronic Plan: CT scan in July 2016 notable for findings suggestive of renal infarct and was placed on Eliquis 10 mg twice a day. He should have switched to 5 mg dose approximately one week after discharge. * Continue 5 mg twice a day dosing of Eliquis (3) Chest pain Status: Resolved Plan: * Patient no longer has chest pain. Chemical stress test was not indicative of acute ischemia and showed EF 35%. * He sees Dr. Panchal as an outpatient and will need to follow-up with him after discharge Hospital course: Patient with significant cardiac history including cardiac stents, CHF with an EF of 30-35% in 06/2016, and a family history of cardiac disease where brother and father from cardiac issues at age 46 and 47 respectively. Initially presented with epigastric and LUQ abdominal pain but now complains on chest tightness on day 2 of admission. There is also a history of syncope and lightheadedness prior to admission. -ACS evaluation negative -BNP unremarkable. -cardiac telemetry showing no acute event -CXR PA& lateral: platelike atelectasis right lower lobe. Cardiology consulted: appreciate recommendations Medications: * Started Atorvastatin 40mg HS * Started Lisinopril 5mg daily * Resume carvedilol 3.125mg BID (pt's pharmacy reports once a day dosing, will provide BID as this will provide better efficacy). We will hold carvedilol for MAP <70 * If patient is hypotensive on BID dosing, will decrease back to 3.12 mg daily (4) Diabetes mellitus Status: Chronic Plan: Takes 22 units Levemir at night at home. -Levemir 10 units hs and ADA 2200 diet -low dose sliding scale -continue home gabapentin (5) CAD (coronary artery disease) Status: Chronic Plan: See plan above (6) Depression with anxiety Status: Chronic Plan: Continue home doses of Seroquel 300 mg nightly Xanax 1 mg 3 times a day (7) Fluids/Electrolytes/Nutrition/Prophylaxis Status: Acute Plan: Fluids: PO Electrolytes: monitor and replete as needed Nutrition: ADA 2200 DVT Prophylaxis: On Eliquis 5 mg BID GI Prophylaxis: none indicated Problem Qualifiers (1) Chest pain: Qualified Code: R07.9 - Chest pain, unspecified type (2) Diabetes mellitus: Karlie Cormier MD R2 Aug 31, 2016 09:26 (7) Renal infarct Status: Chronic Plan: CT scan in July 2016 notable for findings suggestive of renal infarct and was placed on Eliquis 10 mg twice a day. He should have switched to 5 mg dose approximately one week after discharge. * Switched to 5 mg twice a day dosing of Eliquis (8) Depression with anxiety Status: Chronic Plan: Continue home doses of Seroquel 300 mg nightly He states he takes Xanax 1 mg 3 times a day, restarted 08/29 (9) Fluids/Electrolytes/Nutrition/Prophylaxis Status: Acute Plan: Fluids: PO Electrolytes: monitor and replete as needed Nutrition: ADA 2200 DVT Prophylaxis: Early ambulation. On Eliquis 5 mg BID GI Prophylaxis: none indicated Problem Qualifiers (1) Chest pain: Qualified Code: R07.9 - Chest pain, unspecified type (2) Pancreatitis: Qualified Code: K86.1 - Chronic pancreatitis, unspecified pancreatitis type (3) Diabetes mellitus: Karlie Cormier MD R2 Aug 31, 2016 09:26
[2016-08-31] MEDS: ONDANSETRON HCL 4 MG/2 ML VIAL IV PRN (18:26)
[2016-08-31] MEDS: QUEtiapine FUMARATE 300 MG TAB PO SCH (20:22)
[2016-08-31] MEDS: ATORVASTATIN 40 MG TAB PO SCH (20:22)
[2016-08-31] MEDS: INSULIN DETEMIR 100 UNITS/ML VIAL SQ SCH (20:27)
[2016-08-31] MEDS: REMOVE OLD PATCH T-DERMAL SCH (21:00)
[2016-09-01] VITALS (7 sets, daily range): BP systolic 94–165; BP diastolic 58–93; PULSE 78–92; RESP 18–20; TEMP 97.4–98.2; O2SAT 94–100
[2016-09-01] MEDS: HYDROmorphone HCL PF 1 MG/ML VIAL IV PRN ×8 (00:17→22:40)
[2016-09-01] MEDS: ALPRAZolam 0.5 MG TAB PO PRN ×4 (04:12→22:53)
[2016-09-01] MEDS: INSULIN ASPART SUPPLEMENTAL SCALE SQ SCH ×4 (06:44→21:00)
[2016-09-01] MEDS: CARVEDILOL 3.125 MG TAB PO SCH ×2 (08:29→22:38)
[2016-09-01] MEDS: APIXABAN 5 MG TABLET PO SCH ×2 (08:29→22:38)
[2016-09-01] MEDS: LISINOPRIL 5 MG TAB PO SCH (08:30)
[2016-09-01] MEDS: PREGABALIN 75 MG CAP PO SCH ×3 (08:30→19:03)
[2016-09-01] MEDS: NICOTINE 14 MG/24 HR PATCH T-DERMAL SCH (08:30)
[2016-09-01 08:40] LABS: AUTOMATED NEUTROPHIL # 8.4 TH/MM3 (1.8-7.7); BASOPHIL # 0.1 TH/MM3 (0-0.2); BASOPHIL % 0.6 % (0.0-2.0); EOSINOPHIL # 0.3 TH/MM3 (0-0.4); EOSINOPHIL % 2.3 % (0.0-4.0); HEMATOCRIT 44.9 % (39.0-51.0); HEMO FLAGS DIFF FINAL; LYMPH % 12.6 % (9.0-44.0); LYMPHOCYTE # 1.4 TH/MM3 (1.0-4.8); MEAN CELL VOLUME 89.5 FL (80.0-100.0); MEAN CORPUSCULAR HEMOGLOBIN 31.5 PG (27.0-34.0); MEAN CORPUSCULAR HGB CONC 35.2 % (32.0-36.0); MONO % 9.2 % (0.0-8.0); NEUT % 75.3 % (16.0-70.0); PLATELET COUNT 105 TH/MM3 (150-450); RED BLOOD COUNT 5.02 MIL/MM3 (4.50-5.90); RED CELL DISTRIBUTION WIDTH 15.9 % (11.6-17.2); WHITE BLOOD COUNT 11.1 TH/MM3 (4.0-11.0)
[2016-09-01] MEDS: SODIUM CHLORIDE 0.9% FLUSH 10 ML FLUSH IV FLUSH SCH ×2 (09:00→21:00)
[2016-09-01 09:45] LABS: ALKALINE PHOSPHATASE 186 U/L (45-117); ALT (GPT) 53 U/L (12-78); ANION GAP 8 MEQ/L (5-15); AST (GOT) 20 U/L (15-37); BICARBONATE 24.2 MEQ/L (21.0-32.0); BLOOD UREA NITROGEN 30 MG/DL (7-18); CHLORIDE 103 MEQ/L (98-107); GLOMERULAR FILTRATION RATE 100 ML/MIN (>89); POTASSIUM 4.4 MEQ/L (3.5-5.1); SODIUM (NA) 135 MEQ/L (136-145); TOTAL BILIRUBIN ADULT 0.5 MG/DL (0.2-1.0)
--- NOTE | 2016-09-01 14:10 | HHI.FPPN ---
Subjective Remarks Patient seen and examined this morning. Afebrile vital signs stable. He reports that he is having some difficulty with tolerating his diet. He says that he gets the feeling of his food having difficulty digesting, and gets diarrhea frequently. He says that he's been on Reglan in the past and that this helped him. He is willing to try Pancrease medication. Overall he is still concerned as to why he continues to have pain, explained to him that it will take time for the pain to resolve as the infarcted area of his kidney scars. Will leave pain medications as they are at this time. Endorses: Left flank pain Denies: Fever, chills, nausea, vomiting, shortness of breath, chest pain, headache, abdominal pain, calf pain (Deandre Temple MD R2) Objective Vitals Vital Signs Date Time Temp Pulse Resp B/P Pulse Ox O2 Delivery O2 Flow Rate FiO2 09/01/16 12:00 97.9 80 18 129/84 97 09/01/16 08:00 97.4 87 18 129/84 99 09/01/16 04:00 97.4 78 20 111/79 94 09/01/16 00:00 97.7 80 18 94/58 96 08/31/16 20:00 97.5 86 20 164/62 97 08/31/16 18:42 86 08/31/16 16:06 98.3 86 17 132/82 94 I/O 08/31/16 08/31/16 08/31/16 09/01/16 09/01/16 09/01/16 07:00 15:00 23:00 07:00 15:00 23:00 Intake Total 240 ml 960 ml Balance 240 ml 960 ml Intake Oral 240 ml 960 ml # Voids 2 2 (Deandre Temple MD R2) Result Diagram: 09/01/16 0756 09/01/16 0756 Imaging Last Impressions Myocardial Perfusion Scan Nuc Med 08/29/16 0000 Signed Impressions: Service Date/Time: Monday, August 29, 2016 13:47 - CONCLUSION: 1. No reversible perfusion defects to suggest ischemia. 2. Depressed ejection fraction with old infarctions. RISK CATEGORY: High (>3%% Annual Mortality Rate) Rich Bliss MD Chest X-Ray 08/28/16 0000 Signed Impressions: Service Date/Time: August 11:08 - CONCLUSION: Platelike atelectasis right lower lobe. Rl Ceballos MD Abdomen/Pelvis CT 08/28/16 0000 Signed Impressions: Service Date/Time: August 11:18 - CONCLUSION: Minimal bibasilar atelectasis. Wedge-shaped defect posterior aspect of the left kidney likely old infarct or previous pyelonephritis. No new lesions are identified. Rl Ceballos MD ADDENDUM: The superior mesenteric artery and inferior mesenteric artery were evaluated and both are patent. Mesenteric vessels appear patent. No occlusion or thrombus seen. Rich Bliss MD Objective Remarks GENERAL: Well-nourished, well-developed patient. He is calm with sitter at bedside. SKIN: Warm and dry. No rashes visible HEAD: Normocephalic, atraumatic. EYES: No scleral icterus. No injection or drainage. Extraocular movements intact. NECK: Trachea midline. No obvious meningeal signs. RESPIRATORY: No increased work of breathing. No accessory muscle use. The lungs are clear to auscultation bilaterally GASTROINTESTINAL: Abdomen nondistended, non-tender. +bowel sounds. BACK: Pt endorses left CVA tenderness. MUSCULOSKELETAL: No cyanosis or edema. NEURO: Cranial nerves II through XII grossly intact. No obvious focal neurologic deficits. Moves all extremities well. Normal and brisk gait. PSYCH: He makes good eye contact. Speech is normal. Medications and IVs Current Medications Medications (Trade) Dose Ordered Sig/Patsy Route Start Time Stop Time Status Last Admin (NS Flush) 2 ml UNSCH PRN IV FLUSH 08/27/16 22:30 (NS Flush) 2 ml BID IV FLUSH 08/28/16 09:00 09/01/16 09:00 (Zofran Inj) 4 mg Q6H PRN IV 08/27/16 22:30 08/31/16 18:26 (Lyrica) 75 mg TID PO 08/28/16 09:00 09/01/16 13:20 (Vasotec Inj) 1.25 mg Q6H PRN IV 08/27/16 23:30 (Tylenol) 650 mg Q6H PRN PO 08/27/16 23:30 (Narcan Inj) 0.4 mg UNSCH PRN IV 08/27/16 23:30 (Dilaudid Pf Inj) 0.5 mg Q3H PRN IV 08/28/16 02:15 08/29/16 09:36 (Habitrol 14 Mg Patch.24 Hr) 1 patch DAILY T-DERMAL 08/28/16 09:00 09/01/16 08:30 Miscellaneous Information 1 HS T-DERMAL 08/28/16 21:00 08/31/16 21:00 (Eliquis) 5 mg BID PO 08/28/16 09:00 09/01/16 08:29 (Lipitor) 40 mg HS PO 08/28/16 21:00 08/31/16 20:22 (Prinivil) 5 mg DAILY PO 08/28/16 10:00 09/01/16 08:30 (Coreg) 3.125 mg Q12HR PO 08/28/16 21:00 09/01/16 08:29 (SEROquel) 300 mg HS PO 08/28/16 22:30 08/31/16 20:22 (Xanax) 0.5 mg Q6H PRN PO 08/29/16 18:45 09/01/16 10:21 (Levemir Inj) 10 units HS SQ 08/30/16 21:00 08/31/16 20:27 (Dilaudid Pf Inj) 0.5 mg Q3H PRN IV 08/31/16 23:15 09/01/16 13:20 (Deandre Temple MD R2) A/P Assessment and Plan 45-year-old male with history of CAD, left renal infarct, and IDDM admitted for chest pain workup and acute on chronic pancreatitis. He continues to have severe left flank pain out of proportion to physical exam findings due to renal infarct Discharge Planning Possibly 2 days. Given the stress test was negative he will need to follow up with his outpatient handbag parts cutter (Dr. Panchal) for further workup. His persistent abdominal/flank pain is likely due to his chronic renal infarct. Once tolerating PO pain control he may be discharged home with close follow-up. SDW Dr. Galindo (Deandre Temple MD R2) Attending Attestation Patients case was dicussed in detail with resident medical team,examination performed, EMR reviewed, agree with Admission, Assessment and Plan, See Orders. (Srinath Galindo MD) Problem List: (1) Left flank pain Status: Acute Plan: Patient does report severe left-sided flank, which appears symptomatically stable but is out of proportion to his examinations this hospital stay. CT 08/28 showing stable renal infarct and no other abnormalities noted, and it showed no evidence of bowel ischemia Continue pain control with Dilaudid 0.5 mg every 3 hours for pain 3-5, Dilaudid 0.5 mg every 3 hours for pain 6-10, We will transition to PO regimen, and further decrease IV pain meds. He was admitted having taken [place] 10s at home. He has been to [facility] as well as multiple visits that [place] for pain medications and it is of concern that he may be malingering. (2) Renal infarct Status: Chronic Plan: CT scan in July 2016 notable for findings suggestive of renal infarct and was placed on Eliquis 10 mg twice a day. He should have switched to 5 mg dose approximately one week after discharge. * Continue 5 mg twice a day dosing of Eliquis (3) Chest pain Status: Resolved Plan: * Patient no longer has chest pain. Chemical stress test was not indicative of acute ischemia and showed EF 35%. * He sees Dr. Panchal as an outpatient and will need to follow-up with him after discharge Medications: * Continue Atorvastatin 40mg HS * Continue Lisinopril 5mg daily * Continue carvedilol 3.125 twice a day, will decrease to daily if hypotensive. (4) Diabetes mellitus Status: Chronic Plan: Takes 22 units Levemir at night at home. -Levemir 10 units hs and ADA 2200 diet -low dose sliding scale -continue home gabapentin (5) CAD (coronary artery disease) Status: Chronic Plan: See plan above (6) Depression with anxiety Status: Chronic Plan: Continue home doses of Seroquel 300 mg nightly Xanax 1 mg 3 times a day (7) Fluids/Electrolytes/Nutrition/Prophylaxis Status: Acute Plan: Fluids: PO Electrolytes: monitor and replete as needed Nutrition: ADA 2200 DVT Prophylaxis: On Eliquis 5 mg BID GI Prophylaxis: none indicated (Deandre Temple MD R2) Problem Qualifiers (1) Chest pain: Qualified Code: R07.9 - Chest pain, unspecified type (2) Diabetes mellitus: Deandre Temple MD R2 Sep 01, 2016 14:10 Srinath Galindo MD Sep 01, 2016 18:39
[2016-09-01] MEDS: ONDANSETRON HCL 4 MG/2 ML VIAL IV PRN (19:03)
[2016-09-01] MEDS: REMOVE OLD PATCH T-DERMAL SCH (21:00)
[2016-09-01] MEDS: INSULIN DETEMIR 100 UNITS/ML VIAL SQ SCH (21:00)
[2016-09-01] MEDS: QUEtiapine FUMARATE 300 MG TAB PO SCH (22:37)
[2016-09-01] MEDS: ATORVASTATIN 40 MG TAB PO SCH (22:38)
[2016-09-02] VITALS (7 sets, daily range): BP systolic 96–187; BP diastolic 57–105; PULSE 76–110; RESP 18–21; TEMP 97.4–98.7; O2SAT 94–99
[2016-09-02] MEDS: HYDROmorphone HCL PF 1 MG/ML VIAL IV PRN ×2 (03:46→09:04)
[2016-09-02] MEDS: INSULIN ASPART SUPPLEMENTAL SCALE SQ SCH ×4 (06:27→20:55)
[2016-09-02] MEDS: CARVEDILOL 3.125 MG TAB PO SCH ×2 (09:01→20:54)
[2016-09-02] MEDS: LISINOPRIL 5 MG TAB PO SCH (09:02)
[2016-09-02] MEDS: PREGABALIN 75 MG CAP PO SCH ×4 (09:02→18:30)
[2016-09-02] MEDS: NICOTINE 14 MG/24 HR PATCH T-DERMAL SCH (09:03)
[2016-09-02] MEDS: APIXABAN 5 MG TABLET PO SCH ×2 (09:03→20:57)
[2016-09-02] MEDS: SODIUM CHLORIDE 0.9% FLUSH 10 ML FLUSH IV FLUSH SCH ×2 (09:04→20:58)
[2016-09-02] MEDS: ALPRAZolam 0.5 MG TAB PO PRN ×3 (09:05→21:05)
[2016-09-02 11:52] LABS: MEAN CELL VOLUME 89.7 FL (80.0-100.0); MEAN CORPUSCULAR HEMOGLOBIN 31.5 PG (27.0-34.0); MEAN CORPUSCULAR HGB CONC 35.1 % (32.0-36.0); PLATELET COUNT 117 TH/MM3 (150-450); RED BLOOD COUNT 5.02 MIL/MM3 (4.50-5.90); RED CELL DISTRIBUTION WIDTH 15.8 % (11.6-17.2); REVIEW FLAG FINAL
[2016-09-02] MEDS ORDERED: HYDROmorphone HCL PF 1 MG/ML VIAL IV PUSH PRN (12:00)
[2016-09-02] MEDS ORDERED: oxyCODONE/ACETAMINOPHEN 10 MG/325 MG TAB PO PRN (12:00)
[2016-09-02] MEDS ORDERED: DOCUSATE SODIUM 50 MG/SENNA 8.6 MG TAB PO ONE (12:00)
--- NOTE | 2016-09-02 12:15 | HHI.FPPN ---
Subjective Remarks Patient seen and examined this morning. No acute events overnight. Patient continues to endorse left lower quadrant pain as well as left-sided flank pain. He has not yet had a bowel movement. He denies chest pain, shortness of breath, nausea, vomiting. He has been trying to eat, but his appetite has been decreased. Patient understands that he will need to be weaned off of IV pain medication. Objective Vitals Vital Signs Date Time Temp Pulse Resp B/P Pulse Ox O2 Delivery O2 Flow Rate FiO2 09/02/16 09:01 97.6 77 18 136/88 94 09/02/16 04:00 97.6 76 20 96/59 95 09/02/16 00:00 97.4 97 20 105/57 98 09/01/16 23:10 20 09/01/16 20:00 98.2 92 20 145/73 100 09/01/16 18:07 89 09/01/16 16:00 98.0 89 18 165/93 96 I/O 09/01/16 09/01/16 09/01/16 09/02/16 09/02/16 09/02/16 07:00 15:00 23:00 07:00 15:00 23:00 Intake Total 720 ml 240 ml Balance 720 ml 240 ml Intake Oral 720 ml 240 ml # Voids 2 2 Result Diagram: 09/02/16 1103 09/01/16 0756 Objective Remarks GENERAL: Well-nourished, well-developed patient. He is calm with sitter at bedside. SKIN: Warm and dry. No rashes visible HEAD: Normocephalic, atraumatic. EYES: No scleral icterus. No injection or drainage. Extraocular movements intact. NECK: Trachea midline. No obvious meningeal signs. RESPIRATORY: No increased work of breathing. No accessory muscle use. The lungs are clear to auscultation bilaterally GASTROINTESTINAL: Abdomen nondistended, mild left lower quadrant discomfort. + bowel sounds. BACK: Pt endorses left CVA tenderness. MUSCULOSKELETAL: No cyanosis or edema. NEURO: Cranial nerves II through XII grossly intact. No obvious focal neurologic deficits. Moves all extremities well. Normal and brisk gait. PSYCH: He makes good eye contact. Speech is normal. A/P Assessment and Plan 45-year-old male with history of CAD, left renal infarct, and IDDM admitted for chest pain workup and acute on chronic pancreatitis. He continues to have severe left flank pain out of proportion to physical exam findings due to renal infarct Discharge Planning Possibly 2 days. Given the stress test was negative he will need to follow up with his outpatient speech and language specialist (Dr. Panchal) for further workup. His persistent abdominal/flank pain is likely due to his chronic renal infarct. Once tolerating PO pain control he may be discharged home with close follow-up. SDW Dr. Galindo Problem List: (1) Left flank pain Status: Acute Plan: Patient does report severe left-sided flank, which appears symptomatically stable but is out of proportion to his examinations this hospital stay. CT 08/28 showing stable renal infarct and no other abnormalities noted, and it showed no evidence of bowel ischemia Pain management: Percocet 103 25 every 4 hours for pain greater than 6/10 Dilaudid 0.5 mg IV every 4 hours when necessary breakthrough pain. Continue to transition to oral pain medication. (2) Renal infarct Status: Chronic Plan: CT scan in July 2016 notable for findings suggestive of renal infarct and was placed on Eliquis 10 mg twice a day. He should have switched to 5 mg dose approximately one week after discharge. * Continue 5 mg twice a day dosing of Eliquis (3) Diabetes mellitus Status: Chronic Plan: Takes 22 units Levemir at night at home. He has received 19 units of SSI over the past 24 hours. -Levemir increased to 12 units hs and ADA 2200 diet -low dose sliding scale -continue home gabapentin (4) CAD (coronary artery disease) Status: Chronic Plan: Continue home medications (5) Depression with anxiety Status: Chronic Plan: Continue home doses of Seroquel 300 mg nightly Xanax 1 mg 3 times a day (6) Constipation Status: Acute Plan: Pericolace scheduled, hold for diarrhea. (7) Fluids/Electrolytes/Nutrition/Prophylaxis Status: Acute Plan: Fluids: PO Electrolytes: monitor and replete as needed Nutrition: ADA 2200 DVT Prophylaxis: On Eliquis 5 mg BID GI Prophylaxis: none indicated Problem Qualifiers (1) Diabetes mellitus: Karlie Cormier MD R2 Sep 02, 2016 12:15
[2016-09-02 12:24] LABS: BICARBONATE 21.4 MEQ/L (21.0-32.0); POTASSIUM 5.1 MEQ/L (3.5-5.1)
[2016-09-02] MEDS ORDERED: PILL SPLITTER OTHER PRN (13:30)
[2016-09-02] MEDS: LIPASE/PROTEASE/AMYLASE (12,000/38,000/60,000) CAP PO SCH ×2 (16:41→16:58)
[2016-09-02] MEDS: METOCLOPRAMIDE HCL 10 MG TAB PO SCH ×2 (16:41→20:56)
[2016-09-02] MEDS: HYDROmorphone HCL 2 MG TAB PO PRN ×2 (16:42→20:54)
[2016-09-02] MEDS: DOCUSATE SODIUM 50 MG/SENNA 8.6 MG TAB PO SCH (20:57)
[2016-09-02] MEDS: ATORVASTATIN 40 MG TAB PO SCH (20:57)
[2016-09-02] MEDS: QUEtiapine FUMARATE 300 MG TAB PO SCH (20:57)
[2016-09-02] MEDS: REMOVE OLD PATCH T-DERMAL SCH (20:58)
[2016-09-02] MEDS ORDERED: INSULIN DETEMIR 100 UNITS/ML VIAL SQ SCH (21:00)
--- NOTE | 2016-09-02 22:05 | RADRPT ---
EXAM DATE/TIME: 09/02/2016 21:52 [place] COMPARISON: No previous studies available for comparison. INDICATIONS : Right elbow pain after fall today. MEDICAL HISTORY : None. SURGICAL HISTORY : None. ENCOUNTER: Initial ACUITY: 1 day PAIN SCORE: 10/10 LOCATION: Right elbow. FINDINGS: Two view examination of the right elbow demonstrates no soft tissue swelling, joint effusion, fractur e or dislocation. Bony mineralization is normal. CONCLUSION: No acute fracture. Rich Bliss MD on September 02, 2016 at 22:03 Board Certified Radiologist. This report was verified electronically.
--- NOTE | 2016-09-02 23:59 | HHI.FPPN ---
Addendum to progress note ADDENDUM Reason for addendum: Additonal documentation Additional information Dr Ludwig and Sameer were paged at 2113 hours by nursing for pt fall. Upon arrival at room, pt was sleeping and in NAD. Pt states he "blacked out" but did not lose consciousness and fell coming out of the bathroom, hitting his right elbow upon impact with the floor. Fall was unwitnessed. Examined pt with no obvious signs of trauma or contusion/laceration, no loss of ROM, but some tenderness to palpation and pronation/supination. AFVSS with RRR and clear lung mccord. Imaging: AP&Lat Xrays of elbow with no sign of effusion, fracture or dislocation of elbow 1. Unwitnessed fall on right forearm - X-ray forearm negative - Ibuprofen PO PRN for pain (continue protocol to wean from opioid pain meds) - Placed on fall precautions Alex Estrella MD R1 Sep 02, 2016 23:59
[2016-09-03 00:45] VITALS: BP_SYST 140; BP_SYST 145; BP_DIAS 80; BP_DIAS 89; PULSE 88; RESP 20; TEMP 98.1; O2SAT 97
[2016-09-03] MEDS: HYDROmorphone HCL 2 MG TAB PO PRN ×3 (04:12→13:28)
[2016-09-03] MEDS: ALPRAZolam 0.5 MG TAB PO PRN ×3 (04:15→15:31)
[2016-09-03] MEDS: INSULIN ASPART SUPPLEMENTAL SCALE SQ SCH ×2 (06:09→12:06)
[2016-09-03] MEDS: METOCLOPRAMIDE HCL 10 MG TAB PO SCH ×2 (06:10→12:06)
[2016-09-03 08:08] VITALS: BP 132/91; PULSE 80; RESP 20; TEMP 97.3; O2SAT 98
[2016-09-03 08:53] LABS: HEMATOCRIT 44.6 % (39.0-51.0); MEAN CELL VOLUME 89.9 FL (80.0-100.0); MEAN CORPUSCULAR HGB CONC 34.5 % (32.0-36.0); PLATELET COUNT 120 TH/MM3 (150-450); RED BLOOD COUNT 4.96 MIL/MM3 (4.50-5.90); RED CELL DISTRIBUTION WIDTH 15.6 % (11.6-17.2); REVIEW FLAG FINAL; WHITE BLOOD COUNT 9.6 TH/MM3 (4.0-11.0)
[2016-09-03] MEDS: LIPASE/PROTEASE/AMYLASE (12,000/38,000/60,000) CAP PO SCH ×2 (08:54→13:27)
[2016-09-03] MEDS: DOCUSATE SODIUM 50 MG/SENNA 8.6 MG TAB PO SCH (08:54)
[2016-09-03] MEDS: CARVEDILOL 3.125 MG TAB PO SCH (08:56)
[2016-09-03] MEDS: APIXABAN 5 MG TABLET PO SCH (08:56)
[2016-09-03] MEDS: LISINOPRIL 5 MG TAB PO SCH (08:56)
[2016-09-03] MEDS: NICOTINE 14 MG/24 HR PATCH T-DERMAL SCH (08:57)
[2016-09-03] MEDS: SODIUM CHLORIDE 0.9% FLUSH 10 ML FLUSH IV FLUSH SCH (09:00)
[2016-09-03 09:21] LABS: ANION GAP 9 MEQ/L (5-15); AST (GOT) 15 U/L (15-37); BICARBONATE 21.7 MEQ/L (21.0-32.0); BLOOD UREA NITROGEN 32 MG/DL (7-18); CHLORIDE 106 MEQ/L (98-107); GLOMERULAR FILTRATION RATE 103 ML/MIN (>89); POTASSIUM 4.4 MEQ/L (3.5-5.1); SODIUM (NA) 137 MEQ/L (136-145)
[2016-09-03 09:22] LABS: ALT (GPT) 32 U/L (12-78)
[2016-09-03 09:24] LABS: ALKALINE PHOSPHATASE 158 U/L (45-117); TOTAL BILIRUBIN ADULT 0.5 MG/DL (0.2-1.0)
[2016-09-03 12:44] VITALS: BP_SYST 152; PULSE 80; RESP 20; TEMP 97.5; O2SAT 100
[2016-09-03] MEDS: PREGABALIN 75 MG CAP PO SCH (13:28)
--- NOTE | 2016-09-03 15:38 | HHI.FPPN ---
Subjective Remarks Pt seen and examined this morning. Pt continues to endorse left flank pain. Occasional nausea. He reports that he had a very large bowel movement and this helped with his left lower quadrant abdominal pain. He denies chest pain, shortness of breath. He reports that he fell overnight and that this has happened to him before. After having a large bowel movement he reports that he quickly stood up and proceeded to walk to his bed. He felt faint and the next thing he remembers is that he was on the ground. He does not recall the position in which he fell. He denies hitting hitting his head. Objective Vitals Vital Signs Date Time Temp Pulse Resp B/P Pulse Ox O2 Delivery O2 Flow Rate FiO2 09/03/16 12:44 97.5 80 20 152/ 100 09/03/16 08:08 97.3 80 20 132/91 98 09/03/16 00:45 98.1 88 20 145/89 97 140/80 09/02/16 16:37 98.0 85 18 172/105 98 I/O 09/02/16 09/02/16 09/02/16 09/03/16 09/03/16 09/03/16 06:59 14:59 22:59 06:59 14:59 22:59 Intake Total 900 ml 500 ml Balance 900 ml 500 ml Intake Oral 900 ml 500 ml # Voids 2 0 1 # Bowel Movements 0 0 Result Diagram: 09/03/16 0715 09/03/16 0715 Objective Remarks GENERAL: Well-nourished, well-developed patient. He is calm with sitter at bedside. SKIN: Warm and dry. No rashes visible HEAD: Normocephalic, atraumatic. EYES: No scleral icterus. No injection or drainage. Extraocular movements intact. NECK: Trachea midline. No obvious meningeal signs. RESPIRATORY: No increased work of breathing. No accessory muscle use. The lungs are clear to auscultation bilaterally GASTROINTESTINAL: Abdomen nondistended, mild left lower quadrant discomfort. + bowel sounds. BACK: Pt endorses left CVA tenderness. MUSCULOSKELETAL: No cyanosis or edema. NEURO: Cranial nerves II through XII grossly intact. No obvious focal neurologic deficits. Moves all extremities well. Normal and brisk gait. PSYCH: He makes good eye contact. Speech is normal. A/P Assessment and Plan 45-year-old male with history of CAD, left renal infarct, and IDDM admitted for chest pain workup and acute on chronic pancreatitis. He continues to have severe left flank pain out of proportion to physical exam findings due to renal infarct Discharge Planning Anticipate discharge later today. Patient to follow-up with PCP and hematology as scheduled. Problem List: (1) Left flank pain Status: Acute Plan: Patient does report severe left-sided flank, which appears symptomatically stable but is out of proportion to his examinations this hospital stay. CT 08/28 showing stable renal infarct and no other abnormalities noted, and it showed no evidence of bowel ischemia Pain management: Dilaudid 1 mg Q4hrs PRN pain >6 (2) Renal infarct Status: Chronic Plan: CT scan in July 2016 notable for findings suggestive of renal infarct and was placed on Eliquis 10 mg twice a day. He should have switched to 5 mg dose approximately one week after discharge. * Continue 5 mg twice a day dosing of Eliquis (3) Diabetes mellitus Status: Chronic Plan: Takes 22 units Levemir at night at home. -Levemir 12 units hs and ADA 2200 diet -low dose sliding scale -continue home gabapentin (4) CAD (coronary artery disease) Status: Chronic Plan: Continue home medications (5) Depression with anxiety Status: Chronic Plan: Continue home doses of Seroquel 300 mg nightly Xanax 0.5 mg Q6h PRN anxiety (6) Constipation Status: Acute Plan: Pericolace scheduled, hold for diarrhea. (7) Fluids/Electrolytes/Nutrition/Prophylaxis Status: Acute Plan: Fluids: PO Electrolytes: monitor and replete as needed Nutrition: ADA 2200 DVT Prophylaxis: On Eliquis 5 mg BID GI Prophylaxis: none indicated Problem Qualifiers (1) Diabetes mellitus: Karlie Cormier MD R2 Sep 03, 2016 15:38 GI Prophylaxis: none indicated Problem Qualifiers (1) Diabetes mellitus: Karlie Cormier MD R2 Sep 03, 2016 15:38
[2016-09-03] MEDS ORDERED: ALPR.5 PO (15:50)
[2016-09-03] MEDS ORDERED: LISI-519 PO (15:50)
[2016-09-03] MEDS ORDERED: DILA2TAB2 PO (15:50)
[2016-09-03] MEDS ORDERED: APIX5TAB PO (15:50)
[2016-09-03] MEDS ORDERED: ATOR40TA16 PO (15:50)
[2016-09-03] MEDS ORDERED: CARV3.125 PO (15:50)
--- NOTE | 2016-09-03 15:53 | HHI.DCPOC ---
Discharge Care Plan Diagnosis: (1) DM (diabetes mellitus) (2) Hypertension (3) Chest pain (4) Abdominal pain (5) Depression with anxiety (6) Renal infarct Goals to Promote Your Health * To prevent worsening of your condition and complications * To maintain your health at the optimal level Directions to Meet Your Goals Take your medications as prescribed Follow your dietary instruction Follow activity as directed Keep your appointments as scheduled Take your immunizations and boosters as scheduled If your symptoms worsen call your PCP, if no PCP go to Urgent Care Center or Emergency Room Smoking is Dangerous to Your Health. Avoid second hand smoke Call the 24-hour hour crisis hotline for domestic abuse at Karlie Cormier MD R2 Sep 03, 2016 15:53
[2016-09-03 16:02] VITALS: BP 161/95; PULSE 91; RESP 20; TEMP 97.3; O2SAT 100
--- NOTE | 2016-09-04 16:35 | HHI.DS ---
Discharge Summary Admission Date Aug 28, 2016 at 10:42 Discharge Date: Sep 03, 2016 Admitting Diagnosis Chest Pain, Pancreatitis (1) Left flank pain Diagnosis: Principal Plan: Patient does report severe left-sided flank, which appears symptomatically stable but is out of proportion to his examinations this hospital stay. CT 08/28 showing stable renal infarct and no other abnormalities noted, and it showed no evidence of bowel ischemia Pain management: Dilaudid 1 mg Q4hrs PRN pain >6 (2) Renal infarct Diagnosis: Principal Plan: CT scan in July 2016 notable for findings suggestive of renal infarct and was placed on Eliquis 10 mg twice a day. He should have switched to 5 mg dose approximately one week after discharge. * Continue 5 mg twice a day dosing of Eliquis (3) Diabetes mellitus Plan: Takes 22 units Levemir at night at home. -Levemir 12 units hs and ADA 2200 diet -low dose sliding scale -continue home gabapentin (4) CAD (coronary artery disease) Plan: Continue home medications (5) Depression with anxiety Plan: Continue home doses of Seroquel 300 mg nightly Xanax 0.5 mg Q6h PRN anxiety (6) Constipation Plan: Pericolace scheduled, hold for diarrhea. (7) Fluids/Electrolytes/Nutrition/Prophylaxis Plan: Fluids: PO Electrolytes: monitor and replete as needed Nutrition: ADA 2200 DVT Prophylaxis: On Eliquis 5 mg BID GI Prophylaxis: none indicated Brief History 46 year old male with a history of chronic pancreatitis, MS, stent placement and left renal infarct who presents to the ED with chest and abdominal pain. The chest pain is described as someone "sitting on my chest," constant, not reportedly worse with movement. He does endorse dizziness with standing. He states that the abdominal pain started one day ago and characterizes it as sharp , burning, constant in nature. It is located in the epigastric area and left upper/lower quadrants. The pain is radiating to his back like his typical pancreatitis symptoms. He noted 5-6 episodes of vomiting this morning with vomitus being yellow without blood or bile. The pain is not associated with eating. He pain medications given in the ED today helped. He does note decreased urine output noting that he only went once today. Denies pain with urination or hematuria. He has had 3-4 bowel movements today and endorses decreased appetite. He denies fever, chills, shortness of breath. Prior to his left renal infarct which occurred in July 2016, he was on aspirin and Plavix for his heart. He was told was after the renal fact and he reports that he is taking 10 mg twice a day at this time. He denies that he is taking 5 mg twice a day dosing. 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 [facility]. He tried to go 5-6 weeks ago but was told he needed a referral from his PCP since he hadn't gone in a while. He does note that he fell 2 weeks ago and injured his right elbow. He was placed in a short cast which he shortly thereafter removed. He notes full range of motion and resolved pain in the right arm. CBC/BMP: 09/03/16 0715 09/03/16 0715 Significant Findings Laboratory Tests Test 09/02/16 09/03/16 11:03 07:15 White Blood Count 12.0 TH/MM3 (4.0-11.0) Platelet Count 117 TH/MM3 120 TH/MM3 (150-450) (150-450) Blood Urea Nitrogen 25 MG/DL (7-18) 32 MG/DL (7-18) Random Glucose 201 MG/DL 154 MG/DL (74-106) (74-106) Alkaline Phosphatase 158 U/L (45-117) Total Protein 6.2 GM/DL (6.4-8.2) Albumin 2.9 GM/DL (3.4-5.0) PE at Discharge GENERAL: Well-nourished, well-developed patient. He is calm with sitter at bedside. SKIN: Warm and dry. No rashes visible HEAD: Normocephalic, atraumatic. EYES: No scleral icterus. No injection or drainage. Extraocular movements intact. NECK: Trachea midline. No obvious meningeal signs. RESPIRATORY: No increased work of breathing. No accessory muscle use. The lungs are clear to auscultation bilaterally GASTROINTESTINAL: Abdomen nondistended, mild left lower quadrant discomfort. + bowel sounds. BACK: Pt endorses left CVA tenderness. MUSCULOSKELETAL: No cyanosis or edema. NEURO: Cranial nerves II through XII grossly intact. No obvious focal neurologic deficits. Moves all extremities well. Normal and brisk gait. PSYCH: He makes good eye contact. Speech is normal. Hospital Course Patient is a 46-year-old male with history of pancreatitis who was admitted due to chest and abdominal pain. Patient had a recent renal infarct several weeks prior to admission. Pt continued on home medications for hypertension, depression/anxiety. He was on Levemir and SSI for diabetes management. ACS was ruled out. Patient was started on atorvastatin and lisinopril. Lipase was slightly elevated and abdominal CT showed no acute pancreatic process. Pt endorsed suicidal ideations,a 11 sitter was ordered and patient was evaluated by psychiatry. Psychiatric evaluation showed adjustment disorder with disturbance of conduct. Sitter was discontinued. During hospital stay patient did experience a fall which was attributed to vasovagal syncope, no major injuries sustained. Patient was on Eliquis as management for renal infarct. Patient persistently endorsed left flank pain which was attributed to the renal infarct. A CT was done that showed a stable renal infarct and no other abnormalities. There was no evidence of bowel ischemia. Patient was initially on IV Dilaudid and was transitioned to oral medication. Patient was previously hospitalized and evaluated for this flank pain and it was recommended that he follow up with hematology as an outpatient. Patient has not yet followed up with hematology. He was recommended to do so after discharge. He was also encouraged to follow up regularly with his PCP to help stabilize chronic health issues as well as his pain. Pt Condition on Discharge: Stable Discharge Disposition: Discharge Home Discharge Instructions DIET: Follow Instructions for: Diabetic Diet Activities you can perform: Regular-No Restrictions Follow up Referrals: Hematology - 1 Week PCP Follow-up - 1 Week New Medications: Alprazolam (Xanax) 0.5 Mg Tab 0.5 MG PO Q6H PRN ANXIETY #20 TAB Apixaban (Eliquis) 5 Mg Tab 5 MG PO BID #60 TAB Atorvastatin (Atorvastatin) 40 Mg Tab 40 MG PO HS #30 TAB Carvedilol (Coreg) 3.125 Mg Tab 3.125 MG PO Q12HR #60 TAB Hydromorphone (Dilaudid) 2 Mg Tab 1 MG PO Q4H PRN PAIN GREATER THAN 6 #40 TAB Lisinopril (Lisinopril) 5 Mg Tab 5 MG PO DAILY #60 TAB Continued Medications: Insulin Glargine Inj (Lantus Inj) 1,000 Unit/10 Ml Vial 22 UNITS SQ HS Blood Sugar Management Ref 0 VIAL Nitroglycerin SL (Nitrostat SL) 0.4 Mg Subl 0.4 MG SL DIRECTED 1 tablet under the tongue as needed for chest pain. Repeat every 5 minutes for a total of 3 DOSES or call 911 if NO relief. PRN CHEST PAIN #100 Ref 0 TAB.SL Ondansetron (Zofran) 4 Mg Tab 4 MG PO Q6HR PRN NAUSEA OR VOMITING Ref 0 TAB Pregabalin (Lyrica) 75 Mg Cap 75 MG PO TID #90 Ref 0 CAP Quetiapine XR (Seroquel XR) 300 Mg Tab 300 MG PO HS #30 Ref 0 TAB Discontinued Medications: Apixaban (Eliquis) 5 Mg Tab 10 MG PO BID Blood Clot Prevention #12 TAB Karlie Cormier MD R2 Sep 04, 2016 16:35
== END 2016-09-03 17:09 | disposition home or self-care (01) | DRG 439 ==
LOC: NEPE 19:20 → NEDA 22:00 → INTOOBSV 22:00 → NEPGCP 08-28 00:02 → OBSVTOIN 08-28 10:42 → N05B 08-30 01:28 → UNDODISIN 09-03 17:04
PROVIDERS: ADMIT Family Medicine; ATTEND Family Medicine
DX: K85.90 Acute pancreatitis without necrosis or infection, unspecified (principal); J98.11 Atelectasis; I11.0 Hypertensive heart disease with heart failure; I50.9 Heart failure, unspecified; E11.65 Type 2 diabetes mellitus with hyperglycemia; K31.84 Gastroparesis; N28.0 Ischemia and infarction of kidney; E78.5 Hyperlipidemia, unspecified; K86.1 Other chronic pancreatitis; F41.8 Other specified anxiety disorders; F43.24 Adjustment disorder with disturbance of conduct; I25.10 Atherosclerotic heart disease of native coronary artery without angina pectoris; I25.2 Old myocardial infarction; I25.5 Ischemic cardiomyopathy; K59.00 Constipation, unspecified; F12.90 Cannabis use, unspecified, uncomplicated; Z66 Do not resuscitate; F17.200 Nicotine dependence, unspecified, uncomplicated; Z79.01 Long term (current) use of anticoagulants; Z79.4 Long term (current) use of insulin; Z79.899 Other long term (current) drug therapy; Z82.49 Family history of ischemic heart disease and other diseases of the circulatory system; Z95.5 Presence of coronary angioplasty implant and graft; Z91.81 History of falling; R07.9 Chest pain, unspecified
CPT/HCPCS: 71010; 71020; 73070; 74177; 78452; 80048; 80053; 80307; 82550; 82948; 83690; 83880; 84484; 85025; 85027; 85610; 86140; 93005; 93017; 96361; 96374; 96375; 96376; A9502; G0378; J1170; J1815; J2060; J2405; J2785; J7030; J7120; Q9967

== ENCOUNTER 2016-09-20 19:59 | Emergency (ER) | payer MEDICAID ==
[~2016-09-20] VITALS: Ht 170.2 cm; Wt 58.0 kg
[~2016-09-20 19:59] MED LIST changes: +ALPR.5 PO; -ALPR0.5T3 PO; -ASPI81TA11 PO; +ATOR40TA16 PO; -CARA1TAB6 PO; +CARV3.12 PO; +CARV3.125 PO; +DILA2TAB2 PO; -HYDR-3366 PO; +LISI-519 PO; -LISI10TA3 PO; -METO25TA3 PO; -PANT40TA3 PO; -REGL10TA5 PO; -WALKER WHEELS/F1 MIS
[2016-09-20 20:07] VITALS: BP 132/87; PULSE 89; RESP 18; TEMP 98.5; O2SAT 98
[2016-09-20] MEDS ORDERED: SODIUM CHLOR 0.9% 1000 ML INJ 1,000 ML IV SCH (20:08)
[2016-09-20] MEDS ORDERED: ONDANSETRON HCL 4 MG/2 ML VIAL IVP ONE (20:15)
[2016-09-20] MEDS ORDERED: MORPHINE SULFATE 4 MG/ML INJ IV PUSH ONE (20:15)
[2016-09-20] MEDS ORDERED: SODIUM CHLORIDE 0.9% FLUSH 10 ML FLUSH IV FLUSH PRN (20:15)
[2016-09-20 20:16] VITALS: RESP 18; O2SAT 97
[2016-09-20 20:38] LABS: AUTOMATED NEUTROPHIL # 6.8 TH/MM3 (1.8-7.7); BASOPHIL # 0.1 TH/MM3 (0-0.2); BASOPHIL % 0.6 % (0.0-2.0); EOSINOPHIL # 0.2 TH/MM3 (0-0.4); EOSINOPHIL % 2.5 % (0.0-4.0); HEMATOCRIT 49.2 % (39.0-51.0); HEMO FLAGS DIFF FINAL; LYMPH % 13.6 % (9.0-44.0); LYMPHOCYTE # 1.3 TH/MM3 (1.0-4.8); MEAN CELL VOLUME 90.5 FL (80.0-100.0); MEAN CORPUSCULAR HEMOGLOBIN 31.1 PG (27.0-34.0); MEAN CORPUSCULAR HGB CONC 34.4 % (32.0-36.0); MONO % 10.1 % (0.0-8.0); NEUT % 73.2 % (16.0-70.0); PLATELET COUNT 206 TH/MM3 (150-450); RED BLOOD COUNT 5.44 MIL/MM3 (4.50-5.90); RED CELL DISTRIBUTION WIDTH 16.3 % (11.6-17.2); WHITE BLOOD COUNT 9.3 TH/MM3 (4.0-11.0)
--- NOTE | 2016-09-20 20:44 | RADRPT ---
EXAM DATE/TIME: 09/20/2016 20:15 [facility] COMPARISON: CHEST SINGLE AP, August 27, 2016, 20:38. INDICATIONS : Chest pain. MEDICAL HISTORY : Diabetes mellitus type II. Pancreatitis. Gastroparesis. SC. CHF. Irregular SURGICAL HISTORY : Cholecystectomy. Cardiac stent. ENCOUNTER: Initial ACUITY: 1 day PAIN SCORE: 10/10 LOCATION: Bilateral chest FINDINGS: Single AP view of the chest. The lungs are clear. Cardiomediastinal silhouette within normal limits. No evidence of pleural effusion or pneumothorax. CONCLUSION: No acute cardiopulmonary disease identified. . Steve Rogers MD on September 20, 2016 at 20:41 Board Certified Radiologist. This report was verified electronically.
[2016-09-20 20:48] LABS: ANION GAP 9 MEQ/L (5-15)
[2016-09-20 20:59] LABS: ALKALINE PHOSPHATASE 121 U/L (45-117); ALT (GPT) 17 U/L (12-78); AST (GOT) 13 U/L (15-37); BICARBONATE 27.9 MEQ/L (21.0-32.0); BLOOD UREA NITROGEN 14 MG/DL (7-18); CHLORIDE 97 MEQ/L (98-107); CREATINE KINASE 58 U/L (39-308); GLOMERULAR FILTRATION RATE 80 ML/MIN (>89); POTASSIUM 3.7 MEQ/L (3.5-5.1); SODIUM (NA) 134 MEQ/L (136-145); TOTAL BILIRUBIN ADULT 0.4 MG/DL (0.2-1.0)
[2016-09-20 21:15] LABS: APTT (PATIENT) 25.7 SEC (24.3-30.1); INTERNATIONAL NORMALIZED RATIO 1.1 RATIO; PROTHROMBIN TIME - PATIENT 12.2 SEC (9.8-11.6)
[2016-09-20 21:17] LABS: BLOOD GAS VENOUS BASE EXCESS 3.4 mmol/L (-2-2); BLOOD GAS VENOUS HCO3 27 mmol/L (22-26); BLOOD GAS VENOUS O2 CONTENT 14.3 Vol % (9.0-17.0); BLOOD GAS VENOUS O2 HGB SAT 71 % (70-76); BLOOD GAS VENOUS PCO2 37 mmHg (44-48); BLOOD GAS VENOUS PO2 47 mmHg (35-40); BLOOD GAS VENOUS pH 7.48 (7.360-7.400); TEMP CORR TO 98.6
[2016-09-20 21:18] LABS: CRITICAL VALUE NO; FIO2 21 %; OXYGEN DEVICE RA; STAT YES
--- NOTE | 2016-09-20 21:27 | PD ---
HPI Chief Complaint: Abdominal Pain Time Seen by Provider: 20:08 Travel History International Travel<30 days: No Contact w/Intl Traveler<30days: No Traveled to known affect area: No History of Present Illness HPI Patient is a 46-year-old male history of diabetes pancreatitis and kidney infarct presents the emergency department for evaluation of acute on chronic abdominal pain. Patient states pain is majority on his left side. He noticed his blood sugar was significantly elevated. Patient states his pain is more severe today than it had been the past. Apparently he is on Dilaudid 2 mg by mouth tablets at home. States tried this prior to arrival without relief. Mild nausea without vomiting no blood in the stool no blood in the emesis. Denies any fevers. PFSH Past Medical History Hx Anticoagulant Therapy: Yes (on Eliquis for "stroke on kidney" and 3 cardiac stents) Arthritis: No Asthma: No Autoimmune Disease: No Blood Disorders: No Anxiety: Yes Depression: Yes Heart Rhythm Problems: Yes Cancer: No Cardiac Catheterization: Yes (one stent replaced 05/26) High Cholesterol: No Chemotherapy: No Chest Pain: Yes Congestive Heart Failure: Yes COPD: No Cerebrovascular Accident: No Coronary Artery Disease: Yes Diabetes: Yes Patient Takes Glucophage: No Diminished Hearing: No Endocrine: No Gastrointestinal Disorders: Yes (gastro paresis) GERD: Yes Glaucoma: No Genitourinary: Yes (Renal infraction L kidney ) Headaches: No Hepatitis: No Hiatal Hernia: Yes Hypertension: Yes Immune Disorder: No Implanted Vascular Access Dvce: Yes Kidney Stones: No Neurologic: No Psychiatric: No Reproductive: No Respiratory: No Integumentary: No Immunizations Current: Yes Migraines: No Myocardial Infarction: Yes (JULY 2012) Pancreatitis: Yes (CHRONIC) Radiation Therapy: No Seizures: Yes (2014 was the last one) Sleep Apnea: No Thyroid Disease: No Ulcer: No Past Surgical History Abdominal Surgery: Yes (herina repair) Body Medical Devices: PLATE IN RIGHT WRIST, 3 CARDIAC STENTS Cardiac Surgery: Yes (3 STENTS LAST CARDIAC CATH 05/25) Cholecystectomy: Yes (06/03/13) Coronary Artery Bypass Graft: No Coronary Stent: Yes Eye Surgery: Yes (implant lenses in eyes,) Oral Surgery: Yes (WISDOM TEETH) Pacemaker: No Other Surgery: Yes (IMPLANT EYE LENSES (), WRIST PLATE(), HERNIA (), 3 STENTS(2012)) Family History Family Myocardial Infarction: Yes (father and brothers- ) Family Hypercholesterolemia: Yes Social History Alcohol Use: No Tobacco Use: Yes (1 PPD ) Allergies-Medications (Allergen,Severity, Reaction): Coded Allergies: No Known Allergies (Verified , 09/20/16) Reported Meds & Prescriptions Reported Meds & Active Scripts Active Lisinopril 5 Mg Tab 5 Mg PO DAILY Dilaudid (Hydromorphone HCl) 2 Mg Tab 1 Mg PO Q4H PRN Atorvastatin (Atorvastatin Calcium) 40 Mg Tab 40 Mg PO HS Eliquis (Apixaban) 5 Mg Tab 5 Mg PO BID Xanax (Alprazolam) 0.5 Mg Tab 0.5 Mg PO Q6H PRN Reported Lantus Inj (Insulin Glargine) 1,000 Unit/10 Ml Vial 22 Units SQ HS Nitrostat SL (Nitroglycerin) 0.4 Mg Subl 0.4 Mg SL DIRECTED PRN 1 tablet under the tongue as needed for chest pain. Repeat every 5 minutes for a total of 3 DOSES or call 911 if NO relief. Seroquel XR (Quetiapine Fumarate) 300 Mg Tab 300 Mg PO HS Lyrica (Pregabalin) 75 Mg Cap 75 Mg PO TID Zofran (Ondansetron HCl) 4 Mg Tab 4 Mg PO Q6HR PRN Review of Systems Except as stated in HPI: all other systems reviewed are Neg Physical Exam Narrative GENERAL: Well-developed thin, smells of cigarette smoke, appears minimally uncomfortable. Was able to transfer himself from the EMS stretcher to our stretcher. SKIN: Focused skin assessment warm/dry. HEAD: Atraumatic. Normocephalic. EYES: Pupils equal and round. No scleral icterus. No injection or drainage. ENT: No nasal bleeding or discharge. Mucous membranes pink and moist. NECK: Trachea midline. No JVD. CARDIOVASCULAR: Regular rate and rhythm. No murmur appreciated. RESPIRATORY: No accessory muscle use. Clear to auscultation. Breath sounds equal bilaterally. GASTROINTESTINAL: Abdomen soft, non-tender, nondistended. Hepatic and splenic margins not palpable. MUSCULOSKELETAL: No obvious deformities. No clubbing. No cyanosis. No edema. No percussive tenderness. NEUROLOGICAL: Awake and alert. No obvious cranial nerve deficits. Motor grossly within normal limits. Normal speech. PSYCHIATRIC: Appropriate mood and affect; insight and judgment normal. Data Data Last Documented VS Vital Signs Date Time Temp Pulse Resp B/P Pulse Ox O2 Delivery O2 Flow Rate FiO2 09/20/16 20:16 18 97 Room Air 09/20/16 20:07 98.5 89 132/87 Orders Complete Blood Count With Diff (09/20/16 20:08) Comprehensive Metabolic Panel (09/20/16 20:08) Lipase (09/20/16 20:08) Lactic Acid (09/20/16 20:08) Prothrombin Time / Inr (Pt) (09/20/16 20:08) Act Partial Throm Time (Ptt) (09/20/16 20:08) Iv Access Insert/Monitor (09/20/16 20:08) Ecg Monitoring (09/20/16 20:08) Oximetry (09/20/16 20:08) Ondansetron Inj (Zofran Inj) (09/20/16 20:15) Sodium Chlor 0.9% 1000 Ml Inj (Ns 1000 M (09/20/16 20:08) Sodium Chloride 0.9% Flush (Ns Flush) (09/20/16 20:15) Electrocardiogram (09/20/16 20:08) Chest, Single Ap (09/20/16 20:08) Troponin I (09/20/16 20:08) Ckmb (Isoenzyme) Profile (09/20/16 20:08) Morphine Inj (Morphine Inj) (09/20/16 20:15) Blood Gas Venous (Vbg) (09/20/16 20:49) Blood Gas Venous (Vbg) (09/20/16 20:49) Insulin Human Regular Inj (Novolin R Inj (09/20/16 22:15) Ct Abd/Pel W Iv Contrast(Rout) (09/20/16 ) Morphine Inj (Morphine Inj) (09/20/16 22:15) Iohexol 350 Inj (Omnipaque 350 Inj) (09/21/16 01:09) Hydromorphone (Dilaudid) (09/21/16 02:00) Labs Laboratory Tests Test 09/20/16 09/20/16 09/20/16 09/20/16 20:15 20:17 20:40 20:49 White Blood Count 9.3 TH/MM3 Red Blood Count 5.44 MIL/MM3 Hemoglobin 16.9 GM/DL Hematocrit 49.2 % Mean Corpuscular Volume 90.5 FL Mean Corpuscular Hemoglobin 31.1 PG Mean Corpuscular Hemoglobin 34.4 % Concent Red Cell Distribution Width 16.3 % Platelet Count 206 TH/MM3 Mean Platelet Volume 8.7 FL Neutrophils (%) (Auto) 73.2 % Lymphocytes (%) (Auto) 13.6 % Monocytes (%) (Auto) 10.1 % Eosinophils (%) (Auto) 2.5 % Basophils (%) (Auto) 0.6 % Neutrophils # (Auto) 6.8 TH/MM3 Lymphocytes # (Auto) 1.3 TH/MM3 Monocytes # (Auto) 0.9 TH/MM3 Eosinophils # (Auto) 0.2 TH/MM3 Basophils # (Auto) 0.1 TH/MM3 CBC Comment DIFF FINAL Differential Comment Sodium Level 134 MEQ/L Potassium Level 3.7 MEQ/L Chloride Level 97 MEQ/L Carbon Dioxide Level 27.9 MEQ/L Anion Gap 9 MEQ/L Blood Urea Nitrogen 14 MG/DL Creatinine 1.01 MG/DL Estimat Glomerular Filtration 80 ML/MIN Rate Random Glucose 518 MG/DL Calcium Level 8.6 MG/DL Total Bilirubin 0.4 MG/DL Aspartate Amino Transf 13 U/L (AST/SGOT) Alanine Aminotransferase 17 U/L (ALT/SGPT) Alkaline Phosphatase 121 U/L Total Creatine Kinase 58 U/L Troponin I LESS THAN 0.02 NG/ML Total Protein 6.9 GM/DL Albumin 3.4 GM/DL Lipase 191 U/L Lactic Acid Level 2.3 mmol/L Prothrombin Time 12.2 SEC Prothromb Time International 1.1 RATIO Ratio Activated Partial 25.7 SEC Thromboplast Time Blood Gas Puncture Site RN BLOOD DRAW Blood Gas Patient Temperature 98.6 Venous Blood pH 7.48 Venous Blood Partial Pressure 37 mmHg CO2 Venous Blood Partial Pressure 47 mmHg O2 Venous Blood HCO3 27 mmol/L Venous Blood Oxygen Saturation 71 % Venous Blood Oxygen Content 14.3 Vol % Venous Blood Base Excess 3.4 mmol/L Oxygen Delivery Device RA Blood Gas Inspired Oxygen 21 % MDM Medical Decision Making Medical Screen Exam Complete: Yes Emergency Medical Condition: Yes Interpretation(s) EKG shows normal sinus rhythm normal axis and normal R-wave progression, remains negative in V1 and V3. No concerning ST segment changes. This an abnormal EKG. Differential Diagnosis Acute on chronic abdominal pain, pancreatitis, gastritis, gastroparesis, dehydration, acute abdomen unlikely. Narrative Course patient roomed in emergency department, given morphine and Zofran and Toradol. Still states she is significant only uncomfortable. His basic labs are reviewed showed no obvious abnormality. Discussed with the patient at length risk of radiation exposure after repeat CAT scans. I also discussed with him that certainly if they thinks that there is something really bad going on that we need to pursue a CAT scan. We agreed to pursue a CAT scan. Last 24 hours Impressions Chest X-Ray 09/20/162007 Signed Impressions: Service Date/Time: Tuesday, September 20, 2016 20:15 - CONCLUSION: No acute cardiopulmonary disease identified. . Steve Rogers MD Abdomen/Pelvis CT 09/20/16 Signed Impressions: Service Date/Time: Wednesday, September 21, 2016 01:04 - CONCLUSION: 1. Cortical scarring of the left kidney, unchanged. 2. No acute inflammatory process. 3. Bibasilar consolidation likely atelectasis. Rich Bliss MD Discussed the results with the patient, his blood sugar is better, no indication of DKA. Discussed with him that his acute abdominal pain is yet unexplained. Discussed with him that I think he needs to follow up with his regular physicians at this time for further management as an outpatient. Initially reluctant he was able to take by mouth pain medicine and ambulated from the emergency department. Discussed return to ED criteria and symptomatic management prior to his discharge. Diagnosis Primary Impression: Abdominal pain Disposition: DISCHARGE HOME Condition: Stable Dong Vilchis MD Sep 20, 2016 21:27
[2016-09-20] MEDS ORDERED: MORPHINE SULFATE 8 MG/ML INJ IV PUSH ONE (22:15)
[2016-09-20] MEDS ORDERED: INSULIN HUMAN REGULAR 1,000 UNITS/10 ML VIAL IV PUSH ONE (22:15)
[2016-09-21] MEDS ORDERED: IOHEXOL 350 MG/ML 10 ML VIAL (for RAD DIAG) IV ONE (01:09)
--- NOTE | 2016-09-21 01:23 | RADRPT ---
EXAM DATE/TIME: 09/21/2016 01:04 [facility] COMPARISON: CT ABDOMEN & PELVIS W CONTRAST, August 28, 2016, 11:18. INDICATIONS : Left sided abdominal pain with nausea and vomiting. IV CONTRAST: 87 cc Omnipaque 350 (iohexol) IV ORAL CONTRAST: No oral contrast ingested. RADIATION DOSE: 6.00 CTDIvol (mGy) MEDICAL HISTORY : Gastroesophageal reflux disease. Congestive heart failure. Cardiovascular diseaseDiabetes. Pancreatit is. Myocardial infarction. Hiatal hernia. Seizure. CAD. SURGICAL HISTORY : Cholecystectomy. ENCOUNTER: Initial ACUITY: 1 day PAIN SCALE: 9/10 LOCATION: Left abdomen TECHNIQUE: Volumetric scanning of the abdomen and pelvis was performed. Using automated exposure control and ad justment of the mA and/or kV according to patient size, radiation dose was kept as low as reasonably achievable to obtain optimal diagnostic quality images. DICOM format image data is available electro nically for review and comparison. FINDINGS: LOWER LUNGS: Bibasilar consolidation. LIVER: Homogeneous density without lesion. There is no dilation of the biliary tree. No calcified gallston es. SPLEEN: Normal size without lesion. PANCREAS: Within normal limits. KIDNEYS: Normal in size and shape. There is no mass, stone or hydronephrosis. Area of low attenuation again s een within the posterior cortex of the left mid to lower kidney, unchanged. ADRENAL GLANDS: Within normal limits. VASCULAR: There is no aortic aneurysm. BOWEL/MESENTERY: The stomach, small bowel, and colon demonstrate no acute abnormality. There is no free intraperitone al air or fluid. ABDOMINAL WALL: Within normal limits. RETROPERITONEUM: There is no lymphadenopathy. BLADDER: No wall thickening or mass. REPRODUCTIVE: Within normal limits. INGUINAL: There is no lymphadenopathy or hernia. MUSCULOSKELETAL: Within normal limits for patient age. CONCLUSION: 1. Cortical scarring of the left kidney, unchanged. 2. No acute inflammatory process. 3. Bibasilar consolidation likely atelectasis. Rich Bliss MD on September 21, 2016 at 1:19 Board Certified Radiologist. This report was verified electronically.
[2016-09-21] MEDS ORDERED: HYDROmorphone HCL 2 MG TAB PO ONE (02:00)
[2016-09-21] MEDS ORDERED: NOVOLOGP2 SQ (10:22)
--- NOTE | 2016-09-21 12:27 | EKG ---
Date Performed: 09/20/2016 Time Performed: 20:16:00 PTAGE: 46 years EKG: Sinus rhythm ANTEROSEPTAL MYOCARDIAL INFARCTION ABNORMAL ECG PREVIOUS TRACING : 08/28/2016 03.32 Compared to prior tracing no significant change DOCTOR: Billy Chacon Interpretating Date/Time 09/21/2016 12:24:01
== END 2016-09-21 03:27 | disposition home or self-care (01) ==
LOC: NEPC 19:59
DX: R10.9 Unspecified abdominal pain (principal); R94.31 Abnormal electrocardiogram [ECG] [EKG]; E11.9 Type 2 diabetes mellitus without complications; I11.0 Hypertensive heart disease with heart failure; I50.9 Heart failure, unspecified; K86.1 Other chronic pancreatitis; I25.10 Atherosclerotic heart disease of native coronary artery without angina pectoris; I25.2 Old myocardial infarction; F17.200 Nicotine dependence, unspecified, uncomplicated
CPT/HCPCS: 71010; 74177; 80053; 82550; 82805; 83605; 83690; 84484; 85025; 85610; 85730; 93005; 96374; 96375; 96376; 99285; J1815; J2270; J2405; J7030; Q9967

== ENCOUNTER 2016-09-21 08:09 | Observation (INO) | payer MEDICAID ==
[2016-09-21] VITALS (7 sets, daily range): BP systolic 115–184; BP diastolic 81–99; PULSE 77–92; RESP 14–24; TEMP 97.3–97.8; O2SAT 95–99
[~2016-09-21] VITALS: Ht 170.2 cm; Wt 57.0 kg
[~2016-09-21 08:09] MED LIST changes: -CARV3.12 PO; -CARV3.125 PO
--- NOTE | 2016-09-21 08:42 | PD ---
HPI Chief Complaint: Abdominal Pain Time Seen by Provider: 08:32 Travel History International Travel<30 days: No Contact w/Intl Traveler<30days: No Traveled to known affect area: No History of Present Illness HPI 46-year-old male with history of chronic pancreatitis, previous renal infarcts, seen last night for abdominal pain with negative CAT scan, presents to the ER today because he states that he is having ongoing left upper quadrant and left flank pain which she states is currently a 10 out of 10, nausea and vomiting, same as last night when he was seen. He denies any fevers or any other issues. He denies anything new. Modifying Factors: None Associated Signs & Symptoms: Left upper quadrant left flank pains, nausea and vomiting Risk Factors: Seen last night for same, history of pancreatitis, renal infarcts PFSH Past Medical History Hx Anticoagulant Therapy: Yes Arthritis: No Asthma: No Autoimmune Disease: No Blood Disorders: No Anxiety: Yes Depression: Yes Heart Rhythm Problems: Yes Cancer: No Cardiac Catheterization: Yes (one stent replaced 05/26) Cardiovascular Problems: Yes High Cholesterol: No Chemotherapy: No Chest Pain: Yes Congestive Heart Failure: Yes COPD: No Cerebrovascular Accident: No Coronary Artery Disease: Yes Diabetes: Yes Patient Takes Glucophage: No Diminished Hearing: No Endocrine: No Gastrointestinal Disorders: Yes (gastro paresis) GERD: Yes Glaucoma: No Genitourinary: Yes (Renal infraction L kidney ) Headaches: No Hepatitis: No Hiatal Hernia: Yes Hypertension: Yes Immune Disorder: No Implanted Vascular Access Dvce: Yes Kidney Stones: No Neurologic: No Psychiatric: No Reproductive: No Respiratory: No Integumentary: No Immunizations Current: Yes Migraines: No Myocardial Infarction: Yes (JULY 2012) Pancreatitis: Yes (CHRONIC) Radiation Therapy: No Seizures: Yes (2014 was the last one) Sleep Apnea: No Thyroid Disease: No Ulcer: No Tetanus Vaccination: < 5 Years Past Surgical History Abdominal Surgery: Yes (herina repair) Body Medical Devices: PLATE IN RIGHT WRIST, 3 CARDIAC STENTS Cardiac Surgery: Yes (3 STENTS LAST CARDIAC CATH 05/25) Cholecystectomy: Yes (06/03/13) Coronary Artery Bypass Graft: No Coronary Stent: Yes Eye Surgery: Yes (implant lenses in eyes,) Oral Surgery: Yes (WISDOM TEETH) Pacemaker: No Other Surgery: Yes (Gallbladder, cornea inplant) Family History Family Myocardial Infarction: Yes (father and brothers- ) Family Hypercholesterolemia: Yes Social History Alcohol Use: No Tobacco Use: Yes (1 PPD ) Substance Use: Yes (THC 08/25 Q few days) Allergies-Medications (Allergen,Severity, Reaction): Coded Allergies: No Known Allergies (Verified , 09/20/16) Reported Meds & Prescriptions Reported Meds & Active Scripts Active Lisinopril 5 Mg Tab 5 Mg PO DAILY Dilaudid (Hydromorphone HCl) 2 Mg Tab 1 Mg PO Q4H PRN Eliquis (Apixaban) 5 Mg Tab 5 Mg PO BID Xanax (Alprazolam) 0.5 Mg Tab 0.5 Mg PO Q6H PRN Reported Novolog Inj (Insulin Aspart) 1,000 Unit/10 Ml Vial 0 SQ DIRECTED Sliding Scale as directed. Lantus Inj (Insulin Glargine) 1,000 Unit/10 Ml Vial 18 Units SQ HS Nitrostat SL (Nitroglycerin) 0.4 Mg Subl 0.4 Mg SL DIRECTED PRN 1 tablet under the tongue as needed for chest pain. Repeat every 5 minutes for a total of 3 DOSES or call 911 if NO relief. Seroquel XR (Quetiapine Fumarate) 300 Mg Tab 300 Mg PO HS Lyrica (Pregabalin) 75 Mg Cap 75 Mg PO TID Zofran (Ondansetron HCl) 4 Mg Tab 4 Mg PO Q6HR PRN Review of Systems Except as stated in HPI: all other systems reviewed are Neg Physical Exam Narrative GENERAL: Well-developed middle age white male patient currently in moderate distress. Awake and oriented 3. SKIN: Focused skin assessment warm/dry. HEAD: Atraumatic. Normocephalic. EYES: Pupils equal and round. No scleral icterus. No injection or drainage. ENT: No nasal bleeding or discharge. Mucous membranes pink and moist. NECK: Trachea midline. No JVD. CARDIOVASCULAR: Regular rate and rhythm. No murmur appreciated. RESPIRATORY: No accessory muscle use. Clear to auscultation. Breath sounds equal bilaterally. GASTROINTESTINAL: Abdomen soft, epigastric and left upper quadrant tenderness without guarding or rebound, nondistended. Hepatic and splenic margins not palpable. MUSCULOSKELETAL: No obvious deformities. No clubbing. No cyanosis. No edema. NEUROLOGICAL: Awake and alert. No obvious cranial nerve deficits. Motor grossly within normal limits. Normal speech. PSYCHIATRIC: Appropriate mood and affect; insight and judgment normal. Data Data Last Documented VS Vital Signs Date Time Temp Pulse Resp B/P Pulse Ox O2 Delivery O2 Flow Rate FiO2 09/21/16 09:05 17 09/21/16 08:19 97.8 90 184/87 98 Room Air Orders Complete Blood Count With Diff (09/21/16 08:32) Comprehensive Metabolic Panel (09/21/16 08:32) Lipase (09/21/16 08:32) Urinalysis - C+S If Indicated (09/21/16 08:32) Iv Access Insert/Monitor (09/21/16 08:32) Ecg Monitoring (09/21/16 08:32) Oximetry (09/21/16 08:32) Morphine Inj (Morphine Inj) (09/21/16 08:45) Ondansetron Inj (Zofran Inj) (09/21/16 08:45) Sodium Chloride 0.9% Flush (Ns Flush) (09/21/16 08:45) Sodium Chlor 0.9% 1000 Ml Inj (Ns 1000 M (09/21/16 09:45) Lactic Acid Sepsis Protocol (09/21/16 09:44) Chest, Single Ap (09/21/16 09:44) Blood Culture (09/21/16 09:44) Piperacil-Tazo 4.5 Gm Premix (Zosyn 4.5 (09/21/16 10:43) Labs Laboratory Tests Test 09/21/16 09/21/16 09/21/16 08:40 09:52 10:15 White Blood Count 20.9 TH/MM3 Red Blood Count 5.64 MIL/MM3 Hemoglobin 17.7 GM/DL Hematocrit 51.1 % Mean Corpuscular Volume 90.7 FL Mean Corpuscular Hemoglobin 31.4 PG Mean Corpuscular Hemoglobin 34.6 % Concent Red Cell Distribution Width 16.4 % Platelet Count 211 TH/MM3 Mean Platelet Volume 8.2 FL Neutrophils (%) (Auto) 86.8 % Lymphocytes (%) (Auto) 4.8 % Monocytes (%) (Auto) 6.5 % Eosinophils (%) (Auto) 1.3 % Basophils (%) (Auto) 0.6 % Neutrophils # (Auto) 18.1 TH/MM3 Lymphocytes # (Auto) 1.0 TH/MM3 Monocytes # (Auto) 1.4 TH/MM3 Eosinophils # (Auto) 0.3 TH/MM3 Basophils # (Auto) 0.1 TH/MM3 CBC Comment DIFF FINAL Differential Comment Sodium Level 136 MEQ/L Potassium Level 4.2 MEQ/L Chloride Level 101 MEQ/L Carbon Dioxide Level 26.3 MEQ/L Anion Gap 9 MEQ/L Blood Urea Nitrogen 11 MG/DL Creatinine 0.81 MG/DL Estimat Glomerular Filtration 103 ML/MIN Rate Random Glucose 340 MG/DL Calcium Level 9.2 MG/DL Total Bilirubin 0.7 MG/DL Aspartate Amino Transf 45 U/L (AST/SGOT) Alanine Aminotransferase 37 U/L (ALT/SGPT) Alkaline Phosphatase 153 U/L Total Protein 7.7 GM/DL Albumin 3.9 GM/DL Lipase 172 U/L Lactic Acid Level 1.1 mmol/L Urine Color YELLOW Urine Turbidity CLEAR Urine pH 6.0 Urine Specific [place] 1.050 Urine Protein 100 mg/dL Urine Glucose (UA) 1000 mg/dL Urine Ketones 10 mg/dL Urine Occult Blood NEG Urine Nitrite NEG Urine Bilirubin NEG Urine Urobilinogen LESS THAN 2.0 MG/DL Urine Leukocyte Esterase NEG Urine RBC 1 /hpf Urine WBC 1 /hpf Microscopic Urinalysis Comment CULT NOT INDICATED MDM Medical Decision Making Medical Screen Exam Complete: Yes Emergency Medical Condition: Yes Medical Record Reviewed: Yes Interpretation(s) Laboratory Tests Test 09/21/16 09/21/16 08:40 10:15 White Blood Count 20.9 TH/MM3 (4.0-11.0) Hemoglobin 17.7 GM/DL (13.0-17.0) Hematocrit 51.1 % (39.0-51.0) Neutrophils (%) (Auto) 86.8 % (16.0-70.0) Lymphocytes (%) (Auto) 4.8 % (9.0-44.0) Neutrophils # (Auto) 18.1 TH/MM3 (1.8-7.7) Monocytes # (Auto) 1.4 TH/MM3 (0-0.9) Random Glucose 340 MG/DL (74-106) Aspartate Amino Transf 45 U/L (15-37) (AST/SGOT) Alkaline Phosphatase 153 U/L (45-117) Urine Specific [place] 1.050 (1.002-1.035) Urine Protein 100 mg/dL (NEG-TRACE) Urine Glucose (UA) 1000 mg/dL (NEG) Urine Ketones 10 mg/dL (NEG) Differential Diagnosis Left upper quadrant abdominal pain with nausea and vomitingchronic pancreatitis versus acute on chronic abdominal pain versus renal colic versus opiate withdrawal Narrative Course Patient returning for worsening in pain less than 24 hours after leaving the ER. Initial CAT scan is done less than 24 hours ago did not show any signs of acute processes. At this point, he is still vomiting and doing poorly at home. Lab work shows significant leukocytosis of uncertain etiology. He is afebrile. At this point, my plan would be to give him antibiotics as a precaution and get him admitted for further treatment for recurrent abdominal pain and vomiting. Case is discussed with Dr. Zhu for admission. Diagnosis Primary Impression: Recurrent abdominal pain Additional Impressions: Nausea & vomiting Leukocytosis Admitting Information Admitting Physician Requests: Admit Franck Bradshaw MD Sep 21, 2016 08:42
[2016-09-21] MEDS ORDERED: SODIUM CHLORIDE 0.9% FLUSH 10 ML FLUSH IV FLUSH PRN ×2 (08:45→11:15)
[2016-09-21] MEDS ORDERED: ONDANSETRON HCL 4 MG/2 ML VIAL IVP ONE (08:45)
[2016-09-21] MEDS ORDERED: MORPHINE SULFATE 4 MG/ML INJ IV PUSH ONE (08:45)
[2016-09-21 08:58] LABS: AUTOMATED NEUTROPHIL # 18.1 TH/MM3 (1.8-7.7); BASOPHIL # 0.1 TH/MM3 (0-0.2); BASOPHIL % 0.6 % (0.0-2.0); EOSINOPHIL # 0.3 TH/MM3 (0-0.4); EOSINOPHIL % 1.3 % (0.0-4.0); HEMATOCRIT 51.1 % (39.0-51.0); HEMO FLAGS DIFF FINAL; LYMPH % 4.8 % (9.0-44.0); MEAN CELL VOLUME 90.7 FL (80.0-100.0); MEAN CORPUSCULAR HEMOGLOBIN 31.4 PG (27.0-34.0); MEAN CORPUSCULAR HGB CONC 34.6 % (32.0-36.0); MONO % 6.5 % (0.0-8.0); NEUT % 86.8 % (16.0-70.0); PLATELET COUNT 211 TH/MM3 (150-450); RED BLOOD COUNT 5.64 MIL/MM3 (4.50-5.90); RED CELL DISTRIBUTION WIDTH 16.4 % (11.6-17.2); WHITE BLOOD COUNT 20.9 TH/MM3 (4.0-11.0)
[2016-09-21 09:33] LABS: ALKALINE PHOSPHATASE 153 U/L (45-117); ALT (GPT) 37 U/L (12-78); ANION GAP 9 MEQ/L (5-15); AST (GOT) 45 U/L (15-37); BICARBONATE 26.3 MEQ/L (21.0-32.0); BLOOD UREA NITROGEN 11 MG/DL (7-18); CHLORIDE 101 MEQ/L (98-107); GLOMERULAR FILTRATION RATE 103 ML/MIN (>89); SODIUM (NA) 136 MEQ/L (136-145); TOTAL BILIRUBIN ADULT 0.7 MG/DL (0.2-1.0)
[2016-09-21 09:34] LABS: POTASSIUM 4.2 MEQ/L (3.5-5.1)
[2016-09-21] MEDS ORDERED: SODIUM CHLOR 0.9% 1000 ML INJ 1,000 ML IV ONE (09:45)
--- NOTE | 2016-09-21 10:06 | RADRPT ---
EXAM DATE/TIME: 09/21/2016 09:46 [place] COMPARISON: CHEST SINGLE AP, September 20, 2016, 20:15. INDICATIONS : Palpitations MEDICAL HISTORY : Gastroesophageal reflux disease. Congestive heart failure. Cardiovascular diseaseDiabetes.Pancreatiti s. Myocardial infarction. Hiatal hernia. Seizure. CAD SURGICAL HISTORY : Cholecystectomy. Cardiac stents ENCOUNTER: Initial ACUITY: 1 week PAIN SCORE: 0/10 LOCATION: chest FINDINGS: A single view of the chest demonstrates the lungs to be symmetrically aerated without evidence of mas s, infiltrate or effusion. The cardiomediastinal contours are unremarkable. Osseous structures are intact. CONCLUSION: No acute disease. Johnathan Lim MD on September 21, 2016 at 10:04 Board Certified Radiologist. This report was verified electronically.
[2016-09-21] MEDS ORDERED: NOVOLOGP2 SQ (10:22)
[2016-09-21 10:27] LABS: BLOOD, URINE NEG (NEG); GLUCOSE,URINE 1000 mg/dL (NEG); KETONE, URINE 10 mg/dL (NEG); NITRITE,URINE NEG (NEG); URINE COLOR YELLOW (YELLW/STRAW)
[2016-09-21 10:34] LABS: COMMENT (UR) CULT NOT INDICATED; CULTURE IF INDICATED CULT NOT INDICATED
[2016-09-21] MEDS ORDERED: PIPERACIL-TAZO 4.5 GM PREMIX 100 ML IV STA (10:43)
[2016-09-21] MEDS ORDERED: NALOXONE HCL 0.4 MG/ML AMP IV PRN (11:15)
[2016-09-21] MEDS ORDERED: GLUCAGON 1 MG/ML VIAL OTHER PRN (11:15)
[2016-09-21] MEDS ORDERED: ACETAMINOPHEN 325 MG TAB PO PRN ×2 (11:15)
[2016-09-21] MEDS ORDERED: BISACODYL 10 MG SUPP RECTAL PRN (11:15)
[2016-09-21] MEDS ORDERED: MAGNESIUM HYDROXIDE SUSP 30 ML CUP PO PRN (11:15)
[2016-09-21] MEDS ORDERED: LACTULOSE SYRUP 20 GM/30 ML CUP PO PRN (11:15)
[2016-09-21] MEDS ORDERED: DEXTROSE 50% IN WATER 50 ML VIAL(D50) IV PRN (11:15)
[2016-09-21] MEDS ORDERED: SENNOSIDES 8.6 MG TAB PO PRN (11:15)
[2016-09-21] MEDS ORDERED: ENOXAPARIN SODIUM 40 MG/0.4 ML SYRINGE SQ SCH (12:00)
[2016-09-21] MEDS: ONDANSETRON HCL 4 MG/2 ML VIAL IVP PRN (12:01)
[2016-09-21] MEDS: MORPHINE SULFATE 4 MG/ML INJ IV PRN ×4 (12:01→21:55)
--- NOTE | 2016-09-21 13:28 | HHI.HP ---
[facility] Service [place] [facility] Primary Care Physician Mohsen Pablo Admission Diagnosis intractable abdominal pain/nausea and vomiting/leukocytosis Diagnoses: (1) Recurrent abdominal pain (2) Leukocytosis (3) Hypertension (4) DM (diabetes mellitus) (5) Depression with anxiety (6) Sepsis Chief Complaint: Abdominal pain Travel History International Travel<30 Days: No Contact w/Intl Traveler <30 Da: No Traveled to Known Affected Are: No Sepsis Criteria SIRS Criteria (2 or more): Heart rate over 90, WBC > 58218, < 4000 or > 10% bands Sepsis Criteria (SIRS+source): Infect source susp/known Criteria Outcome: Meets sepsis criteria History of Present Illness Is a 46-year-old male who presented to the emergency department with complaint of worsening abdominal pain. The pain is located in the left upper quadrant and the left flank. It radiates through to his back. He describes the pain as sharp , stabbing. 10/10 at its worst. He also reports nausea and vomiting. He states that he has had the pain off and on for the past few months. In July of this year he was diagnosed with a left renal infarction. He has been on Eliquis for anticoagulation since that time. He states that the pain has never really gone away. He came into the emergency department late last night with similar complaints, and was discharged home. The pain worsened throughout the morning and he returned to the ER for further evaluation. CT scan done last night showed no acute cause of the patient's pain. Review of Systems Constitutional: DENIES: Fever, Chills, Night Sweats Eyes: DENIES: Blurred vision, Vision loss Ears, nose, mouth, throat: DENIES: Hearing loss Respiratory: DENIES: Cough, Wheezing, Sputum production, Shortness of breath Cardiovascular: DENIES: Chest pain, Palpitations, Dyspnea on Exertion, Lower Extremity Edema Gastrointestinal: COMPLAINS OF: Abdominal pain, Diarrhea, Nausea, Vomiting, DENIES: Constipation Genitourinary: DENIES: Urinary frequency, Urinary incontinence, Urgency, Hematuria, Dysuria, Nocturia Musculoskeletal: DENIES: Joint pain, Muscle aches Integumentary: DENIES: Pruritus, Rash Hematologic/lymphatic: DENIES: Bruising Neurologic: DENIES: Headache Past Family Social History Past Medical History Diabetes mellitus, insulin-dependent Hypertension Hyperlipidemia Anxiety/depression Coronary artery disease Chronic pancreatitis History of left renal infarct History of seizures Past Surgical History Cholecystectomy 2014 Right hand surgery Coronary artery stents 2016 I surgery [place] tooth extraction Reported Medications Lisinopril 5 Mg Tab 5 Mg PO DAILY Dilaudid (Hydromorphone HCl) 2 Mg Tab 1 Mg PO Q4H PRN Eliquis (Apixaban) 5 Mg Tab 5 Mg PO BID Xanax (Alprazolam) 0.5 Mg Tab 0.5 Mg PO Q6H PRN Novolog Inj (Insulin Aspart) 1,000 Unit/10 Ml Vial 0 SQ DIRECTED Sliding Scale as directed. Lantus Inj (Insulin Glargine) 1,000 Unit/10 Ml Vial 18 Units SQ HS Nitrostat SL (Nitroglycerin) 0.4 Mg Subl 0.4 Mg SL DIRECTED PRN 1 tablet under the tongue as needed for chest pain. Repeat every 5 minutes for a total of 3 DOSES or call 911 if NO relief. Seroquel XR (Quetiapine Fumarate) 300 Mg Tab 300 Mg PO HS Lyrica (Pregabalin) 75 Mg Cap 75 Mg PO TID Zofran (Ondansetron HCl) 4 Mg Tab 4 Mg PO Q6HR PRN Allergies: Coded Allergies: No Known Allergies (Verified , 09/20/16) Family History Heart disease, hyperlipidemia Social History Smokes one pack per day. Admits to marijuana use. Denies alcohol use. Physical Exam Vital Signs Vital Signs Date Time Temp Pulse Resp B/P Pulse Ox O2 Delivery O2 Flow Rate FiO2 09/21/16 12:27 85 146/84 09/21/16 12:26 16 09/21/16 11:52 84 14 177/99 98 Room Air 09/21/16 09:05 17 09/21/16 08:19 97.8 90 14 184/87 98 Room Air 09/21/16 08:11 97.7 92 24 169/86 99 Room Air Physical Exam GENERAL: Well-nourished, well-developed male in no acute distress. Appears uncomfortable. HEENT: Normocephalic, atraumatic. Pupils equal, round and reactive. Extraocular movements intact. No scleral icterus. No injection or drainage. Oropharynx is clear. Mucous membranes are moist. CARDIOVASCULAR: Regular rate and rhythm without murmurs, gallops, or rubs. RESPIRATORY: Clear to auscultation. No wheezes, rales, or rhonchi. Breathing is non-labored. GASTROINTESTINAL: Abdomen soft, tender to palpation in the left upper quadrant, nondistended. Mild left CVA tenderness. EXTREMITIES: No lower extremity edema. No calf tenderness. PSYCH: Alert and oriented x 3. Laboratory Laboratory Tests Test 09/21/16 09/21/16 09/21/16 08:40 09:52 10:15 White Blood Count 20.9 Red Blood Count 5.64 Hemoglobin 17.7 Hematocrit 51.1 Mean Corpuscular Volume 90.7 Mean Corpuscular Hemoglobin 31.4 Mean Corpuscular Hemoglobin 34.6 Concent Red Cell Distribution Width 16.4 Platelet Count 211 Mean Platelet Volume 8.2 Neutrophils (%) (Auto) 86.8 Lymphocytes (%) (Auto) 4.8 Monocytes (%) (Auto) 6.5 Eosinophils (%) (Auto) 1.3 Basophils (%) (Auto) 0.6 Neutrophils # (Auto) 18.1 Lymphocytes # (Auto) 1.0 Monocytes # (Auto) 1.4 Eosinophils # (Auto) 0.3 Basophils # (Auto) 0.1 CBC Comment DIFF FINAL Differential Comment Sodium Level 136 Potassium Level 4.2 Chloride Level 101 Carbon Dioxide Level 26.3 Anion Gap 9 Blood Urea Nitrogen 11 Creatinine 0.81 Estimat Glomerular Filtration 103 Rate Random Glucose 340 Calcium Level 9.2 Total Bilirubin 0.7 Aspartate Amino Transf 45 (AST/SGOT) Alanine Aminotransferase 37 (ALT/SGPT) Alkaline Phosphatase 153 Total Protein 7.7 Albumin 3.9 Lipase 172 Lactic Acid Level 1.1 Urine Color YELLOW Urine Turbidity CLEAR Urine pH 6.0 Urine Specific [place] 1.050 Urine Protein 100 Urine Glucose (UA) 1000 Urine Ketones 10 Urine Occult Blood NEG Urine Nitrite NEG Urine Bilirubin NEG Urine Urobilinogen LESS THAN 2.0 Urine Leukocyte Esterase NEG Urine RBC 1 Urine WBC 1 Microscopic Urinalysis Comment CULT NOT INDICATED Date/Time Procedure Status Source Growth 09/21/16 09:55 Aerobic Blood Culture Received Blood Peripheral Pending 09/21/16 09:55 Anaerobic Blood Culture Received Blood Peripheral Pending Result Diagram: 09/21/16 0840 09/21/16 0840 Imaging Last Impressions Chest X-Ray 09/21/16 0944 Signed Impressions: Service Date/Time: Wednesday, September 21, 2016 09:46 - CONCLUSION: No acute disease. Johnathan Lim MD Assessment and Plan Assessment and Plan 1. Recurrent abdominal pain, intractable: Continue pain control. Patient has history of chronic pancreatitis, but lipase is within normal limits. Was recently diagnosed with renal infarct. CT of the abdomen/pelvis done earlier this morning shows no acute process. 2. Sepsis: Patient presented with leukocytosis, tachycardia. Source presumed to be abdominal. Continue empiric antibiotics. Lactic acid is within normal limits. 3. Diabetes mellitus: Continue Levemir. Monitor Accu-Cheks and cover with sliding scale insulin. 4. Hypertension: Continue lisinopril. 5. Coronary artery disease: Continue DENG inhibitor. Not on statin. Was reportedly on atorvastatin at discharge of last hospitalization, but denies taking cholesterol lowering medication. 6. Left renal infarct: Diagnosed in July 2016. Continue Eliquis. 7. DVT prophylaxis: Eliquis. Collin Zhu MD Sep 21, 2016 13:27
[2016-09-21] MEDS ORDERED: INSULIN ASPART SUPPLEMENTAL SCALE SQ SCH (16:00)
[2016-09-21] MEDS: INSULIN ASPART SUPPLEMENTAL SCALE SQ SCH ×2 (17:03→21:51)
[2016-09-21] MEDS: PIPERACIL-TAZO 3.375 GM PREMIX 50 ML IV SCH ×2 (17:56→23:53)
[2016-09-21] MEDS: PREGABALIN 75 MG CAP PO SCH (18:26)
[2016-09-21] MEDS: ALPRAZolam 0.5 MG TAB PO PRN (18:34)
[2016-09-21] MEDS: INSULIN DETEMIR 100 UNITS/ML VIAL SQ SCH (21:50)
[2016-09-21] MEDS: QUEtiapine FUMARATE 300 MG TAB PO SCH (21:54)
[2016-09-21] MEDS: APIXABAN 5 MG TABLET PO SCH (21:54)
[2016-09-21] MEDS: DOCUSATE SODIUM 50 MG/SENNA 8.6 MG TAB PO SCH (21:54)
[2016-09-21] MEDS: SODIUM CHLORIDE 0.9% FLUSH 10 ML FLUSH IV FLUSH SCH (21:54)
[2016-09-22] MEDS: MORPHINE SULFATE 4 MG/ML INJ IV PRN ×6 (01:38→22:34)
[2016-09-22 04:07] VITALS: BP 111/70; PULSE 72; RESP 17; TEMP 97.1; O2SAT 98
[2016-09-22] MEDS: PIPERACIL-TAZO 3.375 GM PREMIX 50 ML IV SCH ×4 (05:35→23:06)
[2016-09-22] MEDS: INSULIN ASPART SUPPLEMENTAL SCALE SQ SCH ×4 (05:42→21:00)
[2016-09-22 07:17] VITALS: BP 154/99; PULSE 70; RESP 16; TEMP 97.6; O2SAT 97
[2016-09-22] MEDS: APIXABAN 5 MG TABLET PO SCH ×2 (08:33→21:03)
[2016-09-22] MEDS: PREGABALIN 75 MG CAP PO SCH ×3 (08:33→17:32)
[2016-09-22] MEDS: DOCUSATE SODIUM 50 MG/SENNA 8.6 MG TAB PO SCH ×2 (08:33→21:03)
[2016-09-22] MEDS: LISINOPRIL 5 MG TAB PO SCH (08:33)
[2016-09-22] MEDS: SODIUM CHLORIDE 0.9% FLUSH 10 ML FLUSH IV FLUSH SCH ×2 (08:34→21:03)
[2016-09-22] MEDS: ALPRAZolam 0.5 MG TAB PO PRN ×3 (09:59→22:31)
[2016-09-22] MEDS ORDERED: MAGNESIUM HYDROXIDE SUSP 30 ML CUP PO ONE (11:30)
--- NOTE | 2016-09-22 11:48 | HHI.PR ---
Subjective Remarks Follow up for left flank pain, renal infarct, nausea/vomiting. The patient reports continued severe left flank pain, unchanged compared to yesterday. He also reports nausea but no vomiting today. He states his nausea is much relieved by IV Zofran. He was not getting any relief with SL zofran at home. He tolerated his entire breakfast. He reports he has not had a bowel movement in 3 days. He states he has had trouble obtaining pain medications as outpatient. He states he fills prescriptions when he is discharged from the hospital however his PCP will not refill his pain meds and has referred him to pain management in [place] however he has not been able to get a ride out there. Objective Vitals Vital Signs Date Time Temp Pulse Resp B/P Pulse Ox O2 Delivery O2 Flow Rate FiO2 09/22/16 10:04 16 09/22/16 09:33 18 09/22/16 07:17 97.6 70 16 154/99 97 09/22/16 04:07 97.1 72 17 111/70 98 09/21/16 23:35 97.3 83 17 115/83 98 09/21/16 19:31 97.5 78 18 127/81 95 09/21/16 18:40 18 09/21/16 16:34 77 18 174/90 95 09/21/16 12:27 85 146/84 09/21/16 11:52 84 14 177/99 98 Room Air Result Diagram: 09/21/16 0840 09/21/16 0840 Other [facility]: 09/14 [place] 10/325mg #[address] Martin 09/03 Dilaudid 2mg #40 by Ida 09/03 Xanax 0.5mg #20 by Ida 08/14 [place] 5/326mg #[address] Hinojosa 08/11 [place] 5/325mg #[address] Warner 08/07 [place] 5/325mg #[address] Martin 07/31 [place] 10/325mg #[address] Roberts 07/21 Percocet 5/325mg #[address] Thiago Torres Imaging Last Impressions Chest X-Ray 09/21/16 09 Signed Impressions: Service Date/Time: Wednesday, September 21, 2016 09:46 - CONCLUSION: No acute disease. Johnathan Lim MD Objective Remarks GENERAL: Well-nourished, well-developed middle aged male patient in [facility]. SKIN: Warm and dry. No rash. HEENT: Normocephalic. Atraumatic.Pupils equal and round. Mucous membranes pink and moist. CARDIOVASCULAR: Regular rate and rhythm. S1, S2 noted. No murmur appreciated. RESPIRATORY: No accessory muscle use. Clear to auscultation. Breath sounds equal bilaterally. GASTROINTESTINAL: Abdomen soft, nondistended, diffuse left sided abdominal/ flank tenderness to palpation. Normoactive bowel sounds x4. MUSCULOSKELETAL: No obvious deformities. Extremities without clubbing, cyanosis , or edema. Left flank TTP, no overlying rash/erythema/edema. NEUROLOGICAL: Awake and alert. No obvious cranial nerve deficits. Motor grossly within normal limits. Normal speech. PSYCHIATRIC: Appropriate mood and affect; insight and judgment normal. Medications and IVs Current Medications Medications (Trade) Dose Ordered Sig/Patsy Route Start Time Stop Time Status Last Admin (NS Flush) 2 ml UNSCH PRN IV FLUSH 09/21/16 08:45 (NS Flush) 2 ml UNSCH PRN IV FLUSH 09/21/16 11:15 (NS Flush) 2 ml BID IV FLUSH 09/21/16 21:00 09/22/16 08:34 (Tylenol) 650 mg Q4H PRN PO 09/21/16 11:15 (Zofran Inj) 4 mg Q6H PRN IVP 09/21/16 11:15 09/21/16 12:01 (Tylenol) 650 mg Q6H PRN PO 09/21/16 11:15 (Morphine Inj) 2 mg Q3H PRN IV 09/21/16 11:15 09/22/16 09:59 (Morphine Inj) 4 mg Q3H PRN IV 09/21/16 11:15 09/22/16 06:18 (Narcan Inj) 0.4 mg UNSCH PRN IV 09/21/16 11:15 (Mahnaz-Colace) 1 tab BID PO 09/21/16 21:00 09/22/16 08:33 (Milk Of Magnesia Liq) 30 ml Q12H PRN PO 09/21/16 11:15 (Senokot) 17.2 mg Q12H PRN PO 09/21/16 11:15 (Dulcolax Supp) 10 mg DAILY PRN RECTAL 09/21/16 11:15 (Lactulose Liq) 30 ml DAILY PRN PO 09/21/16 11:15 (D50w (Vial) Inj) 50 ml UNSCH PRN IV 09/21/16 11:15 (Glucagon Inj) 1 mg UNSCH PRN OTHER 09/21/16 11:15 (Xanax) 0.5 mg Q6H PRN PO 09/21/16 13:15 09/22/16 09:59 (Eliquis) 5 mg BID PO 09/21/16 21:00 09/22/16 08:33 (Levemir Inj) 18 units HS SQ 09/21/16 21:00 09/21/16 21:50 (Prinivil) 5 mg DAILY PO 09/22/16 09:00 09/22/16 08:33 (Lyrica) 75 mg TID PO 09/21/16 18:00 09/22/16 08:33 Quetiapine Fumarate 300 mg 300 mg HS PO 09/21/16 21:00 09/21/16 21:54 (Zosyn 3.375 Gm Premix) 50 ml @ 100 mls/hr Q6H IV 09/21/16 18:00 09/22/16 05:35 A/P Problem List: (1) Recurrent abdominal pain ICD Code: R10.9 Status: Acute (2) Leukocytosis ICD Code: D72.829 Status: Acute (3) Hypertension ICD Code: I10 Status: Chronic (4) DM (diabetes mellitus) ICD Code: E11.9 Status: Chronic (5) Depression with anxiety ICD Code: F41.8 Status: Chronic (6) Sepsis ICD Code: A41.9 Status: Acute Assessment and Plan 46-year-old male with history of insulin dependent diabetes, 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 Sepsis: Patient presented with leukocytosis WBC 20.9K, tachycardia, HR 92. Source presumed to be abdominal. Lactic acid wnl. UA negative. CXR unremarkable. -Continue empiric antibiotics. -Monitor CBC. -Blood cultures with NGTD. Recurrent intractable abdominal pain, failed outpatient: Initially seen in ED , CT abd/pelvis showed no acute findings, cortical scarring left kidney, unchanged. He was discharged home, returned to ED 09/21 with intractable pain. Patient has history of chronic pancreatitis, but lipase wnl. UA unremarkable. -Continue pain control with IV morphine prn . -Continue supportive treatment with IV antiemetics prn -diet as tolerated Left renal infarct: Diagnosed in July 2016. -Continue Eliquis. -trial of lidoderm patch Diabetes mellitus: chronic, uncontrolled, HgbA1c 10.6 on 06/21/16 -Continue patient's Levemir. -Monitor Accu-Cheks and cover with sliding scale insulin. HTN/CAD: Chronic, stable. Not on statin. Was reportedly on atorvastatin at discharge of last hospitalization, but denies taking cholesterol lowering medication and lipid panel May2015 wnl. -Continue DENG inhibitor. DVT prophylaxis: Eliquis. Discharge Planning Discharge pending further clinical improvement. Anjana Lizarraga PA-C Sep 22, 2016 11:48 am
[2016-09-22 12:30] VITALS: BP 162/97; PULSE 75; RESP 16; TEMP 97.8; O2SAT 100
[2016-09-22 12:56] LABS: AUTOMATED NEUTROPHIL # 4.8 TH/MM3 (1.8-7.7); BASOPHIL # 0.1 TH/MM3 (0-0.2); EOSINOPHIL # 0.5 TH/MM3 (0-0.4); EOSINOPHIL % 6.3 % (0.0-4.0); HEMATOCRIT 46.9 % (39.0-51.0); HEMO FLAGS DIFF FINAL; LYMPH % 20.1 % (9.0-44.0); LYMPHOCYTE # 1.6 TH/MM3 (1.0-4.8); MEAN CELL VOLUME 89.2 FL (80.0-100.0); MEAN CORPUSCULAR HEMOGLOBIN 30.6 PG (27.0-34.0); MEAN CORPUSCULAR HGB CONC 34.3 % (32.0-36.0); MONO % 10.4 % (0.0-8.0); NEUT % 62.2 % (16.0-70.0); PLATELET COUNT 143 TH/MM3 (150-450); RED BLOOD COUNT 5.26 MIL/MM3 (4.50-5.90); RED CELL DISTRIBUTION WIDTH 16.3 % (11.6-17.2); WHITE BLOOD COUNT 7.7 TH/MM3 (4.0-11.0)
[2016-09-22] MEDS: LIDOCAINE HCL 5% PATCH T-DERMAL SCH (13:07)
[2016-09-22 13:22] LABS: ALKALINE PHOSPHATASE 154 U/L (45-117); ALT (GPT) 80 U/L (12-78); ANION GAP 8 MEQ/L (5-15); AST (GOT) 103 U/L (15-37); BICARBONATE 27.2 MEQ/L (21.0-32.0); BLOOD UREA NITROGEN 13 MG/DL (7-18); CHLORIDE 102 MEQ/L (98-107); GLOMERULAR FILTRATION RATE 128 ML/MIN (>89); POTASSIUM 4.7 MEQ/L (3.5-5.1); SODIUM (NA) 137 MEQ/L (136-145); TOTAL BILIRUBIN ADULT 0.5 MG/DL (0.2-1.0)
[2016-09-22 17:25] VITALS: BP 170/99; PULSE 72; RESP 16; TEMP 98; O2SAT 98
[2016-09-22] MEDS: ONDANSETRON HCL 4 MG/2 ML VIAL IVP PRN (19:31)
[2016-09-22 19:52] VITALS: BP 146/87; PULSE 76; RESP 18; TEMP 98.1; O2SAT 98
[2016-09-22] MEDS ORDERED: REMOVE OLD LIDOCAINE PATCH T-DERMAL SCH (21:00)
[2016-09-22] MEDS: INSULIN DETEMIR 100 UNITS/ML VIAL SQ SCH (21:00)
[2016-09-22] MEDS: QUEtiapine FUMARATE 300 MG TAB PO SCH (21:03)
[2016-09-23 00:01] VITALS: BP 108/74; PULSE 74; RESP 18; TEMP 98.4; O2SAT 98
[2016-09-23] MEDS: MORPHINE SULFATE 4 MG/ML INJ IV PRN ×3 (01:36→08:02)
[2016-09-23 04:44] VITALS: BP 128/74; PULSE 87; RESP 18; TEMP 98.4; O2SAT 97
[2016-09-23] MEDS: ALPRAZolam 0.5 MG TAB PO PRN (04:44)
[2016-09-23] MEDS: PIPERACIL-TAZO 3.375 GM PREMIX 50 ML IV SCH (05:01)
[2016-09-23] MEDS: INSULIN ASPART SUPPLEMENTAL SCALE SQ SCH (07:00)
[2016-09-23 07:44] LABS: AUTOMATED NEUTROPHIL # 5.6 TH/MM3 (1.8-7.7); BASOPHIL # 0.1 TH/MM3 (0-0.2); BASOPHIL % 0.8 % (0.0-2.0); EOSINOPHIL # 0.5 TH/MM3 (0-0.4); EOSINOPHIL % 5.6 % (0.0-4.0); HEMATOCRIT 46.5 % (39.0-51.0); HEMO FLAGS DIFF FINAL; LYMPH % 17.5 % (9.0-44.0); LYMPHOCYTE # 1.4 TH/MM3 (1.0-4.8); MEAN CELL VOLUME 87.8 FL (80.0-100.0); MEAN CORPUSCULAR HEMOGLOBIN 31.3 PG (27.0-34.0); MEAN CORPUSCULAR HGB CONC 35.6 % (32.0-36.0); MONO % 8.6 % (0.0-8.0); NEUT % 67.5 % (16.0-70.0); PLATELET COUNT 146 TH/MM3 (150-450); RED CELL DISTRIBUTION WIDTH 16.2 % (11.6-17.2); WHITE BLOOD COUNT 8.3 TH/MM3 (4.0-11.0)
[2016-09-23 07:49] VITALS: BP 129/83; PULSE 82; RESP 17; TEMP 98.2; O2SAT 99
[2016-09-23] MEDS ORDERED: HYDR-3288 PO (08:05)
[2016-09-23] MEDS ORDERED: TRAM50TA PO (08:05)
[2016-09-23] MEDS: LIDOCAINE HCL 5% PATCH T-DERMAL SCH (08:06)
[2016-09-23] MEDS: APIXABAN 5 MG TABLET PO SCH (08:07)
[2016-09-23] MEDS: LISINOPRIL 5 MG TAB PO SCH (08:07)
[2016-09-23] MEDS: PREGABALIN 75 MG CAP PO SCH (08:07)
[2016-09-23] MEDS: SODIUM CHLORIDE 0.9% FLUSH 10 ML FLUSH IV FLUSH SCH (08:07)
[2016-09-23] MEDS: DOCUSATE SODIUM 50 MG/SENNA 8.6 MG TAB PO SCH (08:07)
[2016-09-23 08:10] LABS: BICARBONATE 32.1 MEQ/L (21.0-32.0); POTASSIUM 3.8 MEQ/L (3.5-5.1)
[2016-09-23] MEDS ORDERED: ACETAMINOPHEN/HYDROcodone 325 MG/10 MG TAB PO PRN (08:15)
[2016-09-23] MEDS ORDERED: ACETAMINOPHEN/HYDROcodone 325 MG/5 MG TAB PO PRN (08:15)
--- NOTE | 2016-09-23 08:40 | HHI.DCPOC ---
Discharge Care Plan Diagnosis: (1) Left flank pain (2) Renal infarct (3) Nausea & vomiting (4) DM (diabetes mellitus) (5) Recurrent abdominal pain Goals to Promote Your Health * To prevent worsening of your condition and complications * To maintain your health at the optimal level Directions to Meet Your Goals Take your medications as prescribed Follow your dietary instruction Follow activity as directed Keep your appointments as scheduled Take your immunizations and boosters as scheduled If your symptoms worsen call your PCP, if no PCP go to Urgent Care Center or Emergency Room Smoking is Dangerous to Your Health. Avoid second hand smoke Call the 24-hour hour crisis hotline for domestic abuse at Ajnana Lizarraga PA-C Sep 23, 2016 08:40
[2016-09-23] MEDS ORDERED: LIDO5DIS5 T-DERMAL (08:48)
--- NOTE | 2016-09-23 08:59 | HHI.PR ---
Subjective Remarks Follow up for left flank pain, renal infarct, nausea/vomiting. The patient reports continued left flank pain however relieved by pain medications. He does believe the lidoderm patch is helping slightly. Denies any further nausea/ vomiting. Denies fevers/chills. His main complaint is that he "just can't get comfortable". We again discussed him going to pain management but he states he doesn't have a ride out to [place]. Objective Vitals Vital Signs Date Time Temp Pulse Resp B/P Pulse Ox O2 Delivery O2 Flow Rate FiO2 09/23/16 07:49 98.2 82 17 129/83 99 09/23/16 04:44 98.4 87 18 128/74 97 09/23/16 01:42 16 09/23/16 00:01 98.4 74 18 108/74 98 09/22/16 19:52 98.1 76 18 146/87 98 09/22/16 18:32 16 09/22/16 17:25 98.0 72 16 170/99 98 09/22/16 16:23 18 09/22/16 12:30 97.8 75 16 162/97 100 I/O 09/22/16 09/22/16 09/22/16 09/23/16 09/23/16 09/23/16 07:00 15:00 23:00 07:00 15:00 23:00 Intake Total 480 ml 640 ml Output Total 1000 ml 1000 ml Balance -520 ml -360 ml Intake Oral 480 ml 640 ml Output Urine Total 1000 ml 1000 ml # Voids 2 2 # Bowel Movements 0 Result Diagram: 09/23/16 0710 09/23/16 0710 Imaging Last Impressions Chest X-Ray 09/21/16 0944 Signed Impressions: Service Date/Time: Wednesday, September 21, 2016 09:46 - CONCLUSION: No acute disease. Johnathan Lim MD Objective Remarks GENERAL: Well-nourished, well-developed middle aged male patient in [facility]. SKIN: Warm and dry. No rash. HEENT: Normocephalic. Atraumatic.Pupils equal and round. Mucous membranes pink and moist. CARDIOVASCULAR: Regular rate and rhythm. S1, S2 noted. No murmur appreciated. RESPIRATORY: No accessory muscle use. Clear to auscultation. Breath sounds equal bilaterally. GASTROINTESTINAL: Abdomen soft, nondistended, diffuse left sided abdominal/ flank tenderness to palpation. Normoactive bowel sounds x4. MUSCULOSKELETAL: No obvious deformities. Extremities without clubbing, cyanosis , or edema. Left flank TTP, no overlying rash/erythema/edema. NEUROLOGICAL: Awake and alert. No obvious cranial nerve deficits. Motor grossly within normal limits. Normal speech. PSYCHIATRIC: Appropriate mood and affect; insight and judgment normal. Medications and IVs Current Medications Medications (Trade) Dose Ordered Sig/Patsy Route Start Time Stop Time Status Last Admin (NS Flush) 2 ml UNSCH PRN IV FLUSH 09/21/16 11:15 (NS Flush) 2 ml BID IV FLUSH 09/21/16 21:00 09/23/16 08:07 (Tylenol) 650 mg Q4H PRN PO 09/21/16 11:15 (Zofran Inj) 4 mg Q6H PRN IVP 09/21/16 11:15 09/22/16 19:31 (Tylenol) 650 mg Q6H PRN PO 09/21/16 11:15 (Narcan Inj) 0.4 mg UNSCH PRN IV 09/21/16 11:15 (Mahnaz-Colace) 1 tab BID PO 09/21/16 21:00 09/23/16 08:07 (Milk Of Magnesia Liq) 30 ml Q12H PRN PO 09/21/16 11:15 (Senokot) 17.2 mg Q12H PRN PO 09/21/16 11:15 (Dulcolax Supp) 10 mg DAILY PRN RECTAL 09/21/16 11:15 (Lactulose Liq) 30 ml DAILY PRN PO 09/21/16 11:15 (D50w (Vial) Inj) 50 ml UNSCH PRN IV 09/21/16 11:15 (Glucagon Inj) 1 mg UNSCH PRN OTHER 09/21/16 11:15 (Xanax) 0.5 mg Q6H PRN PO 09/21/16 13:15 09/23/16 04:44 (Eliquis) 5 mg BID PO 09/21/16 21:00 09/23/16 08:07 (Levemir Inj) 18 units HS SQ 09/21/16 21:00 09/22/16 21:00 (Prinivil) 5 mg DAILY PO 09/22/16 09:00 09/23/16 08:07 (Lyrica) 75 mg TID PO 09/21/16 18:00 09/23/16 08:07 (SEROquel) 300 mg HS PO 09/21/16 21:00 09/22/16 21:03 (Lidoderm 5% Patch.12 Hr) 1 patch DAILY T-DERMAL 09/22/16 11:30 09/23/16 08:06 Miscellaneous Information 1 Q24H T-DERMAL 09/22/16 21:00 09/22/16 21:00 ([place] 5-325 Mg) 1 tab Q4H PRN PO 09/23/16 08:15 ([place] 10-325 Mg) 1 tab Q4H PRN PO 09/23/16 08:15 A/P Problem List: (1) Recurrent abdominal pain ICD Code: R10.9 Status: Acute (2) Leukocytosis ICD Code: D72.829 Status: Acute (3) Hypertension ICD Code: I10 Status: Chronic (4) DM (diabetes mellitus) ICD Code: E11.9 Status: Chronic (5) Depression with anxiety ICD Code: F41.8 Status: Chronic (6) Sepsis ICD Code: A41.9 Status: Acute Assessment and Plan 46-year-old male with history of insulin dependent diabetes, 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 Sepsis: Patient presented with leukocytosis WBC 20.9K, tachycardia, HR 92. Source presumed to be abdominal. Lactic acid wnl. UA negative. CXR unremarkable. -Continue empiric antibiotics. -Monitor CBC. -Blood cultures with NGTD. -leukocytosis resolved, patient remained afebrile throughout admission, discontinued antibiotics -sepsis resolved. Recurrent intractable abdominal pain, failed outpatient: Initially seen in ED , CT abd/pelvis showed no acute findings, cortical scarring left kidney, unchanged. He was discharged home, returned to ED 09/21 with intractable pain. Patient has history of chronic pancreatitis, but lipase wnl. UA unremarkable. 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 -Continue Eliquis. -trial of lidoderm patch Diabetes mellitus: chronic, uncontrolled, HgbA1c 10.6 on 06/21/16 -Continue patient's Levemir. -Monitor Accu-Cheks and cover with sliding scale insulin. HTN/CAD: Chronic, stable. Not on statin. Was reportedly on atorvastatin at discharge of last hospitalization, but denies taking cholesterol lowering medication and lipid panel May2015 wnl. -Continue DENG inhibitor. DVT prophylaxis: Eliquis. Discharge Planning Discharge patient to home Condition on discharge: Improved Heart Healthy/Diabetic Diet as tolerated Ad Rosita activity Rx written: [place], Xanax, Lidoderm patch Follow-up with primary care physician and pain management within 1 week Anjana Lizarraga PA-C Sep 23, 2016 8:59 am
[2016-09-23] MEDS ORDERED: ALPR.5 PO (11:32)
[2016-09-23] MEDS ORDERED: HYDR-3580 PO (11:37)
== END 2016-09-23 16:25 | disposition home or self-care (01) ==
LOC: NEPC 08:09 → NEDA 10:59 → NEPGCP 13:56
PROVIDERS: ADMIT Hospitalist; ATTEND Hospitalist
DX: I25.10 Atherosclerotic heart disease of native coronary artery without angina pectoris (principal); N28.0 Ischemia and infarction of kidney; I10 Essential (primary) hypertension; E11.9 Type 2 diabetes mellitus without complications; E78.5 Hyperlipidemia, unspecified; K86.1 Other chronic pancreatitis; F41.8 Other specified anxiety disorders; F12.90 Cannabis use, unspecified, uncomplicated; Z79.4 Long term (current) use of insulin; F17.210 Nicotine dependence, cigarettes, uncomplicated; A41.9 Sepsis, unspecified organism; Z90.49 Acquired absence of other specified parts of digestive tract; Z95.5 Presence of coronary angioplasty implant and graft
CPT/HCPCS: 71010; 80048; 80053; 81001; 82948; 83605; 83690; 85025; 87040; 96361; 96365; 96375; 96376; 99285; G0378; J1815; J2270; J2405; J2543; J7030

== ENCOUNTER 2016-11-06 22:12 | Emergency (ER) | payer MEDICAID ==
[~2016-11-06] VITALS: Ht 170.2 cm; Wt 70.0 kg
[~2016-11-06 22:12] MED LIST changes: -ATOR40TA16 PO; -DILA2TAB2 PO; +HYDR-3580 PO; +LIDO5DIS5 T-DERMAL; +NOVOLOGP2 SQ
--- NOTE | 2016-11-06 22:57 | RADRPT ---
EXAM DATE/TIME: 11/06/2016 22:41 [facility] COMPARISON: No previous studies available for comparison. INDICATIONS : Shortness of breath. MEDICAL HISTORY : Gastroesophageal reflux disease. Congestive heart failure. Cardiovascular disease. Diabetes.Pancreati tis. Myocardial infarction. Hiatal hernia. Seizure. CAD. SURGICAL HISTORY : Cholecystectomy. ENCOUNTER: Initial ACUITY: 1 day PAIN SCORE: 0/10 LOCATION: Bilateral chest FINDINGS: A single view of the chest demonstrates the lungs to be symmetrically aerated without evidence of mas s, infiltrate or effusion. The cardiomediastinal contours are unremarkable. Osseous structures are intact. CONCLUSION: No acute disease. Genaro Romo MD on November 06, 2016 at 22:52 Board Certified Radiologist. This report was verified electronically.
--- NOTE | 2016-11-06 23:04 | PD ---
HPI Chief Complaint: FLU LIKE SYMPTOMS Time Seen by Provider: 22:30 Travel History International Travel<30 days: No Contact w/Intl Traveler<30days: No Traveled to known affect area: No History of Present Illness HPI C/O COUGH, DIZZY, BODY ACHES, STATED THAT HE SMOKES 1/2 PPD, AND STATED THAT HE FELT SIMILAR TO THIS AFTER HURRICANE [place] WHEN HE HAD AN INDOOR GENERATOR WHICH CAUSED HIM TO HAVE CARBON MONOXIDE POISONING. HOWEVER PATIENT HAS HAD FULL POWER FOR LAST WEEK OR SO. PCP: KOLE RESTREPO Past Medical History Hx Anticoagulant Therapy: Yes Arthritis: No Asthma: No Autoimmune Disease: No Blood Disorders: No Anxiety: Yes Depression: No Heart Rhythm Problems: Yes Cancer: No Cardiac Catheterization: Yes (one stent replaced 05/26) Cardiovascular Problems: Yes High Cholesterol: Yes Chemotherapy: No Chest Pain: Yes Congestive Heart Failure: No COPD: No Cerebrovascular Accident: No Coronary Artery Disease: Yes Diabetes: Yes Diminished Hearing: No Endocrine: Yes Gastrointestinal Disorders: Yes (gastro paresis) GERD: Yes Glaucoma: No Genitourinary: Yes Headaches: No Hepatitis: No Hiatal Hernia: Yes Hypertension: Yes Immune Disorder: Yes Implanted Vascular Access Dvce: Yes Kidney Stones: No Musculoskeletal: No Neurologic: No Psychiatric: Yes Reproductive: No Respiratory: Yes Integumentary: No Immunizations Current: Yes Migraines: No Myocardial Infarction: Yes (JULY 2012) Pancreatitis: Yes (CHRONIC) Radiation Therapy: No Seizures: Yes (2014 was the last one) Sleep Apnea: No Thyroid Disease: No Ulcer: No Past Surgical History Abdominal Surgery: Yes (herina repair) Body Medical Devices: PLATE IN RIGHT WRIST, 3 CARDIAC STENTS Cardiac Surgery: Yes (3 STENTS LAST CARDIAC CATH 05/25) Cholecystectomy: Yes (06/03/13) Coronary Artery Bypass Graft: No Coronary Stent: Yes Eye Surgery: Yes (implant lenses in eyes,) Oral Surgery: Yes (WISDOM TEETH) Pacemaker: No Other Surgery: Yes (Gallbladder, cornea inplant) Family History Family Hypercholesterolemia: Yes Social History Alcohol Use: No Tobacco Use: Yes (1 PPD ) Substance Use: Yes Allergies-Medications (Allergen,Severity, Reaction): Coded Allergies: No Known Allergies (Verified , 11/06/16) Reported Meds & Prescriptions Reported Meds & Active Scripts Active Ventolin Hfa 18 GM Inh (Albuterol Sulfate) 90 Mcg/Act Aer 1 Puff INH Q4H PRN Zithromax Z-Sabino (Azithromycin) 250 Mg Dspk 250 Mg PO DIRECTED 500 MG (2 tabs) day 1, then 1 tab days 2-5. Hydrocodone-Acetaminophen 7.5-325 mg Tab 1 Tab PO Q6H PRN Xanax (Alprazolam) 0.5 Mg Tab 0.5 Mg PO Q8HR PRN Lidoderm (Lidocaine) 5 % Adh..patch 1 Patch T-DERMAL DAILY Lisinopril 5 Mg Tab 5 Mg PO DAILY Eliquis (Apixaban) 5 Mg Tab 5 Mg PO BID Reported Novolog Inj (Insulin Aspart) 1,000 Unit/10 Ml Vial 0 SQ DIRECTED Sliding Scale as directed. Lantus Inj (Insulin Glargine) 1,000 Unit/10 Ml Vial 18 Units SQ HS Nitrostat SL (Nitroglycerin) 0.4 Mg Subl 0.4 Mg SL DIRECTED PRN 1 tablet under the tongue as needed for chest pain. Repeat every 5 minutes for a total of 3 DOSES or call 911 if NO relief. Seroquel XR (Quetiapine Fumarate) 300 Mg Tab 300 Mg PO HS Lyrica (Pregabalin) 75 Mg Cap 75 Mg PO TID Zofran (Ondansetron HCl) 4 Mg Tab 4 Mg PO Q6HR PRN Review of Systems Except as stated in HPI: all other systems reviewed are Neg Respiratory: Positive: Cough Musculoskeletal: Positive: Myalgias Physical Exam Narrative GENERAL: SKIN: Warm and dry. HEAD: Atraumatic. Normocephalic. EYES: Pupils equal and round. No scleral icterus. No injection or drainage. ENT: No nasal bleeding or discharge. Mucous membranes pink and moist. NECK: Trachea midline. No JVD. CARDIOVASCULAR: Regular rate and rhythm. RESPIRATORY: No accessory muscle use. Clear to auscultation. Breath sounds equal bilaterally. GASTROINTESTINAL: Abdomen soft, non-tender, nondistended. MUSCULOSKELETAL: Extremities without clubbing, cyanosis, or edema. No obvious deformities. NEUROLOGICAL: Awake and alert. No obvious cranial nerve deficits. Motor grossly within normal limits. Five out of 5 muscle strength in the arms and legs. Normal speech. PSYCHIATRIC: Appropriate mood and affect; insight and judgment normal. Data Data Last Documented VS Vital Signs Date Time Temp Pulse Resp B/P (MAP) Pulse Ox O2 Delivery O2 Flow Rate FiO2 11/07/16 02:14 83 16 149/85 (106) 96 11/07/16 00:06 Nasal Cannula 2.00 11/06/16 23:55 98.2 Orders Orders Complete Blood Count With Diff (11/06/16 22:37) Comprehensive Metabolic Panel (11/06/16 22:37) Ckmb (Isoenzyme) Profile (11/06/16 22:37) Troponin I (11/06/16 22:37) B-Type Natriuretic Peptide (11/06/16 22:37) Prothrombin Time / Inr (Pt) (11/06/16 22:37) Act Partial Throm Time (Ptt) (11/06/16 22:37) Arterial Blood Gas (Abg) (11/06/16 22:37) Lipase (11/06/16 22:37) Thyroid Stimulating Hormone (11/06/16 22:37) Influenzae A/B Antigen (11/06/16 22:37) Chest, Single Ap (11/06/16 22:37) Iv Access Insert/Monitor (11/06/16 22:37) Ecg Monitoring (11/06/16 22:37) Oximetry (11/06/16 22:37) Alcohol (Ethanol) (11/06/16 22:37) Salicylates (Aspirin) (11/06/16 22:37) Tylenol (Acetaminophen) (11/06/16 22:37) Ketorolac Inj (Toradol Inj) (11/06/16 23:30) Insulin Human Regular Inj (Novolin R Inj (11/07/16 00:00) Labs Laboratory Tests Test 11/06/16 22:45 11/06/16 23:12 White Blood Count 10.9 TH/MM3 Red Blood Count 5.48 MIL/MM3 Hemoglobin 17.0 GM/DL Hematocrit 48.8 % Mean Corpuscular Volume 89.0 FL Mean Corpuscular Hemoglobin 31.0 PG Mean Corpuscular Hemoglobin Concent 34.8 % Red Cell Distribution Width 15.7 % Platelet Count 171 TH/MM3 Mean Platelet Volume 9.0 FL Neutrophils (%) (Auto) 76.8 % Lymphocytes (%) (Auto) 12.9 % Monocytes (%) (Auto) 8.6 % Eosinophils (%) (Auto) 1.1 % Basophils (%) (Auto) 0.6 % Neutrophils # (Auto) 8.4 TH/MM3 Lymphocytes # (Auto) 1.4 TH/MM3 Monocytes # (Auto) 0.9 TH/MM3 Eosinophils # (Auto) 0.1 TH/MM3 Basophils # (Auto) 0.1 TH/MM3 CBC Comment DIFF FINAL Differential Comment Prothrombin Time 11.2 SEC Prothromb Time International Ratio 1.0 RATIO Activated Partial Thromboplast Time 24.3 SEC Blood Urea Nitrogen 12 MG/DL Creatinine 0.84 MG/DL Random Glucose 409 MG/DL Total Protein 6.5 GM/DL Albumin 3.3 GM/DL Calcium Level 9.0 MG/DL Alkaline Phosphatase 130 U/L Aspartate Amino Transf (AST/SGOT) 24 U/L Alanine Aminotransferase (ALT/SGPT) 24 U/L Total Bilirubin 0.5 MG/DL Sodium Level 134 MEQ/L Potassium Level 3.6 MEQ/L Chloride Level 96 MEQ/L Carbon Dioxide Level 28.7 MEQ/L Anion Gap 9 MEQ/L Estimat Glomerular Filtration Rate 99 ML/MIN Total Creatine Kinase 81 U/L Troponin I LESS THAN 0.02 NG/ML B-Type Natriuretic Peptide 153 PG/ML Lipase 275 U/L Thyroid Stimulating Hormone 3rd Gen 0.895 uIU/ML Salicylates Level 3.1 MG/DL Acetaminophen Level LESS THAN 2.0 MCG/ML Ethyl Alcohol Level LESS THAN 3 MG/DL Blood Gas Puncture Site LT RADIAL Blood Gas Patient Temperature 98.6 Blood Gas HCO3 30 mmol/L Blood Gas Base Excess 6.9 mmol/L Blood Gas Oxygen Saturation 86 % Arterial Blood pH 7.51 Arterial Blood Partial Pressure CO2 38 mmHg Arterial Blood Partial Pressure O2 194 mmHG Arterial Blood Oxygen Content 20.4 Vol % Arterial Blood Carboxyhemoglobin 13.0 % Arterial Blood Methemoglobin 0.8 % Blood Gas Hemoglobin 16.5 G/DL Oxygen Delivery Device PRB Blood Gas Liter Flow 10 L/M MDM Medical Decision Making Medical Screen Exam Complete: Yes Emergency Medical Condition: Yes Medical Record Reviewed: Yes Interpretation(s) ABG 7.5/38/194 AND HB 16, CO 13, .9 MET HB.... Differential Diagnosis CO2 RETAINER V PNA V FLU V PULM EDEMA V NONSTEMI V STEMI Narrative Course NO EVIDENCE OF CO2 RETENTION AND ALSO CARBON MONOXIDE LEVELS THOUGHT MILDLY ELEVATED ARE MORE C/W SMOKING RATHER THAN EXPOSURE. NO E/O STEMI, AND NO E/O PULM EDEMA. WHEEZING IMPROVED TREMENDOUSLY DUE TO NEB TREATMENT Diagnosis Primary Impression: COPD EXACERBATION MILD Additional Impression: Hyperglycemia Patient Instructions: COPD (Chronic Obstructive Pulmonary Disease) (ED), General Instructions Scripts Albuterol 18 GM Inh (Ventolin Hfa 18 GM Inh) 90 Mcg/Act Aer 1 PUFF INH Q4H Y for SHORTNESS OF BREATH, #1 INHALER 0 Refills Prov: Romeo Kenny MD 11/07/16 Azithromycin (Zithromax Z-Sabino) 250 Mg Dspk 250 MG PO DIRECTED for Infection, #1 DSPK 0 Refills 500 MG (2 tabs) day 1, then 1 tab days 2-5. Prov: Romeo Kenny MD 11/07/16 Disposition: 01 DISCHARGE HOME Condition: Stable Romeo Kenny MD Nov 06, 2016 23:04
[2016-11-06 23:06] LABS: AUTOMATED NEUTROPHIL # 8.4 TH/MM3 (1.8-7.7); BASOPHIL # 0.1 TH/MM3 (0-0.2); BASOPHIL % 0.6 % (0.0-2.0); EOSINOPHIL # 0.1 TH/MM3 (0-0.4); EOSINOPHIL % 1.1 % (0.0-4.0); HEMATOCRIT 48.8 % (39.0-51.0); HEMO FLAGS DIFF FINAL; LYMPH % 12.9 % (9.0-44.0); LYMPHOCYTE # 1.4 TH/MM3 (1.0-4.8); MEAN CORPUSCULAR HGB CONC 34.8 % (32.0-36.0); MONO % 8.6 % (0.0-8.0); NEUT % 76.8 % (16.0-70.0); PLATELET COUNT 171 TH/MM3 (150-450); RED BLOOD COUNT 5.48 MIL/MM3 (4.50-5.90); RED CELL DISTRIBUTION WIDTH 15.7 % (11.6-17.2); WHITE BLOOD COUNT 10.9 TH/MM3 (4.0-11.0)
[2016-11-06 23:17] LABS: APTT (PATIENT) 24.3 SEC (24.3-30.1); PROTHROMBIN TIME - PATIENT 11.2 SEC (9.8-11.6)
[2016-11-06] MEDS ORDERED: KETOROLAC TROMETHAMINE 30 MG/ML (IVP) VIAL IV PUSH ONE (23:30)
[2016-11-06 23:45] VITALS: BP 165/90; PULSE 80; RESP 18; TEMP 98.4; O2SAT 95
[2016-11-06 23:51] LABS: ACETAMINOPHEN LESS THAN 2.0 MCG/ML (10.0-30.0); ALKALINE PHOSPHATASE 130 U/L (45-117); ALT (GPT) 24 U/L (12-78); ANION GAP 9 MEQ/L (5-15); AST (GOT) 24 U/L (15-37); BICARBONATE 28.7 MEQ/L (21.0-32.0); BLOOD UREA NITROGEN 12 MG/DL (7-18); CHLORIDE 96 MEQ/L (98-107); GLOMERULAR FILTRATION RATE 99 ML/MIN (>89); SODIUM (NA) 134 MEQ/L (136-145); TOTAL BILIRUBIN ADULT 0.5 MG/DL (0.2-1.0)
[2016-11-06 23:52] LABS: ALCOHOL LESS THAN 3 MG/DL (0-5); CREATINE KINASE 81 U/L (39-308); POTASSIUM 3.6 MEQ/L (3.5-5.1)
[2016-11-06 23:55] VITALS: BP 165/90; PULSE 80; RESP 18; TEMP 98.2; O2SAT 96
[2016-11-07] MEDS ORDERED: INSULIN HUMAN REGULAR 1,000 UNITS/10 ML VIAL IV PUSH ONE
[2016-11-07 00:02] LABS: BLOOD GAS BASE EXCESS 6.9 mmol/L (-2-2); BLOOD GAS HCO3 30 mmol/L (22-26); BLOOD GAS METHEMOGLOBIN 0.8 % (0-2); BLOOD GAS O2 HGB SATURATION 86 % (90-100); BLOOD GAS OXYGEN CONTENT 20.4 Vol % (12.0-20.0); BLOOD GAS PCO2 38 mmHg (38-42); BLOOD GAS PO2 194 mmHG (61-120); BLOOD GAS TOTAL HGB 16.5 G/DL (12.0-16.0); CRITICAL VALUE YES; TEMP CORR TO 98.6
[2016-11-07 00:03] LABS: DRAW SITE LT RADIAL; LITER FLOW 10 L/M; NUMBER OF ARTERIAL PUNCTURES 2; OXYGEN DEVICE PRB; STAT YES; ULNAR PULSE PRESENT
[2016-11-07] MEDS ORDERED: VENTAER INH (00:36)
[2016-11-07] MEDS ORDERED: ZITHTAB PO (00:36)
[2016-11-07 01:25] VITALS: RESP 16
[2016-11-07 02:14] VITALS: BP 149/85
== END 2016-11-07 03:23 | disposition home or self-care (01) ==
LOC: NEPE 22:12
DX: J44.1 Chronic obstructive pulmonary disease with (acute) exacerbation (principal); R06.02 Shortness of breath; E11.65 Type 2 diabetes mellitus with hyperglycemia; I10 Essential (primary) hypertension; Z72.0 Tobacco use; Z79.01 Long term (current) use of anticoagulants; Z79.899 Other long term (current) drug therapy
CPT/HCPCS: 36600; 71010; 80053; 80307; 82550; 82805; 83690; 83880; 84443; 84484; 85025; 85610; 85730; 96374; 96375; 99284; J1815; J1885

== ENCOUNTER 2016-11-07 05:47 | Emergency (ER) | payer MEDICAID ==
[~2016-11-07] VITALS: Ht 170.2 cm; Wt 58.0 kg
[~2016-11-07 05:47] MED LIST changes: +VENTAER INH; +ZITHTAB PO
[2016-11-07 05:48] VITALS: BP 119/74; PULSE 98; RESP 16; TEMP 97.8; O2SAT 98
--- NOTE | 2016-11-07 06:03 | PD ---
HPI Chief Complaint: GI Complaint Time Seen by Provider: 05:58 Travel History International Travel<30 days: No Contact w/Intl Traveler<30days: No Traveled to known affect area: No History of Present Illness HPI PATIENT SEEN EARLIER AND HAD CMP, LIPASE, CXR, CARDIAC ENZYMES ETC AND WAS DX WITH MILD COPD EXACERBATION...NOW PATIENT RETURNS COMPLAINING OF HEART BURN UP TO HIS MOUTH WITH BRASH TASTE IN HIS MOUTH...DENIES ABD PAIN/DIARRHEA/CP/MAYNARD PFSH Past Medical History Hx Anticoagulant Therapy: Yes Arthritis: No Asthma: No Autoimmune Disease: No Blood Disorders: No Anxiety: Yes Depression: No Heart Rhythm Problems: Yes Cancer: No Cardiac Catheterization: Yes (one stent replaced 05/26) Cardiovascular Problems: Yes High Cholesterol: Yes Chemotherapy: No Chest Pain: Yes Congestive Heart Failure: No COPD: No Cerebrovascular Accident: No Coronary Artery Disease: Yes Diabetes: Yes Diminished Hearing: No Endocrine: Yes Gastrointestinal Disorders: Yes (gastro paresis) GERD: Yes Glaucoma: No Genitourinary: Yes Headaches: No Hepatitis: No Hiatal Hernia: Yes Hypertension: Yes Immune Disorder: Yes Implanted Vascular Access Dvce: Yes Kidney Stones: No Musculoskeletal: No Neurologic: No Psychiatric: Yes Reproductive: No Respiratory: Yes Integumentary: No Immunizations Current: Yes Migraines: No Myocardial Infarction: Yes (JULY 2012) Pancreatitis: Yes (CHRONIC) Radiation Therapy: No Seizures: Yes (2014 was the last one) Sleep Apnea: No Thyroid Disease: No Ulcer: No Past Surgical History Abdominal Surgery: Yes (herina repair) Body Medical Devices: PLATE IN RIGHT WRIST, 3 CARDIAC STENTS Cardiac Surgery: Yes (3 STENTS LAST CARDIAC CATH 05/25) Cholecystectomy: Yes (06/03/13) Coronary Artery Bypass Graft: No Coronary Stent: Yes Eye Surgery: Yes (implant lenses in eyes,) Oral Surgery: Yes (WISDOM TEETH) Pacemaker: No Other Surgery: Yes (Gallbladder, cornea inplant) Family History Family Hypercholesterolemia: Yes Social History Alcohol Use: No Tobacco Use: Yes (1 PPD ) Substance Use: Yes Allergies-Medications (Allergen,Severity, Reaction): Coded Allergies: No Known Allergies (Verified , 11/06/16) Reported Meds & Prescriptions Reported Meds & Active Scripts Active Ventolin Hfa 18 GM Inh (Albuterol Sulfate) 90 Mcg/Act Aer 1 Puff INH Q4H PRN Zithromax Z-Sabino (Azithromycin) 250 Mg Dspk 250 Mg PO DIRECTED 500 MG (2 tabs) day 1, then 1 tab days 2-5. Hydrocodone-Acetaminophen 7.5-325 mg Tab 1 Tab PO Q6H PRN Xanax (Alprazolam) 0.5 Mg Tab 0.5 Mg PO Q8HR PRN Lidoderm (Lidocaine) 5 % Adh..patch 1 Patch T-DERMAL DAILY Lisinopril 5 Mg Tab 5 Mg PO DAILY Eliquis (Apixaban) 5 Mg Tab 5 Mg PO BID Reported Novolog Inj (Insulin Aspart) 1,000 Unit/10 Ml Vial 0 SQ DIRECTED Sliding Scale as directed. Lantus Inj (Insulin Glargine) 1,000 Unit/10 Ml Vial 18 Units SQ HS Nitrostat SL (Nitroglycerin) 0.4 Mg Subl 0.4 Mg SL DIRECTED PRN 1 tablet under the tongue as needed for chest pain. Repeat every 5 minutes for a total of 3 DOSES or call 911 if NO relief. Seroquel XR (Quetiapine Fumarate) 300 Mg Tab 300 Mg PO HS Lyrica (Pregabalin) 75 Mg Cap 75 Mg PO TID Zofran (Ondansetron HCl) 4 Mg Tab 4 Mg PO Q6HR PRN Review of Systems Except as stated in HPI: all other systems reviewed are Neg Gastrointestinal: Positive: Indigestion Physical Exam Narrative GENERAL: SKIN: Warm and dry. HEAD: Atraumatic. Normocephalic. EYES: Pupils equal and round. No scleral icterus. No injection or drainage. ENT: No nasal bleeding or discharge. Mucous membranes pink and moist. NECK: Trachea midline. No JVD. CARDIOVASCULAR: Regular rate and rhythm. RESPIRATORY: No accessory muscle use. Clear to auscultation. Breath sounds equal bilaterally. GASTROINTESTINAL: Abdomen soft, non-tender, nondistended. MUSCULOSKELETAL: Extremities without clubbing, cyanosis, or edema. No obvious deformities. NEUROLOGICAL: Awake and alert. No obvious cranial nerve deficits. Motor grossly within normal limits. Five out of 5 muscle strength in the arms and legs. Normal speech. PSYCHIATRIC: Appropriate mood and affect; insight and judgment normal. Data Data Last Documented VS Vital Signs Date Time Temp Pulse Resp B/P (MAP) Pulse Ox O2 Delivery O2 Flow Rate FiO2 11/07/16 05:48 97.8 98 16 119/74 (89) 98 Room Air Orders Orders Al-Mag Hy-Si 40-40-4 Mg/Ml Liq (Mag-Al P (11/07/16 06:15) Lidocaine 2% Viscous (Xylocaine 2% Visco (11/07/16 06:15) Ondansetron Odt (Zofran Odt) (11/07/16 06:15) MDM Medical Decision Making Medical Screen Exam Complete: Yes Emergency Medical Condition: Yes Medical Record Reviewed: Yes Differential Diagnosis N/A Narrative Course C/W GERD/DYSPEPSIA Diagnosis Primary Impression: GERD (gastroesophageal reflux disease) Qualified Codes: K21.9 - Gastro-esophageal reflux disease without esophagitis Patient Instructions: Gastroesophageal Reflux Disease (GEN), General Instructions Disposition: 01 DISCHARGE HOME Condition: Stable [place],Romeo Robledo MD Nov 07, 2016 06:03
[2016-11-07] MEDS ORDERED: ALUMINUM/MAGNESIUM/SIMETH 30 ML CUP PO ONE (06:15)
[2016-11-07] MEDS ORDERED: LIDOCAINE VISCOUS 2% SOLN 15 ML UDC PO ONE (06:15)
[2016-11-07] MEDS ORDERED: ONDANSETRON ODT 4 MG TAB PO ONE (06:15)
== END 2016-11-07 06:42 | disposition home or self-care (01) ==
LOC: NEPE 05:47
DX: K21.9 Gastro-esophageal reflux disease without esophagitis (principal); F41.9 Anxiety disorder, unspecified; E78.00 Pure hypercholesterolemia, unspecified; I25.10 Atherosclerotic heart disease of native coronary artery without angina pectoris; E11.9 Type 2 diabetes mellitus without complications; I10 Essential (primary) hypertension; I25.2 Old myocardial infarction; K85.90 Acute pancreatitis without necrosis or infection, unspecified; R56.9 Unspecified convulsions
CPT/HCPCS: 99283

== ENCOUNTER 2017-01-21 23:19 | Emergency (ER) | payer MEDICAID, OTHER ==
[~2017-01-21] VITALS: Ht 170.2 cm; Wt 57.0 kg
[~2017-01-21 23:19] MED LIST changes: +LIDO1ADH4 T-DERMAL; -LIDO5DIS5 T-DERMAL
[2017-01-21 23:21] VITALS: BP 140/86; PULSE 98; RESP 16; TEMP 97.8; O2SAT 100
[2017-01-21] MEDS ORDERED: TRAM50TA PO (23:54)
[2017-01-21] MEDS ORDERED: ACYC800T PO (23:54)
[2017-01-22] MEDS ORDERED: traMADol HCL 50 MG TAB PO ONE
[2017-01-22] MEDS ORDERED: ACYCLOVIR 800 MG TAB PO ONE
--- NOTE | 2017-01-22 01:09 | PD ---
HPI Chief Complaint: Skin Problem Time Seen by Provider: 23:52 Travel History International Travel<30 days: No Contact w/Intl Traveler<30days: No Traveled to known affect area: No History of Present Illness HPI 46-year-old male with 1 day history of rash. Burning in nature. Localized to the right lower abdomen/right lower back. No sick contacts. No abdominal pain , nausea, vomiting, fevers, chills. No other complaints. PFSH Past Medical History Hx Anticoagulant Therapy: Yes Arthritis: No Asthma: No Autoimmune Disease: No Blood Disorders: No Anxiety: Yes Depression: No Heart Rhythm Problems: Yes Cancer: No Cardiac Catheterization: Yes Cardiovascular Problems: Yes High Cholesterol: Yes Chemotherapy: No Chest Pain: Yes Congestive Heart Failure: No COPD: No Cerebrovascular Accident: No Coronary Artery Disease: Yes Diabetes: Yes Patient Takes Glucophage: No Diminished Hearing: No Endocrine: Yes Gastrointestinal Disorders: Yes (gastro paresis) GERD: Yes Glaucoma: No Genitourinary: Yes Headaches: No Hepatitis: No Hiatal Hernia: Yes Hypertension: Yes Immune Disorder: Yes Implanted Vascular Access Dvce: Yes Kidney Stones: No Musculoskeletal: No Neurologic: No Psychiatric: Yes Reproductive: No Respiratory: Yes Integumentary: No Immunizations Current: Yes Migraines: No Myocardial Infarction: Yes (JULY 2012) Pancreatitis: Yes (CHRONIC) Radiation Therapy: No Seizures: Yes Sleep Apnea: No Thyroid Disease: No Ulcer: No Past Surgical History Abdominal Surgery: Yes (herina repair) Body Medical Devices: PLATE IN RIGHT WRIST, 3 CARDIAC STENTS Cardiac Surgery: Yes Cholecystectomy: Yes (06/03/13) Coronary Artery Bypass Graft: No Coronary Stent: Yes (X3) Eye Surgery: Yes (implant lenses in eyes) Oral Surgery: Yes (WISDOM TEETH) Pacemaker: No Other Surgery: Yes Family History Family Myocardial Infarction: Yes (father and brothers- ) Family Hypercholesterolemia: Yes Social History Alcohol Use: No Tobacco Use: Yes (1 PPD ) Substance Use: Yes Allergies-Medications (Allergen,Severity, Reaction): Coded Allergies: No Known Allergies (Verified Adverse Reaction, Unknown, 01/21/17) Reported Meds & Prescriptions Reported Meds & Active Scripts Active Acyclovir 800 Mg Tab 800 Mg PO 5 TIMES A DAY 7 Days Tramadol (Tramadol HCl) 50 Mg Tab 50 Mg PO Q6H PRN Ventolin Hfa 18 GM Inh (Albuterol Sulfate) 90 Mcg/Act Aer 1 Puff INH Q4H PRN Zithromax Z-Sabino (Azithromycin) 250 Mg Dspk 250 Mg PO DIRECTED 500 MG (2 tabs) day 1, then 1 tab days 2-5. Hydrocodone-Acetaminophen 7.5-325 mg Tab 1 Tab PO Q6H PRN Xanax (Alprazolam) 0.5 Mg Tab 0.5 Mg PO Q8HR PRN Lidoderm (Lidocaine) 5 % Adh..patch 1 Patch T-DERMAL DAILY Lisinopril 5 Mg Tab 5 Mg PO DAILY Eliquis (Apixaban) 5 Mg Tab 5 Mg PO BID Reported Novolog Inj (Insulin Aspart) 1,000 Unit/10 Ml Vial 0 SQ DIRECTED Sliding Scale as directed. Lantus Inj (Insulin Glargine) 1,000 Unit/10 Ml Vial 18 Units SQ HS Nitrostat SL (Nitroglycerin) 0.4 Mg Subl 0.4 Mg SL DIRECTED PRN 1 tablet under the tongue as needed for chest pain. Repeat every 5 minutes for a total of 3 DOSES or call 911 if NO relief. Seroquel XR (Quetiapine Fumarate) 300 Mg Tab 300 Mg PO HS Lyrica (Pregabalin) 75 Mg Cap 75 Mg PO TID Zofran (Ondansetron HCl) 4 Mg Tab 4 Mg PO Q6HR PRN Review of Systems Except as stated in HPI: all other systems reviewed are Neg Physical Exam Narrative GENERAL: Well-nourished male in no acute distress SKIN: Warm and dry. Vesicular rash in the right lower back/right lower abdomen and L4 to L5 dermatomal distribution. HEAD: Atraumatic. Normocephalic. EYES: Pupils equal and round. No scleral icterus. No injection or drainage. ENT: No nasal bleeding or discharge. Mucous membranes pink and moist. NECK: Trachea midline. No JVD. CARDIOVASCULAR: Regular rate and rhythm. No murmur appreciated. RESPIRATORY: No accessory muscle use. Clear to auscultation. Breath sounds equal bilaterally. GASTROINTESTINAL: Abdomen soft, non-tender, nondistended. Hepatic and splenic margins not palpable. MUSCULOSKELETAL: No obvious deformities. No clubbing. No cyanosis. No edema. NEUROLOGICAL: Awake and alert. No obvious cranial nerve deficits. Motor grossly within normal limits. Normal speech. PSYCHIATRIC: Appropriate mood and affect; insight and judgment normal. Data Data Last Documented VS Vital Signs Date Time Temp Pulse Resp B/P (MAP) Pulse Ox O2 Delivery O2 Flow Rate FiO2 01/21/17 23:21 97.8 98 16 140/86 (104) 100 Room Air Orders Orders Acyclovir (Zovirax) (01/22/17 00:00) Tramadol (Ultram) (01/22/17 00:00) Ed Discharge Order (01/21/17 23:53) MDM Medical Decision Making Medical Screen Exam Complete: Yes Emergency Medical Condition: Yes Medical Record Reviewed: Yes Differential Diagnosis Shingles, allergic contact dermatitis, irritant contact dermatitis Narrative Course Examination is consistent with shingles. The patient is being started on tramadol and acyclovir. Diagnosis Primary Impression: Shingles Patient Instructions: General Instructions Departure Forms: Tests/Procedures Additional Instructions: Medication as prescribed. Follow-up with primary care as needed and return for any emergent medical conditions. Med/Other Pt SpecificInfo: Prescription(s) given Scripts Acyclovir (Acyclovir) 800 Mg Tab 800 MG PO 5 TIMES A DAY for Mgmt Viral Infection for 7 Days, TAB 0 Refills Prov: Collin Paredes MD 01/21/17 Tramadol (Tramadol) 50 Mg Tab 50 MG PO Q6H Y for PAIN, #20 TAB 0 Refills Prov: Collin Paredes MD 01/21/17 Disposition: 01 DISCHARGE HOME Condition: Stable Jac Burns Jan 22, 2017 01:09
== END 2017-01-22 01:25 | disposition home or self-care (01) ==
LOC: NEPD 23:19
DX: B02.9 Zoster without complications (principal); F41.9 Anxiety disorder, unspecified; E78.00 Pure hypercholesterolemia, unspecified; I25.10 Atherosclerotic heart disease of native coronary artery without angina pectoris; E11.9 Type 2 diabetes mellitus without complications; K21.9 Gastro-esophageal reflux disease without esophagitis; I10 Essential (primary) hypertension; I25.2 Old myocardial infarction; Z87.19 Personal history of other diseases of the digestive system
CPT/HCPCS: 99284

== ENCOUNTER 2017-09-06 12:48 | Observation (INO) ==
[2017-09-06] MEDS ORDERED: Morphine Inj 4 MG/ML Vial IV.PUSH ONE (13:12)
[2017-09-06] MEDS ORDERED: Sod Chloride 0.9% Inj 1,000 ML IV.SIG ONE ×2 (13:12→15:46)
--- NOTE | 2017-09-06 13:44 | XR ---
EXAM DATE: 09/06/2017 1:38 PM EDT AGE/SEX: 47 years / Male INDICATIONS: Chest pain CLINICAL DATA: This is the patient's initial encounter. Patient reports that signs and symptoms have been present for 3 days and indicates a pain score of 3/10. MEDICAL/SURGICAL HISTORY: . Gastroesophageal reflux disease. Congestive heart failure. Cardiova scular disease. Diabetes.Pancreatitis. Myocardial infarction. Hiatal hernia. Seizure. CAD. . Cholec ystectomy. [place] [facility] [place]. . FINDINGS: The lungs are clear without infiltrate, nodule, or mass. There is no appreciable pleural effusion for technique. Heart and mediastinum are unremarkable. CONCLUSION: No acute cardiopulmonary disease. Electronically signed by: Ray Jc MD 09/06/2017 1:42 PM EDT
--- NOTE | 2017-09-06 13:54 | ED ---
HPI General Chief complaint: Medical Clearance Stated complaint: diabetic Time Seen by Provider: 09/06/17 13:04 Source: patient Mode of arrival: EMS Limitations: no limitations History of Present Illness HPI narrative: 47-year-old male with a history of diabetes, ACS, pancreatitis that presents to the ED for evaluation of nausea and vomiting as well as pain on his abdomen and his lower legs. Per patient he has been developing lesions to his feet bilaterally. Per patient she just scratches himself on the lesions appear. Patient has significant ulcer-like lesions on his feet. Noted one on the left tib-fib as well as 2 on the right dorsal foot. Patient has a small one noted also on the left fourth toe. Per patient he denies any injuries or trauma. Per patient the very painful and her 10 out of 10 pain. He does take hydrocodone and Zofran and per patient she has not been able to successfully keep it down. Per patient he uses insulin and did not use his insulin today as he has not been able to eat or drink anything today. Per ambulance his sugars were elevated in the 500s. Patient states having some chest discomfort which he attributes this more to his pancreas is has had pancreatitis in the past and feels similar to his previous pancreatitis attacks. He has had his gallbladder removed. No other medical issues at this time. Related Data Home Medications Medication Instructions Recorded Confirmed alprazolam [Xanax] 2 mg PO BID PRN 09/06/17 09/06/17 insulin glargine [Lantus U-100 20 unit SUB-Q HS 09/06/17 09/06/17 Insulin] insulin regular human [Novolin R 1 sliding scale dose SUB-Q UD 09/06/17 09/06/17 Regular U-100 Insuln] quetiapine [Seroquel XR] 300 mg PO DAILY 09/06/17 09/06/17 Allergies Allergy/AdvReac Type Severity Reaction Status Date / Time No Known Allergies Allergy Unverified 09/06/17 13:15 Review of Systems ROS Unobtainable All other systems reviewed negative except as stated in HPI PMFSH Medical History Medical History Anxiety (Acute) Diabetes (Acute) FH: cholecystectomy (Acute) Renal infarct (Acute) Wrist fracture (Acute) Surgical History Surgical History S/P lens implant (Acute) Social History Social History Substance History: Active Abuse Second Hand Smoke Exposure: No Smoking Status: Current every day smoker Tobacco Type: Cigarettes How Often Do You Have a Drink Containing Alcohol: Never Recent Travel in [facility] within the Last 8 Weeks: No Recent Out of Country Travel within the Last 8 Weeks: No Immunization History Tetanus Immunization: <5 Years Hx Influenza Vaccine This Season: No Exam Narrative Exam Narrative: GENERAL: Well-appearing SKIN: Focused skin assessment warm/dry. HEAD: Atraumatic. Normocephalic. EYES: Pupils equal and round. No scleral icterus. No injection or drainage. ENT: No nasal bleeding or discharge. Mucous membranes pink and moist. Tongue is midline. No uvula deviation. NECK: Trachea midline. No JVD. CARDIOVASCULAR: Regular rate and rhythm. No murmur appreciated. RESPIRATORY: No accessory muscle use. Clear to auscultation. Breath sounds equal bilaterally. GASTROINTESTINAL: Abdomen soft, tender to touch on the left upper quadrant, nondistended. Hepatic and splenic margins not palpable. MUSCULOSKELETAL: No obvious deformities. No clubbing. No cyanosis. No edema. Full range of motion of the lower extremities. Patient does have what appears to be diabetic ulcer on the tib-fib which is about 5 cm in diameter. Patient has 2 diabetic leg ulcers on the right foot. One being about 1 cm in diameter and the other one being about 3 cm in diameter. Some erythema noted around the area. 2+ pulses bilaterally. Patient does have discomfort in the area of the ulcers. Patient has a small one noted on the [place] toe on the tip of the toe. About less than half a centimeter in diameter. NEUROLOGICAL: Awake and alert. No obvious cranial nerve deficits. Motor grossly within normal limits. Normal speech. PSYCHIATRIC: Appropriate mood and affect; insight and judgment normal. Course Initial Documented Vital Signs Pulse Rate 90 09/06/17 13:12 Respiratory Rate 18 09/06/17 13:12 Blood Pressure 126/85 09/06/17 13:12 Pulse Oximetry 99 09/06/17 13:12 Last Documented Vital Signs Pulse Rate 90 09/06/17 13:12 Respiratory Rate 18 09/06/17 13:12 Blood Pressure 126/85 09/06/17 13:12 Pulse Oximetry 100 09/06/17 14:31 Medical Decision Making MDM Narrative Medical decision making narrative: 47-year-old male that presents to the ED for evaluation of nausea vomiting diarrhea as well as abdominal pain and lower leg ulcers. Patient was properly examined and was found to have signs and symptoms concerning for DKA versus pancreatitis versus diabetic ulcers. Labs and imaging order. Patient was given IV pain medications and fluids. Labs and imaging showed elevated lipase, glucose and crp and ESR. otherwise unremarcable. Patient still symptomatic. Because of symptoms and diabetic ulcers , my attending Dr Paredes and myself recommend admission. Patient agrees. Case discussed with Dr Eason who agrees to admission. Differential Diagnosis Differential Diagnosis: Diabetic ulcers versus DKA versus infected ulcers versus infected skin lesions versus pancreatitis versus acute abdomen Medical Records Medical records reviewed: Yes I reviewed the patient's medical records. Lab Data Lab results reviewed: Yes I reviewed the patient's lab results. Lab results narrative: CRP and eSR slightly elevated troponin negative UA negative Result diagrams: 09/06/17 13:53 09/06/17 13:53 Lab Results 09/06/17 09/06/17 09/06/17 Range/Units 13:04 13:38 13:53 WBC 7.9 (4.0-11.0) th/mm3 RBC 4.66 (4.50-5.90) mil/mm3 Hgb 14.0 (13.0-17.0) gm/dL Hct 41.0 (39.0-51.0) % MCV 88.0 (80.0-100.0) fL MCH 30.1 (27.0-34.0) pg MCHC 34.3 (32.0-36.0) % RDW 16.5 (11.6-17.2) % Plt Count 168 (150-450) th/mm3 MPV 8.6 (7.0-11.0) fL Neut % (Auto) 76.0 H (16.0-70.0) % Lymph % (Auto) 12.3 (9.0-44.0) % [place] % (Auto) 8.7 H (0.0-8.0) % Eos % (Auto) 2.1 (0.0-4.0) % Baso % (Auto) 0.9 (0.0-2.0) % Neut # (Auto) 6.0 (1.8-7.7) th/mm3 Lymph # (Auto) 1.0 (1.0-4.8) th/mm3 [place] # (Auto) 0.7 (0.0-0.9) th/mm3 Eos # (Auto) 0.2 (0.0-0.4) th/mm3 Baso # (Auto) 0.1 (0.0-0.2) th/mm3 WBC Differential . Differential Comment Auto diff final ESR (0-15) mm/hr Puncture Site Rn Patient Temperature 98.6 VBG pH 7.37 (7.360-7.400) VBG pCO2 45 (44-48) mmHG VBG pO2 23 L* (35-40) mmHG VBG HCO3 26 (22-26) mmol/L VBG O2 Saturation 39 L (70-76) % VBG O2 Content 11.5 (9.0-17.0) Vol % VBG Base Excess 0.9 (-2-2) mmol/L VBG Carboxyhemoglobin 7.9 H* (0-4) % VBG Methemoglobin 0.7 (0-2) % Hemoglobin 21.5 H (12.0-16.0) G/DL Inspired O2 21 % Critical Value Yes Sodium (136-145) meq/L Potassium (3.5-5.1) meq/L Chloride (98-107) meq/L Carbon Dioxide (21.0-32.0) meq/L Anion Gap (5-15) meq/L BUN (7-18) mg/dL Creatinine (0.60-1.30) mg/dL Estimated GFR (>89) mL/min POC Glucose 451 H* (68-110) mg/dl Random Glucose (74-106) mg/dL Lactic Acid (0.4-2.0) mmol/L Calcium (8.5-10.1) mg/dL Magnesium (1.5-2.5) mg/dL Total Bilirubin (0.2-1.0) mg/dL AST (15-37) U/L ALT (12-78) U/L Alkaline Phosphatase (45-117) U/L Troponin I (0.02-0.05) ng/mL C-Reactive Protein (0.00-0.30) mg/dL Total Protein (6.4-8.2) g/dL Albumin (3.4-5.0) g/dL Lipase (73-393) U/L Beta-Hydroxybutyric Acd (0.00-0.39) mmol/L Urine Color (Yellw/Straw) Urine Clarity (Clear) Urine pH (5.0-8.5) Ur Specific [place] (1.002-1.035) Urine Protein (Neg-Trace) mg/dL Urine Glucose (UA) (Negative) mg/dL Urine Ketones (Negative) mg/dL Urine Occult Blood (Negative) Urine Nitrate (Negative) Urine Bilirubin (Negative) Urine Urobilinogen (Less than 2) mg/dL Ur Leukocyte Esterase (Negative) Urine RBC (0-3) /hpf Urine WBC (0-5) /hpf Ur Squamous Epith Cells (0-5) /hpf Micro UA Comment Urine Culture Comments 09/06/17 09/06/17 09/06/17 Range/Units 13:53 13:53 13:53 WBC (4.0-11.0) th/mm3 RBC (4.50-5.90) mil/mm3 Hgb (13.0-17.0) gm/dL Hct (39.0-51.0) % MCV (80.0-100.0) fL MCH (27.0-34.0) pg MCHC (32.0-36.0) % RDW (11.6-17.2) % Plt Count (150-450) th/mm3 MPV (7.0-11.0) fL Neut % (Auto) (16.0-70.0) % Lymph % (Auto) (9.0-44.0) % [place] % (Auto) (0.0-8.0) % Eos % (Auto) (0.0-4.0) % Baso % (Auto) (0.0-2.0) % Neut # (Auto) (1.8-7.7) th/mm3 Lymph # (Auto) (1.0-4.8) th/mm3 [place] # (Auto) (0.0-0.9) th/mm3 Eos # (Auto) (0.0-0.4) th/mm3 Baso # (Auto) (0.0-0.2) th/mm3 WBC Differential Differential Comment ESR 19 H (0-15) mm/hr Puncture Site Patient Temperature VBG pH (7.360-7.400) VBG pCO2 (44-48) mmHG VBG pO2 (35-40) mmHG VBG HCO3 (22-26) mmol/L VBG O2 Saturation (70-76) % VBG O2 Content (9.0-17.0) Vol % VBG Base Excess (-2-2) mmol/L VBG Carboxyhemoglobin (0-4) % VBG Methemoglobin (0-2) % Hemoglobin (12.0-16.0) G/DL Inspired O2 % Critical Value Sodium 136 (136-145) meq/L Potassium 3.6 (3.5-5.1) meq/L Chloride 104 (98-107) meq/L Carbon Dioxide 24.8 (21.0-32.0) meq/L Anion Gap 7 (5-15) meq/L BUN 11 (7-18) mg/dL Creatinine 0.79 (0.60-1.30) mg/dL Estimated GFR Greater than 89 (>89) mL/min POC Glucose (68-110) mg/dl Random Glucose 461 H* (74-106) mg/dL Lactic Acid 0.4 (0.4-2.0) mmol/L Calcium 8.2 L (8.5-10.1) mg/dL Magnesium 1.9 (1.5-2.5) mg/dL Total Bilirubin 0.3 (0.2-1.0) mg/dL AST 11 L (15-37) U/L ALT 12 (12-78) U/L Alkaline Phosphatase 116 (45-117) U/L Troponin I (0.02-0.05) ng/mL C-Reactive Protein 0.67 H (0.00-0.30) mg/dL Total Protein 6.0 L (6.4-8.2) g/dL Albumin 2.7 L (3.4-5.0) g/dL Lipase 945 H (73-393) U/L Beta-Hydroxybutyric Acd 0.37 (0.00-0.39) mmol/L Urine Color (Yellw/Straw) Urine Clarity (Clear) Urine pH (5.0-8.5) Ur Specific [place] (1.002-1.035) Urine Protein (Neg-Trace) mg/dL Urine Glucose (UA) (Negative) mg/dL Urine Ketones (Negative) mg/dL Urine Occult Blood (Negative) Urine Nitrate (Negative) Urine Bilirubin (Negative) Urine Urobilinogen (Less than 2) mg/dL Ur Leukocyte Esterase (Negative) Urine RBC (0-3) /hpf Urine WBC (0-5) /hpf Ur Squamous Epith Cells (0-5) /hpf Micro UA Comment Urine Culture Comments 09/06/17 09/06/17 Range/Units 13:53 14:48 WBC (4.0-11.0) th/mm3 RBC (4.50-5.90) mil/mm3 Hgb (13.0-17.0) gm/dL Hct (39.0-51.0) % MCV (80.0-100.0) fL MCH (27.0-34.0) pg MCHC (32.0-36.0) % RDW (11.6-17.2) % Plt Count (150-450) th/mm3 MPV (7.0-11.0) fL Neut % (Auto) (16.0-70.0) % Lymph % (Auto) (9.0-44.0) % [place] % (Auto) (0.0-8.0) % Eos % (Auto) (0.0-4.0) % Baso % (Auto) (0.0-2.0) % Neut # (Auto) (1.8-7.7) th/mm3 Lymph # (Auto) (1.0-4.8) th/mm3 [place] # (Auto) (0.0-0.9) th/mm3 Eos # (Auto) (0.0-0.4) th/mm3 Baso # (Auto) (0.0-0.2) th/mm3 WBC Differential Differential Comment ESR (0-15) mm/hr Puncture Site Patient Temperature VBG pH (7.360-7.400) VBG pCO2 (44-48) mmHG VBG pO2 (35-40) mmHG VBG HCO3 (22-26) mmol/L VBG O2 Saturation (70-76) % VBG O2 Content (9.0-17.0) Vol % VBG Base Excess (-2-2) mmol/L VBG Carboxyhemoglobin (0-4) % VBG Methemoglobin (0-2) % Hemoglobin (12.0-16.0) G/DL Inspired O2 % Critical Value Sodium (136-145) meq/L Potassium (3.5-5.1) meq/L Chloride (98-107) meq/L Carbon Dioxide (21.0-32.0) meq/L Anion Gap (5-15) meq/L BUN (7-18) mg/dL Creatinine (0.60-1.30) mg/dL Estimated GFR (>89) mL/min POC Glucose (68-110) mg/dl Random Glucose (74-106) mg/dL Lactic Acid (0.4-2.0) mmol/L Calcium (8.5-10.1) mg/dL Magnesium (1.5-2.5) mg/dL Total Bilirubin (0.2-1.0) mg/dL AST (15-37) U/L ALT (12-78) U/L Alkaline Phosphatase (45-117) U/L Troponin I Less than 0.02 L (0.02-0.05) ng/mL C-Reactive Protein (0.00-0.30) mg/dL Total Protein (6.4-8.2) g/dL Albumin (3.4-5.0) g/dL Lipase (73-393) U/L Beta-Hydroxybutyric Acd (0.00-0.39) mmol/L Urine Color Yellow (Yellw/Straw) Urine Clarity Clear (Clear) Urine pH 5.0 (5.0-8.5) Ur Specific [place] 1.029 (1.002-1.035) Urine Protein 100 H (Neg-Trace) mg/dL Urine Glucose (UA) 500 or greater (Negative) mg/dL Urine Ketones Negative (Negative) mg/dL Urine Occult Blood Small H (Negative) Urine Nitrate Negative (Negative) Urine Bilirubin Negative (Negative) Urine Urobilinogen Less than 2 (Less than 2) mg/dL Ur Leukocyte Esterase Negative (Negative) Urine RBC Less than 1 (0-3) /hpf Urine WBC Less than 1 (0-5) /hpf Ur Squamous Epith Cells <1 (0-5) /hpf Micro UA Comment Culture not ind Urine Culture Comments Culture not ind Imaging Data Attestation: I personally reviewed and interpreted this imaging study as follows : Radiologist's impression: Chest X-Ray 09/06/17 13:12 CONCLUSION: No acute cardiopulmonary disease. Discharge Plan Discharge Disposition Patient Disposition: 30 Still Patient Discharge Details Diagnosis: Acute pancreatitis, Diabetic foot ulcers, Acute hyperglycemia Physicians Team ED Provider: Collin Paredes ED Midlevel Provider: Yared Duggan Primary Care Provider: Primary Care Elo Gauthier Rxs /Orders / Referrals /Forms Prescriptions: No Action insulin glargine [Lantus U-100 Insulin] 100 unit/mL Solution 20 unit SUB-Q HS RF: 0 insulin regular human [Novolin R Regular U-100 Insuln] 100 unit/mL Solution 1 sliding scale dose SUB-Q UD RF: 0 alprazolam [Xanax] 2 mg Tablet 2 mg PO BID PRN (Reason: Anxiety) RF: 0 quetiapine [Seroquel XR] 300 mg Tablet Extended Release 24 Hr 300 mg PO DAILY RF: 0 Status ED Status: With Doctor
[2017-09-06 13:57] LABS: VBG Base Excess 0.9 mmol/L (-2-2); VBG Blood Gas Oxygen Content 11.5 Vol % (9.0-17.0); VBG PCO2 45 mmHG (44-48); VBG PH 7.37 (7.360-7.400); VBG PO2 23 mmHG (35-40)
[2017-09-06 14:10] LABS: Baso # (Auto) 0.1 th/mm3 (0.0-0.2); Baso % (Auto) 0.9 % (0.0-2.0); Eos # (Auto) 0.2 th/mm3 (0.0-0.4); Eos % (Auto) 2.1 % (0.0-4.0); Lymph % (Auto) 12.3 % (9.0-44.0); Mean Corpuscular HGB Conc 34.3 % (32.0-36.0); Mean Corpuscular Hemoglobin 30.1 pg (27.0-34.0); Mean Platelet Volume 8.6 fL (7.0-11.0); Mono # (Auto) 0.7 th/mm3 (0.0-0.9); Mono % (Auto) 8.7 % (0.0-8.0); Platelet Count 168 th/mm3 (150-450); Red Blood Count 4.66 mil/mm3 (4.50-5.90); Red Cell Distribution Width 16.5 % (11.6-17.2); White Blood Count 7.9 th/mm3 (4.0-11.0)
[2017-09-06 14:34] LABS: Alanine Aminotransferase 12 U/L (12-78); Albumin 2.7 g/dL (3.4-5.0); Alkaline Phosphatase 116 U/L (45-117); Anion Gap 7 meq/L (5-15); Aspartate Aminotransferase 11 U/L (15-37); Beta Hydroxybutyric Acid 0.37 mmol/L (0.00-0.39); Blood Urea Nitrogen 11 mg/dL (7-18); C-Reactive Protein 0.67 mg/dL (0.00-0.30); Calcium 8.2 mg/dL (8.5-10.1); Carbon Dioxide 24.8 meq/L (21.0-32.0); Chloride 104 meq/L (98-107); Glomerular Filtration Rate Greater Than 89 mL/min (>89); Lipase 945 U/L (73-393); Magnesium 1.9 mg/dL (1.5-2.5); Potassium 3.6 meq/L (3.5-5.1); Sodium 136 meq/L (136-145)
[2017-09-06 14:39] LABS: Glucose,Random 461 mg/dL (74-106)
[2017-09-06] MEDS ORDERED: Piperacil/Tazo 3.375 GM Premix 50 ML IV.SIG ONE (15:11)
[2017-09-06 15:24] LABS: Bilirubin,Urine Negative (Negative); Clarity,Urine Clear (Clear); Color,Urine Yellow (Yellw/Straw); Glucose,Urine (UA) 500 or Greater mg/dL (Negative); Leukocyte Esterase,Urine Negative (Negative); Nitrite,Urine Negative (Negative); Specific Gravity,Urine 1.029 (1.002-1.035); Squamous Epithelial Cell,Urine <1 /hpf (0-5)
[2017-09-06] MEDS ORDERED: Dextrose 50% in Water 50 ML Vial IV.PUSH PRN (15:40)
[2017-09-06] MEDS ORDERED: Bisacodyl 10 MG Supp RECTAL PRN (15:42)
[2017-09-06] MEDS ORDERED: Vancomycin Inj 1 GM/200 ML PIGGYBACK IV.SIG ONE (15:42)
[2017-09-06] MEDS ORDERED: Piperacil/Tazo 3.375 GM Premix 50 ML IV.SIG SCH (15:42)
--- NOTE | 2017-09-06 15:58 | XR ---
EXAM DATE: 09/06/2017 3:54 PM EDT AGE/SEX: 47 years / Male INDICATIONS: Left ankle ulcers. CLINICAL DATA: This is the patient's initial encounter. Patient reports that signs and symptoms have been present for 3 days and indicates a pain score of 5/10. MEDICAL/SURGICAL HISTORY: . Gastroesophageal reflux disease. Congestive heart failure. Cardiova scular disease. Diabetes. Pancreatitis. Myocardial infarction. Hiatal hernia. Seizure. CAD. Cholecy stectomy. COMPARISON: No prior exams available for comparison. FINDINGS: No definite fractures, or dislocations are identified. No definite lytic or sclerotic les ion is seen. Slight osteopenia is seen. CONCLUSION: Slight osteopenia. Electronically signed by: Ray Jc MD 09/06/2017 3:56 PM EDT
--- NOTE | 2017-09-06 15:58 | XR ---
EXAM DATE: 09/06/2017 3:52 PM EDT AGE/SEX: 47 years / Male INDICATIONS: Right foot ulcers. CLINICAL DATA: This is the patient's initial encounter. Patient reports that signs and symptoms have been present for 3 days and indicates a pain score of 5/10. MEDICAL/SURGICAL HISTORY: . Gastroesophageal reflux disease. Congestive heart failure. Cardiova scular disease. Diabetes. Pancreatitis. Myocardial infarction. Hiatal hernia. Seizure. CAD. Cholecy stectomy. COMPARISON: No prior exams available for comparison. FINDINGS: Probable subacute fracture lateral phalanx great toe Significant osteopenia. Soft tissues are unrema rkable. No radiopaque foreign bodies seen. CONCLUSION: Significant osteopenia without bony destruction to suggest osteomyelitis probable subacute fracture p roximal phalanx great toe Electronically signed by: Brian Bowen MD 09/06/2017 3:56 PM EDT
[2017-09-06] MEDS ORDERED: Vancomycin Consult Pharmacy 1 EACH OTHER SCH (16:00)
[2017-09-06] MEDS ORDERED: Vancomycin Inj 1,000 MG in Sodium Chlor 0.9% Inj 250 ML IV.SIG ONE (16:00)
[2017-09-06 16:27] LABS: Amphetamine Screen,Urine Neg (Neg); Barbiturate Screen,Urine Neg (Neg); Cannabinoid Screen,Urine Pos (Neg); Cocaine Screen,Urine Neg (Neg)
[2017-09-06 16:29] LABS: Opiate Screen,Urine Neg (Neg)
[2017-09-06] MEDS ORDERED: Naloxone Inj 0.4 MG/ML Vial IV.PUSH PRN (16:33)
[2017-09-06] MEDS ORDERED: Promethazine 25 MG Supp RECTAL PRN (16:35)
--- NOTE | 2017-09-06 16:44 | P.HPIM ---
History of Present Illness Primary Care Physician: No Primary Care Physician History of Present Illness: 47-year-old male with reported history of pancreatitis, diabetes, diabetic peripheral neuropathy who presents with a two-week history of worsening ulcers on right foot and left ankle, subsequently much worse with constant vague pain over the past 2 days. Patient reports fatigue which is worsening over the past 3 days. Denies any chest pain, however does report nausea and vomiting with constant dull epigastric pain radiating to his back consistent with previous episodes of pancreatitis. Denies hematemesis. Denies diarrhea, constipation. 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 - Medical History Medical History: Medical History (Last Updated 09/06/17 @ 16:41 by Tom Eason MD) Anxiety Diabetes FH: cholecystectomy Pancreatitis Renal infarct Wrist fracture - Surgical History Surgical History: Surgical History (Last Reviewed 09/06/17 @ 13:52 by KILO Stephens) S/P lens implant - Family History Family History: Family History (Last Updated 09/06/17 @ 16:41 by Tom Eason MD) Mother Heart disease Father Heart disease - Tobacco History Second Hand Smoke Exposure: No Tobacco Use In Past 30 Days: Yes Smoking Status: Current every day smoker Tobacco Type: Cigarettes - Alcohol History How Often Do You Have a Drink Containing Alcohol: Never - Substance Use History Substance History: Active Abuse - Travel History Recent Travel in the [place] Within the Last 8 Weeks: No Recent Travel Out of the Country Within the Last 8 Weeks: No - Immunization History Tetanus Immunization: <5 Years Hx Influenza Vaccine This Season: No Medications and Allergies Active Medications: Active Medications Al Hydroxide/Mg Hydroxide (Milk Of Ed Toure) 30 ml PO Q12H PRN PRN Reason: Mild Constipation Bisacodyl (Dulcolax Supp) 10 mg RECTAL DAILY PRN PRN Reason: SEVERE CONSITIPATION Dextrose (D50w Vial) 50 ml IV.PUSH UNSCH PRN PRN Reason: PER HYPOGLYCEMIA PROTOCOL Glucagon (Glucagon Inj) 1 mg OTHER PRN PRN PRN Reason: for Hypoglycemia Protocol Pharmacy Profile Note (Vancomycin Consult Pharmacy) 0 mls @ 0 mls/hr OTHER UNSCH [facility] Sodium Chloride (Ns Inj) 1,000 mls @ 100 mls/hr IV.CONT .Q10H [facility] Vancomycin HCl 900 mg/ Sodium (Chloride) 259 mls @ 250 mls/hr IV.SIG Q12H [facility] Vancomycin HCl 1,000 mg/ (Sodium Chloride) 250 mls @ 250 mls/hr IV.SIG ONCE ONE Stop: 09/06/17 16:59 Piperacillin/Tazobactam/Dextrose (Zosyn 3.375 Gm Premix) 50 mls @ 100 mls/hr IV.SIG Q6H [facility] Insulin Aspart (Novolog Insulin Correctional Sugar Inj) 0 unit SQ ACHS [facility]; Protocol Insulin Detemir (Levemir Inj) 8 unit SQ BID [facility] Lactulose (Lactulose Liq) 30 ml PO DAILY PRN PRN Reason: SEVERE CONSITIPATION Miscellaneous Information ([facility] Ordered Lab Info) 0 each OTHER ONCE ONE Stop: 09/08/17 05:46 Senna/Docusate Sodium (Mahnaz-Colace) 1 tab PO BID [facility] Sennosides (Senokot) 17.2 mg PO Q12H PRN PRN Reason: Moderate Constipation Allergies Allergy/AdvReac Type Severity Reaction Status Date / Time No Known Allergies Allergy Unverified 09/06/17 13:15 Home Medications Medication Instructions Recorded Confirmed Type alprazolam [Xanax] 2 mg PO BID PRN 09/06/17 09/06/17 History insulin glargine [Lantus U-100 20 unit SUB-Q HS 09/06/17 09/06/17 History Insulin] insulin regular human [Novolin R 1 sliding scale dose SUB-Q UD 09/06/17 History Regular U-100 Insuln] quetiapine [Seroquel XR] 300 mg PO DAILY 09/06/17 09/06/17 History Exam Vital signs: Vital Signs 09/06/17 13:12 09/06/17 14:31 Pulse Rate 90 Respiratory Rate 18 Blood Pressure 126/85 Pulse Oximetry 99 100 Intake & Output 09/05/17 09/06/17 09/06/17 18:59 06:59 18:59 Weight 54.431 kg Narrative: GENERAL: Patient sitting up in bed. Appears uncomfortable. Alert and oriented 3. SKIN: Warm and dry. HEAD: Atraumatic. Normocephalic. EYES: Pupils equal and round. No scleral icterus. No injection or drainage. ENT: No nasal bleeding or discharge. Mucous membranes pink and moist. NECK: Trachea midline. No JVD. CARDIOVASCULAR: Regular rate and rhythm. RESPIRATORY: No accessory muscle use. Clear to auscultation. Breath sounds equal bilaterally. GASTROINTESTINAL: Abdomen soft, nondistended. Tender to moderate palpation in epigastrium. No rebound or guarding. Hepatic and splenic margins not palpable. MUSCULOSKELETAL: Extremities without clubbing, cyanosis, or edema. No obvious deformities. Patient has 2 x 3 cm ulcer with fibrinous exudate over the dorsum of the right foot. Also with 3 cm x 4 cm ulcer over the left anterior ankle/ tibia. About 1 cm of surrounding erythema on both NEUROLOGICAL: Awake and alert. No obvious cranial nerve deficits. Motor grossly within normal limits. Five out of 5 muscle strength in the arms and legs. Normal speech. PSYCHIATRIC: Appropriate mood and affect; insight and judgment normal. Results - Labs CBC & Chem 7: 09/06/17 13:53 09/06/17 13:53 Labs: Short CBC 09/06/17 Range/Units 13:53 WBC 7.9 (4.0-11.0) th/mm3 Hgb 14.0 (13.0-17.0) gm/dL Hct 41.0 (39.0-51.0) % Plt Count 168 (150-450) th/mm3 BMP 09/06/17 13:53 Sodium 136 Potassium 3.6 Chloride 104 Carbon Dioxide 24.8 BUN 11 Creatinine 0.79 Calcium 8.2 L Cardiac Enzymes 09/06/17 Range/Units 13:53 Troponin I Less than 0.02 L (0.02-0.05) ng/mL Liver Function 09/06/17 Range/Units 13:53 Total Bilirubin 0.3 (0.2-1.0) mg/dL AST 11 L (15-37) U/L ALT 12 (12-78) U/L Alkaline Phosphatase 116 (45-117) U/L Albumin 2.7 L (3.4-5.0) g/dL Urine 09/06/17 Range/Units 14:48 Urine Color Yellow (Yellw/Straw) Urine Clarity Clear (Clear) Urine pH 5.0 (5.0-8.5) Ur Specific [place] 1.029 (1.002-1.035) Urine Protein 100 H (Neg-Trace) mg/dL Urine Glucose (UA) 500 or greater (Negative) mg/dL - Imaging Impressions Chest X-Ray 09/06/17 13:12 CONCLUSION: No acute cardiopulmonary disease. Foot X-Ray 09/06/17 15:11 CONCLUSION: Slight osteopenia. Foot X-Ray 09/06/17 15:11 CONCLUSION: Significant osteopenia without bony destruction to suggest osteomyelitis probable subacute fracture proximal phalanx great toe Caprini VTE Risk Assessment Caprini VTE Risk Assessment: No/Low Risk (score <= 1) Caprini Risk Assessment Model: Point Value = 1 Point Value = 2 Point Value = 3 Point Value = 5 Age 41-60 Minor surgery BMI > 25 kg/m2 Swollen legs Varicose veins or History of unexplained or recurrent spontaneous Oral contraceptives or hormone replacement Sepsis (< 1 month) Serious lung disease, including pneumonia (< 1 month) Abnormal pulmonary function Acute myocardial infarction Congestive heart failure (< 1 month) History of inflammatory bowel disease Medical patient at bed rest Age 61-74 Arthroscopic surgery Major open surgery (> 45 min) Laparoscopic surgery (> 45 min) Malignancy Confined to bed (> 72 hours) Immobilizing plaster cast Central venous access Age >= 75 History of VTE Family history of VTE Factor V Leiden Prothrombin [id number] Lupus anticoagulant Anticardiolipin antibodies Elevated serum homocysteine Heparin-induced thrombocytopenia Other congenital or acquired thrombophilia Stroke (< 1 month) Elective arthroplasty Hip, pelvis, or leg fracture Acute spinal cord injury (< 1 month) Prophylaxis Regimen: Total Risk Factor Score Risk Level Prophylaxis Regimen 0-1 Low Early ambulation 2 Moderate Order ONE of the following: *Sequential Compression Device (SCD) *Heparin 5000 units SQ BID 3-4 Higher Order ONE of the following medications: *Heparin 5000 units SQ TID *Enoxaparin/Lovenox 40 mg SQ daily (WT < 150 kg, CrCl > 30 mL/min) *Enoxaparin/Lovenox 30 mg SQ daily (WT < 150 kg, CrCl > 10-29 mL/min) *Enoxaparin/Lovenox 30 mg SQ BID (WT < 150 kg, CrCl > 30 mL/min) AND/OR *Sequential Compression Device (SCD) 5 or more Highest Order ONE of the following medications: *Heparin 5000 units SQ TID (Preferred with Epidurals) *Enoxaparin/Lovenox 40 mg SQ daily (WT < 150 kg, CrCl > 30 mL/min) *Enoxaparin/Lovenox 30 mg SQ daily (WT < 150 kg, CrCl > 10-29 mL/min) *Enoxaparin/Lovenox 30 mg SQ BID (WT < 150 kg, CrCl > 30 mL/min) AND *Sequential Compression Device (SCD) Assessment and Plan - Plan //Bilateral diabetic ulcers -Right foot, left ankle = X-rays without osteomyelitis. Cultures pending. ESR not markedly elevated. Broad-spectrum antibiotics to cover anaerobes and MRSA Podiatry consult ordered, may need debridement.. //Suspected pancreatitis //Nausea and vomiting -Lipase in 900s. Possibly secondary to hyperglycemia. Hopefully improves with insulin control. No significant tenderness on exam however = Antiemetics as needed -IV fluids //Diabetes mellitus //Acute hyperglycemia -Diabetic diet and insulin sliding scale. Aggressive IV fluid hydration as above. //Tobacco abuse. Cessation counseling provided. Discharge Planning: Pending improvement.
[2017-09-06] MEDS: Sod Chloride 0.9% Inj 1,000 ML IV.CONT SCH (17:48)
[2017-09-06] MEDS: Insulin NovoLOG Aspart Correctional Sugar Inj SQ SCH ×2 (18:41→23:24)
[2017-09-06] MEDS: Senna/Docusate Sodium 8.6/50 MG Tablet PO SCH (21:05)
[2017-09-06] MEDS: Piperacil/Tazo 3.375 GM Premix 50 ML IV.SIG SCH (23:23)
[2017-09-06] MEDS: Morphine Inj 4 MG/ML Vial IV.PUSH PRN (23:23)
[2017-09-06] MEDS: Insulin Detemir Inj 1,000 UNIT/10 ML Vial SQ SCH (23:25)
[2017-09-07] MEDS: Piperacil/Tazo 3.375 GM Premix 50 ML IV.SIG SCH ×4 (03:41→23:03)
[2017-09-07] MEDS: Morphine Inj 4 MG/ML Vial IV.PUSH PRN ×4 (03:41→20:27)
[2017-09-07] MEDS: Sod Chloride 0.9% Inj 1,000 ML IV.CONT SCH ×3 (03:42→23:03)
[2017-09-07] MEDS ORDERED: Vancomycin Inj 900 MG in Sodium Chlor 0.9% Inj 250 ML IV.SIG SCH (06:00)
[2017-09-07 06:22] LABS: White Blood Count 11.6 th/mm3 (4.0-11.0)
[2017-09-07 06:23] LABS: Baso # (Auto) 0.1 th/mm3 (0.0-0.2); Baso % (Auto) 0.7 % (0.0-2.0); Eos # (Auto) 0.3 th/mm3 (0.0-0.4); Eos % (Auto) 2.2 % (0.0-4.0); Hematocrit 40.8 % (39.0-51.0); Lymph # (Auto) 1.1 th/mm3 (1.0-4.8); Lymph % (Auto) 9.9 % (9.0-44.0); Mean Corpuscular HGB Conc 34.3 % (32.0-36.0); Mean Corpuscular Hemoglobin 29.6 pg (27.0-34.0); Mean Corpuscular Volume 86.4 fL (80.0-100.0); Mean Platelet Volume 8.4 fL (7.0-11.0); Mono % (Auto) 8.6 % (0.0-8.0); Neut # (Auto) 9.1 th/mm3 (1.8-7.7); Neut % (Auto) 78.6 % (16.0-70.0); Platelet Count 160 th/mm3 (150-450); Red Blood Count 4.72 mil/mm3 (4.50-5.90)
[2017-09-07 07:05] LABS: Alanine Aminotransferase 98 U/L (12-78); Albumin 2.7 g/dL (3.4-5.0); Alkaline Phosphatase 195 U/L (45-117); Anion Gap 8 meq/L (5-15); Aspartate Aminotransferase 166 U/L (15-37); Blood Urea Nitrogen 12 mg/dL (7-18); Calcium 8.4 mg/dL (8.5-10.1); Carbon Dioxide 24.5 meq/L (21.0-32.0); Chloride 108 meq/L (98-107); Glomerular Filtration Rate Greater Than 89 mL/min (>89); Glucose,Random 130 mg/dL (74-106); Potassium 3.5 meq/L (3.5-5.1); Sodium 140 meq/L (136-145); Total Protein 6.1 g/dL (6.4-8.2)
[2017-09-07] MEDS: Senna/Docusate Sodium 8.6/50 MG Tablet PO SCH ×2 (08:21→20:26)
[2017-09-07] MEDS: Insulin NovoLOG Aspart Correctional Sugar Inj SQ SCH ×4 (08:23→21:54)
[2017-09-07] MEDS: Insulin Detemir Inj 1,000 UNIT/10 ML Vial SQ SCH ×2 (08:23→21:54)
--- NOTE | 2017-09-07 09:17 | P.PN ---
Subjective Interval history: Follow-up diabetic foot ulcers and pancreatitis. Complaining of pain in the left upper quadrant and bilateral feet. Also reports of ongoing dizziness leading to passing out which has been ongoing for some time. He has been falling and PT has recommended inpt rehabilitation Physical Exam Vital signs: Vital Signs 09/06/17 13:12 09/06/17 14:31 09/06/17 20:00 Temperature 97.9 F Pulse Rate 90 81 Respiratory Rate 18 16 Blood Pressure 126/85 138/64 Pulse Oximetry 99 100 98 09/07/17 00:00 09/07/17 04:00 09/07/17 07:41 Temperature 97.9 F 98.3 F 98.4 F Pulse Rate 88 80 86 Respiratory Rate 17 16 16 Blood Pressure 129/79 128/74 182/107 H Pulse Oximetry 97 97 95 Intake & Output 09/06/17 09/07/17 09/07/17 18:59 06:59 18:59 Intake Total 3659 / 3659 Output Total 400 / 400 Balance 3659 / 3659 -400 / -400 Weight 54.431 kg Intake: IV 3659 / 3659 NS Inj 1,000 ML @ 100 mls/hr IV 1000 / 1000 .CONT .Q10H [facility] Rx#:[id number] Zosyn 3.375 GM Premix 50 ML @ 150 / 150 100 mls/hr IV.SIG Q6H [facility] Rx#: [id number] NS Inj 1,000 ML @ Wide Open IV. 1999 SIG BOLUS ONE Rx#:[id number] Vancomycin Inj 1,000 MG In NS 250 / 250 Inj 250 ML @ 250 mls/hr IV.SIG ONCE ONE Rx#:[id number] Vancomycin Inj 900 MG In NS Inj 259 / 259 250 ML @ 250 mls/hr IV.SIG Q12H [facility] Rx#:[id number] Output: Urine 400 / 400 Narrative: GENERAL: Patient sitting up in bed. Appears uncomfortable. Alert and oriented 3. SKIN: Warm and dry. CARDIOVASCULAR: Regular rate and rhythm. RESPIRATORY: No accessory muscle use. Clear to auscultation. Breath sounds equal bilaterally. GASTROINTESTINAL: Abdomen soft, nondistended. Tender to moderate palpation in epigastrium. No rebound or guarding. MUSCULOSKELETAL: Extremities without clubbing, cyanosis, or edema. No obvious deformities. Patient has 2 x 3 cm ulcer with fibrinous exudate over the dorsum of the right foot. Also with 3 cm x 4 cm ulcer over the left anterior ankle/ tibia. About 1 cm of surrounding erythema on both NEUROLOGICAL: Awake and alert. No obvious cranial nerve deficits. Motor grossly within normal limits. Five out of 5 muscle strength in the arms and legs. Normal speech. Results - Labs CBC & Chem 7: 09/07/17 05:00 09/07/17 05:00 Laboratory Results - last 24 hr 09/06/17 09/06/17 09/06/17 13:04 13:38 13:53 WBC 7.9 RBC 4.66 Hgb 14.0 Hct 41.0 MCV 88.0 MCH 30.1 MCHC 34.3 RDW 16.5 Plt Count 168 MPV 8.6 Neut % (Auto) 76.0 H Lymph % (Auto) 12.3 [place] % (Auto) 8.7 H Eos % (Auto) 2.1 Baso % (Auto) 0.9 Neut # (Auto) 6.0 Lymph # (Auto) 1.0 [place] # (Auto) 0.7 Eos # (Auto) 0.2 Baso # (Auto) 0.1 WBC Differential . Differential Comment Auto diff final ESR Puncture Site Rn Patient Temperature 98.6 VBG pH 7.37 VBG pCO2 45 VBG pO2 23 L* VBG HCO3 26 VBG O2 Saturation 39 L VBG O2 Content 11.5 VBG Base Excess 0.9 VBG Carboxyhemoglobin 7.9 H* VBG Methemoglobin 0.7 Hemoglobin 21.5 H Inspired O2 21 Critical Value Yes Sodium Potassium Chloride Carbon Dioxide Anion Gap BUN Creatinine Estimated GFR POC Glucose 451 H* Random Glucose Lactic Acid Calcium Magnesium Total Bilirubin AST ALT Alkaline Phosphatase Troponin I C-Reactive Protein Total Protein Albumin Lipase Beta-Hydroxybutyric Acd Urine Color Urine Clarity Urine pH Ur Specific [place] Urine Protein Urine Glucose (UA) Urine Ketones Urine Occult Blood Urine Nitrate Urine Bilirubin Urine Urobilinogen Ur Leukocyte Esterase Urine RBC Urine WBC Ur Squamous Epith Cells Micro UA Comment Urine Culture Comments Urine Opiates Screen Ur Barbiturates Screen Ur Amphetamines Screen U Benzodiazepines Scrn Urine Cocaine Screen U Cannabinoids Screen 09/06/17 09/06/17 09/06/17 13:53 13:53 13:53 WBC RBC Hgb Hct MCV MCH MCHC RDW Plt Count MPV Neut % (Auto) Lymph % (Auto) [place] % (Auto) Eos % (Auto) Baso % (Auto) Neut # (Auto) Lymph # (Auto) [place] # (Auto) Eos # (Auto) Baso # (Auto) WBC Differential Differential Comment ESR 19 H Puncture Site Patient Temperature VBG pH VBG pCO2 VBG pO2 VBG HCO3 VBG O2 Saturation VBG O2 Content VBG Base Excess VBG Carboxyhemoglobin VBG Methemoglobin Hemoglobin Inspired O2 Critical Value Sodium 136 Potassium 3.6 Chloride 104 Carbon Dioxide 24.8 Anion Gap 7 BUN 11 Creatinine 0.79 Estimated GFR Greater than 89 POC Glucose Random Glucose 461 H* Lactic Acid 0.4 Calcium 8.2 L Magnesium 1.9 Total Bilirubin 0.3 AST 11 L ALT 12 Alkaline Phosphatase 116 Troponin I C-Reactive Protein 0.67 H Total Protein 6.0 L Albumin 2.7 L Lipase 945 H Beta-Hydroxybutyric Acd 0.37 Urine Color Urine Clarity Urine pH Ur Specific [place] Urine Protein Urine Glucose (UA) Urine Ketones Urine Occult Blood Urine Nitrate Urine Bilirubin Urine Urobilinogen Ur Leukocyte Esterase Urine RBC Urine WBC Ur Squamous Epith Cells Micro UA Comment Urine Culture Comments Urine Opiates Screen Ur Barbiturates Screen Ur Amphetamines Screen U Benzodiazepines Scrn Urine Cocaine Screen U Cannabinoids Screen 09/06/17 09/06/17 09/06/17 13:53 14:48 14:48 WBC RBC Hgb Hct MCV MCH MCHC RDW Plt Count MPV Neut % (Auto) Lymph % (Auto) [place] % (Auto) Eos % (Auto) Baso % (Auto) Neut # (Auto) Lymph # (Auto) [place] # (Auto) Eos # (Auto) Baso # (Auto) WBC Differential Differential Comment ESR Puncture Site Patient Temperature VBG pH VBG pCO2 VBG pO2 VBG HCO3 VBG O2 Saturation VBG O2 Content VBG Base Excess VBG Carboxyhemoglobin VBG Methemoglobin Hemoglobin Inspired O2 Critical Value Sodium Potassium Chloride Carbon Dioxide Anion Gap BUN Creatinine Estimated GFR POC Glucose Random Glucose Lactic Acid Calcium Magnesium Total Bilirubin AST ALT Alkaline Phosphatase Troponin I Less than 0.02 L C-Reactive Protein Total Protein Albumin Lipase Beta-Hydroxybutyric Acd Urine Color Yellow Urine Clarity Clear Urine pH 5.0 Ur Specific [place] 1.029 Urine Protein 100 H Urine Glucose (UA) 500 or greater Urine Ketones Negative Urine Occult Blood Small H Urine Nitrate Negative Urine Bilirubin Negative Urine Urobilinogen Less than 2 Ur Leukocyte Esterase Negative Urine RBC Less than 1 Urine WBC Less than 1 Ur Squamous Epith Cells <1 Micro UA Comment Culture not ind Urine Culture Comments Culture not ind Urine Opiates Screen Neg Ur Barbiturates Screen Neg Ur Amphetamines Screen Neg U Benzodiazepines Scrn Neg Urine Cocaine Screen Neg U Cannabinoids Screen Pos H 09/06/17 09/06/17 09/07/17 18:35 22:26 05:00 WBC 11.6 H RBC 4.72 Hgb 14.0 Hct 40.8 MCV 86.4 MCH 29.6 MCHC 34.3 RDW 16.0 Plt Count 160 MPV 8.4 Neut % (Auto) 78.6 H Lymph % (Auto) 9.9 [place] % (Auto) 8.6 H Eos % (Auto) 2.2 Baso % (Auto) 0.7 Neut # (Auto) 9.1 H Lymph # (Auto) 1.1 [place] # (Auto) 1.0 H Eos # (Auto) 0.3 Baso # (Auto) 0.1 WBC Differential . Differential Comment Auto diff final ESR Puncture Site Patient Temperature VBG pH VBG pCO2 VBG pO2 VBG HCO3 VBG O2 Saturation VBG O2 Content VBG Base Excess VBG Carboxyhemoglobin VBG Methemoglobin Hemoglobin Inspired O2 Critical Value Sodium Potassium Chloride Carbon Dioxide Anion Gap BUN Creatinine Estimated GFR POC Glucose 186 H 186 H Random Glucose Lactic Acid Calcium Magnesium Total Bilirubin AST ALT Alkaline Phosphatase Troponin I C-Reactive Protein Total Protein Albumin Lipase Beta-Hydroxybutyric Acd Urine Color Urine Clarity Urine pH Ur Specific [place] Urine Protein Urine Glucose (UA) Urine Ketones Urine Occult Blood Urine Nitrate Urine Bilirubin Urine Urobilinogen Ur Leukocyte Esterase Urine RBC Urine WBC Ur Squamous Epith Cells Micro UA Comment Urine Culture Comments Urine Opiates Screen Ur Barbiturates Screen Ur Amphetamines Screen U Benzodiazepines Scrn Urine Cocaine Screen U Cannabinoids Screen 09/07/17 09/07/17 05:00 07:58 WBC RBC Hgb Hct MCV MCH MCHC RDW Plt Count MPV Neut % (Auto) Lymph % (Auto) [place] % (Auto) Eos % (Auto) Baso % (Auto) Neut # (Auto) Lymph # (Auto) [place] # (Auto) Eos # (Auto) Baso # (Auto) WBC Differential Differential Comment ESR Puncture Site Patient Temperature VBG pH VBG pCO2 VBG pO2 VBG HCO3 VBG O2 Saturation VBG O2 Content VBG Base Excess VBG Carboxyhemoglobin VBG Methemoglobin Hemoglobin Inspired O2 Critical Value Sodium 140 Potassium 3.5 Chloride 108 H Carbon Dioxide 24.5 Anion Gap 8 BUN 12 Creatinine 0.65 Estimated GFR Greater than 89 POC Glucose 227 H Random Glucose 130 H D Lactic Acid Calcium 8.4 L Magnesium Total Bilirubin 0.8 AST 166 H ALT 98 H Alkaline Phosphatase 195 H Troponin I C-Reactive Protein Total Protein 6.1 L Albumin 2.7 L Lipase Beta-Hydroxybutyric Acd Urine Color Urine Clarity Urine pH Ur Specific [place] Urine Protein Urine Glucose (UA) Urine Ketones Urine Occult Blood Urine Nitrate Urine Bilirubin Urine Urobilinogen Ur Leukocyte Esterase Urine RBC Urine WBC Ur Squamous Epith Cells Micro UA Comment Urine Culture Comments Urine Opiates Screen Ur Barbiturates Screen Ur Amphetamines Screen U Benzodiazepines Scrn Urine Cocaine Screen U Cannabinoids Screen - Imaging Impressions Chest X-Ray 09/06/17 13:12 CONCLUSION: No acute cardiopulmonary disease. Foot X-Ray 09/06/17 15:11 CONCLUSION: Slight osteopenia. Foot X-Ray 09/06/17 15:11 CONCLUSION: Significant osteopenia without bony destruction to suggest osteomyelitis probable subacute fracture proximal phalanx great toe Assessment and Plan - Plan //Bilateral diabetic foot ulcers -Right foot, left ankle with probable subacute fracture of the proximal phalanx of the right great toe X-rays without osteomyelitis. Cultures pending. ESR not markedly elevated. Broad-spectrum antibiotics vancomycin and Zosyn. Pain management with oxycodone/Lortab and IV morphine Podiatry consult ordered, may need debridement. //Acute pancreatitis //Nausea and vomiting Elevated LFTs -Lipase in 900s. Possibly secondary to hyperglycemia. Hopefully improves with insulin control. -Antiemetics as needed -IV fluids and pain management consult regarding narcotics -Monitor LFTs ck abdominal sonogram History of cholecystectomy secondary to cholecystitis //Diabetes mellitus //Acute hyperglycemia -Diabetic diet and insulin sliding scale. Aggressive IV fluid hydration as above. //Tobacco abuse. Cessation counseling provided. DVT prophylaxis with SCD. Pharmacological prophylaxis pending podiatry evaluation Discharge Planning: pending podiatry eval and clnical improvement
[2017-09-07] MEDS ORDERED: Piperacil/Tazo 3.375 GM Premix 50 ML IV.SIG SCH (09:30)
[2017-09-07] MEDS: Lisinopril 20 MG Tablet PO SCH ×2 (11:24→11:30)
[2017-09-07] MEDS: QUEtiapine 100 MG Tablet PO SCH ×2 (11:33→20:26)
[2017-09-07] MEDS: Vancomycin Inj 1,000 MG in Sodium Chlor 0.9% Inj 250 ML IV.SIG SCH (18:19)
--- NOTE | 2017-09-07 22:02 | ECG ---
Date Performed: 09/06/2017 Time Performed: 20:17:54 PTAGE: 47 years EKG: Sinus rhythm ANTEROSEPTAL MYOCARDIAL INFARCTION ABNORMAL ECG INTERPRETATION BASED ON A DEFAULT AGE OF 41 YEARS NO PREVIOUS TRACING DOCTOR: Boogie Amezquita Interpretating Date/Time 09/07/2017 22:00:32
--- NOTE | 2017-09-07 22:08 | ECG ---
Date Performed: 09/06/2017 Time Performed: 14:13:47 PTAGE: 47 years EKG: Sinus rhythm ANTEROSEPTAL MYOCARDIAL INFARCTION ABNORMAL ECG PREVIOUS TRACING : 09/20/2016 20.16 Since the previous tracing, no significant change noted DOCTOR: Boogie Amezquita Interpretating Date/Time 09/07/2017 22:06:52
--- NOTE | 2017-09-07 22:22 | P.CON ---
History of Present Illness Service: Foot and Ankle Surgery/Podiatry Consult date: 09/07/17 Primary Care Provider: No Primary Care Physician History of Present Illness: Podiatry consult for this 47-year-old with PMHx of ACS, pancreatitis male with history of diabetes, for bilateral lower extremity ulcerations. Patient states this just started scratching and they appeared. He states that they have progressing in severity and that they are painful. He initially presented to the ED for nausea and vomiting. Denies IV drug use but admits to recreational marijuana. Review of Systems Constitutional: Reports chills, Reports fatigue, Reports night sweats Eyes: Denies blind spots Ears, Nose, Mouth, and Throat: Denies abnormal hearing Cardiovascular: Denies chest pain Respiratory: Denies cough Gastrointestinal: Denies abdominal pain PMFSH - History History 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, Assistant Counsel / EMT - Medical History Medical History: Medical History (Last Reviewed 09/07/17 @ 22:11 by Jen Enrique DPM) Anxiety Diabetes FH: cholecystectomy Pancreatitis Renal infarct Wrist fracture - Surgical History Surgical History: Surgical History (Last Reviewed 09/07/17 @ 22:11 by Jen Enrique DPM) S/P lens implant - Family History Family History: Family History (Last Reviewed 09/07/17 @ 22:11 by Jen Enrique DPM) Mother Heart disease Father Heart disease - Tobacco History Second Hand Smoke Exposure: No Tobacco Use In Past 30 Days: Yes Smoking Status: Current every day smoker Tobacco Type: Cigarettes - Alcohol History How Often Do You Have a Drink Containing Alcohol: Never - Substance Use History Substance History: Active Abuse - Substance Use Type Marijuana Status: Active Frequency: OCASSIONALLY WHEN HES NOT ABLE TO EAT Reason for Use: Calm Down - Travel History Recent Travel in the [place] Within the Last 8 Weeks: No Recent Travel Out of the Country Within the Last 8 Weeks: No - Immunization History Tetanus Immunization: <5 Years Hx Influenza Vaccine This Season: No Medications and Allergies Active Medications: Active Medications Hydrocodone Bitart/Acetaminophen (Proctor 7.5/325) 1 tab PO Q4H PRN PRN Reason: PAIN SCALE 6 TO 10 Last Admin: 09/06/17 17:48 Dose: 1 tab Al Hydroxide/Mg Hydroxide (Milk Of Magnesia Liq) 30 ml PO Q12H PRN PRN Reason: Mild Constipation Alprazolam (Xanax) 2 mg PO BID PRN PRN Reason: ANXIETY Last Admin: 09/07/17 13:17 Dose: 2 mg Bisacodyl (Dulcolax Supp) 10 mg RECTAL DAILY PRN PRN Reason: SEVERE CONSITIPATION Dextrose (D50w Vial) 50 ml IV.PUSH UNSCH PRN PRN Reason: PER HYPOGLYCEMIA PROTOCOL Enalaprilat (Vasotec Inj) 1.25 mg IV.PUSH Q6H PRN PRN Reason: SEE LABEL COMMENTS Glucagon (Glucagon Inj) 1 mg OTHER PRN PRN PRN Reason: for Hypoglycemia Protocol Pharmacy Profile Note (Vancomycin Consult Pharmacy) 0 mls @ 0 mls/hr OTHER UNSCH [facility] Sodium Chloride (Ns Inj) 1,000 mls @ 100 mls/hr IV.CONT .Q10H [facility] Last Admin: 09/07/17 13:03 Dose: 100 mls/hr Piperacillin/Tazobactam/Dextrose (Zosyn 3.375 Gm Premix) 50 mls @ 100 mls/hr IV.SIG Q6H [facility] Last Admin: 09/07/17 19:39 Dose: Not Given Vancomycin HCl 1,000 mg/ (Sodium Chloride) 250 mls @ 250 mls/hr IV.SIG Q12H [facility] Last Admin: 09/07/17 18:19 Dose: 250 mls/hr Insulin Aspart (Novolog Insulin Correctional Sugar Inj) 0 unit SQ ACHS [facility]; Protocol Last Admin: 09/07/17 21:54 Dose: 100 unit Insulin Detemir (Levemir Inj) 8 unit SQ BID [facility] Last Admin: 09/07/17 21:54 Dose: 8 unit Lactulose (Lactulose Liq) 30 ml PO DAILY PRN PRN Reason: SEVERE CONSITIPATION Lisinopril (Prinivil) 20 mg PO DAILY [facility] Last Admin: 09/07/17 11:30 Dose: 20 mg Miscellaneous Information ([facility] Ordered Lab Info) 0 each OTHER ONCE ONE Stop: 09/08/17 05:46 Morphine Sulfate (Morphine Inj) 4 mg IV.PUSH Q3H PRN PRN Reason: BREAKTHROUGH PAIN Last Admin: 09/07/17 20:27 Dose: 4 mg Naloxone HCl (Narcan Inj) 0.4 mg IV.PUSH UNSCH PRN PRN Reason: SEE LABEL COMMENTS Ondansetron HCl (Zofran Odt) 4 mg PO Q6H PRN PRN Reason: NAUSEA OR VOMITING Last Admin: 09/07/17 10:35 Dose: 4 mg Ondansetron HCl (Zofran Odt) 4 mg PO Q6H PRN PRN Reason: NAUSEA OR VOMITING Oxycodone/Acetaminophen (Percocet 5/325 Mg) 1 tab PO Q6H PRN PRN Reason: PAIN SCALE 3 TO 5 Promethazine HCl (Phenergan) 25 mg PO Q6H PRN PRN Reason: NAUSEA OR VOMITING Promethazine HCl (Phenergan Supp) 25 mg RECTAL Q6H PRN PRN Reason: NAUSEA OR VOMITING Quetiapine Fumarate (Seroquel) 150 mg PO BID [facility] Last Admin: 09/07/17 20:26 Dose: 150 mg Senna/Docusate Sodium (Claudia-Colace) 1 tab PO BID [facility] Last Admin: 09/07/17 20:26 Dose: 1 tab Sennosides (Senokot) 17.2 mg PO Q12H PRN PRN Reason: Moderate Constipation Allergies Allergy/AdvReac Type Severity Reaction Status Date / Time No Known Allergies Allergy Unverified 09/06/17 13:15 Home Medications Medication Instructions Recorded Confirmed Type alprazolam [Xanax] 2 mg PO BID PRN 09/06/17 09/06/17 History clopidogrel [Plavix] 75 mg PO DAILY 09/06/17 09/06/17 History insulin glargine [Lantus U-100 20 unit SUB-Q HS 09/06/17 09/06/17 History Insulin] insulin regular human [Novolin R 1 sliding scale dose SUB-Q UD 09/06/17 History Regular U-100 Insuln] lisinopril 20 mg PO DAILY 09/06/17 09/06/17 History quetiapine [Seroquel XR] 300 mg PO DAILY 09/06/17 09/06/17 History Physical Exam Vital signs: Vital Signs 09/07/17 00:00 09/07/17 04:00 09/07/17 07:41 Temperature 97.9 F 98.3 F 98.4 F Pulse Rate 88 80 86 Respiratory Rate 17 16 16 Blood Pressure 129/79 128/74 182/107 H Pulse Oximetry 97 97 95 09/07/17 12:00 09/07/17 13:04 09/07/17 15:39 Temperature 98.4 F Pulse Rate 80 Respiratory Rate 20 6 L Blood Pressure 161/93 H 146/82 H Pulse Oximetry 97 09/07/17 15:44 09/07/17 20:00 Temperature 98 F 97.8 F Pulse Rate 87 87 Respiratory Rate 20 16 Blood Pressure 146/82 H 164/96 H Pulse Oximetry 94 L 99 Intake & Output 09/07/17 09/07/17 09/08/17 06:59 18:59 06:59 Intake Total 3659 / 3659 1000 / 1000 Output Total 400 / 400 Balance 3659 / 3659 600 / 600 Intake: IV 3659 / 3659 1000 / 1000 NS Inj 1,000 ML @ 100 mls/hr IV 1000 / 1000 1000 / 1000 .CONT .Q10H [facility] Rx#:[id number] Zosyn 3.375 GM Premix 50 ML @ 150 / 150 100 mls/hr IV.SIG Q6H [facility] Rx#: [id number] NS Inj 1,000 ML @ Wide Open IV. 1999 / 1999 SIG BOLUS ONE Rx#:[id number] Vancomycin Inj 1,000 MG In NS 250 / 250 Inj 250 ML @ 250 mls/hr IV.SIG ONCE ONE Rx#:[id number] Vancomycin Inj 900 MG In NS Inj 259 / 259 250 ML @ 250 mls/hr IV.SIG Q12H [facility] Rx#:[id number] Output: Urine 400 / 400 Narrative: GENERAL: This is a well-nourished, well-developed patient, in no apparent distress. SKIN: Bilateral lower extremity ulcers HEAD: Atraumatic. EYES: Pupils equal round and reactive. ENT: Airway patent. NECK: Trachea midline. RESPIRATORY: Nonlabored breathing. MUSCULOSKELETAL:. Negative Homans sign bilaterally. NEUROLOGICAL: Awake and alert. Normal speech. Lower extremity physical exam: Vascular: Dorsalis pedis 1/4, posterior tibial 1/4. Capillary refill time within normal limits to digits x5 bilateral foot. Edema present to claudia wound area to bilateral LE. Neuro: Gross sensation intact to bilateral lower extremity. Pinpoint sensation intact. No hyperalgesia noted to bilateral lower extremity Dermatology: Right dorsal foot ulceration noted with fibro-granular base no hyperkeratotic borders no purulent drainage, no fluctuance, no crepitus, and mild periwound erythema. Left anterior tibia ulceration noted with fibro-granular base and periwound erythema and edema. No fluctuance or crepitus noted, no purulent drainage upon compression. Musculoskeletal: Tender to palpation to bilateral LE at ulceration sites. Assessment and Plan - Plan 47 year old male with bilateral LE ulcerations Patient examined and evaluated with all questions answered Nursing orders placed for wound care Will re evaluate in 24-48 hours Continue IV abx therapy MRI left leg to r.o abscess or bone involvement
--- NOTE | 2017-09-08 00:06 | US ---
EXAM DATE: 09/07/2017 11:45 PM EDT AGE/SEX: 47 years / Male INDICATIONS: Abnormal lab values. CLINICAL DATA: This is the patient's initial encounter. Patient reports that signs and symptoms have been present for 1 day and indicates a pain score of 0/10. MEDICAL/SURGICAL HISTORY: Diabetes. Pancreatitis. Renal infarct. Cholecystectomy. COMPARISON: [facility] [place], [place] ABDOMEN & PELVIS W CONTRAST, 09/21/2016. . MEASUREMENTS: Liver:__ 17.4 cm. Common Bile Duct:__ 7mm. Right Kidney:__ 10.6 x 6.4 x 5.5 cm. FINDINGS: Liver: Normal echotexture without focal lesion or ductal dilatation. Portal Vein: Hepatopedal flow seen in portal vein. Common Duct: No intraluminal mass or stone visualized. Gallbladder: Status post cholecystectomy. Pancreas: The visualized portions of pancreas are normal in size and echogenicity. There is visualiza tion of a normal pancreatic duct measuring up to 3 mm in greatest diameter. The head and tail not ful ly visualized due to overlying bowel gas. Right Kidney: Increased echotexture. No mass or hydronephrosis. Other: A small accessory spleen is noted in the hilar region related. A hyperechoic areas noted joelle g the upper central spleen. This appears to correspond to a fatty hilar region on the CT. CONCLUSION: 1. Status post cholecystectomy. 2. The liver is mildly prominent but otherwise unremarkable in appearance. 3. Small accessory spleen near the hilar region. Electronically signed by: Johnathan Lim MD 09/08/2017 12:04 AM EDT
[2017-09-08] MEDS: Morphine Inj 4 MG/ML Vial IV.PUSH PRN ×6 (00:18→21:25)
[2017-09-08] MEDS: Piperacil/Tazo 3.375 GM Premix 50 ML IV.SIG SCH ×4 (03:15→21:26)
[2017-09-08] MEDS: Vancomycin Inj 1,000 MG in Sodium Chlor 0.9% Inj 250 ML IV.SIG SCH (05:05)
[2017-09-08] MEDS ORDERED: Pharmacy Ordered Lab Info OTHER ONE (05:45)
[2017-09-08 07:24] LABS: Baso # (Auto) 0.1 th/mm3 (0.0-0.2); Baso % (Auto) 0.9 % (0.0-2.0); Eos # (Auto) 0.3 th/mm3 (0.0-0.4); Eos % (Auto) 2.9 % (0.0-4.0); Hematocrit 39.6 % (39.0-51.0); Hemoglobin 13.7 gm/dL (13.0-17.0); Lymph # (Auto) 1.6 th/mm3 (1.0-4.8); Lymph % (Auto) 17.7 % (9.0-44.0); Mean Corpuscular HGB Conc 34.5 % (32.0-36.0); Mean Corpuscular Volume 86.9 fL (80.0-100.0); Mean Platelet Volume 8.9 fL (7.0-11.0); Mono # (Auto) 0.8 th/mm3 (0.0-0.9); Mono % (Auto) 8.9 % (0.0-8.0); Neut # (Auto) 6.3 th/mm3 (1.8-7.7); Neut % (Auto) 69.6 % (16.0-70.0); Platelet Count 160 th/mm3 (150-450); Red Blood Count 4.56 mil/mm3 (4.50-5.90); Red Cell Distribution Width 16.2 % (11.6-17.2); White Blood Count 9.1 th/mm3 (4.0-11.0)
[2017-09-08 07:58] LABS: Albumin 2.7 g/dL (3.4-5.0); Anion Gap 8 meq/L (5-15); Aspartate Aminotransferase 123 U/L (15-37); Blood Urea Nitrogen 15 mg/dL (7-18); Calcium 8.6 mg/dL (8.5-10.1); Carbon Dioxide 26.5 meq/L (21.0-32.0); Chloride 107 meq/L (98-107); Glomerular Filtration Rate Greater Than 89 mL/min (>89); Glucose,Random 94 mg/dL (74-106); Lipase 269 U/L (73-393); Potassium 3.6 meq/L (3.5-5.1); Sodium 141 meq/L (136-145)
[2017-09-08 08:03] LABS: Alanine Aminotransferase 122 U/L (12-78); Alkaline Phosphatase 221 U/L (45-117); Total Protein 6.1 g/dL (6.4-8.2)
[2017-09-08] MEDS: Senna/Docusate Sodium 8.6/50 MG Tablet PO SCH ×2 (08:25→20:18)
[2017-09-08] MEDS: Lisinopril 20 MG Tablet PO SCH (08:25)
[2017-09-08] MEDS: QUEtiapine 100 MG Tablet PO SCH ×2 (08:25→20:17)
[2017-09-08] MEDS: Insulin NovoLOG Aspart Correctional Sugar Inj SQ SCH ×4 (08:44→20:28)
[2017-09-08] MEDS ORDERED: Gadobutrol PF 7.5 MMOL/7.5 ML Vial (for RAD) IV.SIG ONE (10:45)
--- NOTE | 2017-09-08 11:22 | MR ---
EXAM DATE: 09/08/2017 11:02 AM EDT AGE/SEX: 47 years / Male INDICATIONS: Wound anterior distal portion of left leg. CLINICAL DATA: This is the patient's initial encounter. Patient reports that signs and symptoms have been present for 3 days and indicates a pain score of 4/10. MEDICAL/SURGICAL HISTORY: Diabetes mellitus type II. Pancreatitis. Coronary artery stent. Wris t surgery. Lens implant. COMPARISON: [facility], FOOT COMPLETE LEFT 3V, 09/06/2017. . TECHNIQUE: Multiplanar, multisequence MRI examination was performed without and with 5 ml Gadavist ( gadobutrol) contrast as single exam dose. FINDINGS: Bones: The osseous structures are in normal alignment. No evidence of fracture or bony edema. Muscle: Normal signal without evidence of edema, hemorrhage or atrophy. Soft Tissues: There is mild subcutaneous edema of the anterior left mid to lower leg, and a small ar ea of focal swelling/ulceration anterior distal leg skin and subcutaneous tissues. There are no focal fluid collections seen to suggest abscess. No evidence for osteomyelitis. Other: The neurovascular structures are intact. Post Contrast: No abnormal areas of enhancement seen. CONCLUSION: 1. No evidence for osteomyelitis or abscess. 2. Subcutaneous edema, focal swelling and ulceration in the area of clinical concern. Electronically signed by: Arias Sal MD 09/08/2017 11:21 AM EDT
[2017-09-08] MEDS: Insulin Detemir Inj 1,000 UNIT/10 ML Vial SQ SCH ×2 (12:00→20:27)
--- NOTE | 2017-09-08 13:33 | P.PN ---
Subjective Interval history: Follow-up visit acute pancreatitis, diabetic foot ulcer infection. Patient seen and examined today. Reports severe pain bilateral lower extremity. Status post MRI. States that most of the time he is not able to tolerate the pain anymore and wanting everything to be done in over. Patient denies suicidal ideation however states that "if he dies suddenly then it would be a relief." States has not been eating well. Complains of constipation that had a bowel movement for a while but states that he has not eaten a lot. Denies SOB / dyspnea. Denies chest pain, palpitations, headaches, dizziness. Denies fevers , chills, n/v/d. Denies dysuria. Physical Exam Vital signs: Vital Signs 09/07/17 15:39 09/07/17 15:44 09/07/17 20:00 Temperature 98 F 97.8 F Pulse Rate 87 87 Respiratory Rate 20 16 Blood Pressure 146/82 H 146/82 H 164/96 H Pulse Oximetry 94 L 99 09/08/17 00:00 09/08/17 03:13 09/08/17 08:00 Temperature 97.7 F 98.5 F 97.6 F Pulse Rate 84 78 74 Respiratory Rate 16 16 18 Blood Pressure 167/90 H 142/84 H 187/100 H Pulse Oximetry 98 99 97 09/08/17 08:30 09/08/17 11:09 09/08/17 11:17 Temperature 97.5 F L Pulse Rate 79 Respiratory Rate 18 Blood Pressure 162/92 H 199/112 H 124/90 Pulse Oximetry 96 09/08/17 12:00 Temperature 97.5 F L Pulse Rate 61 Respiratory Rate 16 Blood Pressure 130/80 Pulse Oximetry 98 Intake & Output 09/07/17 09/08/17 09/08/17 18:59 06:59 18:59 Intake Total 1000 / 1000 1550 / 1550 Output Total 400 / 400 Balance 600 / 600 1550 / 1550 Intake: IV 1000 / 1000 1550 / 1550 NS Inj 1,000 ML @ 100 mls/hr IV 1000 / 1000 1000 / 1000 .CONT .Q10H [facility] Rx#:[id number] Zosyn 3.375 GM Premix 50 ML @ 50 / 50 100 mls/hr IV.SIG Q6H [facility] Rx#: [id number] Vancomycin Inj 1,000 MG In NS 500 / 500 Inj 250 ML @ 250 mls/hr IV.SIG Q12H [facility] Rx#:[id number] Output: Urine 400 / 400 Other: # Voids 3 Date of Last Bowel Movement 09/08/17 Narrative: GENERAL: This is a thin appearing, well-developed patient, in no apparent distress. SKIN: Warm and dry. Left babcock ulcer with yellow slough, Right prox foot ulcer wound bed red, no slough. HEENT: Normocephalic. Pupils equal round and reactive. Nose without bleeding. Airway patent. NECK: Trachea midline. Supple. CARDIOVASCULAR: Regular rate and rhythm without murmurs, gallops, or rubs. RESPIRATORY: Clear to auscultation. Breath sounds equal bilaterally. No wheezes , rales, or rhonchi. GASTROINTESTINAL: Abdomen soft, non-tender, nondistended. Bowel Sounds normoactive x4. MUSCULOSKELETAL: Extremities without clubbing, cyanosis, or edema. NEUROLOGICAL: Awake and alert. Oriented to time, place, person. No focal neuro deficit. Moves all extremities. Normal speech. Results - Labs CBC & Chem 7: 09/08/17 05:40 09/08/17 05:40 Laboratory Results - last 24 hr 09/07/17 09/07/17 09/07/17 13:56 17:13 21:08 WBC RBC Hgb Hct MCV MCH MCHC RDW Plt Count MPV Neut % (Auto) Lymph % (Auto) [place] % (Auto) Eos % (Auto) Baso % (Auto) Neut # (Auto) Lymph # (Auto) [place] # (Auto) Eos # (Auto) Baso # (Auto) WBC Differential Differential Comment Sodium Potassium Chloride Carbon Dioxide Anion Gap BUN Creatinine Estimated GFR POC Glucose 120 H 175 H 228 H Random Glucose Calcium Total Bilirubin AST ALT Alkaline Phosphatase Total Protein Albumin Lipase Vancomycin Trough 09/08/17 09/08/17 09/08/17 05:00 05:40 05:40 WBC 9.1 RBC 4.56 Hgb 13.7 Hct 39.6 MCV 86.9 MCH 30.0 MCHC 34.5 RDW 16.2 Plt Count 160 MPV 8.9 Neut % (Auto) 69.6 Lymph % (Auto) 17.7 [place] % (Auto) 8.9 H Eos % (Auto) 2.9 Baso % (Auto) 0.9 Neut # (Auto) 6.3 Lymph # (Auto) 1.6 [place] # (Auto) 0.8 Eos # (Auto) 0.3 Baso # (Auto) 0.1 WBC Differential . Differential Comment Auto diff final Sodium 141 Potassium 3.6 Chloride 107 Carbon Dioxide 26.5 Anion Gap 8 BUN 15 Creatinine 0.56 L Estimated GFR Greater than 89 POC Glucose Random Glucose 94 Calcium 8.6 Total Bilirubin 0.6 AST 123 H ALT 122 H Alkaline Phosphatase 221 H Total Protein 6.1 L Albumin 2.7 L Lipase 269 Vancomycin Trough 9.0 09/08/17 08:42 WBC RBC Hgb Hct MCV MCH MCHC RDW Plt Count MPV Neut % (Auto) Lymph % (Auto) [place] % (Auto) Eos % (Auto) Baso % (Auto) Neut # (Auto) Lymph # (Auto) [place] # (Auto) Eos # (Auto) Baso # (Auto) WBC Differential Differential Comment Sodium Potassium Chloride Carbon Dioxide Anion Gap BUN Creatinine Estimated GFR POC Glucose 125 H Random Glucose Calcium Total Bilirubin AST ALT Alkaline Phosphatase Total Protein Albumin Lipase Vancomycin Trough Microbiology 09/06/17 14:48 Tissue - Arm Gram Stain - Final 09/06/17 14:48 Tissue - Arm Wound Culture - Final Staphylococcus aureus Group B beta Strep - Imaging Impressions Liver Ultrasound 09/07/17 00:00 CONCLUSION: 1. Status post cholecystectomy. 2. The liver is mildly prominent but otherwise unremarkable in appearance. 3. Small accessory spleen near the hilar region. Lower Extremity MRI 09/08/17 00:00 CONCLUSION: 1. No evidence for osteomyelitis or abscess. 2. Subcutaneous edema, focal swelling and ulceration in the area of clinical concern. Assessment and Plan - Assessment (1) Acute pancreatitis Code(s): K85.90 - Acute pancreatitis without necrosis or infection, unspecified Status: Acute (2) Diabetic foot ulcers Code(s): E11.621 - Type 2 diabetes mellitus with foot ulcer; L97.509 - Non- pressure chronic ulcer of other part of unspecified foot with unspecified severity Status: Acute - Plan 47-year-old male with reported history of pancreatitis, diabetes, diabetic peripheral neuropathy who presents with a two-week history of worsening ulcers on right foot and left ankle, subsequently much worse with constant vague pain Bilateral diabetic foot ulcers -Right foot, left ankle with probable subacute fracture of the proximal phalanx of the right great toe -X-rays without osteomyelitis. Cultures pending. ESR not markedly elevated. -Broad-spectrum antibiotics vancomycin and Zosyn. Pain management with oxycodone/Lortab and IV morphine -Podiatry consulted, he should recommendation. Recommends wound care. MRI to be done -MRI of the lower extremity showed 1. No evidence for osteomyelitis or abscess. 2. Subcutaneous edema, focal swelling and ulceration in the area of clinical concern. Acute pancreatitis Nausea and vomiting Transaminitis -Lipase in 900s. Possibly secondary to hyperglycemia. Improved 269. -Antiemetics as needed -IV fluids, will switch to PO diet today when tolerating and pain is improved -Monitor LFTs, improving -US Liver showed History of cholecystectomy, the liver is mildly prominent but otherwise unremarkable in appearance. Small accessory spleen near the hilar region Diabetes mellitus Acute hyperglycemia -Diabetic diet and insulin sliding scale. -Aggressive IV fluid hydration -Check hemoglobin A1c Tobacco abuse -Cessation counseling provided. -Nicotine patch as needed DVT prophylaxis Lovenox (1) Acute pancreatitis Qualifiers: Pancreatitis type: unspecified pancreatitis type Acute pancreatitis complication: unspecified Qualified Code(s): K85.90 - Acute pancreatitis without necrosis or infection, unspecified (2) Diabetic foot ulcers Qualifiers: Diabetic foot ulcer location: midfoot Diabetes mellitus type: type 1 Laterality: unspecified laterality Non-pressure ulcer stage: with fat layer exposed Qualified Code(s): E10.621 - Type 1 diabetes mellitus with foot ulcer; L97.402 - Non-pressure chronic ulcer of unspecified heel and midfoot with fat layer exposed
[2017-09-08] MEDS: Vancomycin Inj 800 MG in Sodium Chlor 0.9% Inj 250 ML IV.SIG SCH (19:22)
[2017-09-08] MEDS: Sod Chloride 0.9% Inj 1,000 ML IV.CONT SCH ×2 (19:26→20:18)
[2017-09-09] MEDS: Morphine Inj 4 MG/ML Vial IV.PUSH PRN ×2 (01:17→05:26)
[2017-09-09] MEDS: Vancomycin Inj 800 MG in Sodium Chlor 0.9% Inj 250 ML IV.SIG SCH ×2 (01:31→11:58)
[2017-09-09] MEDS: Piperacil/Tazo 3.375 GM Premix 50 ML IV.SIG SCH ×2 (04:16→09:54)
[2017-09-09] MEDS: Sod Chloride 0.9% Inj 1,000 ML IV.CONT SCH (04:16)
[2017-09-09 04:43] VITALS: RESP 16
[2017-09-09 06:30] LABS: Baso # (Auto) 0.1 th/mm3 (0.0-0.2); Eos # (Auto) 0.2 th/mm3 (0.0-0.4); Eos % (Auto) 2.9 % (0.0-4.0); Lymph # (Auto) 1.3 th/mm3 (1.0-4.8); Lymph % (Auto) 15.7 % (9.0-44.0); Mean Corpuscular HGB Conc 34.3 % (32.0-36.0); Mean Corpuscular Hemoglobin 30.2 pg (27.0-34.0); Mean Platelet Volume 8.3 fL (7.0-11.0); Mono # (Auto) 0.7 th/mm3 (0.0-0.9); Mono % (Auto) 8.7 % (0.0-8.0); Neut # (Auto) 5.9 th/mm3 (1.8-7.7); Neut % (Auto) 71.7 % (16.0-70.0); Platelet Count 159 th/mm3 (150-450); Red Blood Count 4.32 mil/mm3 (4.50-5.90); Red Cell Distribution Width 16.2 % (11.6-17.2); White Blood Count 8.2 th/mm3 (4.0-11.0)
[2017-09-09 06:55] LABS: Albumin 2.6 g/dL (3.4-5.0); Anion Gap 7 meq/L (5-15); Aspartate Aminotransferase 46 U/L (15-37); Blood Urea Nitrogen 25 mg/dL (7-18); Calcium 8.5 mg/dL (8.5-10.1); Carbon Dioxide 26.6 meq/L (21.0-32.0); Chloride 107 meq/L (98-107); Glomerular Filtration Rate Greater Than 89 mL/min (>89); Glucose,Random 121 mg/dL (74-106); Sodium 141 meq/L (136-145)
[2017-09-09 06:56] LABS: Alanine Aminotransferase 89 U/L (12-78)
[2017-09-09 06:58] LABS: Alkaline Phosphatase 208 U/L (45-117); Total Protein 5.9 g/dL (6.4-8.2)
[2017-09-09 07:56] VITALS: TEMP 97.4
[2017-09-09] MEDS: Senna/Docusate Sodium 8.6/50 MG Tablet PO SCH (08:28)
[2017-09-09] MEDS: QUEtiapine 100 MG Tablet PO SCH (08:28)
[2017-09-09] MEDS: Insulin Detemir Inj 1,000 UNIT/10 ML Vial SQ SCH (08:28)
[2017-09-09] MEDS: Lisinopril 20 MG Tablet PO SCH (08:28)
[2017-09-09] MEDS ORDERED: Enoxaparin Inj 40 MG/0.4 ML Syringe SQ SCH (09:00)
[2017-09-09] MEDS: Insulin NovoLOG Aspart Correctional Sugar Inj SQ SCH (09:52)
[2017-09-09 12:27] VITALS: BP 177/102; PULSE 91; O2SAT 100
--- NOTE | 2017-09-09 14:23 | P.CONPSY ---
Provisional Diagnosis Admission Date: September 06, 2017 15:51 [place] I.: Adjustment disorder with disturbance of conduct, history of bipolar disorder, cannabis use disorder History of Present Illness Service: Medicine Primary Care Provider: No Primary Care Physician History of Present Illness: The patient is a 47-year-old man, domiciled with a roommate in [facility] , single, unemployed, supported by Social Security, with psychiatric history of bipolar disorder, but no previous psychiatric admissions, no previous suicide attempts, cannabis use disorder, with medical history of pancreatitis, diabetes , diabetic peripheral neuropathy who presents with a two-week history of worsening ulcers on right foot and left ankle, subsequently much worse with constant vague pain. admitted with Bilateral diabetic foot ulcers. Consulted to psychiatry due to agitation, aggressive behavior, and to address her decision -making capacity. On my psychiatric evaluation the patient is calm, cooperative , but irritable. The patient is oriented 3 at the moment. He denies symptomatology of depression, denies anhedonia, denies hopelessness, denies helplessness, he denies suicidal enemas ideation, he denies visual and auditory hallucinations. At some point of the interview, the patient started to say that he has to leave the hospital because he has to work his sister be a little bit confused, but he was redirectable. Review of Systems Constitutional: Denies anorexia, Denies body ache(s), Denies chills, Denies daytime sleepiness, Denies excessive sweating, Denies fatigue, Denies fever(s), Denies headache(s), Denies increased appetite, Denies lack of energy, Denies malaise, Denies night sweats, Denies weakness, Denies weight gain, Denies weight loss, Denies other Eyes: Denies blind spots, Denies blurry vision, Denies bulging eyes, Denies change in vision, Denies double vision, Denies discharge, Denies dry eyes, Denies floaters, Denies irritation, Denies itchy eyes, Denies loss of vision, Denies pain, Denies requires corrective lenses, Denies sensitivity to light, Denies other Ears, Nose, Mouth, and Throat: Denies abnormal hearing, Denies bleeding gums, Denies bad breath, Denies change in voice, Denies dental pain, Denies difficulty swallowing, Denies dizziness, Denies dry mouth, Denies ear discharge , Denies ear pain, Denies facial pain, Denies headache(s), Denies hearing loss, Denies hoarseness, Denies lip swelling, Denies nosebleed, Denies mouth lesions, Denies mouth pain, Denies nasal congestion, Denies nasal discharge, Denies nasal obstruction, Denies nasal trauma, Denies neck lump, Denies neck pain, Denies nose pain, Denies pain with swallowing, Denies poor balance, Denies post nasal drip, Denies ringing in the ears, Denies sinus pain, Denies sinus pressure , Denies sore throat, Denies throat swelling, Denies tongue swelling, Denies other Cardiovascular: Denies chest pain, Denies chest pain at rest, Denies chest pain with activity, Denies excessive sweating, Denies fainting, Denies fast heart rate, Denies foot swelling, Denies generalized swelling, Denies irregular heart rhythm, Denies leg pain with activity, Denies leg sores, Denies leg swelling, Denies lightheadedness, Denies radiating jaw, neck or arm pain, Denies rapid, pounding, or irregular heartbeat, Denies shortness of breath, Denies shortness of breath with activity, Denies shortness of breath when lying down, Denies shortness of breath causing sudden awakening, Denies slow heart rate, Denies other Respiratory: Denies change in phlegm color, Denies chest congestion, Denies cough, Denies coughing up blood, Denies excessive phlegm production, Denies pain on inspiration, Denies pain with cough, Denies shortness of breath, Denies shortness of breath with activity, Denies snoring, Denies stridor, Denies wheezing, Denies other Gastrointestinal: Denies abdominal pain, Denies belching, Denies black, tarry stools, Denies bloating, Denies bright, red blood in stools, Denies change in bowel habits, Denies constant urge to pass stool, Denies change in stools, Denies coffee ground vomit, Denies constipation, Denies cramping, Denies difficulty swallowing, Denies excessive passing of gas, Denies feeling full early, Denies heartburn, Denies incontinent of stools, Denies loose stools, Denies nausea, Denies pain with swallowing, Denies vomiting, Denies vomiting blood, Denies other Genitourinary: Denies blood in semen, Denies blood in urine, Denies decreased urination, Denies difficulty urinating, Denies difficulty with ejaculations, Denies erectile dysfunction, Denies genital lesions, Denies genital pain, Denies painful urination, Denies side pain, Denies frequent nighttime urination , Denies painful ejaculations, Denies penile discharge, Denies scrotal swelling , Denies testicle lump, Denies testicle pain, Denies urinary frequency, Denies urinary hesitancy, Denies urinary incontinence, Denies urinary urgency, Denies other Musculoskeletal: Denies abnormal walking, Denies back pain, Denies body aches, Denies decreased muscle mass, Denies deformity, Denies joint pain, Denies joint swelling, Denies limited joint movement, Denies loss of height, Denies muscle cramps, Denies muscle weakness, Denies neck pain, Denies numbness, Denies radiating pain into limb, Denies stiffness, Denies tingling, Denies other Skin/Breast: Denies acne, Denies bleeding lesions, Denies boil, Denies breast swelling, Denies breast skin changes, Denies breast pain, Denies breast lump, Denies change in breast shape, Denies change in hair, Denies change in skin color, Denies changing lesions, Denies dry skin, Denies excessive hair growth, Denies hair loss, Denies itching, Denies lesions, Denies nail changes, Denies new lesions, Denies nipple discharge, Denies non-healing lesions, Denies redness , Denies sensitivity to light, Denies rash, Denies skin pain, Denies skin ulcer , Denies sores, Denies stretch dang, Denies unusual bruising, Denies wounds, Denies yellowing of the skin, Denies other Neurologic: Denies abnormal hearing, Denies abnormal movements, Denies abnormal speech, Denies abnormal walking, Denies behavioral changes, Denies burning sensations, Denies confusion, Denies dizziness, Denies fainting, Denies frequent falls, Denies headache(s), Denies lack of coordination, Denies localized weakness, Denies loss of vision, Denies memory loss, Denies numbness, Denies other visual disturbances, Denies radiating pain, Denies restless legs, Denies convulsions, Denies seizure-like activity, Denies sensory deficit, Denies tingling, Denies tingling/numbness/burning sensations, Denies tremor(s), Denies unsteadiness, Denies weakness, Denies other Psychiatric: Denies abnormal sleep pattern, Denies anxiety, Denies behavioral changes, Denies change in appetite, Denies change in sex drive, Denies confusion , Denies depression, Denies difficulty concentrating, Denies hearing things others do not hear, Denies hopelessness, Denies irritability, Denies lack of enjoyment, Denies memory loss, Denies mood swings, Denies panic attacks, Denies paranoia, Denies seeing things others do not see, Denies sensing things others do not sense, Denies tactile hallucinations, Denies thoughts of hurting/killing others, Denies thoughts of hurting/killing yourself, Denies other PMFSH - History History 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, 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 - Medical History Medical History: Medical History (Last Reviewed 09/09/17 @ 07:17 by Davida Diggs) Anxiety Diabetes FH: cholecystectomy Pancreatitis Renal infarct Wrist fracture - Surgical History Surgical History: Surgical History (Last Reviewed 09/09/17 @ 07:17 by Davida Diggs) S/P lens implant - Family History Family History: Family History (Last Reviewed 09/07/17 @ 22:11 by Jen Enrique DPM) Mother Heart disease Father Heart disease - Tobacco History Second Hand Smoke Exposure: No Tobacco Use In Past 30 Days: Yes Smoking Status: Current every day smoker Tobacco Type: Cigarettes - Alcohol History How Often Do You Have a Drink Containing Alcohol: Never - Substance Use History Substance History: Active Abuse - Substance Use Type Marijuana Status: Active Frequency: OCASSIONALLY WHEN HES NOT ABLE TO EAT Reason for Use: Calm Down - Travel History Recent Travel in the [place] Within the Last 8 Weeks: No Recent Travel Out of the Country Within the Last 8 Weeks: No - Immunization History Tetanus Immunization: <5 Years Hx Influenza Vaccine This Season: No Medications and Allergies Active Medications: Active Medications Hydrocodone Bitart/Acetaminophen ([place] 7.5/325) 1 tab PO Q4H PRN PRN Reason: PAIN SCALE 6 TO 10 Last Admin: 09/09/17 08:27 Dose: 1 tab Al Hydroxide/Mg Hydroxide (Milk Of Magnstuart Liq) 30 ml PO Q12H PRN PRN Reason: Mild Constipation Alprazolam (Xanax) 2 mg PO BID PRN PRN Reason: ANXIETY Last Admin: 09/09/17 04:13 Dose: 2 mg Bisacodyl (Dulcolax Supp) 10 mg RECTAL DAILY PRN PRN Reason: SEVERE CONSITIPATION Dextrose (D50w Vial) 50 ml IV.PUSH UNSCH PRN PRN Reason: PER HYPOGLYCEMIA PROTOCOL Enalaprilat (Vasotec Inj) 1.25 mg IV.PUSH Q6H PRN PRN Reason: SEE LABEL COMMENTS Enoxaparin Sodium (Lovenox Inj) 40 mg SQ DAILY [facility] Last Admin: 09/09/17 08:29 Dose: 40 mg Glucagon (Glucagon Inj) 1 mg OTHER PRN PRN PRN Reason: for Hypoglycemia Protocol Pharmacy Profile Note (Vancomycin Consult Pharmacy) 0 mls @ 0 mls/hr OTHER UNSCH [facility] Sodium Chloride (Ns Inj) 1,000 mls @ 100 mls/hr IV.CONT .Q10H [facility] Last Admin: 09/09/17 04:16 Dose: Not Given Piperacillin/Tazobactam/Dextrose (Zosyn 3.375 Gm Premix) 50 mls @ 100 mls/hr IV.SIG Q6H [facility] Last Infusion: 09/09/17 10:55 Dose: Infused Vancomycin HCl 800 mg/ Sodium (Chloride) 266 mls @ 250 mls/hr IV.SIG Q8H [facility] Last Admin: 09/09/17 11:58 Dose: 250 mls/hr Insulin Aspart (Novolog Insulin Correctional Sugar Inj) 0 unit SQ ACHS [facility]; Protocol Last Admin: 09/09/17 09:52 Dose: Not Given Insulin Detemir (Levemir Inj) 8 unit SQ BID [facility] Last Admin: 09/09/17 08:28 Dose: 8 unit Lactulose (Lactulose Liq) 30 ml PO DAILY PRN PRN Reason: SEVERE CONSITIPATION Last Admin: 09/09/17 08:34 Dose: 30 ml Lisinopril (Prinivil) 20 mg PO DAILY [facility] Last Admin: 09/09/17 08:28 Dose: 20 mg Miscellaneous Information ([facility] Ordered Lab Info) 0 each OTHER ONCE ONE Stop: 09/09/17 17:46 Morphine Sulfate (Morphine Inj) 4 mg IV.PUSH Q3H PRN PRN Reason: BREAKTHROUGH PAIN Last Admin: 09/09/17 05:26 Dose: 4 mg Naloxone HCl (Narcan Inj) 0.4 mg IV.PUSH UNSCH PRN PRN Reason: SEE LABEL COMMENTS Ondansetron HCl (Zofran Odt) 4 mg PO Q6H PRN PRN Reason: NAUSEA OR VOMITING Last Admin: 09/07/17 10:35 Dose: 4 mg Ondansetron HCl (Zofran Odt) 4 mg PO Q6H PRN PRN Reason: NAUSEA OR VOMITING Oxycodone/Acetaminophen (Percocet 5/325 Mg) 1 tab PO Q6H PRN PRN Reason: PAIN SCALE 3 TO 5 Last Admin: 09/07/17 22:59 Dose: 1 tab Promethazine HCl (Phenergan) 25 mg PO Q6H PRN PRN Reason: NAUSEA OR VOMITING Promethazine HCl (Phenergan Supp) 25 mg RECTAL Q6H PRN PRN Reason: NAUSEA OR VOMITING Quetiapine Fumarate (Seroquel) 150 mg PO BID [facility] Last Admin: 09/09/17 08:28 Dose: 150 mg Senna/Docusate Sodium (Mahnaz-Colace) 1 tab PO BID [facility] Last Admin: 09/09/17 08:28 Dose: 1 tab Sennosides (Senokot) 17.2 mg PO Q12H PRN PRN Reason: Moderate Constipation Allergies Allergy/AdvReac Type Severity Reaction Status Date / Time No Known Allergies Allergy Unverified 09/06/17 13:15 Home Medications Medication Instructions Recorded Confirmed Type alprazolam [Xanax] 2 mg PO BID PRN 09/06/17 09/06/17 History clopidogrel [Plavix] 75 mg PO DAILY 09/06/17 09/06/17 History insulin glargine [Lantus U-100 20 unit SUB-Q HS 09/06/17 09/06/17 History Insulin] insulin regular human [Novolin R 1 sliding scale dose SUB-Q UD 09/06/17 History Regular U-100 Insuln] lisinopril 20 mg PO DAILY 09/06/17 09/06/17 History quetiapine [Seroquel XR] 300 mg PO DAILY 09/06/17 09/06/17 History Exam Vital signs: Vital Signs 09/08/17 16:00 09/08/17 20:00 09/08/17 23:50 Temperature 97.4 F L 97.8 F Pulse Rate 87 87 Respiratory Rate 18 17 18 Blood Pressure 135/80 147/78 H Pulse Oximetry 97 09/09/17 00:00 09/09/17 04:00 09/09/17 07:53 Temperature 98.2 F 98.1 F 97.4 F L Pulse Rate 86 80 78 Respiratory Rate 17 16 16 Blood Pressure 121/77 165/94 H 162/88 H Pulse Oximetry 98 99 97 09/09/17 12:00 Temperature 97.4 F L Pulse Rate 91 H Respiratory Rate 16 Blood Pressure 177/102 H Pulse Oximetry 100 Intake & Output 09/08/17 09/09/17 09/09/17 18:59 06:59 18:59 Intake Total 1100 / 1100 1082 / 1082 50 / 50 Output Total 1000 / 1000 Balance 1100 / 1100 82 / 82 50 / 50 Intake: IV 1100 / 1100 632 / 632 50 / 50 NS Inj 1,000 ML @ 100 mls/hr IV 1000 / 1000 .CONT .Q10H [facility] Rx#:[id number] Zosyn 3.375 GM Premix 50 ML @ 100 / 100 100 / 100 50 / 50 100 mls/hr IV.SIG Q6H [facility] Rx#: [id number] Vancomycin Inj 800 MG In NS Inj 532 / 532 250 ML @ 250 mls/hr IV.SIG Q8H [facility] Rx#:[id number] Oral 450 / 450 Output: Urine 1000 / 1000 Other: Date of Last Bowel Movement 09/08/17 09/08/17 Mental Status Examination Appearance: Appropriate Consciousness: Alert Orientation: x4 Speech: Unremarkable Language: Adequate Fund of Knowledge: Adequate Memory: Unremarkable Mood: Appropriate Affect: Appropriate Thought Process & Associations: Intact Thought Content: Appropriate Hallucination Type: None Suicidal Ideation: No Suicidal Plan: No Suicidal Intention: No Homicidal Ideation: No Homicidal Plan: No Homicidal Intention: No Insight: Fair Judgment: Impulsive Assessment and Plan - Assessment (1) Adjustment disorder with disturbance of conduct Code(s): F43.24 - Adjustment disorder with disturbance of conduct Status: Acute - Plan Plan: Estimated LOS: [] days on my psychiatric evaluation today the patient does not present any neuropsychiatric symptoms that require an immediate psychiatric intervention. The patient does seem to be a little bit confused which could be part of delirium secondary to his underlying medical conditions, but he denies suicidal and homicidal ideation, he denies visual and auditory hallucinations at the moment. Recent agitation and aggressive behavior could be part of personality structure and no secondary to a primary psychotic disorder. This patient does not meet criteria for involuntary psychiatric admission. Seroquel 25 mg twice daily can be added for behavioral control. No admission indicated at this moment. Justification for Continued Inpatient Stay: No admission is indicated.
--- NOTE | 2017-09-09 16:22 | P.DS ---
Date of admission: 09/06/17 15:51 Primary care physician: No Primary Care Physician Attending physician on discharge: Brain Pereyra Anticipated date of discharge: 09/09/17 Brief History from admission: 47-year-old male with reported history of pancreatitis, diabetes, diabetic peripheral neuropathy who presents with a two-week history of worsening ulcers on right foot and left ankle, subsequently much worse with constant vague pain over the past 2 days. Patient reports fatigue which is worsening over the past 3 days. Denies any chest pain, however does report nausea and vomiting with constant dull epigastric pain radiating to his back consistent with previous episodes of pancreatitis. Denies hematemesis. Denies diarrhea, constipation. DS: Diagnosis - Discharge Diagnosis (1) Acute pancreatitis Status: Acute (2) Diabetic foot ulcers Status: Acute DS: Medications - Discharge Medications Prescriptions: cephalexin [Keflex] 500 mg PO QID 10 Days #40 cap hydrocodone-acetaminophen [[place]] 1 tab PO Q4H PRN #18 tab PRN Reason: Acute Pain sulfamethoxazole-trimethoprim [Bactrim DS] 1 tab PO Q12H #20 tab DS: Summary Hospital Course: 47-year-old male with reported history of pancreatitis, diabetes, diabetic peripheral neuropathy who presents with a two-week history of worsening ulcers on right foot and left ankle, subsequently much worse with constant vague pain. Found to have bilateral diabetic foot ulcers. Right foot, left ankle with probable subacute fracture of the proximal phalanx of the right toe. X-rays without osteomyelitis. Cultures growing staph aureus pansensitive, group B beta strep. Patient was started on broad-spectrum vancomycin and Zosyn. Pain management with oxycodone, Lortab, IV morphine. Podiatry has seen patient and recommended for an MRI to be done. MRI of the lower extremity showed 1. No evidence for osteomyelitis or abscess. 2. Subcutaneous edema, focal swelling and ulceration in the area of clinical concern. Podiatry, Dr. Mock, has cleared the patient to go home with antibiotics found in the sensitivity and should follow-up with the wound care center. Patient also found to have acute on possibly chronic pancreatitis lipase is 900, this is possibly secondary to hyper glycemia. Patient was given IV fluids. US liver showed history of cholecystectomy, the liver is mildly prominent but otherwise unremarkable in appearance. Small accessory spleen near the right hilar region. This has improved and patient was able to tolerate p.o. diet. He has diabetes mellitus, he was placed Diabetic diet and insulin sliding scale. Liver enzymes have trended down, blood glucose is also trended down. Patient needs to be reiterated compliance with insulin medication. Also patient reports tobacco abuse. Cessation counseling provided. Nicotine patch provided during his hospitalization. Patient has been complaining of chronic pain and wanting pain medication almost at all times. He was seen today complaining that he wanted more pain medication until he goes back to [place]. Discussed with patient we are providing him with 3 days of pain medication and needs to be assessed at the wound care center for his wounds. Patient states that he does not want to go back to any wound care center he wants to go back to [place] but he wants more pain medication. He also states that he is going to back to the ED to get more pain medication. He is provided with 3 days of pain medication only. Patient has met maximal benefits of hospitalization. Clinically stable for discharge. He will need to follow-up with wound care center and advised to [facility] other [facility]. Pain seeking behavior, possible return to ED for pain medication. - Time Spent with Patient Total time spent providing and/or coordinating discharge services: Less than 30 minutes - Quality: VTE Deep Vein Thrombosis/Pulmonary Embolism Present on Admission: No Exam Vital signs: Vital Signs 09/08/17 20:00 09/08/17 23:50 09/09/17 00:00 Temperature 97.8 F 98.2 F Pulse Rate 87 86 Respiratory Rate 17 18 17 Blood Pressure 147/78 H 121/77 Pulse Oximetry 97 98 09/09/17 04:00 09/09/17 07:53 09/09/17 12:00 Temperature 98.1 F 97.4 F L 97.4 F L Pulse Rate 80 78 91 H Respiratory Rate 16 16 16 Blood Pressure 165/94 H 162/88 H 177/102 H Pulse Oximetry 99 97 100 Intake & Output 09/08/17 09/09/17 09/09/17 18:59 06:59 18:59 Intake Total 1100 / 1100 1082 / 1082 50 / 50 Output Total 1000 / 1000 Balance 1100 / 1100 82 / 82 50 / 50 Intake: IV 1100 / 1100 632 / 632 50 / 50 NS Inj 1,000 ML @ 100 mls/hr IV 1000 / 1000 .CONT .Q10H [facility] Rx#:[id number] Zosyn 3.375 GM Premix 50 ML @ 100 / 100 100 / 100 50 / 50 100 mls/hr IV.SIG Q6H [facility] Rx#: [id number] Vancomycin Inj 800 MG In NS Inj 532 / 532 250 ML @ 250 mls/hr IV.SIG Q8H [facility] Rx#:[id number] Oral 450 / 450 Output: Urine 1000 / 1000 Other: Date of Last Bowel Movement 09/08/17 09/08/17 Narrative: GENERAL: This is a thin appearing, well-developed patient, in no apparent distress. SKIN: Warm and dry. Left babcock ulcer with yellow slough, Right prox foot ulcer wound bed red, no slough. HEENT: Normocephalic. Pupils equal round and reactive. Nose without bleeding. Airway patent. NECK: Trachea midline. Supple. CARDIOVASCULAR: Regular rate and rhythm without murmurs, gallops, or rubs. RESPIRATORY: Clear to auscultation. Breath sounds equal bilaterally. No wheezes , rales, or rhonchi. GASTROINTESTINAL: Abdomen soft, non-tender, nondistended. Bowel Sounds normoactive x4. MUSCULOSKELETAL: Extremities without clubbing, cyanosis, or edema. NEUROLOGICAL: Awake and alert. Oriented to time, place, person. No focal neuro deficit. Moves all extremities. Normal speech. Results Procedures completed during hospitalization: None Labs on day of discharge: Labs from last 24 hours 09/09/17 09/09/17 09/09/17 13:07 08:13 06:00 WBC RBC Hgb Hct MCV MCH MCHC RDW Plt Count MPV Neut % (Auto) Lymph % (Auto) Hill % (Auto) Eos % (Auto) Baso % (Auto) Neut # (Auto) Lymph # (Auto) Hill # (Auto) Eos # (Auto) Baso # (Auto) WBC Differential Differential Comment Sodium 141 Potassium 4.0 Chloride 107 Carbon Dioxide 26.6 Anion Gap 7 BUN 25 H Creatinine 0.90 Estimated GFR Greater than 89 POC Glucose 157 H 124 H Random Glucose 121 H Calcium 8.5 Total Bilirubin 0.5 AST 46 H ALT 89 H Alkaline Phosphatase 208 H Total Protein 5.9 L Albumin 2.6 L 09/09/17 09/08/17 06:00 20:15 WBC 8.2 RBC 4.32 L Hgb 13.0 Hct 38.0 L MCV 88.0 MCH 30.2 MCHC 34.3 RDW 16.2 Plt Count 159 MPV 8.3 Neut % (Auto) 71.7 H Lymph % (Auto) 15.7 Hill % (Auto) 8.7 H Eos % (Auto) 2.9 Baso % (Auto) 1.0 Neut # (Auto) 5.9 Lymph # (Auto) 1.3 Hill # (Auto) 0.7 Eos # (Auto) 0.2 Baso # (Auto) 0.1 WBC Differential . Differential Comment Auto diff final Sodium Potassium Chloride Carbon Dioxide Anion Gap BUN Creatinine Estimated GFR POC Glucose 397 H Random Glucose Calcium Total Bilirubin AST ALT Alkaline Phosphatase Total Protein Albumin - Impressions ITS Impressions Chest X-Ray 09/06/17 13:12 CONCLUSION: No acute cardiopulmonary disease. Foot X-Ray 09/06/17 15:11 CONCLUSION: Significant osteopenia without bony destruction to suggest osteomyelitis probable subacute fracture proximal phalanx great toe Liver Ultrasound 09/07/17 00:00 CONCLUSION: 1. Status post cholecystectomy. 2. The liver is mildly prominent but otherwise unremarkable in appearance. 3. Small accessory spleen near the hilar region. Lower Extremity MRI 09/08/17 00:00 CONCLUSION: 1. No evidence for osteomyelitis or abscess. 2. Subcutaneous edema, focal swelling and ulceration in the area of clinical concern. Discharge Plan - Discharge Disposition Patient Disposition: 01 Discharge Home - Discharge Condition Condition: Stable - Discharge Order Discharge Orders: Discharge Order (Routine); Ordered 09/09/17 Ordered By: Aniket Antony - Physicians Team Primary Care Provider: Primary Care Elo Gauthier Attending Provider: Brain Pereyra Other Providers: Humphrey Reece DPM ; Dipak Zapata MD
[2017-09-09] MEDS ORDERED: Pharmacy Ordered Lab Info OTHER ONE (17:45)
== END 2017-09-09 15:30 | disposition home or self-care (01) ==
LOC: NEPC 12:48 → NEPHCDU 12:48 → NEDA 12:48 → NEPHCDU 18:53
PROVIDERS: ADMIT Hospitalist; ATTEND Hospitalist

== ENCOUNTER 2018-01-06 16:58 | Inpatient (IN) ==
[2018-01-06] MEDS ORDERED: HYDROmorphone PF Inj 2 MG/ML Vial IV.PUSH ONE (17:05)
--- NOTE | 2018-01-06 17:09 | ED ---
HPI General Chief complaint: Pain: Chronic Stated complaint: left hip pain Time Seen by Provider: 01/06/18 17:05 History of Present Illness HPI narrative: This is a 47-year-old male who reports that he is on hospice for congestive heart failure. He presents under police custody for medical clearance to go to [facility]. The patient reports that he has been having "pancreatitis pain" for the past 4 days. He reports that the pain is an aching pain in the epigastrium, consistent with previous pancreatitis flareups. He reports a history of chronic pancreatitis for which she is on Dilaudid. In addition the patient is complaining of left hip pain. He reports that he tripped and fell yesterday and landed on his left hip. Pain is an aching pain in his left hip which is worse when walking. He reports that he has been able to ambulate using his cane. He has no other complaints at this time. Related Data Home Medications Medication Instructions Recorded Confirmed alprazolam [Xanax] 2 mg PO BID PRN 09/06/17 01/06/18 insulin glargine [Lantus U-100 20 unit SUB-Q HS 09/06/17 01/06/18 Insulin] lisinopril 20 mg PO DAILY 09/06/17 01/06/18 quetiapine [Seroquel XR] 300 mg PO DAILY 09/06/17 01/06/18 apixaban [Eliquis] 5 mg PO BID 09/25/17 01/06/18 hydromorphone [Dilaudid] 2 mg PO Q6H PRN 01/06/18 01/06/18 Previous Rx's Medication Instructions Recorded sulfamethoxazole-trimethoprim 1 tab PO Q12H #20 tab 09/09/17 [Bactrim DS] hydrocodone-acetaminophen 1 tab PO Q6H PRN #12 tab 09/25/17 promethazine 25 mg PO Q4-6H PRN #20 tab 09/25/17 promethazine [Phenergan] 25 mg RECTAL Q6H PRN #12 each 09/25/17 Allergies Allergy/AdvReac Type Severity Reaction Status Date / Time No Known Allergies Allergy Unverified 09/06/17 13:15 Review of Systems ROS: all other systems reviewed are negative [facility] Medical History Medical History Pancreatitis (Acute) Anxiety (Acute) Wrist fracture (Acute) FH: cholecystectomy (Acute) Renal infarct (Acute) Diabetes (Acute) Bipolar disorder (Acute) CHF (congestive heart failure) (Acute) Coronary artery disease (Acute) Surgical History Surgical History S/P lens implant (Acute) Status post cardiac catheterization (Acute) Status post cholecystectomy (Acute) Social History Social History Substance History: No History of Abuse Second Hand Smoke Exposure: No Smoking Status: Current every day smoker Tobacco Type: Cigarettes How Often Do You Have a Drink Containing Alcohol: Never Recent Travel in [facility] within the Last 8 Weeks: No Recent Out of Country Travel within the Last 8 Weeks: No Exam Narrative Exam Narrative: GENERAL: This is a chronically ill-appearing male who is in no acute distress. SKIN: Warm and dry. HEAD: Atraumatic. Normocephalic. EYES: Pupils equal and round. No scleral icterus. No injection or drainage. ENT: No nasal bleeding or discharge. Mucous membranes pink and moist. NECK: Trachea midline. No JVD. CARDIOVASCULAR: Regular rate and rhythm. No murmur appreciated. RESPIRATORY: No accessory muscle use. Clear to auscultation. Breath sounds equal bilaterally. GASTROINTESTINAL: Abdomen soft, tender to palpation in the epigastrium without guarding. MUSCULOSKELETAL: No obvious deformities. Tender to palpation to the left hip. Patient maintains full range of motion lower extremities. NEUROLOGICAL: Awake and alert. No obvious cranial nerve deficits. Motor grossly within normal limits. Normal speech. Course Initial Documented Vital Signs Temperature 98.3 F 01/06/18 17:02 Pulse Rate 88 01/06/18 17:02 Respiratory Rate 18 01/06/18 17:02 Blood Pressure 150/60 H 01/06/18 17:02 Pulse Oximetry 96 01/06/18 17:02 Last Documented Vital Signs Temperature 98.3 F 01/06/18 17:02 Pulse Rate 86 01/07/18 08:41 Respiratory Rate 16 01/07/18 08:41 Blood Pressure 168/97 H 01/07/18 08:41 Pulse Oximetry 92 L 01/07/18 08:41 Medical Decision Making DRU Attestation DUR supervised visit: Yes Attestation: 47-year-old male presented to the emergency department complaint of epigastric abdominal pain. Also stated that he fell and hit his hip. He does have a history of pancreatitis and CHF and he is on hospice for CHF. Please see mid-level provider note for full history and physical and disposition. EKG showed Q waves inferiorly and slight ST elevation. Troponin was found to be elevated. Discussed the case with Dr. Swartz and he was sent a copy of the EKG. States b/c patient is on hospice for CHF he would not cath immediately also considering that the patient is denying chest pain and he thinks that the EKG changes may be secondary to an old cardiac injury. Advised to give aspirin, heparin if no contraindications, and nitroglycerin, repeat delta to and keep n.p.o. after midnight. Said that he fell twice. First time he did not hit his head but he did the second time. Head CT done in ER and was negative for any acute intracranial abnormality. He is a hospice patient, and at the request of the hospitalist Julia consulted prior to her accepting the admission. If cleared by [facility], patient will be admitted to hospitalist for further evaluation and management. MDM Narrative Medical decision making narrative: 47-year-old male with history of CHF, CAD, diabetes, pancreatitis, on hospice, presents complaining of left hip pain from fall yesterday and epigastric pain for 4 days. He reports that he is unable to access his at home Dilaudid because he is currently incarcerated. The patient was given a dose of Dilaudid. Lab work, left hip x-ray was obtained. An EKG was obtained revealing sinus rhythm with a rate 80, Q waves noted in leads III and aVF, slight ST elevation in leads III and aVF which are new therefore troponin and CK added on. The patient is currently denying any chest pain. He does report that he chronically has occasional right-sided chest pains. Troponin has resulted as 1.25. Dr. Ordaz discussed with the on-call salesperson women's dresses Dr. Swartz who recommends that the patient be admitted and cardiac enzymes trended, he recommends starting the patient on heparin and aspirin, nitroglycerin. These have been ordered. The patient denies any recent bleeding , he denies any black or tarry stools or hematochezia. he is currently agreeable with medical treatment(anticoagulation, pain control), but he is DNR/ DNI and he is undecided about cardiac catheterization. Discussed with nurse Ortega at [facility] group who will dispatch a nurse to deputy chief counsel the patient. Discussed with Keren the hospice nurse with [facility] he reports that the patient can be admitted for medical treatment as the only other alternative is that the patient will be going to [facility]. At this point in time they do not plan on releasing him from their care. Discussed with the hospitalist who is agreeable with admission. Medical Screen Exam Complete: Yes Emergency Medical Condition: Yes Differential Diagnosis Differential Diagnosis: Left hip contusion, fracture, strain, acute pancreatitis , chronic pancreatitis, acute coronary syndrome Lab Data Result diagrams: 01/07/18 03:48 01/07/18 02:28 Lab Results 01/06/18 01/06/18 01/06/18 Range/Units 17:25 17:25 17:25 WBC 11.8 H (4.0-11.0) th/mm3 RBC 4.41 L (4.50-5.90) mil/mm3 Hgb 13.3 (13.0-17.0) gm/dL Hct 38.2 L (39.0-51.0) % MCV 86.7 (80.0-100.0) fL MCH 30.3 (27.0-34.0) pg MCHC 34.9 (32.0-36.0) % RDW 16.2 (11.6-17.2) % Plt Count 190 (150-450) th/mm3 MPV 8.8 (7.0-11.0) fL Neut % (Auto) 80.3 H (16.0-70.0) % Lymph % (Auto) 10.6 (9.0-44.0) % [place] % (Auto) 7.4 (0.0-8.0) % Eos % (Auto) 1.1 (0.0-4.0) % Baso % (Auto) 0.6 (0.0-2.0) % Neut # (Auto) 9.5 H (1.8-7.7) th/mm3 Lymph # (Auto) 1.2 (1.0-4.8) th/mm3 [place] # (Auto) 0.9 (0.0-0.9) th/mm3 Eos # (Auto) 0.1 (0.0-0.4) th/mm3 Baso # (Auto) 0.1 (0.0-0.2) th/mm3 WBC Differential . Differential Comment Auto diff final PT (9.8-11.6) sec INR Ratio APTT (23.4-31.7) sec Sodium 138 (136-145) meq/L Potassium 4.0 (3.5-5.1) meq/L Chloride 102 (98-107) meq/L Carbon Dioxide 28.9 (21.0-32.0) meq/L Anion Gap 7 (5-15) meq/L BUN 32 H (7-18) mg/dL Creatinine 1.14 (0.60-1.30) mg/dL Estimated GFR 69 L (>89) mL/min POC Glucose (68-110) mg/dl Random Glucose 239 H (74-106) mg/dL Calcium 9.1 (8.5-10.1) mg/dL Total Bilirubin 0.3 (0.2-1.0) mg/dL AST 19 (15-37) U/L ALT 16 (12-78) U/L Alkaline Phosphatase 198 H (45-117) U/L Total Creatine Kinase 110 (39-308) U/L CK-MB (CK-2) 4.2 H (0.5-3.6) ng/mL Troponin I 1.25 H* (0.02-0.05) ng/mL B-Natriuretic Peptide (0-100) pg/mL Total Protein 7.0 (6.4-8.2) g/dL Albumin 2.7 L (3.4-5.0) g/dL Lipase 69 L (73-393) U/L Urine Opiates Screen (Neg) Ur Barbiturates Screen (Neg) Ur Amphetamines Screen (Neg) U Benzodiazepines Scrn (Neg) Urine Cocaine Screen (Neg) U Cannabinoids Screen (Neg) 01/06/18 01/06/18 01/06/18 Range/Units 17:25 19:10 20:37 WBC (4.0-11.0) th/mm3 RBC (4.50-5.90) mil/mm3 Hgb (13.0-17.0) gm/dL Hct (39.0-51.0) % MCV (80.0-100.0) fL MCH (27.0-34.0) pg MCHC (32.0-36.0) % RDW (11.6-17.2) % Plt Count (150-450) th/mm3 MPV (7.0-11.0) fL Neut % (Auto) (16.0-70.0) % Lymph % (Auto) (9.0-44.0) % [place] % (Auto) (0.0-8.0) % Eos % (Auto) (0.0-4.0) % Baso % (Auto) (0.0-2.0) % Neut # (Auto) (1.8-7.7) th/mm3 Lymph # (Auto) (1.0-4.8) th/mm3 [place] # (Auto) (0.0-0.9) th/mm3 Eos # (Auto) (0.0-0.4) th/mm3 Baso # (Auto) (0.0-0.2) th/mm3 WBC Differential Differential Comment PT 10.5 (9.8-11.6) sec INR 1.0 Ratio APTT 29.9 (23.4-31.7) sec Sodium (136-145) meq/L Potassium (3.5-5.1) meq/L Chloride (98-107) meq/L Carbon Dioxide (21.0-32.0) meq/L Anion Gap (5-15) meq/L BUN (7-18) mg/dL Creatinine (0.60-1.30) mg/dL Estimated GFR (>89) mL/min POC Glucose (68-110) mg/dl Random Glucose (74-106) mg/dL Calcium (8.5-10.1) mg/dL Total Bilirubin (0.2-1.0) mg/dL AST (15-37) U/L ALT (12-78) U/L Alkaline Phosphatase (45-117) U/L Total Creatine Kinase (39-308) U/L CK-MB (CK-2) (0.5-3.6) ng/mL Troponin I 1.34 H* (0.02-0.05) ng/mL B-Natriuretic Peptide 809 H (0-100) pg/mL Total Protein (6.4-8.2) g/dL Albumin (3.4-5.0) g/dL Lipase (73-393) U/L Urine Opiates Screen (Neg) Ur Barbiturates Screen (Neg) Ur Amphetamines Screen (Neg) U Benzodiazepines Scrn (Neg) Urine Cocaine Screen (Neg) U Cannabinoids Screen (Neg) 01/06/18 01/07/18 01/07/18 Range/Units 22:40 02:26 02:28 WBC 9.6 (4.0-11.0) th/mm3 RBC 4.17 L (4.50-5.90) mil/mm3 Hgb 12.5 L (13.0-17.0) gm/dL Hct 35.5 L (39.0-51.0) % MCV 85.1 (80.0-100.0) fL MCH 30.0 (27.0-34.0) pg MCHC 35.3 (32.0-36.0) % RDW 15.6 (11.6-17.2) % Plt Count 177 (150-450) th/mm3 MPV 8.2 (7.0-11.0) fL Neut % (Auto) 68.8 (16.0-70.0) % Lymph % (Auto) 18.5 (9.0-44.0) % [place] % (Auto) 8.9 H (0.0-8.0) % Eos % (Auto) 2.6 (0.0-4.0) % Baso % (Auto) 1.2 (0.0-2.0) % Neut # (Auto) 6.6 (1.8-7.7) th/mm3 Lymph # (Auto) 1.8 (1.0-4.8) th/mm3 [place] # (Auto) 0.8 (0.0-0.9) th/mm3 Eos # (Auto) 0.2 (0.0-0.4) th/mm3 Baso # (Auto) 0.1 (0.0-0.2) th/mm3 WBC Differential . Differential Comment Auto diff final PT (9.8-11.6) sec INR Ratio APTT (23.4-31.7) sec Sodium (136-145) meq/L Potassium (3.5-5.1) meq/L Chloride (98-107) meq/L Carbon Dioxide (21.0-32.0) meq/L Anion Gap (5-15) meq/L BUN (7-18) mg/dL Creatinine (0.60-1.30) mg/dL Estimated GFR (>89) mL/min POC Glucose 147 H (68-110) mg/dl Random Glucose (74-106) mg/dL Calcium (8.5-10.1) mg/dL Total Bilirubin (0.2-1.0) mg/dL AST (15-37) U/L ALT (12-78) U/L Alkaline Phosphatase (45-117) U/L Total Creatine Kinase (39-308) U/L CK-MB (CK-2) (0.5-3.6) ng/mL Troponin I (0.02-0.05) ng/mL B-Natriuretic Peptide (0-100) pg/mL Total Protein (6.4-8.2) g/dL Albumin (3.4-5.0) g/dL Lipase (73-393) U/L Urine Opiates Screen Pos H (Neg) Ur Barbiturates Screen Neg (Neg) Ur Amphetamines Screen Neg (Neg) U Benzodiazepines Scrn Pos H (Neg) Urine Cocaine Screen Neg (Neg) U Cannabinoids Screen Pos H (Neg) 01/07/18 01/07/18 01/07/18 Range/Units 02:28 03:48 03:48 WBC 9.3 (4.0-11.0) th/mm3 RBC 4.28 L (4.50-5.90) mil/mm3 Hgb 12.7 L (13.0-17.0) gm/dL Hct 37.2 L (39.0-51.0) % MCV 87.1 (80.0-100.0) fL MCH 29.7 (27.0-34.0) pg MCHC 34.1 (32.0-36.0) % RDW 16.0 (11.6-17.2) % Plt Count 178 (150-450) th/mm3 MPV 8.1 (7.0-11.0) fL Neut % (Auto) (16.0-70.0) % Lymph % (Auto) (9.0-44.0) % [place] % (Auto) (0.0-8.0) % Eos % (Auto) (0.0-4.0) % Baso % (Auto) (0.0-2.0) % Neut # (Auto) (1.8-7.7) th/mm3 Lymph # (Auto) (1.0-4.8) th/mm3 [place] # (Auto) (0.0-0.9) th/mm3 Eos # (Auto) (0.0-0.4) th/mm3 Baso # (Auto) (0.0-0.2) th/mm3 WBC Differential Differential Comment PT (9.8-11.6) sec INR Ratio APTT 31.9 H (23.4-31.7) sec Sodium 140 (136-145) meq/L Potassium 3.5 (3.5-5.1) meq/L Chloride 103 (98-107) meq/L Carbon Dioxide 29.0 (21.0-32.0) meq/L Anion Gap 8 (5-15) meq/L BUN 28 H (7-18) mg/dL Creatinine 0.84 (0.60-1.30) mg/dL Estimated GFR Greater than 89 (>89) mL/min POC Glucose (68-110) mg/dl Random Glucose 164 H (74-106) mg/dL Calcium 8.7 (8.5-10.1) mg/dL Total Bilirubin (0.2-1.0) mg/dL AST (15-37) U/L ALT (12-78) U/L Alkaline Phosphatase (45-117) U/L Total Creatine Kinase 67 (39-308) U/L CK-MB (CK-2) (0.5-3.6) ng/mL Troponin I 1.36 H* (0.02-0.05) ng/mL B-Natriuretic Peptide (0-100) pg/mL Total Protein (6.4-8.2) g/dL Albumin (3.4-5.0) g/dL Lipase (73-393) U/L Urine Opiates Screen (Neg) Ur Barbiturates Screen (Neg) Ur Amphetamines Screen (Neg) U Benzodiazepines Scrn (Neg) Urine Cocaine Screen (Neg) U Cannabinoids Screen (Neg) 01/07/18 01/07/18 01/07/18 Range/Units 08:12 08:23 09:55 WBC (4.0-11.0) th/mm3 RBC (4.50-5.90) mil/mm3 Hgb (13.0-17.0) gm/dL Hct (39.0-51.0) % MCV (80.0-100.0) fL MCH (27.0-34.0) pg MCHC (32.0-36.0) % RDW (11.6-17.2) % Plt Count (150-450) th/mm3 MPV (7.0-11.0) fL Neut % (Auto) (16.0-70.0) % Lymph % (Auto) (9.0-44.0) % [place] % (Auto) (0.0-8.0) % Eos % (Auto) (0.0-4.0) % Baso % (Auto) (0.0-2.0) % Neut # (Auto) (1.8-7.7) th/mm3 Lymph # (Auto) (1.0-4.8) th/mm3 [place] # (Auto) (0.0-0.9) th/mm3 Eos # (Auto) (0.0-0.4) th/mm3 Baso # (Auto) (0.0-0.2) th/mm3 WBC Differential Differential Comment PT (9.8-11.6) sec INR Ratio APTT 31.8 H (23.4-31.7) sec Sodium (136-145) meq/L Potassium (3.5-5.1) meq/L Chloride (98-107) meq/L Carbon Dioxide (21.0-32.0) meq/L Anion Gap (5-15) meq/L BUN (7-18) mg/dL Creatinine (0.60-1.30) mg/dL Estimated GFR (>89) mL/min POC Glucose 230 H (68-110) mg/dl Random Glucose (74-106) mg/dL Calcium (8.5-10.1) mg/dL Total Bilirubin (0.2-1.0) mg/dL AST (15-37) U/L ALT (12-78) U/L Alkaline Phosphatase (45-117) U/L Total Creatine Kinase 82 (39-308) U/L CK-MB (CK-2) (0.5-3.6) ng/mL Troponin I 1.23 H* (0.02-0.05) ng/mL B-Natriuretic Peptide (0-100) pg/mL Total Protein (6.4-8.2) g/dL Albumin (3.4-5.0) g/dL Lipase (73-393) U/L Urine Opiates Screen (Neg) Ur Barbiturates Screen (Neg) Ur Amphetamines Screen (Neg) U Benzodiazepines Scrn (Neg) Urine Cocaine Screen (Neg) U Cannabinoids Screen (Neg) Imaging Data Radiologist's impression: Hip X-Ray 01/06/18 17:05 CONCLUSION: No evidence of recent bony injury. Chest X-Ray 01/06/18 18:45 CONCLUSION: Acute cardiopulmonary disease. Bilateral skin folds are present. Head CT 01/06/18 19:50 CONCLUSION: 1. Negative noncontrast head CT. . Discharge Plan Discharge Disposition Patient Disposition: 30 Still Patient Discharge Condition Condition: Stable Discharge Details Diagnosis: Elevated troponin, Epigastric pain Physicians Team ED Provider: Judy Mcmanus ED Midlevel Provider: Jac Burns Primary Care Provider: Primary Care Physici,No Attending Provider: Brian Holguin Other Providers: Rl Swartz Fernando B Status ED Status: Admitted Patient
--- NOTE | 2018-01-06 17:28 | XR ---
EXAM DATE: 01/06/2018 5:24 PM EST AGE/SEX: 47 years / Male INDICATIONS: Patient complains of left hip pain status post fall. CLINICAL DATA: This is the patient's initial encounter. Patient reports that signs and symptoms have been present for 2 days and indicates a pain score of 8/10. MEDICAL/SURGICAL HISTORY: None. None. COMPARISON: No prior exams available for comparison. FINDINGS: Bony structures are intact and in normal alignment. Joints are intact without dislocation or signifi cant arthropathy. Osseous density is normal. Soft tissues are unremarkable. No radiopaque foreign bodies seen. CONCLUSION: No evidence of recent bony injury. Electronically signed by: Mario Ibarra MD 01/06/2018 5:26 PM EST
[2018-01-06 18:08] LABS: Baso # (Auto) 0.1 th/mm3 (0.0-0.2); Baso % (Auto) 0.6 % (0.0-2.0); Eos # (Auto) 0.1 th/mm3 (0.0-0.4); Eos % (Auto) 1.1 % (0.0-4.0); Hematocrit 38.2 % (39.0-51.0); Hemoglobin 13.3 gm/dL (13.0-17.0); Lymph # (Auto) 1.2 th/mm3 (1.0-4.8); Lymph % (Auto) 10.6 % (9.0-44.0); Mean Corpuscular HGB Conc 34.9 % (32.0-36.0); Mean Corpuscular Hemoglobin 30.3 pg (27.0-34.0); Mean Corpuscular Volume 86.7 fL (80.0-100.0); Mean Platelet Volume 8.8 fL (7.0-11.0); Mono # (Auto) 0.9 th/mm3 (0.0-0.9); Mono % (Auto) 7.4 % (0.0-8.0); Neut # (Auto) 9.5 th/mm3 (1.8-7.7); Neut % (Auto) 80.3 % (16.0-70.0); Platelet Count 190 th/mm3 (150-450); Red Blood Count 4.41 mil/mm3 (4.50-5.90); Red Cell Distribution Width 16.2 % (11.6-17.2); White Blood Count 11.8 th/mm3 (4.0-11.0)
[2018-01-06 18:21] LABS: Alanine Aminotransferase 16 U/L (12-78); Albumin 2.7 g/dL (3.4-5.0); Anion Gap 7 meq/L (5-15); Aspartate Aminotransferase 19 U/L (15-37); Blood Urea Nitrogen 32 mg/dL (7-18); Calcium 9.1 mg/dL (8.5-10.1); Carbon Dioxide 28.9 meq/L (21.0-32.0); Chloride 102 meq/L (98-107); Glomerular Filtration Rate 69 mL/min (>89); Glucose,Random 239 mg/dL (74-106); Lipase 69 U/L (73-393); Sodium 138 meq/L (136-145)
[2018-01-06 18:23] LABS: Alkaline Phosphatase 198 U/L (45-117)
[2018-01-06 18:40] LABS: Creatine Kinase 110 U/L (39-308)
[2018-01-06 18:44] LABS: Troponin I 1.25 ng/mL (0.02-0.05)
[2018-01-06] MEDS ORDERED: Heparin Drip 25,000 UNIT/250 ML BAG IV.CONT PRN (18:51)
[2018-01-06] MEDS ORDERED: Heparin 10,000 UNITS/10 ML Vial (for IV use) IV.PUSH STA (18:51)
[2018-01-06 18:56] LABS: Creatine Kinase MB 4.2 ng/mL (0.5-3.6)
--- NOTE | 2018-01-06 19:18 | XR ---
EXAM DATE: 01/06/2018 7:11 PM EST AGE/SEX: 47 years / Male INDICATIONS: Chest pain starting today CLINICAL DATA: This is the patient's initial encounter. Patient reports that signs and symptoms have been present for 1 day and indicates a pain score of 10/10. MEDICAL/SURGICAL HISTORY: . Gastroesophageal reflux disease. Congestive heart failure. Cardiova scular disease. Diabetes. Pancreatitis. Myocardial infarction. Hiatal hernia. Seizure. CAD. Cholecys tectomy. COMPARISON: [facility], CHEST 1V SINGLE AP, 09/06/2017. . FINDINGS: A single AP view of the chest demonstrates the lungs to be symmetrically aerated without evidence of mass, infiltrate or effusion. Bilateral skin folds are present. There are overlying retrocardiac gra ms leads. The cardiomediastinal contours are unremarkable. Osseous structures are intact. CONCLUSION: Acute cardiopulmonary disease. Bilateral skin folds are present. Electronically signed by: Johnathan Lim MD 01/06/2018 7:16 PM EST
[2018-01-06 19:59] LABS: Activated Partial Thrombo Time 29.9 sec (23.4-31.7); Prothrombin Time 10.5 sec (9.8-11.6)
--- NOTE | 2018-01-06 20:21 | CT ---
EXAM DATE: 01/06/2018 8:14 PM EST AGE/SEX: 47 years / Male INDICATIONS: Fell yesterday. Hit head. CLINICAL DATA: This is the patient's initial encounter. Patient reports that signs and symptoms have been present for 2 days and indicates a pain score of 5/10. MEDICAL/SURGICAL HISTORY: Diabetes. Pancreatitis. Renal infarct. None. RADIATION DOSE: 45.37 CTDI (mGy) COMPARISON: No prior exams available for comparison. TECHNIQUE: CT of the head without contrast. Using automated exposure control and adjustment of the mA and/or kV according to patient size, radiation dose was kept as low as reasonably achievable to ob tain optimal diagnostic quality images. DICOM format image data is available electronically for revi ew and comparison. FINDINGS: Cerebrum: The ventricles are normal for age. No evidence of midline shift, mass lesion, hemorrhage or acute infarction. No extraaxial fluid collections are seen. Posterior Fossa: The cerebellum and brainstem are intact. The 4th ventricle is midline. The cerebe llopontine angle is unremarkable. Extracranial: The visualized portion of the orbits is intact. Skull: The calvaria is intact. No evidence of skull fracture. CONCLUSION: 1. Negative noncontrast head CT. . Electronically signed by: Johnathan Lim MD 01/06/2018 8:20 PM EST
[2018-01-06] MEDS ORDERED: Morphine Inj 4 MG/ML Vial IV.PUSH ONE (21:32)
[2018-01-06 23:05] LABS: Amphetamine Screen,Urine Neg (Neg); Barbiturate Screen,Urine Neg (Neg); Cannabinoid Screen,Urine Pos (Neg); Cocaine Screen,Urine Neg (Neg)
[2018-01-06 23:06] LABS: Opiate Screen,Urine Pos (Neg)
[2018-01-07] MEDS ORDERED: Dextrose 50% in Water 50 ML Vial IV.PUSH PRN (01:32)
--- NOTE | 2018-01-07 01:34 | P.HP ---
History of Present Illness Service: [facility] Primary Care Physician: No Primary Care Physician History of Present Illness: 47-year-old male with past medical history significant for CHF (patient reports last echo showed an EF of 20%) on hospice for end-stage CHF, coronary artery disease status post stenting, bipolar disorder and diabetes mellitus presents to the emergency department for the evaluation of chest pain times 2 days. 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 He states it is worse with inspiration. The patient presents under police custody for medical clearance prior to going to [facility]. On his arrival to the emergency department, the patient reports abdominal pain that is consistent with his previous bouts of pancreatitis. He also complained of 2 recent falls one yesterday where he landed on his left hip and one today where he hit his head. Head CT negative. The patient denies any recent fever or chills. No nausea/vomiting/diarrhea. No focal neurologic deficits. Inpatient Certification: I certify that the inpatient services were ordered in accordance with Medicare regulations governing the order. This includes certification that hospital inpatient services are reasonable and necessary and in the case of services not specified as inpatient-only under 42 CFR 419.22(n), that they are appropriately provided as inpatient services in accordance to with the 2-midnight benchmark under 43 CFR 412.3(e) Estimated Total Length of Stay (Days): 3 Plans for Post Hospital Care: Not yet determined 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 - Medical History Medical History: Medical History (Last Updated 01/07/18 @ 01:23 by Shannon Melgar MD) Pancreatitis (Acute) Anxiety (Acute) Wrist fracture (Acute) FH: cholecystectomy (Acute) Renal infarct (Acute) Diabetes (Acute) Bipolar disorder CHF (congestive heart failure) Coronary artery disease - Surgical History Surgical History: Surgical History (Last Updated 01/07/18 @ 01:23 by Shannon Melgar MD) S/P lens implant (Acute) Status post cardiac catheterization Status post cholecystectomy - Family History Family History: Family History (Last Reviewed 01/07/18 @ 01:23 by Shannon Melgar MD) Mother Heart disease Father Heart disease - Social History I have reviewed the patient's Social History: Yes - Tobacco History Second Hand Smoke Exposure: No Tobacco Use In Past 30 Days: Yes Smoking Status: Current every day smoker Tobacco Type: Cigarettes - Alcohol History How Often Do You Have a Drink Containing Alcohol: Never - Substance Use History Substance History: No History of Abuse - Travel History Recent Travel in the [place] Within the Last 8 Weeks: No Recent Travel Out of the Country Within the Last 8 Weeks: No - Immunization History Tetanus Immunization: >5 Years Medications and Allergies Active Medications: Active Medications Aspirin (Ecotrin) 325 mg PO DAILY [facility] Heparin Sodium/Dextrose (Heparin/D5w 25,000 U/250 Ml) 25,000 unit in 250 mls @ 0 mls/hr IV.CONT TITRATE PRN; Protocol PRN Reason: Per Protocol Last Admin: 01/06/18 22:56 Dose: 600 units/hr, 6 mls/hr Morphine Sulfate (Morphine Inj) 4 mg IV.PUSH Q4H PRN PRN Reason: pain 6-10 Nitroglycerin (Nitrostat Sl) 0.4 mg SL Q5M PRN PRN Reason: CHEST PAIN Last Admin: 01/06/18 19:39 Dose: 0.4 mg Non-Formulary Medication (Alprazolam [Xanax]) 2 mg PO BID PRN PRN Reason: Anxiety Non-Formulary Medication (Quetiapine Sr) 300 mg PO DAILY [facility] Ondansetron HCl (Zofran Inj) 4 mg IV.PUSH Q6H PRN PRN Reason: NAUSEA OR VOMITING Sodium Chloride (Ns Inj) 2 ml IV.FLUSH BID [facility] Sodium Chloride (Ns Inj) 2 ml IV.FLUSH UNSCH PRN PRN Reason: FLUSH AFTER USING IV ACCESS Trimethoprim/Sulfamethoxazole (Bactrim Ds) 1 tab PO Q12H [facility] Allergies Allergy/AdvReac Type Severity Reaction Status Date / Time No Known Allergies Allergy Unverified 09/06/17 13:15 Home Medications Medication Instructions Recorded Confirmed Type alprazolam [Xanax] 2 mg PO BID PRN 09/06/17 01/06/18 History insulin glargine [Lantus U-100 20 unit SUB-Q HS 09/06/17 01/06/18 History Insulin] lisinopril 20 mg PO DAILY 09/06/17 01/06/18 History quetiapine [Seroquel XR] 300 mg PO DAILY 09/06/17 01/06/18 History apixaban [Eliquis] 5 mg PO BID 09/25/17 01/06/18 History hydromorphone [Dilaudid] 2 mg PO Q6H PRN 01/06/18 01/06/18 History Exam Vital signs: Vital Signs 01/06/18 17:02 01/06/18 17:10 01/06/18 18:47 Temperature 98.3 F Pulse Rate 88 80 80 Respiratory Rate 18 18 18 Blood Pressure 150/60 H 144/101 H 138/84 Pulse Oximetry 96 98 95 01/06/18 19:15 01/06/18 20:30 01/06/18 20:42 Temperature Pulse Rate 82 77 Respiratory Rate 18 18 18 Blood Pressure 150/92 H 155/98 H Pulse Oximetry 97 95 01/06/18 21:25 01/06/18 22:58 01/06/18 23:14 Temperature Pulse Rate 77 73 Respiratory Rate 18 18 Blood Pressure 145/93 H 136/86 Pulse Oximetry 95 95 Intake & Output 01/06/18 01/06/18 01/07/18 06:59 18:59 06:59 Weight 49.895 kg Narrative: Gen.: No acute distress Head: Normocephalic. Atraumatic. EENT: Pupils equal round and reactive to light. Nose without drainage. Airway intact. Throat without injection. Cardiovascular: Regular rate and rhythm. No murmurs, rubs or gallops. Respiratory: Lungs clear to auscultation bilaterally. No wheezes or rhonchi. Abdomen: Soft, nontender, nondistended. No peritoneal signs. Musculoskeletal: No gross deformities. No edema. Skin: No obvious rashes or erythema. Neuro: Sensory and motor grossly intact. Cranial nerves II through XII grossly intact. Results - Labs CBC & Chem 7: 01/06/18 17:25 01/06/18 17:25 Labs: Laboratory Results - last 24 hr 01/06/18 01/06/18 01/06/18 17:25 17:25 17:25 WBC 11.8 H RBC 4.41 L Hgb 13.3 Hct 38.2 L MCV 86.7 MCH 30.3 MCHC 34.9 RDW 16.2 Plt Count 190 MPV 8.8 Neut % (Auto) 80.3 H Lymph % (Auto) 10.6 Jack % (Auto) 7.4 Eos % (Auto) 1.1 Baso % (Auto) 0.6 Neut # (Auto) 9.5 H Lymph # (Auto) 1.2 Jack # (Auto) 0.9 Eos # (Auto) 0.1 Baso # (Auto) 0.1 WBC Differential . Differential Comment Auto diff final PT INR APTT Sodium 138 Potassium 4.0 Chloride 102 Carbon Dioxide 28.9 Anion Gap 7 BUN 32 H Creatinine 1.14 Estimated GFR 69 L Random Glucose 239 H Calcium 9.1 Total Bilirubin 0.3 AST 19 ALT 16 Alkaline Phosphatase 198 H Total Creatine Kinase 110 CK-MB (CK-2) 4.2 H Troponin I 1.25 H* B-Natriuretic Peptide Total Protein 7.0 Albumin 2.7 L Lipase 69 L Urine Opiates Screen Ur Barbiturates Screen Ur Amphetamines Screen U Benzodiazepines Scrn Urine Cocaine Screen U Cannabinoids Screen 01/06/18 01/06/18 01/06/18 17:25 19:10 20:37 WBC RBC Hgb Hct MCV MCH MCHC RDW Plt Count MPV Neut % (Auto) Lymph % (Auto) Jack % (Auto) Eos % (Auto) Baso % (Auto) Neut # (Auto) Lymph # (Auto) Jack # (Auto) Eos # (Auto) Baso # (Auto) WBC Differential Differential Comment PT 10.5 INR 1.0 APTT 29.9 Sodium Potassium Chloride Carbon Dioxide Anion Gap BUN Creatinine Estimated GFR Random Glucose Calcium Total Bilirubin AST ALT Alkaline Phosphatase Total Creatine Kinase CK-MB (CK-2) Troponin I 1.34 H* B-Natriuretic Peptide 809 H Total Protein Albumin Lipase Urine Opiates Screen Ur Barbiturates Screen Ur Amphetamines Screen U Benzodiazepines Scrn Urine Cocaine Screen U Cannabinoids Screen 01/06/18 22:40 WBC RBC Hgb Hct MCV MCH MCHC RDW Plt Count MPV Neut % (Auto) Lymph % (Auto) Jack % (Auto) Eos % (Auto) Baso % (Auto) Neut # (Auto) Lymph # (Auto) Jack # (Auto) Eos # (Auto) Baso # (Auto) WBC Differential Differential Comment PT INR APTT Sodium Potassium Chloride Carbon Dioxide Anion Gap BUN Creatinine Estimated GFR Random Glucose Calcium Total Bilirubin AST ALT Alkaline Phosphatase Total Creatine Kinase CK-MB (CK-2) Troponin I B-Natriuretic Peptide Total Protein Albumin Lipase Urine Opiates Screen Pos H Ur Barbiturates Screen Neg Ur Amphetamines Screen Neg U Benzodiazepines Scrn Pos H Urine Cocaine Screen Neg U Cannabinoids Screen Pos H - Imaging Impressions Hip X-Ray 01/06/18 17:05 CONCLUSION: No evidence of recent bony injury. Chest X-Ray 01/06/18 18:45 CONCLUSION: Acute cardiopulmonary disease. Bilateral skin folds are present. Head CT 01/06/18 19:50 CONCLUSION: 1. Negative noncontrast head CT. . Caprini VTE Risk Assessment Caprini VTE Risk Assessment: Moderate/High Risk (score >= 2) Caprini Risk Assessment Model: Point Value = 1 Point Value = 2 Point Value = 3 Point Value = 5 Age 41-60 Minor surgery BMI > 25 kg/m2 Swollen legs Varicose veins or History of unexplained or recurrent spontaneous Oral contraceptives or hormone replacement Sepsis (< 1 month) Serious lung disease, including pneumonia (< 1 month) Abnormal pulmonary function Acute myocardial infarction Congestive heart failure (< 1 month) History of inflammatory bowel disease Medical patient at bed rest Age 61-74 Arthroscopic surgery Major open surgery (> 45 min) Laparoscopic surgery (> 45 min) Malignancy Confined to bed (> 72 hours) Immobilizing plaster cast Central venous access Age >= 75 History of VTE Family history of VTE Factor V Leiden Prothrombin [id number] Lupus anticoagulant Anticardiolipin antibodies Elevated serum homocysteine Heparin-induced thrombocytopenia Other congenital or acquired thrombophilia Stroke (< 1 month) Elective arthroplasty Hip, pelvis, or leg fracture Acute spinal cord injury (< 1 month) Prophylaxis Regimen: Total Risk Factor Score Risk Level Prophylaxis Regimen 0-1 Low Early ambulation 2 Moderate Order ONE of the following: *Sequential Compression Device (SCD) *Heparin 5000 units SQ BID 3-4 Higher Order ONE of the following medications: *Heparin 5000 units SQ TID *Enoxaparin/Lovenox 40 mg SQ daily (WT < 150 kg, CrCl > 30 mL/min) *Enoxaparin/Lovenox 30 mg SQ daily (WT < 150 kg, CrCl > 10-29 mL/min) *Enoxaparin/Lovenox 30 mg SQ BID (WT < 150 kg, CrCl > 30 mL/min) AND/OR *Sequential Compression Device (SCD) 5 or more Highest Order ONE of the following medications: *Heparin 5000 units SQ TID (Preferred with Epidurals) *Enoxaparin/Lovenox 40 mg SQ daily (WT < 150 kg, CrCl > 30 mL/min) *Enoxaparin/Lovenox 30 mg SQ daily (WT < 150 kg, CrCl > 10-29 mL/min) *Enoxaparin/Lovenox 30 mg SQ BID (WT < 150 kg, CrCl > 30 mL/min) AND *Sequential Compression Device (SCD) Assessment and Plan - Plan Assessment/plan: 1. NSTEMI/CAD Initial troponin 1.[address] segment elevation or depression Patient with history of catheterization with stent placement, on Eliquis at home Cardiology consulted, appreciate recommendations Heparin drip Serial troponins/EKGs 2. End-stage CHF Patient on hospice with [facility] who agrees to admission and workup Last Echo in the system done in 2017, shows EF of 30%. Patient reports an EF of 20%. States he no longer has a pre certification specialist. Chest x-ray without signs of pulmonary edema 3. Diabetes mellitus Holding home Lantus as patient n.p.o. Sliding-scale insulin Monitor blood glucose 4. Bipolar disorder Continue on Seroquel FEN N.p.o. Electrolytes: Monitor and replete as needed Heparin drip
[2018-01-07 02:38] LABS: Baso # (Auto) 0.1 th/mm3 (0.0-0.2); Baso % (Auto) 1.2 % (0.0-2.0); Eos # (Auto) 0.2 th/mm3 (0.0-0.4); Eos % (Auto) 2.6 % (0.0-4.0); Hematocrit 35.5 % (39.0-51.0); Hemoglobin 12.5 gm/dL (13.0-17.0); Lymph # (Auto) 1.8 th/mm3 (1.0-4.8); Lymph % (Auto) 18.5 % (9.0-44.0); Mean Corpuscular HGB Conc 35.3 % (32.0-36.0); Mean Corpuscular Volume 85.1 fL (80.0-100.0); Mean Platelet Volume 8.2 fL (7.0-11.0); Mono # (Auto) 0.8 th/mm3 (0.0-0.9); Mono % (Auto) 8.9 % (0.0-8.0); Neut # (Auto) 6.6 th/mm3 (1.8-7.7); Neut % (Auto) 68.8 % (16.0-70.0); Platelet Count 177 th/mm3 (150-450); Red Blood Count 4.17 mil/mm3 (4.50-5.90); Red Cell Distribution Width 15.6 % (11.6-17.2); White Blood Count 9.6 th/mm3 (4.0-11.0)
[2018-01-07] MEDS: Morphine Inj 4 MG/ML Vial IV.PUSH PRN ×3 (02:42→12:55)
[2018-01-07 02:58] LABS: Anion Gap 8 meq/L (5-15); Blood Urea Nitrogen 28 mg/dL (7-18); Calcium 8.7 mg/dL (8.5-10.1); Chloride 103 meq/L (98-107); Glomerular Filtration Rate Greater Than 89 mL/min (>89); Glucose,Random 164 mg/dL (74-106); Potassium 3.5 meq/L (3.5-5.1); Sodium 140 meq/L (136-145)
[2018-01-07 03:06] LABS: Creatine Kinase 67 U/L (39-308)
[2018-01-07 03:08] LABS: Troponin I 1.36 ng/mL (0.02-0.05)
[2018-01-07] MEDS: Insulin NovoLOG Aspart Correctional Sugar Inj SQ SCH ×5 (03:41→20:00)
[2018-01-07 04:00] LABS: Hematocrit 37.2 % (39.0-51.0); Hemoglobin 12.7 gm/dL (13.0-17.0); Mean Corpuscular HGB Conc 34.1 % (32.0-36.0); Mean Corpuscular Hemoglobin 29.7 pg (27.0-34.0); Mean Corpuscular Volume 87.1 fL (80.0-100.0); Mean Platelet Volume 8.1 fL (7.0-11.0); Platelet Count 178 th/mm3 (150-450); Red Blood Count 4.28 mil/mm3 (4.50-5.90); White Blood Count 9.3 th/mm3 (4.0-11.0)
--- NOTE | 2018-01-07 08:11 | P.CONCA ---
History of Present Illness Service: cardiology Consult date: 01/07/18 Reason for Consult: NSTEMI Primary Care Provider: No Primary Care Physician Chief Complaint: chest pain History of Present Illness: 47 yo M on hospice with [facility] for CHF (last EF 30% in 2017), CAD, DMII and bipolar disorder who presented with complaints of chest pain x 2 days. Past medical also significant for tobacco use and pancreatitis. Troponin levels 1.25 - 1.34- 1.34. He is currently sedated due to earlier episode of agitation and suicide attempt in room by wrapping IV tubing around his neck, now in 4 point restraints. BNP elevated 800. CXR does not show evidence of fluid overload. Patient although sedated does state he has current chest pressure. No sob or palpitations. 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 - Medical History Medical History: Medical History (Last Updated 01/07/18 @ 01:23 by Shannon Melgar MD) Pancreatitis (Acute) Anxiety (Acute) Wrist fracture (Acute) FH: cholecystectomy (Acute) Renal infarct (Acute) Diabetes (Acute) Bipolar disorder CHF (congestive heart failure) Coronary artery disease - Surgical History Surgical History: Surgical History (Last Updated 01/07/18 @ 01:23 by Shannon Melgar MD) S/P lens implant (Acute) Status post cardiac catheterization Status post cholecystectomy - Family History Family History: Family History (Last Reviewed 01/07/18 @ 01:23 by Shannon Melgar MD) Mother Heart disease Father Heart disease - Tobacco History Second Hand Smoke Exposure: No Tobacco Use In Past 30 Days: Yes Smoking Status: Current every day smoker Tobacco Type: Cigarettes - Alcohol History How Often Do You Have a Drink Containing Alcohol: Never - Substance Use History Substance History: No History of Abuse - Travel History Recent Travel in the [place] Within the Last 8 Weeks: No Recent Travel Out of the Country Within the Last 8 Weeks: No - Immunization History Tetanus Immunization: >5 Years Medications and Allergies Active Medications: Active Medications Alprazolam (Xanax) 2 mg PO BID PRN PRN Reason: Anxiety Aspirin (Ecotrin) 325 mg PO DAILY [facility] Dextrose (D50w Vial) 50 ml IV.PUSH UNSCH PRN PRN Reason: PER HYPOGLYCEMIA PROTOCOL Glucagon (Glucagon Inj) 1 mg OTHER PRN PRN PRN Reason: for Hypoglycemia Protocol Heparin Sodium/Dextrose (Heparin/D5w 25,000 U/250 Ml) 25,000 unit in 250 mls @ 0 mls/hr IV.CONT TITRATE PRN; Protocol PRN Reason: Per Protocol Last Titration: 01/07/18 07:05 Dose: 700 units/hr, 7 mls/hr Insulin Aspart (Novolog Insulin Correctional Sugar Inj) 0 unit SQ ACHS AND 3AM [facility]; Protocol Last Admin: 01/07/18 03:41 Dose: Not Given Morphine Sulfate (Morphine Inj) 4 mg IV.PUSH Q4H PRN PRN Reason: pain 6-10 Last Admin: 01/07/18 02:42 Dose: 4 mg Nitroglycerin (Nitrostat Sl) 0.4 mg SL Q5M PRN PRN Reason: CHEST PAIN Last Admin: 01/06/18 19:39 Dose: 0.4 mg Ondansetron HCl (Zofran Inj) 4 mg IV.PUSH Q6H PRN PRN Reason: NAUSEA OR VOMITING Quetiapine Fumarate (Seroquel) 100 mg PO BID [facility] Quetiapine Fumarate (Seroquel) 50 mg PO BID [facility] Sodium Chloride (Ns Inj) 2 ml IV.FLUSH BID [facility] Sodium Chloride (Ns Inj) 2 ml IV.FLUSH UNSCH PRN PRN Reason: FLUSH AFTER USING IV ACCESS Trimethoprim/Sulfamethoxazole (Bactrim Ds) 1 tab PO Q12H [facility] Allergies Allergy/AdvReac Type Severity Reaction Status Date / Time No Known Allergies Allergy Unverified 09/06/17 13:15 Home Medications Medication Instructions Recorded Confirmed Type alprazolam [Xanax] 2 mg PO BID PRN 09/06/17 01/06/18 History insulin glargine [Lantus U-100 20 unit SUB-Q HS 09/06/17 01/06/18 History Insulin] lisinopril 20 mg PO DAILY 09/06/17 01/06/18 History quetiapine [Seroquel XR] 300 mg PO DAILY 09/06/17 01/06/18 History apixaban [Eliquis] 5 mg PO BID 09/25/17 01/06/18 History hydromorphone [Dilaudid] 2 mg PO Q6H PRN 01/06/18 01/06/18 History Exam Vital signs: Vital Signs 01/06/18 17:02 01/06/18 17:10 01/06/18 18:47 Temperature 98.3 F Pulse Rate 88 80 80 Respiratory Rate 18 18 18 Blood Pressure 150/60 H 144/101 H 138/84 Pulse Oximetry 96 98 95 01/06/18 19:15 01/06/18 20:30 01/06/18 20:42 Temperature Pulse Rate 82 77 Respiratory Rate 18 18 18 Blood Pressure 150/92 H 155/98 H Pulse Oximetry 97 95 01/06/18 21:25 01/06/18 22:58 01/06/18 23:14 Temperature Pulse Rate 77 73 Respiratory Rate 18 18 Blood Pressure 145/93 H 136/86 Pulse Oximetry 95 95 01/07/18 02:44 01/07/18 06:39 Temperature Pulse Rate 81 87 Respiratory Rate 17 18 Blood Pressure 154/99 H 141/82 H Pulse Oximetry 96 96 Intake & Output 01/06/18 01/07/18 01/07/18 18:59 06:59 18:59 Weight 49.895 kg Narrative: GENERAL: SKIN: Warm and dry. HEAD: Normocephalic. EYES: No scleral icterus. No injection or drainage. NECK: Supple, trachea midline. No JVD or lymphadenopathy. CARDIOVASCULAR: Regular rate and rhythm without murmurs, gallops, or rubs. RESPIRATORY: Breath sounds equal bilaterally. No accessory muscle use. GASTROINTESTINAL: Abdomen soft, non-tender, nondistended. MUSCULOSKELETAL: No cyanosis, or edema. Results 01/07/18 03:48 01/07/18 02:28 Cardiac Enzymes 01/06/18 01/06/18 01/06/18 Range/Units 17:25 17:25 17:25 AST 19 (15-37) U/L CK-MB (CK-2) 4.2 H (0.5-3.6) ng/mL Troponin I 1.25 H* (0.02-0.05) ng/mL B-Natriuretic Peptide 809 H (0-100) pg/mL 01/06/18 01/07/18 Range/Units 20:37 02:28 AST (15-37) U/L CK-MB (CK-2) (0.5-3.6) ng/mL Troponin I 1.34 H* 1.36 H* (0.02-0.05) ng/mL B-Natriuretic Peptide (0-100) pg/mL Coagulation 01/06/18 01/06/18 01/07/18 Range/Units 17:25 19:10 03:48 PT 10.5 (9.8-11.6) sec APTT 29.9 31.9 H (23.4-31.7) sec B-Natriuretic Peptide 809 H (0-100) pg/mL CBC 01/06/18 01/07/18 01/07/18 Range/Units 17:25 02:28 03:48 WBC 11.8 H 9.6 9.3 (4.0-11.0) th/mm3 RBC 4.41 L 4.17 L 4.28 L (4.50-5.90) mil/mm3 Hgb 13.3 12.5 L 12.7 L (13.0-17.0) gm/dL Hct 38.2 L 35.5 L 37.2 L (39.0-51.0) % Plt Count 190 177 178 (150-450) th/mm3 Neut # (Auto) 9.5 H 6.6 (1.8-7.7) th/mm3 Lymph # (Auto) 1.2 1.8 (1.0-4.8) th/mm3 [place] # (Auto) 0.9 0.8 (0.0-0.9) th/mm3 Eos # (Auto) 0.1 0.2 (0.0-0.4) th/mm3 Baso # (Auto) 0.1 0.1 (0.0-0.2) th/mm3 Comprehensive Metabolic Panel 01/06/18 01/07/18 Range/Units 17:25 02:28 Sodium 138 140 (136-145) meq/L Potassium 4.0 3.5 (3.5-5.1) meq/L Chloride 102 103 (98-107) meq/L Carbon Dioxide 28.9 29.0 (21.0-32.0) meq/L BUN 32 H 28 H (7-18) mg/dL Creatinine 1.14 0.84 (0.60-1.30) mg/dL Calcium 9.1 8.7 (8.5-10.1) mg/dL AST 19 (15-37) U/L ALT 16 (12-78) U/L Alkaline Phosphatase 198 H (45-117) U/L Total Protein 7.0 (6.4-8.2) g/dL Albumin 2.7 L (3.4-5.0) g/dL Intake and Output 01/06/18 01/07/18 01/07/18 22:59 06:59 14:59 Other: Weight 49.895 kg - Imaging and Cardiology Imaging: Impressions Hip X-Ray 01/06/18 17:05 CONCLUSION: No evidence of recent bony injury. Chest X-Ray 01/06/18 18:45 CONCLUSION: Acute cardiopulmonary disease. Bilateral skin folds are present. Head CT 01/06/18 19:50 CONCLUSION: 1. Negative noncontrast head CT. . Assessment and Plan - Assessment (1) NSTEMI (non-ST elevated myocardial infarction) Code(s): I21.4 - Non-ST elevation (NSTEMI) myocardial infarction Status: Acute - Plan 47 yo M on hospice with [facility] for CHF (last EF 30% in 2017), CAD, DMII and bipolar disorder who presented with complaints of chest pain x 2 days. Past medical also significant for tobacco use and pancreatitis. Troponin levels 1.25 - 1.34- 1.34. He is currently sedated due to earlier episode of agitation and suicide attempt in room by wrapping IV tubing around his neck, now in 4 point restraints. BNP elevated 800. CXR does not show evidence of fluid overload. Patient although sedated does state he has current chest pressure. No sob or palpitations. patient came in police custody as he will be transported to shelter. NSTEMI- patient currently on hospice/palliative care. will pursue medical management/conservative care. continue to monitor troponin trend consider adding bb and long acting nitrate
[2018-01-07] MEDS: QUEtiapine 100 MG Tablet PO SCH ×2 (08:33→20:01)
[2018-01-07] MEDS: QUEtiapine 25 MG Tablet PO SCH ×2 (08:33→20:01)
[2018-01-07 09:31] LABS: Troponin I 1.23 ng/mL (0.02-0.05)
--- NOTE | 2018-01-07 12:14 | ECG ---
Date Performed: 01/06/2018 Time Performed: 19:06:37 PTAGE: 47 years EKG: Sinus rhythm ANTERIOR MYOCARDIAL INFARCTION PROBABLE INFERIOR MYOCARDIAL INFARCTION ABNORMAL ECG Since the PREVIOUS TRACING , no significant change noted PREVIOUS TRACIN01/06/2018 17.50 DOCTOR: Darnell Cormier Interpretating Date/Time 01/07/2018 12:12:47
--- NOTE | 2018-01-07 14:14 | P.CONPSY ---
Provisional Diagnosis Admission Date: January 06, 2018 22:02 Sharon I.: Adjustment disorder with disturbance of conduct, malingering, history of bipolar Sharon II.: Antisocial personality disorder History of Present Illness Service: ER Primary Care Provider: No Primary Care Physician Chief Complaint: chest pain History of Present Illness: The patient is a 47-year-old man, domiciled with a roommate in [facility] , single, unemployed, supported by Social Security, with psychiatric history of bipolar disorder, personality disorder, poor impulse control, over 20 incarcerations, but no previous psychiatric admissions, no previous suicide attempts, cannabis use disorder, with medical history of pancreatitis, diabetes , diabetic peripheral neuropathy, CHF, who presents to the emergency department for the evaluation of chest pain times 2 days. 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 He states it is worse with inspiration. The patient presents under police custody for medical clearance prior to going to [facility]. On his arrival to the emergency department, the patient reports abdominal pain that is consistent with his previous bouts of pancreatitis. He also complained of 2 recent falls one yesterday where he landed on his left hip and one today where he hit his head. Head CT negative. Consulted to psychiatry because the patient has made a suicidal gesture in the ER, he took a cord and put in his neck is stating that he would kill himself if he is not treated appropriately. On my psychiatric evaluation the patient is calm, cooperative, but irritable. The patient is oriented 3 at the moment. He denies symptomatology of depression, denies anhedonia, denies hopelessness, denies helplessness, he denies suicidal enemas ideation, he denies visual and auditory hallucinations. He says that he did not want to kill himself he was trying to get the attention of the doctors because he was on pain and he needed to be treated. He says that the only thing that works in the hospital he started to Dr. they want to commit suicide that the only way to put attention to you. He is fully oriented x3. 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 - Medical History Medical History: Medical History (Last Updated 01/07/18 @ 01:23 by Shannon Melgar MD) Pancreatitis (Acute) Anxiety (Acute) Wrist fracture (Acute) FH: cholecystectomy (Acute) Renal infarct (Acute) Diabetes (Acute) Bipolar disorder CHF (congestive heart failure) Coronary artery disease - Surgical History Surgical History: Surgical History (Last Updated 01/07/18 @ 01:23 by Shannon Melgar MD) S/P lens implant (Acute) Status post cardiac catheterization Status post cholecystectomy - Family History Family History: Family History (Last Reviewed 01/07/18 @ 01:23 by Shannon Melgar MD) Mother Heart disease Father Heart disease - Tobacco History Second Hand Smoke Exposure: No Tobacco Use In Past 30 Days: Yes Smoking Status: Current every day smoker Tobacco Type: Cigarettes - Alcohol History How Often Do You Have a Drink Containing Alcohol: Never - Substance Use History Substance History: No History of Abuse - Travel History Recent Travel in the [place] Within the Last 8 Weeks: No Recent Travel Out of the Country Within the Last 8 Weeks: No - Immunization History Tetanus Immunization: >5 Years Medications and Allergies Active Medications: Active Medications Alprazolam (Xanax) 2 mg PO BID PRN PRN Reason: Anxiety Last Admin: 01/07/18 12:56 Dose: 2 mg Aspirin (Ecotrin) 325 mg PO DAILY [place] Last Admin: 01/07/18 08:34 Dose: 325 mg Dextrose (D50w Vial) 50 ml IV.PUSH UNSCH PRN PRN Reason: PER HYPOGLYCEMIA PROTOCOL Glucagon (Glucagon Inj) 1 mg OTHER PRN PRN PRN Reason: for Hypoglycemia Protocol Heparin Sodium/Dextrose (Heparin/D5w 25,000 U/250 Ml) 25,000 unit in 250 mls @ 0 mls/hr IV.CONT TITRATE PRN; Protocol PRN Reason: Per Protocol Last Titration: 01/07/18 11:21 Dose: 800 units/hr, 8 mls/hr Insulin Aspart (Novolog Insulin Correctional Sugar Inj) 0 unit SQ ACHS AND 3AM [place]BIR; Protocol Last Admin: 01/07/18 11:33 Dose: Not Given Metoprolol Tartrate (Lopressor) 12.5 mg PO BID [place] Morphine Sulfate (Morphine Inj) 4 mg IV.PUSH Q4H PRN PRN Reason: pain 6-10 Last Admin: 01/07/18 12:55 Dose: 4 mg Nitroglycerin (Nitrostat Sl) 0.4 mg SL Q5M PRN PRN Reason: CHEST PAIN Last Admin: 01/06/18 19:39 Dose: 0.4 mg Non-Formulary Medication (Insulin Glargine Inj) 20 unit SQ [facility] Ondansetron HCl (Zofran Inj) 4 mg IV.PUSH Q6H PRN PRN Reason: NAUSEA OR VOMITING Quetiapine Fumarate (Seroquel) 100 mg PO BID [facility] Last Admin: 01/07/18 08:33 Dose: 100 mg Quetiapine Fumarate (Seroquel) 50 mg PO BID [facility] Last Admin: 01/07/18 08:33 Dose: 50 mg Sodium Chloride (Ns Inj) 2 ml IV.FLUSH BID [facility] Last Admin: 01/07/18 09:34 Dose: Not Given Sodium Chloride (Ns Inj) 2 ml IV.FLUSH UNSCH PRN PRN Reason: FLUSH AFTER USING IV ACCESS Trimethoprim/Sulfamethoxazole (Bactrim Ds) 1 tab PO Q12H [facility] Last Admin: 01/07/18 12:34 Dose: 1 tab Allergies Allergy/AdvReac Type Severity Reaction Status Date / Time No Known Allergies Allergy Unverified 09/06/17 13:15 Home Medications Medication Instructions Recorded Confirmed Type alprazolam [Xanax] 2 mg PO BID PRN 09/06/17 01/06/18 History insulin glargine [Lantus U-100 20 unit SUB-Q HS 09/06/17 01/06/18 History Insulin] lisinopril 20 mg PO DAILY 09/06/17 01/06/18 History quetiapine [Seroquel XR] 300 mg PO DAILY 09/06/17 01/06/18 History apixaban [Eliquis] 5 mg PO BID 09/25/17 01/06/18 History hydromorphone [Dilaudid] 2 mg PO Q6H PRN 01/06/18 01/06/18 History Exam Vital signs: Vital Signs 01/06/18 17:02 01/06/18 17:10 01/06/18 18:47 Temperature 98.3 F Pulse Rate 88 80 80 Respiratory Rate 18 Blood Pressure 150/60 H 144/101 H 138/84 Pulse Oximetry 96 98 95 01/06/18 19:15 01/06/18 20:30 01/06/18 20:42 Temperature Pulse Rate 82 77 Respiratory Rate 18 Blood Pressure 150/92 H 155/98 H Pulse Oximetry 97 95 01/06/18 21:25 01/06/18 22:58 01/06/18 23:14 Temperature Pulse Rate 77 73 Respiratory Rate 18 18 Blood Pressure 145/93 H 136/86 Pulse Oximetry 95 95 01/07/18 02:44 01/07/18 06:39 01/07/18 08:41 Temperature Pulse Rate 81 87 86 Respiratory Rate 17 18 16 Blood Pressure 154/99 H 141/82 H 168/97 H Pulse Oximetry 96 96 92 L 01/07/18 10:00 01/07/18 11:00 Temperature Pulse Rate 80 80 Respiratory Rate 15 16 Blood Pressure 109/72 126/82 Pulse Oximetry 95 95 Intake & Output 01/06/18 01/07/18 01/07/18 18:59 06:59 18:59 Weight 49.895 kg Narrative: No tremors, no EPS, no psychomotor agitation or retardation, no catatonia - Constitutional no acute distress - Routine HEENT Exam Head: Present: normocephalic, atraumatic Eye: Present: EOMI, scleral injection ENT: Present: mucous membranes moist Mental Status Examination Appearance: Appropriate Consciousness: Alert Orientation: x4 Motor Activity: Normal gait Speech: Unremarkable Language: Adequate Fund of Knowledge: Adequate Attention and Concentration: Adequate Memory: Unremarkable Mood: Irritable Affect: Irritable Thought Process & Associations: Intact Thought Content: Appropriate Hallucination Type: None Delusion Type: None Suicidal Ideation: No Suicidal Plan: No Suicidal Intention: No Homicidal Ideation: No Homicidal Plan: No Homicidal Intention: No Insight: Poor Judgment: Poor Assessment and Plan - Plan Plan: On my psychiatric evaluation today the patient does not present any neuropsychiatric symptoms that require an immediate psychiatric intervention. The patient does seem to be a little bit confused which could be part of delirium secondary to his underlying medical conditions, but he denies suicidal and homicidal ideation, he denies visual and auditory hallucinations at the moment. Recent agitation and aggressive behavior, suicidal gesture in the ER, could be part of personality structure and malingering with secondary gain of getting medical attention and no secondary to a primary psychotic disorder. This patient does not meet criteria for involuntary psychiatric admission. Seroquel 25 mg twice daily can be added for behavioral control. No admission indicated at this moment. Justification for Continued Inpatient Stay: No admission is indicated
--- NOTE | 2018-01-07 14:37 | P.PNIM ---
Subjective Interval history: 47-year-old male with past medical history significant for CHF (patient reports last echo showed an EF of 20%) on hospice for end-stage CHF, coronary artery disease status post stenting, bipolar disorder and diabetes mellitus presents to the emergency department for the evaluation of chest pain times 2 days. The patient reports he has had substernal chest pressure that radiates to his back. He states it is worse with inspiration. The patient presents under police custody for medical clearance prior to going to intermediate. On his arrival to the emergency department, the patient reports abdominal pain that is consistent with his previous bouts of pancreatitis. He also complained of 2 recent falls one yesterday where he landed on his left hip and one today where he hit his head. Head CT negative. The patient denies any recent fever or chills. No nausea/vomiting/diarrhea. No focal neurologic deficits. 01-07 was seen by cardiology they recommend medical management seen by psychiatry they recommend medical management only and does not meet criteria for admission will trend troponins and check and echo once the troponins are stable can be discharged to intermediate with the police-since he is here under the custody of police wants pain and anxiety medications answered questions appropriately Physical Exam Vital signs: Vital Signs 01/06/18 17:02 01/06/18 17:10 01/06/18 18:47 Temperature 98.3 F Pulse Rate 88 80 80 Respiratory Rate 18 18 18 Blood Pressure 150/60 H 144/101 H 138/84 Pulse Oximetry 96 98 95 01/06/18 19:15 01/06/18 20:30 01/06/18 20:42 Temperature Pulse Rate 82 77 Respiratory Rate 18 18 18 Blood Pressure 150/92 H 155/98 H Pulse Oximetry 97 95 01/06/18 21:25 01/06/18 22:58 01/06/18 23:14 Temperature Pulse Rate 77 73 Respiratory Rate 18 18 Blood Pressure 145/93 H 136/86 Pulse Oximetry 95 95 01/07/18 02:44 01/07/18 06:39 01/07/18 08:41 Temperature Pulse Rate 81 87 86 Respiratory Rate 17 18 16 Blood Pressure 154/99 H 141/82 H 168/97 H Pulse Oximetry 96 96 92 L 01/07/18 10:00 01/07/18 11:00 Temperature Pulse Rate 80 80 Respiratory Rate 15 16 Blood Pressure 109/72 126/82 Pulse Oximetry 95 95 Intake & Output 01/06/18 01/07/18 01/07/18 18:59 06:59 18:59 Weight 49.895 kg Narrative: Gen.: No acute distress Head: Normocephalic. Atraumatic. EENT: Pupils equal round and reactive to light. Nose without drainage. Airway intact. Throat without injection. Cardiovascular: Regular rate and rhythm. No murmurs, rubs or gallops. Respiratory: Lungs clear to auscultation bilaterally. No wheezes or rhonchi. Abdomen: Soft, nontender, nondistended. No peritoneal signs. Musculoskeletal: No gross deformities. No edema. Skin: No obvious rashes or erythema. Neuro: Sensory and motor grossly intact. Cranial nerves II through XII grossly intact. Results - Labs CBC & Chem 7: 01/07/18 03:48 01/07/18 02:28 Laboratory Results - last 24 hr 01/06/18 01/06/18 01/06/18 17:25 17:25 17:25 WBC 11.8 H RBC 4.41 L Hgb 13.3 Hct 38.2 L MCV 86.7 MCH 30.3 MCHC 34.9 RDW 16.2 Plt Count 190 MPV 8.8 Neut % (Auto) 80.3 H Lymph % (Auto) 10.6 [place] % (Auto) 7.4 Eos % (Auto) 1.1 Baso % (Auto) 0.6 Neut # (Auto) 9.5 H Lymph # (Auto) 1.2 [place] # (Auto) 0.9 Eos # (Auto) 0.1 Baso # (Auto) 0.1 WBC Differential . Differential Comment Auto diff final PT INR APTT Sodium 138 Potassium 4.0 Chloride 102 Carbon Dioxide 28.9 Anion Gap 7 BUN 32 H Creatinine 1.14 Estimated GFR 69 L POC Glucose Random Glucose 239 H Calcium 9.1 Total Bilirubin 0.3 AST 19 ALT 16 Alkaline Phosphatase 198 H Total Creatine Kinase 110 CK-MB (CK-2) 4.2 H Troponin I 1.25 H* B-Natriuretic Peptide Total Protein 7.0 Albumin 2.7 L Lipase 69 L Urine Opiates Screen Ur Barbiturates Screen Ur Amphetamines Screen U Benzodiazepines Scrn Urine Cocaine Screen U Cannabinoids Screen 01/06/18 01/06/18 01/06/18 17:25 19:10 20:37 WBC RBC Hgb Hct MCV MCH MCHC RDW Plt Count MPV Neut % (Auto) Lymph % (Auto) [place] % (Auto) Eos % (Auto) Baso % (Auto) Neut # (Auto) Lymph # (Auto) [place] # (Auto) Eos # (Auto) Baso # (Auto) WBC Differential Differential Comment PT 10.5 INR 1.0 APTT 29.9 Sodium Potassium Chloride Carbon Dioxide Anion Gap BUN Creatinine Estimated GFR POC Glucose Random Glucose Calcium Total Bilirubin AST ALT Alkaline Phosphatase Total Creatine Kinase CK-MB (CK-2) Troponin I 1.34 H* B-Natriuretic Peptide 809 H Total Protein Albumin Lipase Urine Opiates Screen Ur Barbiturates Screen Ur Amphetamines Screen U Benzodiazepines Scrn Urine Cocaine Screen U Cannabinoids Screen 01/06/18 01/07/18 01/07/18 22:40 02:26 02:28 WBC 9.6 RBC 4.17 L Hgb 12.5 L Hct 35.5 L MCV 85.1 MCH 30.0 MCHC 35.3 RDW 15.6 Plt Count 177 MPV 8.2 Neut % (Auto) 68.8 Lymph % (Auto) 18.5 [place] % (Auto) 8.9 H Eos % (Auto) 2.6 Baso % (Auto) 1.2 Neut # (Auto) 6.6 Lymph # (Auto) 1.8 [place] # (Auto) 0.8 Eos # (Auto) 0.2 Baso # (Auto) 0.1 WBC Differential . Differential Comment Auto diff final PT INR APTT Sodium Potassium Chloride Carbon Dioxide Anion Gap BUN Creatinine Estimated GFR POC Glucose 147 H Random Glucose Calcium Total Bilirubin AST ALT Alkaline Phosphatase Total Creatine Kinase CK-MB (CK-2) Troponin I B-Natriuretic Peptide Total Protein Albumin Lipase Urine Opiates Screen Pos H Ur Barbiturates Screen Neg Ur Amphetamines Screen Neg U Benzodiazepines Scrn Pos H Urine Cocaine Screen Neg U Cannabinoids Screen Pos H 01/07/18 01/07/18 01/07/18 02:28 03:48 03:48 WBC 9.3 RBC 4.28 L Hgb 12.7 L Hct 37.2 L MCV 87.1 MCH 29.7 MCHC 34.1 RDW 16.0 Plt Count 178 MPV 8.1 Neut % (Auto) Lymph % (Auto) [place] % (Auto) Eos % (Auto) Baso % (Auto) Neut # (Auto) Lymph # (Auto) [place] # (Auto) Eos # (Auto) Baso # (Auto) WBC Differential Differential Comment PT INR APTT 31.9 H Sodium 140 Potassium 3.5 Chloride 103 Carbon Dioxide 29.0 Anion Gap 8 BUN 28 H Creatinine 0.84 Estimated GFR Greater than 89 POC Glucose Random Glucose 164 H Calcium 8.7 Total Bilirubin AST ALT Alkaline Phosphatase Total Creatine Kinase 67 CK-MB (CK-2) Troponin I 1.36 H* B-Natriuretic Peptide Total Protein Albumin Lipase Urine Opiates Screen Ur Barbiturates Screen Ur Amphetamines Screen U Benzodiazepines Scrn Urine Cocaine Screen U Cannabinoids Screen 01/07/18 01/07/18 01/07/18 08:12 08:23 09:55 WBC RBC Hgb Hct MCV MCH MCHC RDW Plt Count MPV Neut % (Auto) Lymph % (Auto) [place] % (Auto) Eos % (Auto) Baso % (Auto) Neut # (Auto) Lymph # (Auto) [place] # (Auto) Eos # (Auto) Baso # (Auto) WBC Differential Differential Comment PT INR APTT 31.8 H Sodium Potassium Chloride Carbon Dioxide Anion Gap BUN Creatinine Estimated GFR POC Glucose 230 H Random Glucose Calcium Total Bilirubin AST ALT Alkaline Phosphatase Total Creatine Kinase 82 CK-MB (CK-2) Troponin I 1.23 H* B-Natriuretic Peptide Total Protein Albumin Lipase Urine Opiates Screen Ur Barbiturates Screen Ur Amphetamines Screen U Benzodiazepines Scrn Urine Cocaine Screen U Cannabinoids Screen 01/07/18 11:25 WBC RBC Hgb Hct MCV MCH MCHC RDW Plt Count MPV Neut % (Auto) Lymph % (Auto) [place] % (Auto) Eos % (Auto) Baso % (Auto) Neut # (Auto) Lymph # (Auto) [place] # (Auto) Eos # (Auto) Baso # (Auto) WBC Differential Differential Comment PT INR APTT Sodium Potassium Chloride Carbon Dioxide Anion Gap BUN Creatinine Estimated GFR POC Glucose 163 H Random Glucose Calcium Total Bilirubin AST ALT Alkaline Phosphatase Total Creatine Kinase CK-MB (CK-2) Troponin I B-Natriuretic Peptide Total Protein Albumin Lipase Urine Opiates Screen Ur Barbiturates Screen Ur Amphetamines Screen U Benzodiazepines Scrn Urine Cocaine Screen U Cannabinoids Screen - Imaging Impressions Hip X-Ray 01/06/18 17:05 CONCLUSION: No evidence of recent bony injury. Chest X-Ray 01/06/18 18:45 CONCLUSION: Acute cardiopulmonary disease. Bilateral skin folds are present. Head CT 01/06/18 19:50 CONCLUSION: 1. Negative noncontrast head CT. . Assessment and Plan - Plan 1. NSTEMI/CAD Initial troponin 1.[address] segment elevation or depression Patient with history of catheterization with stent placement, on Eliquis at home Cardiology consulted, appreciate recommendations Heparin drip Serial troponins/EKGs seen by cardiology recommended medical management 2. End-stage CHF Patient on hospice with [facility] who agrees to admission and workup Last Echo in the system done in 2017, shows EF of 30%. Patient reports an EF of 20%. 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 Chest x-ray without signs of pulmonary edema medical management 3. Diabetes mellitus Holding home Lantus as patient n.p.o. Sliding-scale insulin Monitor blood glucose 4. Bipolar disorder Continue on Seroquel FEN cardiac diabetic diet Electrolytes: Monitor and replete as needed Heparin drip Code Status: DNR Discussed Condition With: RN AND PT AND FAMILY Discharge Planning: ONCE CLEARED CAN BE DISCHARGED TO POLICE CUSTODY H[facility]EFULL[facility] IN NEXT DAY OR SO AWAIT TROPONINS TO TREND FURTHER DOWN
--- NOTE | 2018-01-07 14:43 | ECG ---
Date Performed: 01/06/2018 Time Performed: 17:50:51 PTAGE: 47 years EKG: Sinus rhythm ANTERIOR MYOCARDIAL INFARCTION PROBABLE INFERIOR MYOCARDIAL INFARCTION ABNORMAL ECG Compared to PREVIOUS TRACING , ST segment elevation in the inferior leads with Q wave formation is n ow present, may be consistent with inferior myocardial infarction PREVIOUS TRACIN09/06/2017 20.17 DOCTOR: Darnell Cormier Interpretating Date/Time 01/07/2018 14:41:48
[2018-01-07] MEDS: Metoprolol Tartrate 25 MG Tablet PO SCH (20:00)
[2018-01-07 20:32] LABS: Troponin I 1.19 ng/mL (0.02-0.05)
[2018-01-07] MEDS ORDERED: Insulin Detemir Inj 1,000 UNIT/10 ML Vial SQ SCH (21:00)
[2018-01-08] MEDS: Insulin NovoLOG Aspart Correctional Sugar Inj SQ SCH ×3 (03:14→12:18)
[2018-01-08 03:20] LABS: Baso # (Auto) 0.1 th/mm3 (0.0-0.2); Baso % (Auto) 0.9 % (0.0-2.0); Eos # (Auto) 0.1 th/mm3 (0.0-0.4); Eos % (Auto) 0.8 % (0.0-4.0); Hematocrit 38.5 % (39.0-51.0); Hemoglobin 13.1 gm/dL (13.0-17.0); Lymph # (Auto) 1.3 th/mm3 (1.0-4.8); Mean Corpuscular HGB Conc 33.9 % (32.0-36.0); Mean Corpuscular Hemoglobin 29.3 pg (27.0-34.0); Mean Corpuscular Volume 86.5 fL (80.0-100.0); Mono # (Auto) 1.1 th/mm3 (0.0-0.9); Mono % (Auto) 8.4 % (0.0-8.0); Neut # (Auto) 10.4 th/mm3 (1.8-7.7); Neut % (Auto) 79.9 % (16.0-70.0); Platelet Count 226 th/mm3 (150-450); Red Blood Count 4.45 mil/mm3 (4.50-5.90); Red Cell Distribution Width 15.6 % (11.6-17.2)
[2018-01-08 03:53] LABS: Alanine Aminotransferase 22 U/L (12-78); Albumin 2.4 g/dL (3.4-5.0); Alkaline Phosphatase 284 U/L (45-117); Anion Gap 8 meq/L (5-15); Aspartate Aminotransferase 25 U/L (15-37); Blood Urea Nitrogen 27 mg/dL (7-18); Calcium 8.3 mg/dL (8.5-10.1); Chloride 104 meq/L (98-107); Chol/HDL Ratio 3.43 Ratio; Cholesterol 136 mg/dL (120-200); Free T4 (Free Thyroxine) 1.34 ng/dL (0.76-1.46); Glomerular Filtration Rate 66 mL/min (>89); Glucose,Random 55 mg/dL (74-106); HDL Cholesterol 39.6 mg/dL (40.0-60.0); LDL Cholesterol,Calculated 82 mg/dL (0-99); Magnesium 2.1 mg/dL (1.5-2.5); Phosphorus 3.9 mg/dL (2.5-4.9); Potassium 3.4 meq/L (3.5-5.1); Sodium 141 meq/L (136-145); Total Protein 6.5 g/dL (6.4-8.2); Triglycerides 71 mg/dL (42-150)
[2018-01-08 03:56] LABS: Creatine Kinase 96 U/L (39-308)
[2018-01-08 03:57] LABS: Troponin I 1.21 ng/mL (0.02-0.05)
[2018-01-08] MEDS: QUEtiapine 100 MG Tablet PO SCH (09:18)
[2018-01-08] MEDS: QUEtiapine 25 MG Tablet PO SCH (09:18)
[2018-01-08] MEDS: Metoprolol Tartrate 25 MG Tablet PO SCH (09:18)
--- NOTE | 2018-01-08 09:59 | P.PNIM ---
Subjective Interval history: The patient was complaining of left upper quadrant pain. He said he was breathing comfortably. He wanted the shackles removed. Police were at the bedside. Discussed with nursing. Physical Exam Vital signs: Vital Signs 01/07/18 10:00 01/07/18 11:00 01/07/18 12:00 Temperature Pulse Rate 80 80 84 Respiratory Rate 15 16 16 Blood Pressure 109/72 126/82 149/94 H Pulse Oximetry 95 95 93 L 01/07/18 13:00 01/07/18 14:00 01/07/18 15:00 Temperature Pulse Rate 82 80 82 Respiratory Rate 15 17 14 Blood Pressure 117/77 132/85 132/87 Pulse Oximetry 93 L 93 L 93 L 01/07/18 16:00 01/07/18 17:53 01/07/18 20:00 Temperature Pulse Rate 81 89 87 Respiratory Rate 16 16 17 Blood Pressure 141/95 H 149/96 H 163/121 H Pulse Oximetry 93 L 98 01/07/18 21:00 01/08/18 00:00 01/08/18 04:00 Temperature 98.1 F Pulse Rate 87 68 57 L Respiratory Rate 17 14 25 H Blood Pressure 163/121 H 109/75 98/64 L Pulse Oximetry 01/08/18 08:00 Temperature Pulse Rate Respiratory Rate 20 Blood Pressure Pulse Oximetry Intake & Output 01/07/18 01/08/18 01/08/18 18:59 06:59 18:59 Weight 61.5 kg Other: Weight On Admission 61.5 kg Narrative: Gen.: No acute distress Head: Normocephalic. Atraumatic. EENT: Pupils equal round and reactive to light. Nose without drainage. Airway intact. Throat without injection. Cardiovascular: Regular rate and rhythm. No murmurs, rubs or gallops. Respiratory: Lungs clear to auscultation bilaterally. No wheezes or rhonchi. Abdomen: Soft, nontender, nondistended. No peritoneal signs. Musculoskeletal: No gross deformities. No edema. Skin: No obvious rashes or erythema. Neuro: Sensory and motor grossly intact. Cranial nerves II through XII grossly intact. Results - Labs CBC & Chem 7: 01/08/18 03:07 01/08/18 03:07 Laboratory Results - last 24 hr 01/07/18 01/07/18 01/07/18 09:55 11:25 16:40 WBC RBC Hgb Hct MCV MCH MCHC RDW Plt Count MPV Neut % (Auto) Lymph % (Auto) [place] % (Auto) Eos % (Auto) Baso % (Auto) Neut # (Auto) Lymph # (Auto) [place] # (Auto) Eos # (Auto) Baso # (Auto) WBC Differential Differential Comment APTT 31.8 H Sodium Potassium Chloride Carbon Dioxide Anion Gap BUN Creatinine Estimated GFR POC Glucose 163 H 138 H Random Glucose Calcium Phosphorus Magnesium Total Bilirubin AST ALT Alkaline Phosphatase Total Creatine Kinase Troponin I Total Protein Albumin Triglycerides Cholesterol LDL Cholesterol, Calc HDL Cholesterol Cholesterol/HDL Ratio Free T4 Nasal Screen MRSA (PCR) 01/07/18 01/07/18 01/07/18 17:40 19:33 19:33 WBC RBC Hgb Hct MCV MCH MCHC RDW Plt Count MPV Neut % (Auto) Lymph % (Auto) [place] % (Auto) Eos % (Auto) Baso % (Auto) Neut # (Auto) Lymph # (Auto) [place] # (Auto) Eos # (Auto) Baso # (Auto) WBC Differential Differential Comment APTT 32.8 H Sodium Potassium Chloride Carbon Dioxide Anion Gap BUN Creatinine Estimated GFR POC Glucose Random Glucose Calcium Phosphorus Magnesium Total Bilirubin AST ALT Alkaline Phosphatase Total Creatine Kinase 104 Troponin I 1.19 H* Total Protein Albumin Triglycerides Cholesterol LDL Cholesterol, Calc HDL Cholesterol Cholesterol/HDL Ratio Free T4 Nasal Screen MRSA (PCR) Not detected 01/07/18 01/08/18 01/08/18 19:46 03:07 03:07 WBC 13.0 H RBC 4.45 L Hgb 13.1 Hct 38.5 L MCV 86.5 MCH 29.3 MCHC 33.9 RDW 15.6 Plt Count 226 MPV 8.0 Neut % (Auto) 79.9 H Lymph % (Auto) 10.0 [place] % (Auto) 8.4 H Eos % (Auto) 0.8 Baso % (Auto) 0.9 Neut # (Auto) 10.4 H Lymph # (Auto) 1.3 [place] # (Auto) 1.1 H Eos # (Auto) 0.1 Baso # (Auto) 0.1 WBC Differential . Differential Comment Auto diff final APTT Sodium 141 Potassium 3.4 L Chloride 104 Carbon Dioxide 29.0 Anion Gap 8 BUN 27 H Creatinine 1.18 Estimated GFR 66 L POC Glucose 230 H Random Glucose 55 L D Calcium 8.3 L Phosphorus 3.9 Magnesium 2.1 Total Bilirubin 0.2 AST 25 ALT 22 Alkaline Phosphatase 284 H Total Creatine Kinase 96 Troponin I 1.21 H* Total Protein 6.5 Albumin 2.4 L Triglycerides 71 Cholesterol 136 LDL Cholesterol, Calc 82 HDL Cholesterol 39.6 L Cholesterol/HDL Ratio 3.43 Free T4 1.34 Nasal Screen MRSA (PCR) 01/08/18 01/08/18 01/08/18 03:07 05:39 05:58 WBC RBC Hgb Hct MCV MCH MCHC RDW Plt Count MPV Neut % (Auto) Lymph % (Auto) [place] % (Auto) Eos % (Auto) Baso % (Auto) Neut # (Auto) Lymph # (Auto) [place] # (Auto) Eos # (Auto) Baso # (Auto) WBC Differential Differential Comment APTT 34.5 H Sodium Potassium Chloride Carbon Dioxide Anion Gap BUN Creatinine Estimated GFR POC Glucose 48 L* 179 H Random Glucose Calcium Phosphorus Magnesium Total Bilirubin AST ALT Alkaline Phosphatase Total Creatine Kinase Troponin I Total Protein Albumin Triglycerides Cholesterol LDL Cholesterol, Calc HDL Cholesterol Cholesterol/HDL Ratio Free T4 Nasal Screen MRSA (PCR) 01/08/18 08:06 WBC RBC Hgb Hct MCV MCH MCHC RDW Plt Count MPV Neut % (Auto) Lymph % (Auto) [place] % (Auto) Eos % (Auto) Baso % (Auto) Neut # (Auto) Lymph # (Auto) [place] # (Auto) Eos # (Auto) Baso # (Auto) WBC Differential Differential Comment APTT Sodium Potassium Chloride Carbon Dioxide Anion Gap BUN Creatinine Estimated GFR POC Glucose 75 Random Glucose Calcium Phosphorus Magnesium Total Bilirubin AST ALT Alkaline Phosphatase Total Creatine Kinase Troponin I Total Protein Albumin Triglycerides Cholesterol LDL Cholesterol, Calc HDL Cholesterol Cholesterol/HDL Ratio Free T4 Nasal Screen MRSA (PCR) Assessment and Plan - Plan NSTEMI/CAD Initial troponin 1.[address] segment elevation or depression Patient with history of catheterization with stent placement, on Eliquis at home Cardiology consulted, appreciate recommendations. Medical management recommended. Continue heparin drip x 48 hours. Telemetry End-stage CHF Patient on hospice with [facility] who agrees to admission and workup Last Echo in the system done in 2017, shows EF of 30%. Patient reports an EF of 20%. 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 Chest x-ray without signs of pulmonary edema medical management Diabetes mellitus Holding home Lantus as patient has been hypoglycemic. ADAT. Sliding-scale insulin Monitor blood glucose Bipolar disorder Continue on Seroquel PPx: On Eliquis Discharge Planning: Anticipate d/c to custody of officers once cleared by cardiology
[2018-01-08 10:15] LABS: Hemoglobin A1c 10.5 % (4.3-6.0)
[2018-01-08 12:21] VITALS: BP 92/65; PULSE 59; RESP 24; TEMP 97.5; O2SAT 99
== END 2018-01-08 17:20 ==
LOC: NEPC 16:58 → NEDA 22:02 → NEDH 01-07 04:58 → HIMC 01-07 17:35
PROVIDERS: ADMIT Hospitalist; ATTEND Hospitalist